=== PATIENT | female | born 2000 | race Caucasian/White ===

== ENCOUNTER 2022-03-19 14:00 | Outpatient (CLI) | payer MEDICAID, SELFPAY ==
--- NOTE | 2022-03-19 14:00 | CRLHL7_ITS ---
For Patients: As a result of the Century Cures Act, medical imaging exams and procedure reports are released immediately into your electronic medical record. You may view this report before your referring provider. If you have questions, please contact your health care provider. CLINICAL HISTORY: Chronic sinusitis. TECHNIQUE: CT of the paranasal sinuses without contrast. Multiplanar reformats are included. COMPARISON: None. FINDINGS: Frontal sinuses/frontal sinus drainage pathways and anterior ethmoid air cells: The frontal sinuses are well aerated. The anterior ethmoid air cells are well aerated. The frontoethmoidal recesses are not obstructed. Posterior sinus group (posterior ethmoid air cells and sphenoid sinuses)/sphenoethmoidal recesses: The posterior ethmoid air cells are well aerated. The sphenoid sinuses are well aerated. The sphenoid sinus ostia and sphenoid ethmoidal recesses are not obstructed. Maxillary sinuses and ostiomeatal complexes: Moderate to advanced polypoid mucosal thickening right maxillary sinus. The ostium is obstructed. There is an accessory ostium within the medial maxillary sinus wall which is patent. The left maxillary sinus is well aerated and the ostium is not obstructed. Turbinates: Within normal limits. Nasal septum: Within normal limits. Nasal cavity: Relatively midline. Skullbase, maxilla, TMJ: Keros type 2 on the left. Keros type 2 on the right. No lytic or blastic osseous lesions. No periapical tooth lucencies. Mastoid air cells are clear. Orbital contents: Within normal limits. Imaged intracranial contents: Within normal limits. Imaged soft tissues structures: Within normal limits. IMPRESSION: 1. Moderate to advanced polypoid right maxillary sinus mucosal thickening with obstruction of the ostium. There is an accessory ostium within the medial maxillary sinus wall which is patent. 2. Remaining paranasal sinuses are well aerated. Please note that all CT scans at this facility use dose modulation, iterative reconstruction, and/or weight-based dosing when appropriate to reduce radiation dose to as low as reasonably achievable. Dictated by oHlger Montalvo MD @ 03/19/2022 4:07:33 PM (Electronically Signed)
--- OUTSIDE RECORDS SUMMARY | 2022-03-19 14:30 | XMS_ITS | Encounter Summary ---
:2000 Author Organization [facility] Address [address] [place] [address] Care Team Providers Name Role Phone Christin Palacios PA-C Primary Care Provider Encounter Details Date Type Department Care Team Description 09/02/2021 Telemedicine [facility] Christin Palacios, Bilateral bunions (Primary Dx); Medicine [facility] Anxiety; [address] Kelin alas concentrating [address] [place] [address] [place] [address] [phone] Social History Tobacco Use Types Packs/Day Years Used Date Smoking Tobacco: Passive Smoke Exposure - Never Smoker Smokeless Tobacco: Never Comments: some THC use Alcohol Use Standard Drinks/Week Comments Not Currently 0 (1 standard drink = 0.6 oz pure alcoho l) socially Sex Assigned at Date Recorded Not on file documented as of this encounter Progress Notes Christin Palacios PA-C - 09/02/2021 10:40 AM CDT Subjective: Today's visit with Marychuy was conducted as a scheduled video visit. She is presenting for follow up foot pain. She has h/o bunion 2 weeks of home bound care. And then 4 weeks on a scooter - so seated work, then She is only an FTE of 0.3 - works 24 hours/every 2 weeks. She is worried about the financial stress of not working during that time. Currently she is picking up extra working and getting time and a half. She is concerned about transportation as well. She isn't sure if the bus would take her or if she can drive safely with her left foot during the post op recovery time. She would still need to take out her dog - her roommate and friends have left for summer. She is wanting to cancel her surgery for now. She feels there are Pros and Cons to the get her surgery done now, but currently the cons outweigh the surgery. She is worried about if she will damage the foot further if she doesn't get her surgery, but then again the financial stress if she does get the surgery. Thursday her foot hurt from during her 7-3 shifts, but currently her foot doesn't hurt. She is wondering about home treatment options. Reports she got ADHD testing done about a month ago, but hasn't had the full assessment - as she wasworried about the coverage. Reports she hasn't heard specific results. Anxiety has also increased as of lately - Stress and anxious going back and forth about the surgery. Worried school will also cause her anxiety to increase. She is on Leaxapro 30 mg and Buspar 10 mg BID. Objective: There were no vitals taken for this visit. Constitutional: She is oriented to person, place, and time and well-developed, well-nourished, and in no distress. Neurological: She is alert and oriented to person, place, and time. Skin: Skin is warm and dry. Psychiatric: Mood and affect normal Assessment/Plan: 1. Bilateral bunions 2. Anxiety (HRC) 3. Difficulty concentrating Bunion - Reviewed this is an elective surgery - ultimately this is your decision -Reviewed If she decided to postpone the surgery does not prevent her from getting the surgery in the future - Discussed it is possible pain will progress, but it may remain stable - Discussed it is not medically dangerous to postpone the surgery - In the meantime recommend good supportive shoes with wide toe box and Naproxen as needed Anxiety - Continue Lexapor 30 mg - Increase the Buspar to 10 mg twice daily - Follow up in 4 weeks ADHD concerns - Follow up with your therapist to get a copy of the resutls. Clinician located at home. Patient located at other [employer] apt Billing based on: Complexity Christin Palacios PA-C documented in this encounter Plan of Treatment Not on filedocumented as of this encounter Visit Diagnoses Diagnosis Bilateral bunions - Primary Bunion Anxiety (HRC) Anxiety state, unspecified Difficulty concentrating Other general symptoms documented in this encounter Care Teams Armored Truck Driver Relationship Specialty Start Date End Date Christin Palacios PA-C PCP - General Physician Sales Representative Supervisor 05/12/14 [address] [facility] [place] [address] documented as of this encounter
--- OUTSIDE RECORDS SUMMARY | 2022-03-19 14:30 | XMS_ITS | Encounter Summary ---
:2000 Author Organization [facility] Address [address] [place] [address] Care Team Providers Name Role Phone Christin Palacios PA-C Primary Care Provider Reason for Visit Reason Comments [facility] tooth #15 Encounter Details Date Type Department Care Team Description 04/25/2021 Office Visit [facility] Aneta Guevara ADT [facility] Dent[facility] [address] [facility] (tooth #15) [address] [place] [address] [place] [address] [phone] Social History Tobacco Use Types Packs/Day Years Used Date Smoking Tobacco: Passive Smoke Exposure - Never Smoker Smokeless Tobacco: Never Alcohol Use Standard Drinks/Week Comments Not Currently 0 (1 standard drink = 0.6 oz pure alcoho l) socially Sex Assigned at Date Recorded Not on file documented as of this encounter Progress Notes Aneta Guevara ADT - 04/25/2021 11:40 AM CST DENTAL VISIT NOTE Subjective Reason for Visit/Chief Complaint: Marychuy is a 20 y.o. female who presents for [facility] (tooth #15) Chief Complaint: Decay Objective/Assessment Chart Review: The following information was reviewed with the patient: Medical history, Dental history, Problem list, Periodontal charting and Radiographs. PROGNOSIS: #15 Favorable Plan Treatment Discussion: I discussed the Dental findings, Prognosis, Treatment options, Risks and complications associated with procedure and Billing/Treatment estimate with patient. All questions answered and the patient gave informed consent to proceed with dental treatment/services. Procedural Pause: Patient identity verified: Yes Treatment plan/site verified with the patient: Yes Instruments/equipment verified: Yes Medication/allergy contraindications: No Completed Procedures: NITROUS OXIDE/OXYGEN inhalation therapy was indicated to reduce anxiety. Informed the patient of the effects of nitrous oxide and oxygen and they gave permission to proceed with induction and treatment under nitrous oxide sedation. Patient was under nitrous oxide sedation for 25 total minutes. The maximum concentration of nitrous oxide administered was 50%. Post procedural oxygen was administered for 5 minutes. No adverse reactions observed. Patient was alert when discharged. Nitrous Oxide was administered by BRAULIO Jimenez ANESTHESIA: Topical with 20% benzocaine 1.0 carpules 4% septocaine with 1:100,000 epinephrine was administered with infiltration in #15 No adverse side effects observed. Anesthesia was administered by BRAULIO Jimenez AMALGAM BUDDHISM, #15: Prepared with complete caries removal Isolated area with high speed suction and a cheek guard Liner/Varnish/Base: N/A Bonding: N/A Preparation filled with amalgam Verified occlusion, contacts and margins POST-OP INSTRUCTIONS: Patient was advised of normal post-operative instructions and potential for post-operative sensitivity Care was assisted by Ingris Mccord Planned Visit: Recall BRAULIO Jimenez [id number] 04/25/2021, 12:18 PM Treatment Authorized by Dr. Lora Escobar [id number] --End of Progress Note-- 12:16 PM ECTOR RETURNED MATERIALS documented in this encounter Plan of Treatment Not on filedocumented as of this encounter Procedures Procedure Name Priority Date/Time Associated Diagnosis Comme nts ANALGESIA (NITROUS) Routine 04/25/2021 11:40 AM Dental caries extending INSPECTOR RETURNED MATERIALS into middle third of dentin 15 O AMALGAM-1 SURFACE Routine 04/25/2021 11:40 AM Dental rosa es extending INSPECTOR RETURNED MATERIALS into middle third of dentin documented in this encounter Visit Diagnoses Diagnosis Dental caries extending into middle thir d of dentin - Primary documented in this encounter Care Teams Casino Worker Relationship Specialty Start Date End Date Christin Palacios PA-C PCP - General Physician Brokerage Coordinator 05/12/[address] [place] [address] documented as of this encounter
--- OUTSIDE RECORDS SUMMARY | 2022-03-19 14:30 | XMS_ITS | Encounter Summary ---
:2000 Author Organization [facility] Address [address] [place] [address] Care Team Providers Name Role Phone Christin Palacios PA-C Primary Care Provider Reason for Visit Reason Comments CONSULT Bilat ft bunions & Tailors b unions Consult/Transfer Care (Routine) - New Request Specialty Diagnoses / Procedures Referred By Contact Refer red To Contact Diagnoses Bilateral bunions Christin Palacios PA-C [address] [address] Referral ID Status Reason Start Date Expiration Date Visits V isits Requested Authorized [id number] New Request 04/09/2021 07/09/2022 1 1 Encounter Details Date Type Department Care Team Description 05/06/2021 Office Visit Tammie Reyez s deformity of both great toes (Primary Dx); Podiatric Medicine & M, DPM Tailor's bunion of both feet Surgery [address] [place], [place] [address] [place], [place] [phone] (Wo rk) Social History Tobacco Use Types Packs/Day Years Used Date Smoking Tobacco: Passive Smoke Exposure - Never Smoker Smokeless Tobacco: Never Comments: some THC use Alcohol Use Standard Drinks/Week Comments Not Currently 0 (1 standard drink = 0.6 oz pure alcoho l) socially Sex Assigned at Date Recorded Not on file documented as of this encounter Patient Instructions Patient InstructionsSaTammie johnson DPM - 05/06/2021 10:45 AM ESCROW ASSISTANT Bilateral bunions and Tailor's bunions: Wide toe box shoes, spacer, pads Surgery: Lapidus bunionectomy (1st tmt joint fusion/midfoot fusion) with Tailors bunionectomy Daisy Martin is closer for you: [phone] - Dr.Troy Epps OW ASSISTANT documented in this encounter Progress Notes Tammie Walsh DPM - 05/06/2021 12:00 AM CST NAME: MYRANDA BRANDT CSN: [id number] CLINIC NOTE DATE OF SERVICE: 05/06/2021 : 2000 SUBJECTIVE: Patient is a 20-year-old female seen today at the request of Christin Palacios PA-C, for evaluation of bilateral bunions and tailor bunions. The patient reports pain with certain shoes if she has to stand for a long period of time. She also has some sharp, numbing, shooting pains as well alongthe great toe area, right slightly worse than left because she drives a lot and feels that contributes. She rates pain as a 6 to 7 on a 1 to 10 scale. She feels she has had bunions all her life. PAST MEDICAL HISTORY/CURRENT MEDICAL PROBLEMS: Depression, anxiety, allergic rhinitis, overweight, undiagnosed cardiac murmur. MEDICATIONS: Reviewed and updated in Epic. ALLERGIES: REVIEWED AND UPDATED IN EPIC. OBJECTIVE: GENERAL: The patient is an alert and oriented 20-year-old female who is in no acute distress. LOWER EXTREMITIES: Pedal pulses are palpable bilaterally. Distal light touch sensation is intact. Skin is intact without rashes or scaling. She has a bilateral hallux valgus deformity with bony prominence at the medial 1st MTP joint and abduction of both great toes. Also tailor bunion deformities withbony prominence at the lateral 5th MTP joint. There is normal range of motion of the 1st and 5th MTPjoints bilaterally. There is no obvious edema or erythema. IMAGING: Radiographs are obtained, 3 views of both feet reviewed and interpreted by myself, demonstrate bilateral hallux valgus deformities, increased 1st intermetatarsal and CARBALLO angle. There is metatarsus adductus bilaterally and mild tailor bunions bilaterally. ASSESSMENT: 1.Hallux abductovalgus. 2.Bilateral tailor bunion. PLAN: Reviewed clinical and radiographic findings with Myranda and treatment options. We discussed conservative management to consist of wide toe box shoes, spacers, padding, etc. Reviewed that bunions are typically hereditary and that she just inherited her foot structure and is prone to this. We discussed correction of the bunion requires surgical intervention. Since she has a juvenile bunion, I think she may do better with a 1st TMT joint fusion/Lapidus bunionectomy along with tailor bunionectomy.The procedure was reviewed as well as presumed postop recovery course. She is interested in having procedure done closer to where she is at. 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 Epps as a provider. All questions were answered today. TAMMIE WALSH DPM SMS/AQS /[id number] OW ASSISTANT documented in this encounter Plan of Treatment Scheduled Referrals Name Type Priority Associated Diagnoses Order S chedule Foot & Ankle/Podiatry Referral Routine Bilateral bunions O rdered: 04/09/2021 Consult-Adult/Peds documented as of this encounter Visit Diagnoses Diagnosis Valgus deformity of both great toes - Pr imary Navin's bunion of both feet documented in this encounter Care Teams Automotive Internet Sales Manager Relationship Specialty Start Date End Date Christin Palacios PA-C PCP - General Physician Medical Practice Administrator 05/12/[address] [place] [address] documented as of this encounter
--- OUTSIDE RECORDS SUMMARY | 2022-03-19 14:30 | XMS_ITS | Encounter Summary ---
:2000 [facility] Address [address] [place] [address] Care Team Providers Name Role Phone Christin Palacios PA-C Primary Care Provider Reason for Visit Procedure/Equipment (Routine) - Incomplete Specialty Diagnoses / Procedures Referred By Contact Refer red To Contact Diagnoses Tammie Khan DPM Procedures XR Foot Lt 3+ Views [address] [place], [place] [address] Referral ID Status Reason Start Date Expiration Date Visits V isits Requested Authorized [id number] Incomplete 05/03/2021 08/02/2022 1 1 Encounter Details Date Type Department Care Team Description 05/06/2021 Ancillary Procedure [facility] - M, DPM Radiology [address] [place], [place] [address] [place], [place] [phone] (Wo rk) Social History Tobacco Use Types Packs/Day Years Used Date Smoking Tobacco: Passive Smoke Exposure - Never Smoker Smokeless Tobacco: Never Comments: some THC use Alcohol Use Standard Drinks/Week Comments Not Currently 0 (1 standard drink = 0.6 oz pure alcoho l) socially Sex Assigned at Date Recorded Not on file documented as of this encounter Plan of Treatment Not on filedocumented as of this encounter Procedures Procedure Name Priority Date/Time Associated Diagnosis Comme nts XR FOOT LT 3+ VIEWS Routine 05/06/2021 10:52 AM Bunion R esults for this GLASS OR MIRROR INSPECTOR procedure are i n the results section. documented in this encounter Results XR Foot Lt 3+ Views (05/06/2021 10:52 AM GLASS OR MIRROR INSPECTOR) Anatomical Region Laterality Modality Lower Extremity, Foot Digital Radiograph y Specimen (Source) Anatomical Collection Method Collection Time Re ceived Time Location / / Volume Laterality 05/06/2021 10:41 AM GLASS OR MIRROR INSPECTOR Impressions 05/06/2021 11:23 AM GLASS OR MIRROR INSPECTOR COMPARISON: ??None. FINDINGS: ??Hallux valgus deformity. No acute bone or joint abnormalities. The remainder of the exam is unremarkable. ?? Procedure Note Allan Kothari MD - 05/06/2021For matting of this note might be different from the original. IMPRESSION COMPARISON: None. FINDINGS: Hallux valgus deformity. No ac alejandro bone or joint abnormalities. The remainder of the exam is unremarkable. Tammie Crowell DPM RAD GD documented in this encounter Visit Diagnoses Diagnosis Bunion documented in this encounter Care Teams Lead Painter Relationship Specialty Start Date End Date Christin Palacios PA-C PCP - General Physician Motor Driver 05/12/14 [address] [place] [address] [address] [address] documented as of this encounter
--- OUTSIDE RECORDS SUMMARY | 2022-03-19 14:30 | XMS_ITS | Encounter Summary ---
:2000 Author Organization [facility] Address [address] [place] [address] Care Team Providers Name Role Phone Christin Palacios PA-C Primary Care Provider Reason for Referral Procedure/Equipment (Routine) - Incomplete Specialty Diagnoses / Procedures Referred By Contact Refer red To Contact Diagnoses Acquired hallux valgus of right foot Timothy Epps DPM Procedures Case Request OR - Podiatry Surgery: FUSION MIDFOOT, cheilectomy, MCLR, TAILORS BUNIONECTOMY [address] [place] [address] Referral ID Status Reason Start Date Expiration Date Visits V isits Requested Authorized [id number] Incomplete 05/16/2021 08/15/2022 1 1 M APPROVER Reason for Visit Reason Comments CONSULT Encounter Details Date Type Department Care Team Description 05/16/2021 Office Visit Timothy Castellano, Acquired h allux valgus of right foot (Primary Dx); [facility] DPM Tailor's bunion of both feet; [address] [place] [address] [place], [place] [phone] [address] Social History Tobacco Use Types Packs/Day Years Used Date Smoking Tobacco: Passive Smoke Exposure - Never Smoker Smokeless Tobacco: Never Comments: some THC use Alcohol Use Standard Drinks/Week Comments Not Currently 0 (1 standard drink = 0.6 oz pure alcoho l) socially Sex Assigned at Date Recorded Not on file documented as of this encounter Patient Instructions Patient InstructionsZulay Yi LPN - 05/16/2021 11:00 AM CLAIM APPROVER Thank you for choosing [facility] for your health care visit today. Please read the contents below for important information regarding today's appointment. Medication Requests: Prescriptions are not filled on weekends or on weekdays after 3:00 PM. For all medication refills: Request a refill using [employer] or contact your pharmacy. MRI Scheduling: To schedule an MRI at [facility] please call [phone]. For Critical access hospital please call [phone]. For [facility] please call [phone]. [facility] Workers' Compensation [address] [place] [address] (Phone) What is Know Your Cost? Know Your Cost is a service for patients and patient/members to call and receive personalized cost information and estimates across our care group. The phone number is (COST) and is openThursday - Thursday from 8 a.m. to 5 p.m. Timothy Epps DPM Foot & Ankle Surgeon [facility] Thursday and Paperwork Requests/Questions Regarding Surgery Scheduling: All paperwork takes up to 10 business days to complete. Pattern Marker: Debora Frankel Navigator: Zak Bullard LPN Diagnosis: Diagnosis and Associated Orders ICD-10-CM 1. Acquired hallux valgus of right foot M20.11 2019 Novel Coronavirus (COVID-19) Case Request OR - Podiatry Surgery: FUSION MIDFOOT, cheilectomy, MCLR, TAILORS BUNIONECTOMY Case Request OR - Podiatry Surgery: FUSION MIDFOOT, cheilectomy, MCLR, TAILORS BUNIONECTOMY 2. Tailor's bunion of both feet M21.621 M21.622 3. Bunion M21.619 A bunion is commonly referred to as a ???bump?? on the joint at the base of the big toe--the metatarsophalangeal (MTP) joint--that forms when the bone or tissue at the big toe joint moves out of place. The toe is forced to bend toward the others, causing an often painful lump of bone on the foot. Because this joint carries a lot of the body's weight while walking, bunions can cause extreme pain if left untreated. The MTP joint itself may become stiff and sore, making even the wearing of shoes difficult or impossible. A bunion--from the Latin bunio, meaning enlargement--can also occur on the outside of the foot along the little toe, where it is called a bunionette or tailor's bunion. What can you do for relief? ?? Bunion pain can be managed successfully by switching to shoes that fit properly and do not compress the toes. Some shoes can be modified by using a stretcher to stretch out the areas that put pressure on your toes. Wear shoes with a wide and deep toe box. Avoid high-heeled shoes over two inches tall. ?? Protective bunion-shield pads can help cushion the painful area over the bunion. ?? To take pressure off your bunion, recommend wearing [id number] or custom-made shoe inserts (orthotics). ?? Applying ice several times a day for 20 minutes at a time can help reduce swelling. ?? Nonsteroidal anti-inflammatory medications such as ibuprofen and naproxen can help relieve pain and reduce swelling. Surgery Possible procedures: ?? Cheilectomy with ligament repair: The goal of surgery is removing bone spurs while preserving bigtoe joint motion. ?? Bunionectomy with Distal osteotomy, cheilectomy with ligament repair: removes the jina protrusion, reposition the big toe and removing bone spurs. Weight bearing in a surgical shoe. ?? 1st MPJ fusion- fusing the great toe joint, any remnant cartilage on the arthritic joint surface is removed and the underlying bone is prepared for fusion. ?? Midfoot fusion: fusing the 1st metatarsal to the medial cuneiform, any remnant cartilage on the arthritic joint surface is removed and the underlying bone is prepared for fusion. Surgery is outpatient and can be completed here at [facility]. Recovery is 10 week; non-weight bearing for initial 6 weeks with help from a knee scooter. You will then transition to weight bearing in a boot for an additional 4 weeks. Plan: -Proceed with surgery on the right foot Follow-Up: 1 week prior to surgery M APPROVER documented in this encounter Progress Notes Zak Burk LPN - 05/16/2021 11:00 AM CST Subjective: Marychuy Le is a 20 y.o. non-diabetic female who presents for initial evaluation Chief complaint: Foot pain Preferred name: Marychuy Accompanied by: unaccompanied. Which foot: bilateral How long have you had this problem: She has had Bunions for as long as she can remember. She states she has been having intermittent pain for the last 6 months Is the pain worsening, staying the same or improving: staying the same What does your pain feel like: sharp, throbbing, achy. Do you have radiating pain: yes, bilaterally has pain that travels to dorsal side of feet and feels numbness in big toes Treatment so far: ice, new shoes, stretching, heat and decreased activity Pain scale: 4 Does your pain limit your work or activities: yes, when working and kickboxing and playing volleyball.. Was there an injury: no Was there swelling or bruising: yes, no bruising but redness is present Is there weakness: no Have you ever had similar problems: no Have you ever had foot or ankle surgery: no Have you seen someone else for this problem: yes, Dr. 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 Personal medical history: denies diabetes or other medical conditions Family medical history: arthritis, Did you have X-rays taken today? no Marychuy is a 20 year old female here to discuss bilateral bunions and tailor's bunions. Right side isslightly worse than the left Primary point of pain is right great toe. Pain worsens with certain shoes, prolonged standing, driving. Treatment to date include icing, new shoes, reduced activity. Objective: General Assessment: Patient is alert and fully cooperative with history & exam. No sign of distress is noted during the visit. Vascular: Normal circulation is found on exam bilaterally with intact foot pulses, capillary refill less than three seconds and no pathologic edema. Hair growth is intact. Neurological: Sensation is intact to light touch and there is no evidence of spasticity. Dermatologic: Dermatologic exam is normal without evidence of pathologic findings. No open wounds, infection or tissue breakdown. No paronychia is noted. Musculoskeletal: Hallux abducto valgus is noted with bilateral foot exam. Lateral deviation of the first toe is appreciated. A bump is noted on the medial aspect of the first metatarsal head. Evidence of soft tissue irritation is noted over the dorsal medial aspect of the first metatarsal head. No significant evidence of degenerative arthritis is appreciated. No significant sesamoid pain is noted plantarly. I do not appreciate significant pain with joint motion. Tailor's bunion deformity is noted with bilateral foot exam. The fifth metatarsal head is prominent with overlying soft tissue irritation and is painful to palpation. There is not palpable deformity ofthe metatarsal head. There is no noted hypermobility within the 5th ray. There is not evidence of ass ociated neuritis. MEDICAL DECISION MAKING Diagnosis: ??? New development of Hallux valgus, Bialteral ??? New development of Tailor's bunion, Bilateral Data Review: ??? Review prior external medical records: Dr. Crowell OV on 05/06/21 ??? Review of prior test results: X-ray on 05/06/21 Plan and Associated High Level of Risk: ??? Decision regarding elective major surgery with/without identified patient or procedure risk factors: We discussed treatment alternatives regarding bunion pain and deformity. I explained that bunion surgery is mostly to reduce the size of the medial bump although an attempt is made to improve the firsttoe alignment. Bunion deformity is usually progressive and further drifting of the toe may occur even with surgery. I explained that surgery sometimes needs to be repeated especially if recurrent deformity or over-correction of toe position occurs. The potential for hallux varus was specifically addressed. This is not entirely avoidable and is likely to be a significant problem if this develops. Thiswould likely require repeat surgery and possibly fusion of the joint. Non-operative treatments were discussed including wide fitting shoes, splints, pads and orthotics. Wide fitting shoes are likely the most useful non-surgical treatment. I would not expect much improvement from NSAIDs, injection or bunion night splints. Potential complications from surgery were discussed. Specific bunion related concerns include over-correction, under-correction, recurrent deformity, non- union, neuritis, numbness, infection, avascularnecrosis, need for future joint fusion, future hardware removal, joint pain and continued bunion deformity. Treatment of Tailor's bunion deformity was discussed at length. Non-surgical treatments were described to primarily include wide fitting shoes, injection and protective padding over the irritated skin.We discussed surgical treatments to include bump removal or bump removal with metatarsal osteotomy to include internal fixation. Risks associated with surgery were described including loss of fixation or correction, need for repeat surgery, dislocation of the toe, neuritis, continued pain, infection or blood clot. The patient understands that surgery is elective and can be avoided if desired. Likely surgical procedures based on exam and xray findings include right midfoot fusion, cheilectomy, MCLR, tailors bunionectomy (midshaft osteotomy). Surgery order was placed today. She will schedule at her convenience and return for surgery planningprior to surgery. Given all of the above, there is high risk associated with the condition, patient, and treatment options being considered. Mason Carroll DPM Foot & Ankle Surgery, Chief Resident This document serves as a record of services personally performed by Timothy Epps DPM. It was created on his behalf by Zak Burk LPN. The creation of this record is based on the scribe's personal observations and the provider's statements to them. This document has been checked and approved by the attending provider. I managed this patient directly and performed the martin portions of the visit for day of service 05/16/2021. Please see resident documentation for full note. Timothy Epps DPM M APPROVER documented in this encounter Plan of Treatment Scheduled Orders Name Type Priority Associated Diagnoses Order S chedule 2019 Novel Coronavirus Microbiology Routine Acquired hallux Ex pected: (COVID-19) valgus of right foot 022, Expires: 2022 documented as of this encounter Visit Diagnoses Diagnosis Acquired hallux valgus of right foot - P rimary Hallux valgus (acquired) Tailor's bunion of both feet Bunion documented in this encounter Care Teams Capture Manager Relationship Specialty Start Date End Date Christin Palacios PA-C PCP - General Physician Retail Warehouse Associate 05/12/14 [address] [place] [address] [address] [address] documented as of this encounter
--- OUTSIDE RECORDS SUMMARY | 2022-03-19 14:30 | XMS_ITS | Encounter Summary ---
:2000 [facility] Address [address] [place] [address] Care Team Providers Name Role Phone Christin Palacios PA-C Primary Care Provider Reason for Visit Reason Comments Forms Encounter Details Date Type Department Care Team Description 10/17/2021 Telephone [facility] Christin Palacios PA-C Forms [address] [address] [address] [place] [address] [place] [address] [phone] Social History Tobacco Use Types Packs/Day Years Used Date Smoking Tobacco: Passive Smoke Exposure - Never Smoker Smokeless Tobacco: Never Comments: some THC use Alcohol Use Standard Drinks/Week Comments Not Currently 0 (1 standard drink = 0.6 oz pure alcoho l) socially Sex Assigned at Date Recorded Not on file documented as of this encounter Nursing Notes Christin Palacios PA-C - 10/18/2021 10:14 AM CDT I am not in clinic today. Will reach out to rooming staff through [employer] to see if they canprint form and have one of my partners sign Immunization verification form in my absence. Christin Palacios PA-C 10/18/2021, 10:18 AM Jerri Leigh RN - 10/17/2021 2:27 PM CDT Clinician Action: Form/Letter completion Clinician Next Step: Reply in MyChart Specific Request(s): 1. See message Roxanne Plata - 10/17/2021 1:49 PM CDT Pt states she forgot to send a 2nd sheet, forms are from [facility] for school, pt states she'll send this through my chart, pt states she need Christin to sign it sony please documented in this encounter Plan of Treatment Not on filedocumented as of this encounter Visit Diagnoses Not on filedocumented in this encounter Care Teams Supervisor Alum Plant Relationship Specialty Start Date End Date Christin Palacios PA-C PCP - General Physician Lanolin Plant Operator 05/12/14 [address] [place] [address] [address] [address] documented as of this encounter
--- OUTSIDE RECORDS SUMMARY | 2022-03-19 14:30 | XMS_ITS | Encounter Summary ---
:2000 Author Organization [facility] Address [address] [place] [address] Care Team Providers Name Role Phone Christin Palacios PA-C Primary Care Provider Encounter Details Date Type Department Care Team Description 08/22/2021 Notes/Orders [facility] Timothy Swenson i, DPM [address] [place] [address] [place], [place] [id number] [phone] Social History Tobacco Use Types Packs/Day Years [...] on filedocumented in this encounter Care Teams Hearing Stenographer Relationship Specialty Start Date End Date Christin Palacios PA-C PCP - General Physician Bricklayer Tender 05/12/[address] [place] [address] documented as of this encounter
--- OUTSIDE RECORDS SUMMARY | 2022-03-19 14:30 | XMS_ITS | Encounter Summary ---
:2000 Author Organization [facility] Address [address] [place] [address] Care Team Providers Name Role Phone Christin Palacios PA-C Primary Care Provider Encounter Details Date Type Department Care Team Description 07/29/2021 Telemedicine [facility] Christin Palacios, [facility] Medicine ANGEL concentrating (Primary [address]) [address] [place] [address] [place] [address] [phone] Social History Tobacco Use Types Packs/Day Years Used Date Smoking Tobacco: Passive Smoke Exposure - Never Smoker Smokeless Tobacco: Never Comments: some THC use Alcohol Use Standard Drinks/Week Comments Not Currently 0 (1 standard drink = 0.6 oz pure alcoho l) socially Sex Assigned at Date Recorded Not on file documented as of this encounter Progress Notes Christin Palacios PA-C - 07/29/2021 9:00 AM CDT Subjective: Today's visit with Marychuy was conducted as a scheduled video visit. Marychuy Le is a 20 y.o. female presenting for ADHD/focus concerns. Reports all her life she has been told by others she has ADHD, but has not done any medications or treatment. She does feel her focus on school is continuing to struggle would like to move forward with ADHD evaluation She is in [place] for school currently. Feels her mood is stable. Objective: There were no vitals taken for this visit. Constitutional: She is oriented to person, place, and time and well-developed, well-nourished, and in no distress. Neurological: She is alert and oriented to person, place, and time. Skin: Skin is warm and dry. Psychiatric: Mood and affect normal Assessment/Plan: 1. Difficulty concentrating - Reviewed ADHD testing process - She will look into local providers and update me for referral on location Clinician located at home. Patient located at other Dorm room Billing based on: Complexity Christin Palacios PA-C documented in this encounter Plan of Treatment Not on filedocumented as of this encounter Visit Diagnoses Diagnosis Difficulty concentrating - Primary Other general symptoms documented in this encounter Care Teams High Speed Printer Operator Relationship Specialty Start Date End Date Christin Palacios PA-C PCP - General Physician Final Rail Cutter 05/12/[address] [place] [address] documented as of this encounter
--- OUTSIDE RECORDS SUMMARY | 2022-03-19 14:30 | XMS_ITS | Encounter Summary ---
:2000 Author [facility] Address [address] [place] [address] Care Team Providers Name Role Phone Christin Palacios PA-C Primary Care Provider Encounter Details Date Type Department Care Team Description 02/06/2021 Notes/Orders [facility] Randall Mcdowell DDS Dentistry [address] [facility] [address] [place] [address] [place] [address] [phone] Social History Tobacco Use Types Packs/Day Years Used Date Smoking Tobacco: Passive Smoke Exposure - Never Smoker Smokeless Tobacco: Never Alcohol Use Standard Drinks/Week Comments Not Currently 0 (1 standard drink = 0.6 oz pure alcoho l) socially Sex Assigned at Date Recorded Not on file documented as of this encounter Progress Notes Randall Mcdowell DDS - 02/06/2021 2:02 PM CDT Letter from [facility] [place] stating that Marychuy was seen for a hygiene recall. Randall Mcdowell DDS documented in this encounter Plan of Treatment Not on filedocumented as of this encounter Visit Diagnoses Not on filedocumented in this encounter Care Teams Vehicle Return Associate Relationship Specialty Start Date End Date Christin Palacios PA-C PCP - General Physician Rice Field Worker 05/12/14 [address] [place] [address] documented as of this encounter
--- OUTSIDE RECORDS SUMMARY | 2022-03-19 14:30 | XMS_ITS | Encounter Summary ---
:2000 Author Organization [facility] Address [address] [place] [address] Care Team Providers Name Role Phone Christin Palacios PA-C Primary Care Provider Reason for Referral Procedure/Equipment (Routine) - Incomplete Specialty Diagnoses / Procedures Referred By Contact Refer red To Contact Diagnoses Tammie Khan DPM Procedures XR Foot Lt 3+ Views [address] [place], [place] [address] Referral ID Status Reason Start Date Expiration Date Visits V isits Requested Authorized [id number] Incomplete 05/03/2021 08/02/2022 1 1 TRICIAN HELPER Procedure/Equipment (Routine) - Incomplete Specialty Diagnoses / Procedures Referred By Contact Refer red To Contact Diagnoses Tammie Khan DPM Procedures XR Foot Rt 3+ Views [address] [place], [place] [address] Referral ID Status Reason Start Date Expiration Date Visits V isits Requested Authorized [id number] Incomplete 05/03/2021 08/02/2022 1 1 TRICIAN HELPER Encounter Details Date Type Department Care Team Description 05/03/2021 Notes/Orders Tammie Reyez (Primary Dx) Podiatric Medicine & M, DPM Surgery [address] [facility] [address] [place], [place] [address] [place], [place] [phone] (Wo rk) Social History Tobacco Use Types [...] Not on filedocumented as of this encounter Results XR Foot Lt 3+ Views (05/06/2021 10:52 AM ELECTRICIAN HELPER) Anatomical Region Laterality Modality Lower Extremity, Foot Digital Radiograph y Specimen (Source) Anatomical Collection Method Collection Time Re ceived Time Location / / Volume Laterality 05/06/2021 10:41 AM ELECTRICIAN HELPER Impressions 05/06/2021 11:23 AM ELECTRICIAN HELPER COMPARISON: ??None. FINDINGS: ??Hallux valgus deformity. No acute bone or joint abnormalities. The remainder of the exam is unremarkable. ?? Procedure Note Allan Kothari MD - 05/06/2021For matting of this note might be different from the original. IMPRESSION COMPARISON: None. FINDINGS: Hallux valgus deformity. No ac campo bone or joint abnormalities. The remainder of the exam is unremarkable. Tammie Crowell DPM RAD GD XR Foot Rt 3+ Views (05/06/2021 10:52 AM ELECTRICIAN HELPER) Anatomical Region Laterality Modality Lower Extremity, Foot Digital Radiograph y Specimen (Source) Anatomical Collection Method Collection Time Re ceived Time Location / / Volume Laterality 05/06/2021 10:40 AM ELECTRICIAN HELPER Impressions 05/06/2021 11:22 AM ELECTRICIAN HELPER COMPARISON: ??None. FINDINGS: ??Hallux valgus deformity. No acute bone or joint abnormalities. The remainder of the exam is unremarkable. ?? Procedure Note Allan Kothari MD - 05/06/2021For matting of this note might be different from the original. IMPRESSION COMPARISON: None. FINDINGS: Hallux valgus deformity. No ac campo bone or joint abnormalities. The remainder of the exam is unremarkable. Tammie Crowell DPM RAD GD documented in this encounter Visit Diagnoses Diagnosis Bunion - Primary Bunion Bunion documented in this encounter Care Teams Sock And Stocking Ironer Relationship Specialty Start Date End Date Christin Palacios PA-C PCP - General Physician Rpg Programmer 05/12/[address] [place] [address] documented as of this encounter
--- OUTSIDE RECORDS SUMMARY | 2022-03-19 14:30 | XMS_ITS | Encounter Summary ---
:2000 Author Organization [facility] Address [address] [place] [address] Care Team Providers Name Role Phone Christin Palacios PA-C Primary Care Provider Encounter Details Date Type Department Care Team Description 07/09/2021 Notes/Orders [facility] Timothy Swenson i, DPM [address] [place] [address] [place], [place] [id number] [phone] Social History Tobacco Use Types Packs/Day Years [...] on filedocumented in this encounter Care Teams Alumni Secretary Relationship Specialty Start Date End Date Christin Palacios PA-C PCP - General Physician Privacy Officer 05/12/[address] [place] [address] documented as of this encounter
--- OUTSIDE RECORDS SUMMARY | 2022-03-19 14:30 | XMS_ITS | Encounter Summary ---
:2000 Author Organization [facility] Address [address] [place] [address] Care Team Providers Name Role Phone Christin Palacios PA-C Primary Care Provider Encounter Details Date Type Department Care Team Description 04/22/2021 Notes/Orders TRIA Rose Marie Montemayor Podiatric Zach Hansen, JONI Medicine & Surgery [address] [facility] [address] [place] [address] [place], [place] [address] [phone] Social History Tobacco Use Types Packs/Day Years [...] on filedocumented in this encounter Care Teams Retail Shift Manager Relationship Specialty Start Date End Date Christin Palacios PA-C PCP - General Physician Visually Impaired Teacher 05/12/[address] [place] [address] documented as of this encounter
--- OUTSIDE RECORDS SUMMARY | 2022-03-19 14:30 | XMS_ITS | Encounter Summary ---
:2000 Author Organization [facility] Address [address] [place] [address] Care Team Providers Name Role Phone Gunner Carias PA-C Primary Care Provider Reason for Visit Reason Onset Date Comments Refill 03/18/2021 busPIRone (BUSPAR) 5 MG tablet Encounter Details Date Type Department Care Team Description 03/18/2021 Refill Gunner Soriano, Refill (bus PIRone Medicine/Pediatrics ANGEL (BUSPAR) 5 MG tablet) [address] [facility], [address] [facility] [address] [place] [address] [place], [place] [id number] (Wo rk) Social History Tobacco Use Types Packs/Day Years Used Date Smoking Tobacco: Passive Smoke Exposure - Never Smoker Smokeless Tobacco: Never Alcohol Use Standard Drinks/Week Comments Not Currently 0 (1 standard drink = 0.6 oz pure alcoho l) socially Sex Assigned at Date Recorded Not on file documented as of this encounter Nursing Notes La Nena Hamilton RN - 03/18/2021 3:07 PM CST Renewed medication per medication refill protocol. Requested Prescriptions Pending Prescriptions Disp Refills busPIRone (BUSPAR) 5 MG tablet 180 Tablet 3 Sig: Take 1 Tablet by mouth two times a day. ENTICE PAINTER BRUSH Interface, Out SiC Processing Prov Query - 03/18/2021 11:56 AM CST busPIRone (BUSPAR) 5 MG tablet Medication started: 01/19/2020 Last ordered by GUNNER CARIAS: 01/26/2021 (51 days ago) QTY: 60, Refills: 0, Sig: take 1 tablet bymouth two times a day. (unchanged) -> Refill x 12 months, qty: 180, refills: 3 (until due for an office visit) Last qualifying visit: 02/25/2021 (with GUNNER CARIAS) Next scheduled visit: None Powered by [employer], Reference: [id number], 03/18/2021 11:56:46 AM Geraldo CALLAHAN ([id number]) ENTICE PAINTER BRUSH documented in this encounter Plan of Treatment Not on filedocumented as of this encounter Visit Diagnoses Not on filedocumented in this encounter Care Teams Instrument Person Relationship Specialty Start Date End Date Gunner Carias PAUrbanoC PCP - General Physician [employer] Dispatcher 05/12/14 [address] [address], [place] [address] documented as of this encounter
--- OUTSIDE RECORDS SUMMARY | 2022-03-19 14:30 | XMS_ITS | Encounter Summary ---
:2000 Author Organization [facility] Address [address] [place] [address] Care Team Providers Name Role Phone Christin Palacios PA-C Primary Care Provider Reason for Visit Reason Comments APPOINTMENT REQUEST Encounter Details Date Type Department Care Team Description 05/17/2021 Telephone [facility] Timothy Epps , APPOINTMENT REQUEST CENTER [address] [place] [address] [place], [place] [phone] (Wo rk) Social History Tobacco Use Types Packs/Day Years Used Date Smoking Tobacco: Passive Smoke Exposure - Never Smoker Smokeless Tobacco: Never Comments: some THC use Alcohol Use Standard Drinks/Week Comments Not Currently 0 (1 standard drink = 0.6 oz pure alcoho l) socially Sex Assigned at Date Recorded Not on file documented as of this encounter Nursing Notes Debora Frankel - 05/20/2021 4:27 PM CST Spoke with pt via phone. Moving forward with 08/28/21 surgical date. Debora Frankel 4:31 PM 05/20/2021 MACHINE OPERATOR Debora Frankel - 05/20/2021 4:13 PM CST Left VM for pt regarding surgery scheduling. Debora Frankel 4:13 PM 05/20/2021 MACHINE OPERATOR Tammie Bloom - 05/17/2021 1:22 PM CST Pt is requesting a call back to schedule surgery for bunion of both feet. Please return pt call. MACHINE OPERATOR documented in this encounter Plan of Treatment Not on filedocumented as of this encounter Visit Diagnoses Not on filedocumented in this encounter Care Teams Clinical Statistics Manager Relationship Specialty Start Date End Date Christin Palacios PA-C PCP - General Physician Spice Blender 05/12/[address] [place] [address] documented as of this encounter
--- OUTSIDE RECORDS SUMMARY | 2022-03-19 14:30 | XMS_ITS | Encounter Summary ---
:2000 Author Organization [facility] Address [address] [place] [address] Care Team Providers Name Role Phone Christin Palacios PA-C Primary Care Provider Reason for Referral Consult/Transfer Care (Routine) - New Request Specialty Diagnoses / Procedures Referred By Contact Refer red To Contact Diagnoses Bilateral bunions Christin Palacios PA-C [address] [place] [address] Referral ID Status Reason Start Date Expiration Date Visits V isits Requested Authorized [id number] New Request 04/09/2021 07/09/2022 1 1 Scheduling Instructions Your provider has recommended an appoint ment with Dinesh Ceja Pod[facility]. You may call [phone] to sc hedule your appointment. We suggest you call your health insurance company about your coverage and benefits for this appointment. S SOLUTIONS ASSOCIATE Encounter Details Date Type Department Care Team Description 04/09/2021 Telemedicine Delvin Abbasi Medici ne Christin Palacios, Depression, unspecified depr ession type (HRC) (Primary Dx); [address] Delvin Munguia PA-C Bilateral bunions; [address] [id number] [address] Acute bilateral low back siria n without sciatica (HRC); [place] [address] [address] Anxiety [phone] [place] [id number] Social History Tobacco Use Types Packs/Day Years Used Date Smoking Tobacco: Passive Smoke Exposure - Never Smoker Smokeless Tobacco: Never Alcohol Use Standard Drinks/Week Comments Not Currently 0 (1 standard drink = 0.6 oz pure alcoho l) socially Sex Assigned at Date Recorded Not on file documented as of this encounter Progress Notes Christin Palacios PA-C - 04/09/2021 1:00 PM CST Subjective: Today's visit with Marychuy was conducted as a scheduled video visit. Marychuy Le is a 20 y.o. female presenting for follow up mood. She was last seen in early February. At last visit was struggling with Low motivation, Concentration difficulty. As a results we did continue her Lexapro, but added in Wellbutrin to help with energy, mood focus. Since previous visit didn't feel a lot of change with the addition of Wellbutrin. Nothing worse but nothing better. Feels mood and focus have continued to struggle She is trying to study for finals, but just has feeling like she needs to just lay in bed all day and not do things Worrying more about things -this was a problem prior to Wellbuitrin, but maybe a little worse. She felt the Buspar - helped just a little bit. She also has Bunions - has had bunions for a while - sharp pain - started 2-3 mo ago - getting progressively worse Has pain at least weekly. She has been wearing a wide runny shoe for support Low back pain - has increased as well with the foot pain. Trying to go to kick boxing but starting to hurt a lot more. I have reviewed the patient's medical history in detail and updated the computerized patient record. Past Medical History: Diagnosis Date ??? Depression (HRC) Objective: There were no vitals taken for this visit. Constitutional: She is oriented to person, place, and time and well-developed, well-nourished, and in no distress. Neurological: She is alert and oriented to person, place, and time. Skin: Skin is warm and dry. Psychiatric: Mood and affect normal Assessment/Plan: 1. Depression, unspecified depression type (HRC) 2. Bilateral bunions 3. Acute bilateral low back pain without sciatica (HRC) 4. Anxiety (HRC) Depression/Anxiety - Continue the Lexapro - Stop the Wellbutrin - Will add in the Abilify instead - Follow up in 4 weeks or sooner if needed Bunions - Referral to podiatry Clinician located at clinic. Patient located at other [facility] Billing based on: Complexity Christin Palacios PA-C S SOLUTIONS ASSOCIATE documented in this encounter Plan of Treatment Scheduled Referrals Name Type Priority Associated Diagnoses Order S chedule Foot & Ankle/Podiatry Referral Routine Bilateral bunions O rdered: 04/09/2021 Consult-Adult/Peds documented as of this encounter Visit Diagnoses Diagnosis Depression, unspecified depression type - Primary Bilateral bunions Bunion Acute bilateral low back pain without sc iatica Anxiety (HRC) Anxiety state, unspecified documented in this encounter Care Teams Aeronautical Engineering Professor Relationship Specialty Start Date End Date Christin Palacios PA-C PCP - General Physician Scaling Machine Operator 05/12/14 [address] [place] [address] [place] [address] documented as of this encounter
--- OUTSIDE RECORDS SUMMARY | 2022-03-19 14:30 | XMS_ITS | Encounter Summary ---
:2000 Author Organization [facility] Address [address] [place] [address] Care Team Providers Name Role Phone Christin Palacios PA-C Primary Care Provider Reason for Visit Reason Comments Dental Exam Dental Hygiene Encounter Details Date Type Department Care Team Description 04/25/2021 Office Visit [facility] Yanely Gudino, [place] [id number] Dental Exam; [facility] Yolanda K. Hygiene [address] [place] [address] Social History Tobacco Use Types Packs/Day Years Used Date Smoking Tobacco: Passive Smoke Exposure - Never Smoker Smokeless Tobacco: Never Alcohol Use Standard Drinks/Week Comments Not Currently 0 (1 standard drink = 0.6 oz pure alcoho l) socially Sex Assigned at Date Recorded Not on file documented as of this encounter Patient Instructions Patient InstructionsShalini Gudino, [facility] - 04/25/2021 10:50 AM CST Your next hygiene recall is due 10/22/2021 YOUR PERSONAL DENTAL RISK REPORT CARIES (TOOTH DECAY) PERIODONTAL (GUM) DISEASE ORAL CANCER low MOD high LOW mod high LOW elevated ^ ^ ^ Risk Level: MODERATE Risk Factors: Caries (tooth decay) in the last two years. How to Reduce Your Risk: Hygiene recall at 6 to 12 months. [place] with fluoride toothpaste twice daily or as recommended. Rinse with fluoride rinse once to twice daily at times other than when brushing. Application of a concentrated fluoride product to the teeth in the clinic to assist in remineralization. Use specific products to assist with proper oral hygiene such as an electric toothbrush with a timer. Instruction from dental professional on brushing, flossing, and use of oral hygiene products. Risk Level: LOW How to Maintain Your Low Risk: Return visit with the dental hygienist at 6 month intervals to assess periodontal condition and provide necessary treatment. Congratulations on your low risk for gum disease. Making healthy life style choices including brushing twice a day; daily flossing; and not using tobacco should help you maintain this low risk. Risk Level: LOW How to Maintain your Low Risk: Congratulations on your low risk for oral cancer. Making healthy life style choices such as not using tobacco and low to moderate alcohol use should help you maintain this low risk. Marychuy, we look forward to seeing you at your next visit! Thank you for choosing [facility]. ESTATE BROKER ASSOCIATE documented in this encounter Progress Notes Shalini Gudino RDH - 04/25/2021 10:50 AM CST HYGIENE PROPHY NOTE COLLABORATIVE AGREEMENT: The patient consents to have charting, radiographs and prophylaxis by the dental hygienist performed with the understanding that this care is not a substitute for an examination by a dentist. These activities were performed under a collaborating agreement with Lora Escobar DDS (License #: [id number]) PROCEDURAL PAUSE: Patient identity verified: Yes Treatment plan/site verified with the patient: Yes Instruments/equipment verified: Yes Any medication/allergy contraindications: No PRESENTATION: Oral Hygiene: Fair Plaque: Generalized, light supra-gingival and interproximal Calculus: Localized, light supra-gingival , sub-gingival and interproximal Stain: None Bleeding: Localized light Gingival tissue: Inflamed - loc marginal Mucogingival concerns: Absent ACTIVITIES: Hand scale, Essential selective polishing and Flossed all contacts PATIENT EDUCATION: Caries risk, Periodontal risk, Oral cancer risk, OHI, Demonstrated tooth brushing, Remineralization strategies and Fluoride rinse Remineralization Counseling: Readiness for change: Action Caries risk factors to be addressed: Recent or active caries, Oral hygiene and Diet Patient has been compliant with previous recommendations to address caries risk. Reviewed with patient: Remineralization, Diet and Oral hygiene Today's activities: Application of fluoride and Recommended xylitol products OTC fluoride prescribed/recommended. Health education: No handouts given to patient. Follow up plan: remin care NEXT PLANNED HYGIENE VISIT: Hygiene Prophy with exam Overdue recall. LDV: [facility] [place] - Fall 2020. Shalini Gudino RDH 04/25/2021, 11:18 AM --End of Note-- ESTATE BROKER ASSOCIATE Lora Escobar DDS - 04/25/2021 10:50 AM CST RECALL EXAM NOTE REASON FOR VISIT/CHIEF COMPLAINT: Marychuy is a 20 y.o. female who presents for No chief complaint on file. CHART REVIEW: Reviewed with patient: Medical history, Dental history, Problem list, Periodontal charting and Radiographs SOFT TISSUE, HEAD AND NECK EXAMINATION: Lips: Normal Tongue: Normal Palate: Normal Throat: Normal Floor of the mouth: Normal Mucosa: Normal Head and neck: Normal TMD EVALUATION: Palpation Pain: None Joint Sounds: None Pain with Range of Motion: None OCCLUSAL EXAMINATION: Unchanged COSMETIC CONCERNS: Patient's Perception: Acceptable Dentist's Perception: Acceptable TREATMENT REVIEW AND FOLLOW-UP: Discussed the Dental findings, Prognosis and Treatment options with the patient. All questions answered and informed consent was obtained. Recommended Recall Interval: Examination: 6 months : Recall prophy: 6 months Planned Recall Interval: Examination: 6 months : Recall prophy: 6 months Next Planned Visit: Active caries, op indicated. michele Escobar DDS 04/25/2021, 11:13 AM --End of Note-- ESTATE BROKER ASSOCIATE documented in this encounter Plan of Treatment Scheduled Orders Name Type Priority Associated Order Schedule Diagnoses PROPHYLAXIS-ADULT Dental Procedures Routine 1 Occ urrences RECALL starting 2021 PERIODIC ORAL Dental Procedures Routine 1 Occurre nces EVALUATION starting 2021 [id number] Dental Procedures Routine 1 Oc currences starting 2021 TOPICAL FLUORIDE Dental Procedures Routine 1 Occu rrences VARNISH starting 2021 documented as of this encounter Procedures Procedure Name Priority Date/Time Associated Diagnosis Comme nts TOPICAL FLUORIDE VARNISH Routine 04/25/2021 10:50 AM Localized gingivitis REAL ESTATE BROKER ASSOCIATE [id number] Routine 04/25/2021 10:50 AM Localized gingi vitis REAL ESTATE BROKER ASSOCIATE PERIODIC ORAL EVALUATION Routine 04/25/2021 10:50 AM Localized gingivitis REAL ESTATE BROKER ASSOCIATE PROPHYLAXIS-ADULT RECALL Routine 04/25/2021 10:50 AM Localized gingivitis REAL ESTATE BROKER ASSOCIATE documented in this encounter Visit Diagnoses Diagnosis Localized gingivitis - Primary Dental caries extending into middle thir d of dentin documented in this encounter Care Teams Milled Lumber Grader Relationship Specialty Start Date End Date Christin Palacios PA-C PCP - General Physician Skid Adzer 05/12/[address] [place] [address] documented as of this encounter
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
--- OUTSIDE RECORDS SUMMARY | 2022-03-19 14:30 | XMS_ITS | Encounter Summary ---
:2000 Author Organization [facility] Address [address] [place] [address] Care Team Providers Name Role Phone Christin Palacios PA-C Primary Care Provider Reason for Visit Reason Comments Surgery Questions Pt requesting to reschedule surgery of 08/28/2021. Encounter Details Date Type Department Care Team Description 07/15/2021 Telephone TRIA Timothy Gates, Surgery Qu estions ([facility] DPM requesting to [address] [place] [address] [place] 08/28/2021. ) [phone] Social History Tobacco Use Types Packs/Day Years Used Date Smoking Tobacco: Passive Smoke Exposure - Never Smoker Smokeless Tobacco: Never Comments: some THC use Alcohol Use Standard Drinks/Week Comments Not Currently 0 (1 standard drink = 0.6 oz pure alcoho l) socially Sex Assigned at Date Recorded Not on file documented as of this encounter Nursing Notes Carmen Dowling - 07/15/2021 3:16 PM CDT I spoke with patient and she has been rescheduled to 10/09. Tiffanie Lynn - 07/15/2021 12:24 PM CDT Has the patient recently had surgery or an injury? No How may we help you today? Pt requesting to reschedule surgery of 08/28/2021. Describe your symptoms/concerns: n/a When did the issue start: n/a Have you been seen for this recently?: n/a [Convention Services Manager/Appt Center: If yes, please include date and provider.] Is it okay to leave detailed message on your voicemail? yes [Convention Services Manager/Appt Center: If this call is after 3 p.m., communicate to patient: If we are not able to get back to you by the end of the day and your symptoms worsen please contact the Careline] documented in this encounter Plan of Treatment Not on filedocumented as of this encounter Visit Diagnoses Not on filedocumented in this encounter Care Teams Brim Ironer Hand Relationship Specialty Start Date End Date Christin Palacios PA-C PCP - General Physician Internal Communications Manager 05/12/14 [address] [place] [address] [address] [place] [address] documented as of this encounter
--- OUTSIDE RECORDS SUMMARY | 2022-03-19 14:30 | XMS_ITS | Encounter Summary ---
:2000 Author Organization [facility] Address [address] [place] [address] Care Team Providers Name Role Phone Christin Palaicos PA-C Primary Care Provider Reason for Visit Procedure/Equipment (Routine) - Incomplete Specialty Diagnoses / Procedures Referred By Contact Refer red To Contact Diagnoses Tammie Khan DPM Procedures XR Foot Rt 3+ Views [address] [place], [place] [address] Referral ID Status Reason Start Date Expiration Date Visits V isits Requested Authorized [id number] Incomplete 05/03/2021 08/02/2022 1 1 Encounter Details Date Type Department Care Team Description 05/06/2021 Ancillary Procedure [facility], DPM Radiology [address] [place], [place] [address] [place], [place] [phone] (Wo rk) Social History Tobacco Use Types [...] Date/Time Associated Diagnosis Comme nts XR FOOT RT 3+ VIEWS Routine 05/06/2021 10:52 AM Bunion R esults for this DAIRY TECHNICIAN procedure are i n the results section. documented in this encounter Results XR Foot Rt 3+ Views (05/06/2021 10:52 AM DAIRY TECHNICIAN) Anatomical Region Laterality Modality Lower Extremity, Foot Digital Radiograph y Specimen (Source) Anatomical Collection Method Collection Time Re ceived Time Location / / Volume Laterality 05/06/2021 10:40 AM DAIRY TECHNICIAN Impressions 05/06/2021 11:22 AM DAIRY TECHNICIAN COMPARISON: ??None. FINDINGS: ??Hallux valgus deformity. No [...] Bunion documented in this encounter Care Teams Ndt Inspector Relationship Specialty Start Date End Date Christin Palacios PA-C PCP - General Physician Harbor Boat Pilot 05/12/14 [address] [place] [address] documented as of this encounter
--- OUTSIDE RECORDS SUMMARY | 2022-03-19 14:30 | XMS_ITS | Encounter Summary ---
:2000 Author Organization [facility] Address [address] [place] [address] Care Team Providers Name Role Phone Christin Palacios PA-C Primary Care Provider Reason for Visit Reason Comments Back Pain Menstrual Problems Encounter Details Date Type Department Care Team Description 05/02/2021 Office Visit Woody Abbasi Medicmeche ne Christin Palacios, Low back strain, initial enc ounter (Primary Dx); [id number] Woody Munguia PA-C control counseling [phone] [place] [address] [facility] [address] [place] [address] Social History Tobacco Use Types Packs/Day Years Used Date Smoking Tobacco: Passive Smoke Exposure - Never Smoker Smokeless Tobacco: Never Comments: some THC use Alcohol Use Standard Drinks/Week Comments Not Currently 0 (1 standard drink = 0.6 oz pure alcoho l) socially Sex Assigned at Date Recorded Not on file documented as of this encounter Last Filed Vital Signs Vital Sign Reading Time Taken Comments Blood Pressure 116/72 05/02/2021 1:25 PM DIESEL TECHNOLOGY INSTRUCTOR Pulse 70 05/02/2021 1:25 PM DIESEL TECHNOLOGY INSTRUCTOR Temperature 36.9 ??C (98.4 ??F) 05/02/2021 1:25 PM DIESEL TECHNOLOGY INSTRUCTOR Respiratory Rate - - Oxygen Saturation - - Inhaled Oxygen Concentration - - Weight 119.3 kg (263 lb 1.6 oz) 05/02/2021 1:25 PM DIESEL TECHNOLOGY INSTRUCTOR Height - - Body Mass Index 39.42 11/22/2019 8:02 AM CDT documented in this encounter Patient Instructions Patient InstructionsChristin Palacios PA-C - 05/02/2021 1:20 PM CST Images from the original note were not included. Back Pain - Exam findings consistent with muscular strain in back - No spinal tenderness, no radiculopathy/nerve pain concerns - Reviewed muscular strains take time to heal - Moving forward you want to make sure you are working on back strengthening and core strengtheningexercises - they need to be balanced - ok to use Naproxen twice daily as needed - Stretching, heat, ice - The Robaxin can be used if muscles feel really tight or muscle spasms - If no improvement - we can refer to PT for further evaluation/treatment. Control Counseling - Reviewed treatment options - Will start Ortho Evra patch. - Follow up/update me if having issues /side effect/concerns. Patch for Control: Care Instructions Overview The patch is used to prevent . It looks like a bandage. It gives you a regular dose of the hormones estrogen and progestin. The patch comes in packs of three. You change the patch once a week for 3 weeks and then go without a patch for 1 week. During this week, you have your period. One pack provides control for 1 month. You may use the patch continuously, without stopping for a week each month. With this method, youwon't have your period. Follow-up care is a martin part of your treatment and safety. Be sure to make and go to all appointments, and call your doctor if you are having problems. It's also a good idea to know your test results and keep a list of the medicines you take. How can you care for yourself at home? How do you use the patch? ?? Talk to your doctor about the best day to start using the patch. Ask if you will need to use backup control, such as a condom, or avoid intercourse for a period of time. ?? Always follow the directions that came with the patch. In general: ? Use the patch 3 out of 4 weeks. Put on a new patch every week on the same day of the week. The 4thweek, don't wear a patch. You'll have your period. If you're using the patch continuously, put on a new patch every week, without skipping a week each month. Do this on the same day every week. ? Put the patch on your lower belly, buttocks, or upper body. Don't put it on your breasts. ? Don't put lotions, oils, powders, or makeup on the area where you're going to put the patch. They could keep the patch from sticking. ? Try not to place the patch under bra straps. What if you forget a patch or it falls off? Always read the label for specific instructions, or call your doctor. Here are some basic guidelines: ?? In the first week, if you forget a patch or are late, put on a patch right away and: ? Use backup control, such as a condom, or don't have intercourse for 7 days. ? If you had intercourse, you can use emergency contraception as a way to prevent . The most effective emergency contraception is the copper IUD (inserted by a doctor). You can also get emergency contraceptive pills without a prescription at most [facility]. ?? In the second and third weeks: ? If you are less than 48 hours late, put on a new patch right away. You don't need backup control or emergency contraception. ? If you are late by 48 hours or more, put on a new patch right away. Use backup control or don't have intercourse for 7 days. If you had intercourse, you can use emergency contraception. ?? If a patch doesn't stick well or falls off: ? For less than 48 hours, put it back on. If it doesn't stick well, use a new patch. ? For 48 hours or more, put on a new patch right away. Use backup control or don't have intercourse for 7 days. If you had intercourse, ask your doctor about using emergency contraception. What else do you need to know? ?? The patch can have side effects. ? You may have very light or skipped periods. ? You may have bleeding between periods (spotting). This usually decreases after 3 to 4 months. If you're using the patch continuously, you won't have periods. But you may still have breakthrough bleeding. Talk to your doctor if you have problems with breakthrough bleeding. Even if you have this bleeding, the patch should still work well. ? You may have mood changes, less interest in sex, or weight gain. ?? Avoid exposing the patch to heat. This includes direct sunlight and using tanning beds, heating pads, electric blankets, hot tubs, or saunas. Direct sunlight or high heat changes how the patch releases hormones. This makes the chance of getting more likely. ?? To help remember to put a new patch on: ? Gamaliel on a calendar the days you need to change the patch. ? Set up a reminder using your computer or other similar device. ?? Check with your doctor before you use any other medicines, including ptpt-axt-inygpry medicines, vitamins, herbal products, and supplements. control hormones may not work as well to prevent when combined with other medicines. ?? The patch doesn't protect against sexually transmitted infections (STIs), such as herpes or HIV/AIDS. If you're not sure whether your sex partner(s) might have an STI, use a condom to help protect against disease. When should you call for help? Call your doctor now or seek immediate medical care if: ? You have severe belly pain. ? You have signs of a blood clot, such as: ? Pain in your calf, back of the knee, thigh, or groin. ? Redness and swelling in your leg or groin. ? You have blurred vision or other problems seeing. ? You have a severe headache. ? You have severe trouble breathing. Watch closely for changes in your health, and be sure to contact your doctor if: ? You think you might be . ? You think you may be depressed. ? You think you may have been exposed to or have a sexually transmitted infection. Where can you learn more? 1. Go to https://www.[employer].com/healthlibrary. 2. Enter H394 in the search box. Current as of: May 31, 2020?Content Version: 12.9 ?? [employer]. Care instructions adapted under license by your healthcare professional. If you have questions abouta medical condition or this instruction, always ask your healthcare professional. [employer] disclaims any warranty or liability for your use of this information. EL TECHNOLOGY INSTRUCTOR documented in this encounter Progress Notes Christin Palacios PA-C - 05/02/2021 1:20 PM CST Chief Complaint Patient presents with ??? Back Pain ??? Menstrual Problems SUBJECTIVE: Marychuy Le is a 20 y.o. female presenting for several concerns. 1. control She is struggling with control compliance. She has been forgetting to take OCP - will miss fora week then restart, off and on - as a result cycles are off - 2 in the past month with increased cramps. She has been sexually active, but using condoms and Plan B. 2.Back Pain - Over the past few months has had mild back pain - This past weekend has sudden increase in back pain - She was bring up her dog and belonging up the elevator - she turned and got a shooting pain in her spine which cause her to scream and drop her belongings - She was seen at the next day in [place] -They treated her with Naproxen and Robaxin. Naproxen has been helping - pain is still there, but not as intense - She has only tried 2-3 tabs of Roabxin. - She is trying to get back into Kickboxing, but is waiting for her pain to get under control. She does have modified exercises - Back feels tight, tense. - Pain is primarily in low back, does have some neck and shoulder pain as well - No radiculopathy sympotms. No loss of bowel/bladder. OBJECTIVE: BP 116/72 (BP Location: Right Arm, BP Cuff Size: Large) Pulse 70 Temp 98.4 ??F (36.9 ??C) (Oral) Wt 263 lb 1.6 oz (119.3 kg) LMP 04/18/2021 (Approximate) BMI 39.42 kg/m?? Constitutional: She is oriented to person, place, and time and well-developed, well-nourished, and in no distress. Neurological: She is alert and oriented to person, place, and time. Skin: Skin is warm and dry. Psychiatric: Mood and affect normal Back: Nontender spinous process and SI joints. No lateral hip pain. She is TTP in low back - just distal of scapulas down to top of hips - more muscular distribution. She does care a fair bit of her weight in her hips/mid section which is likely contributing to the discomfort. ASSESSMENT: Back Pain - Exam findings consistent with muscular strain in back - No spinal tenderness, no radiculopathy/nerve pain concerns - Reviewed muscular strains take time to heal - Moving forward you want to make sure you are working on back strengthening and core strengtheningexercises - they need to be balanced - ok to use Naproxen twice daily as needed - Stretching, heat, ice - The Robaxin can be used if muscles feel really tight or muscle spasms - If no improvement - we can refer to PT for further evaluation/treatment. Control Counseling - Reviewed treatment options - Will start Ortho Evra patch. - Follow up/update me if having issues /side effect/concerns. EL TECHNOLOGY INSTRUCTOR documented in this encounter Plan of Treatment Not on filedocumented as of this encounter Visit Diagnoses Diagnosis Low back strain, initial encounter - Mariya fields control counseling General counseling for initiation of oth er contraceptive measures documented in this encounter Care Teams System Configuration Specialist Relationship Specialty Start Date End Date Christin Palacios PA-C PCP - General Physician Cellular Equipment Installer 05/12/[address] [place] [address] documented as of this encounter
--- OUTSIDE RECORDS SUMMARY | 2022-03-19 14:30 | XMS_ITS | Encounter Summary ---
:2000 [facility] Address [address] [place] [address] Care Team Providers Name Role Phone Christin Palacios PA-C Primary Care Provider Encounter Details Date Type Department Care Team Description 02/25/2021 Telemedicine Delvin Abbasi Medici ne Christin Palacios, Dysfunction of Eustachian tu be, unspecified laterality (Primary Dx); [id number] Delvin Munguia PA-C Depression, unspecified depression type ([facility]); [address] [address] [address] Low energy; [address] [address] [address] Lack of motivation [phone] [address] [id number] Social History Tobacco Use Types Packs/Day Years Used Date Smoking Tobacco: Passive Smoke Exposure - Never Smoker Smokeless Tobacco: Never Alcohol Use Standard Drinks/Week Comments Not Currently 0 (1 standard drink = 0.6 oz pure alcoho l) socially Sex Assigned at Date Recorded Not on file documented as of this encounter Progress Notes Christin Palacios PA-C - 02/25/2021 11:00 AM CST Subjective: Today's visit with Marychuy was conducted as a scheduled video visit. Marychuy Le is a 20 y.o. female presenting for sinus infection concerns. Reports she had a sinus infection in October, then in November and now currently. Reports she is frustrated as she keeps getting sick - not sure why she keeps getting sick. Most of her symtpoms revolve around her ear congestion, facial pain pressure, and sinus pressure. She has been Covid tested for each infection - they were all negaitve. She has been told in the past that she has very large tonsils -wondering if they are imparing anything and causing her sinus infections. She has mild congestion between illness - which she treats with Benadryl if needed. Darriane takes Dayquil/Nyquild and Sudafed as needed. Currently has no fever/chills. No cough wheezing or SOB. Primary symptoms is the ear fullness/fluid sensation and sinus symptoms. 2. Focus concerns. She has h/o anxiety and depression Lately has had increasing difficulty being able to be motivated and focused on classes. She has several extended family members with ADHD. She doesn't want an ADHD medication, but wondering if there are other options to help focus. I have reviewed the patient's medical history in detail and updated the computerized patient record. Past Medical History: Diagnosis Date ??? Depression ([facility]) Current Outpatient Medications Medication Sig Dispense Refill ??? ALBUterol sulfate HFA (VENTOLIN HFA) 108 (90 Base) MCG/ACT inhaler Inhale 2 Puffs every 4 hours as needed. Use 30 min prior to exercise. 18 g 1 ??? buPROPion (WELLBUTRIN XL) 150 MG 24 hour release tablet Take 1 Tablet by mouth daily. 30 Tablet 1 ??? busPIRone (BUSPAR) 5 MG tablet Take 1 Tablet by mouth two times a day. 60 Tablet 0 ??? escitalopram oxalate (LEXAPRO) 20 MG tablet Take 1.5 Tablets by mouth daily. 135 Tablet 2 ??? fluticasone propionate (FLONASE) 50 MCG/ACT nasal solution Place 2 Sprays into both nostrils daily. 1 Each 11 ??? levonorgestrel-ethinyl estrad (LESSINA-28) 0.1-20 MG-MCG tablet Take 1 Tablet by mouth daily. 90Tablet 1 ??? Spacer/Aero-Holding Chambers (AEROCHAMBER) Use with inhaler as directed 1 Each 1 No current facility-administered medications for this visit. Objective: There were no vitals taken for this visit. Constitutional: She is oriented to person, place, and time and well-developed, well-nourished, and in no distress. Neurological: She is alert and oriented to person, place, and time. Skin: Skin is warm and dry. Psychiatric: Mood and affect normal Resp: She is speaking in full sentences, not SOB or coughing during exam. Assessment/Plan: No diagnosis found. Eustachian Tube Dysfunction - Discussed symptoms sound most consistent with Eustachian Tube dysfunction - Continue OTC medications - Add in Nasal steroid spray - Follow up as needed Low motivation, Concentration difficulty - Discussed treatment options -Will continue Lexapro, but also add in Wellbutrin - Feels mood is doing ok, but motivation and focus are a struggle - For now will add in Wellbutrin to help with energy, mood focus - Follow up in 1 month - if doing well we could start tapering down her Lexapro. - Follow up sooner if needed Clinician located at home. Patient located at home Billing based on: Complexity Christin Palacios PA-C CTOR OF OCCUPATIONAL HEALTH documented in this encounter Plan of Treatment Not on filedocumented as of this encounter Visit Diagnoses Diagnosis Dysfunction of Eustachian tube, unspecif ied laterality - Primary Depression, unspecified depression type Low energy Lack of motivation documented in this encounter Care Teams Correspondence Renew Clerk Relationship Specialty Start Date End Date Christin Palacios PA-C PCP - General Physician Qi Specialist 05/12/[address] [place] [id number] documented as of this encounter
--- OUTSIDE RECORDS SUMMARY | 2022-03-19 14:30 | XMS_ITS | Encounter Summary ---
:2000 Author Organization [facility] Address [address] [place] [address] Care Team Providers Name Role Phone Christin Palacios PA-C Primary Care Provider Reason for Visit Auth/Cert Specialty Diagnoses / Procedures Referred By Contact Refer red To Contact Diagnoses Acquired hallux valgus of right foot Procedures FUSION MIDFOOT, cheilectomy, MCLR TAILORS BUNIONECTOMY Referral ID Status Reason Start Date Expiration Date Visits Requ ested Visits Authorized [id number] 1 1 Encounter Details Date Type Department Care Team Description 10/09/2021 Hospital Encounter [facility] Zaki Epps, [facility] [address] [place] [address] [place], [place] [phone] (Wo rk) Social History Tobacco Use Types [...] foot - P rimary Hallux valgus (acquired) documented in this encounter Admitting Diagnoses Diagnosis Acquired hallux valgus of right foot Hallux valgus (acquired) documented in this encounter Care Teams Armored Cable Machine Operator Relationship Specialty Start Date End Date Christin Palacios PA-C PCP - General Physician Pegger Dobby Looms 05/12/14 [address] [address] [place] [address] documented as of this encounter
--- OUTSIDE RECORDS SUMMARY | 2022-03-19 14:30 | XMS_ITS | Encounter Summary ---
:2000 Author Organization [facility] Address [address] [place] [address] Care Team Providers Name Role Phone Christin Palacios PA-C Primary Care Provider Reason for Visit Reason Comments QUESTIONS, GENERAL Encounter Details Date Type Department Care Team Description 09/03/2021 Telephone [facility]TH[facility]IC Timothy Swenson i, DPM QUESTIONS, GENERAL [facility]ENTER [address] [place] [address] [place] [address] [phone] Social History Tobacco Use Types Packs/Day Years Used Date Smoking Tobacco: Passive Smoke Exposure - Never Smoker Smokeless Tobacco: Never Comments: some THC use Alcohol Use Standard Drinks/Week Comments Not Currently 0 (1 standard drink = 0.6 oz pure alcoho l) socially Sex Assigned at Date Recorded Not on file documented as of this encounter Nursing Notes Clarita Monzon CMA - 09/03/2021 12:06 PM CDT Called and spoke with patient about her concerns Besides wearing wide toe box shoes and taking Aleve, she can try topical Voltaren gel to see if thatis helpful. There are not many other treatment options if the pain is that bad besides surgery. She wishes that she could of made surgery work but she has no help for recovery at home. She will call back if her situation changes, but surgery will likely be delayed for some time. Clarita Monzon CMA 09/03/2021, 12:17 PM Trinity Horvath I - 09/03/2021 10:55 AM CDT Surgery has been canceled, please address patient's other concerns. Thank you. Trinity Horvath I - 09/03/2021 9:52 AM CDT Patient called in about needing to cancel her surgery and all appt's related to surgery due to not being financially prepared and having no support for the recovery time. Patient would like to put it off for at least 2 years ones she is done with school. Patient is wondering if we can advice on home remedies in the meantime that can help her pain on Right foot bunion. Patient is taking Ibuprofen and Aleve, bought new shoes that seem a little wider on the foot, and she is getting a brace soon. Is there something else we can recommend? documented in this encounter Plan of Treatment Not on filedocumented as of this encounter Visit Diagnoses Not on filedocumented in this encounter Care Teams Glazing Department Supervisor Relationship Specialty Start Date End Date Christin Palacios PA-C PCP - General Physician Wafer Slicer 05/12/[address] [place] [address] documented as of this encounter
--- OUTSIDE RECORDS SUMMARY | 2022-03-19 14:31 | XMS_ITS | Encounter Summary ---
:2000 Author Organization [facility] Address [address] [place] [address] Care Team Providers Name Role Phone Christin Palacios PA-C Primary Care Provider Reason for Visit Reason Comments COVID Test Results Encounter Details Date Type Department Care Team Description 09/03/2019 Telephone [facility] Neymar Valencia CO VIKaila Test Results Practice [address] [facility] [address] [place], [place] [address] [place], [place] [phone] (Wo rk) Social History Tobacco Use Types Packs/Day Years Used Date Smoking Tobacco: Passive Smoke Exposure - Never Smoker Smokeless Tobacco: Never Alcohol Use Standard Drinks/Week Comments Yes 0 (1 standard drink = 0.6 oz pure alcoho l) socially Sex Assigned at Date Recorded Not on file documented as of this encounter Nursing Notes Sammi Monroe RN - 09/03/2019 10:21 AM CDT Patient was notified that COVID-19 testing was positive. Date of onset of symptoms 08/27/19 Other symptoms consist of Headache Progression of symptoms improved Patient was given and able to verbalize home isolation instructions for patients that have tested positive for COVID. Remain in home isolation for at least 10 days from the start of your symptoms AND you've not had a fever for 72 hours without fever reducing medicine AND your symptoms have improved, Per CDC guidelines you are able to discontinue Home Isolation on 09/06/19. , Until that date: do not leave your home, except to get medical care, stay connected with your doctor via video visits unless you have emergency warning signs or if you feel it's an emergency, avoid public areas and transportation. Separate yourself from others as much as possible by staying in a specific room away from people and pets in your home, use a separate bathroom if available, wear a cloth face covering if you need roma around others in your home. , People that you've been in close contact (including those in your home) should also isolate themselves and monitor for 14 days even if they don't have symptoms., Wash often with soap and water for at least 20 seconds, or use an alcohol-based hand propagator laborer containing at least 60% alcohol. Avoid touching your face., Use a tissue when you cough or sneeze. Throw used tissues in a lined trash can. Immediately wash your hands., You should not share dishes, drinking glasses, cups, eating utensils, towels, or bedding with other people in your home. After using these items,they should be washed thoroughly with soap and water. Clean all high touch surfaces in your home daily. , Avoid contact with pets or other animals while you are sick. When possible, have another memberof your household care for your animals while you are sick. , It's important for you to watch for any worsening symptoms, especially if you are at a higher risk for getting very sick from COVID-19. Higher risk groups include people older than age 60 and people who have serious chronic medical conditions like heart disease, diabetes or lung disease., Pay attention to the speed of worsening symptoms. If your symptoms are gradually worsening and you're concerned, try a video visit or call your clinic. Normally symptoms worsen a bit before getting better. , Seek care at an emergency room if these symptom suddenly or quickly worsen: Sudden worsening shortness of breath, sudden worsening wheezing, difficulty swallowing, slurred speech, facial numbness, new confusion or inability to arouse, persistent pain or pressure in the chest, leg swelling. and Patient [facility] The following advice may help if you have a fever, sore throat, cough, or sinus infection/pain. Please note that because COVID-19 is a viral infection, an antibiotic won???t soothe or treat the virus. Getting plenty of rest and drinking water to stay hydrated is martin to feeling better. and For fever/sore throat/sinus congestion or pain for all ages over four months old: Use acetaminophen. Follow age and weight-appropriate dosing recommendations and the package instructions. Avoid stomach upset by taking with food or milk. Sammi Monroe RN 09/03/2019, 10:21 AM Sammi Monroe RN - 09/03/2019 10:17 AM CDT Left message for Marychuy to call regarding test results at [phone]. Sammi Monroe RN 09/03/2019, 10:18 AM Savanna Jett RN - 09/03/2019 7:45 AM CDT Lab Results Component Value Date CORONAV DETECTED (A) 08/29/2019 Lab Status: @RULEERRCTG([id number])@ documented in this encounter Plan of Treatment Not on filedocumented as of this encounter Visit Diagnoses Not on filedocumented in this encounter Additional Health Concerns Infection Onset Date Last Indicated Resolved Time R/O COVID19 08/29/2019 08/29/2019 09/03/2019 5:39 AM CDT COVID19 08/29/2019 08/29/2019 09/19/2019 3:17 AM CDT documented as of this encounter Care Teams Track Equipment Operator Relationship Specialty Start Date End Date Christin Palacios PA-C PCP - General Physician Outside Repairer Special 05/12/[address] [place] [address] documented as of this encounter
--- OUTSIDE RECORDS SUMMARY | 2022-03-19 14:31 | XMS_ITS | Encounter Summary ---
:2000 Author Organization [facility] Address [address] [place] [address] Care Team Providers Name Role Phone Christin Palacios PA-C Primary Care Provider Reason for Visit Reason Comments ANXIETY DEPRESSION Video Visit Encounter Details Date Type Department Care Team Description 03/21/2020 Telemedicine [facility] Christin Palacios, Respiratory illness (Primary Dx); [address] Woody Munguia PA-C Depression, unspecified depression type; [phone] [place] [address] [address] [place] [id number] Social History Tobacco Use Types Packs/Day Years Used Date Smoking Tobacco: Passive Smoke Exposure - Never Smoker Smokeless Tobacco: Never Alcohol Use Standard Drinks/Week Comments Not Currently 0 (1 standard drink = 0.6 oz pure alcoho l) socially Sex Assigned at Date Recorded Not on file documented as of this encounter Progress Notes Christin Palacios PA-C - 03/21/2020 3:40 PM CST Chief Complaint Patient presents with ??? ANXIETY ??? DEPRESSION ??? Video Visit Subjective: Today's visit with Marychuy was conducted as a scheduled video visit. Marychuy Le is here for follow-up of depression, last visit 1 month ago. She is taking Lexapro and Buspar She is not being treated with psychotherapy. Since the last clinic visit, the patient states symptoms have Remained stable. Currently they include: the symptoms recorded on the PHQ-9 and HARISH-7. Feels right now her symptoms are somewhat skewed due to illness. She reports over the weekend she went home - saw a friend she hadn't seen in 4-5 years.They ended up seeing another friend who they hadn't seen in some time. - Her friend ended up eating the left over food of the other friend As a result Marychuy and a few of her friends now are all sick. She did order her Covid Saliva testingkit yesterday All weekend she was nauseated, didn't feel good, slept the whole weekend. Yesterday and Today were the firs times she has been able to get out of bed. She was up and active for 30 min, then was exhausted. Marychuy Had Covid in August, so not sure if this is also Covid She is worried about her financial stability, which is adding some stress. Admits she does smoke marijuana - not using daily, but on occasion and wants Objective: LMP (LMP Unknown) WDWN female in NAD Skin: no visible rashes or lesions Resp: Speaking in full sentences, not coughing or SOB Assessment/Plan: 1. Respiratory illness 2. Depression, unspecified depression type (HRC) 3. Anxiety (HRC) -As she is in [place], she is getting tested there - Continue home care Discussed will continue medications for mood at this time Follow up in 1 mo if needed, if mood doing well, ok to FU in 3 mo Clinician located at clinic. Patient located at home Billing based on: Complexity. Christin Palacios PA-C R VEHICLE OPERATOR ROAD SUPERVISOR documented in this encounter Plan of Treatment Not on filedocumented as of this encounter Visit Diagnoses Diagnosis Respiratory illness - Primary Depression, unspecified depression type Anxiety (HRC) Anxiety state, unspecified documented in this encounter Care Teams Jewel Hole Finish Opener Relationship Specialty Start Date End Date Christin Palacios PA-C PCP - General Physician Underwear Trimmer 05/12/[address] [place] [address] documented as of this encounter
--- OUTSIDE RECORDS SUMMARY | 2022-03-19 14:31 | XMS_ITS | Encounter Summary ---
:2000 [facility] Address [address] [place] [address] Care Team Providers Name Role Phone Christin Palacios PA-C Primary Care Provider Reason for Visit Reason Comments COVID Pre-screening Encounter Details Date Type Department Care Team Description 11/22/2019 Telephone [facility] Family Prac Ramon Rey, COVID Pre-screening [address] [facility] [address] [place] [phone] [address] [facility] [phone] [place] [address] (Wo rk) Social History Tobacco Use Types Packs/Day Years Used Date Smoking Tobacco: Passive Smoke Exposure - Never Smoker Smokeless Tobacco: Never Alcohol Use Standard Drinks/Week Comments Yes 0 (1 standard drink = 0.6 oz pure alcoho l) socially Sex Assigned at Date Recorded Not on file documented as of this encounter Nursing Notes Adeline Billingsley - 11/22/2019 7:16 AM CDT For your safety and ours, we???d like to screen for COVID-19 symptoms before scheduling your visit. Do you or a household member currently have: fever (>100), cough, sore throat, new loss of taste or smell, or shortness of breath? No In the last 14 days, have you had close contact with a person known to have COVID-19 or been instructed to self-isolate? No I will help schedule your visit now. [Airframe Technician: Complete Primary Care [facility] decision tree and continue scheduling.] Adeline Billingsley documented in this encounter Plan of Treatment Not on filedocumented as of this encounter Visit Diagnoses Not on filedocumented in this encounter Care Teams Health Worker Relationship Specialty Start Date End Date Christin Palacios PA-C PCP - General Physician Behavioral Health Technician 05/12/14 [address] [place] [address] [address] [place] [address] documented as of this encounter
--- OUTSIDE RECORDS SUMMARY | 2022-03-19 14:31 | XMS_ITS | Encounter Summary ---
:2000 [facility] Address [address] [place] [address] Care Team Providers Name Role Phone Gunner Carias PA-C Primary Care Provider Reason for Visit Reason Onset Date Comments No Show 02/20/2020 Encounter Details Date Type Department Care Team Description 02/20/2020 Telemedicine [facility] Gunner Paula, Anxiety (Primary Dx); [address] [place] Munguia PA-C Depression, unspecified depression type [address] [address] [place] [address] [facility] [address] [address] Social History Tobacco Use Types Packs/Day Years Used Date Smoking Tobacco: Passive Smoke Exposure - Never Smoker Smokeless Tobacco: Never Alcohol Use Standard Drinks/Week Comments Yes 0 (1 standard drink = 0.6 oz pure alcoho l) socially Sex Assigned at Date Recorded Not on file documented as of this encounter Progress Notes Gunner Carias PA-C - 02/20/2020 10:00 AM INSURANCE BILLING SPECIALIST Addended by: GUNNER CARIAS on: 02/20/2020 10:22 AM Modules accepted: Level of Service RANCE BILLING SPECIALIST Gunner Carias PA-C - 02/20/2020 10:00 AM CST Patient was called 3 times, - 9.25, 10.06 and 10.11 - and was unable to be reached to complete their Video/phone visit scheduled for 10 am. Gunner Carias PA-C 02/20/2020, 10:11 AM Pt called karissa at 10.15 am and was seen. Subjective: Today's visit with Marychuy was conducted as a scheduled video visit. She is presenting for follow up depression/anxiety, last visit 1 month ago At her previous visit we had her on Lexapro 30 mg, but also added in Buspar 5 mg twice a day for anxiety. She is not being treated with therapy at this time Since previous visit symptoms have improved. Reports she got her support animal - Hong Konger bull dog Feels this is helping with her mood - getting her out of her bed and outside She is walking him which is helping with exercise Also getting to the dog park - meeting new people which is helping her make friends and not be so isolated. She feels the Buspar is helping - no panic attacks since starting She is Getting good grades in school However she reports she often forgets her nighttime dose of Buspar as it is her only evening med. Objective: There were no vitals taken for this visit. Constitutional: She is oriented to person, place, and time and well-developed, well-nourished, and in no distress. Neurological: He is alert and oriented to person, place, and time. Skin: Skin is warm and dry. Psychiatric: Mood and affect normal Assessment/Plan: 1. Anxiety (HRC) 2. Depression, unspecified depression type (HRC) - Mood has improved - Continue Lexapro 30 mg - Switch Buspar to 10 mg in the AM (take 2 tabs) as this will help with complaince - Follow up in 1 mo or sooner if needed -Text reminder sent. Clinician located at clinic. Patient located at work Billing based on: Complexity Gunner Carias PA-C RANCE BILLING SPECIALIST documented in this encounter Plan of Treatment Not on filedocumented as of this encounter Visit Diagnoses Diagnosis Anxiety (HRC) - Primary Anxiety state, unspecified Depression, unspecified depression type documented in this encounter Care Teams Biological Aide Relationship Specialty Start Date End Date Gunner Carias PA-C PCP - General Physician Oral Hygienist 05/12/14 [address] [place] [address] [place] [address] documented as of this encounter
--- OUTSIDE RECORDS SUMMARY | 2022-03-19 14:31 | XMS_ITS | Encounter Summary ---
:2000 Author Organization [facility] Address [address] [place] [address] Care Team Providers Name Role Phone Gunner Palacios PA-C Primary Care Provider Reason for Visit Reason Onset Date Comments Refill 01/23/2021 busPIRone (BUSPAR) 5 MG tablet Encounter Details Date Type Department Care Team Description 01/23/2021 [facility]ill [facility] Gunner Palacios, Refill (busPIRone [address] [facility] [employer] [facility] [address] (BUSPAR) 5 MG tablet) [phone] [place] [id number] [address] [place] [id number] (Wo rk) Social History Tobacco Use Types Packs/Day Years Used Date Smoking Tobacco: Passive Smoke Exposure - Never Smoker Smokeless Tobacco: Never Alcohol Use Standard Drinks/Week Comments Not Currently 0 (1 standard drink = 0.6 oz pure alcoho l) socially Sex Assigned at Date Recorded Not on file documented as of this encounter Nursing Notes Jesse Fall RN - 01/26/2021 6:12 PM CDT Renewed medication per medication refill protocol. Requested Prescriptions Pending Prescriptions Disp Refills busPIRone (BUSPAR) 5 MG tablet 60 Tablet 0 Sig: Take 1 Tablet by mouth two times a day. Interface, Out Directly Prov Query - 01/23/2021 12:50 PM CDT busPIRone (BUSPAR) 5 MG tablet Medication started: 01/19/2020 Last ordered by GUNNER PALACIOS: 01/19/2020 (370 days ago) QTY: 60, Refills: 3, Sig: take 1 tablet by mouth two times a day. (unchanged) -> The most recent order on 01/18/2021. -> Refill x 3 months (until due for an office visit) Last qualifying visit: 03/21/2020 (with GUNNER PALACIOS) Next scheduled visit: None Powered by [employer], Reference: [id number], 01/23/2021 12:50:45 PM CDT, Pool: [place] WAHLILL ([id number]) documented in this encounter Plan of Treatment Not on filedocumented as of this encounter Visit Diagnoses Not on filedocumented in this encounter Care Teams Automatic Gluing Machine Operator Relationship Specialty Start Date End Date Gunner Palacios PAUrbanoC PCP - General Physician Analyst Business Analysis 05/12/14 [address] [place] [address], [place] [address] documented as of this encounter
--- OUTSIDE RECORDS SUMMARY | 2022-03-19 14:31 | XMS_ITS | Encounter Summary ---
:2000 [facility] Address [address] [place] [address] Care Team Providers Name Role Phone Gunner Carias PA-C Primary Care Provider Reason for Visit Reason Onset Date Comments Refill 12/14/2020 levonorgestrel-ethin yl estrad (LESSINA-28) 0.1-20 MG-MCG tablet Encounter Details Date Type Department Care Team Description 12/14/2020 Refill Gunner Soriano, Refill Medicine/Pediatrics ANGEL (levonorgestrel-ethinyl [address] [facility], [address] [place] (LESSINA-28) [address] 0.1-20 MG-MCG tablet) [place] [address] [place] [address]704 (Wo rk) Social History Tobacco Use Types Packs/Day Years Used Date Smoking Tobacco: Passive Smoke Exposure - Never Smoker Smokeless Tobacco: Never Alcohol Use Standard Drinks/Week Comments Not Currently 0 (1 standard drink = 0.6 oz pure alcoho l) socially Sex Assigned at Date Recorded Not on file documented as of this encounter Nursing Notes La Nena Hamilton, RN - 12/14/2020 10:50 AM CDT Renewed medication per medication refill protocol. Requested Prescriptions Pending Prescriptions Disp Refills levonorgestrel-ethinyl estrad (LESSINA-28) 0.1-20 MG-MCG tablet 90 Tablet 1 Sig: Take 1 Tablet by mouth daily. Kitty, Out NydiaCrashmob Prov Query - 12/14/2020 6:28 AM CDT levonorgestrel-ethinyl estrad (LESSINA-28) 0.1-20 MG-MCG tablet Medication started: 09/17/2016 Last ordered by GUNNER CARIAS: 01/19/2020 (330 days ago) QTY: 84, Refills: 3, Sig: take 1 tablet by mouth daily. (unchanged) -> Refill x 6 months, qty: 90, refills: 1 (until due for an office visit) Last qualifying visit: 03/21/2020 (with GUNNER CARIAS) Next scheduled visit: None Powered by [employer] by [employer], Reference: [id number], 12/14/2020 6:28:08 AM CDT, Pool:[place] VICTORIA ([id number]) documented in this encounter Plan of Treatment Not on filedocumented as of this encounter Visit Diagnoses Diagnosis OCP (oral contraceptive pills) initiatio n General counseling for prescription of o ral contraceptives documented in this encounter Care Teams Air Conditioning Mechanic Relationship Specialty Start Date End Date Gunner Carias PA-C PCP - General Physician Orthopaedic General 05/12/14 [address] [address] [address] [place] [address] documented as of this encounter
--- OUTSIDE RECORDS SUMMARY | 2022-03-19 14:31 | XMS_ITS | Encounter Summary ---
:2000 [facility] Address [address] [place] [address] Care Team Providers Name Role Phone Christin Palacios PA-C Primary Care Provider Reason for Visit Reason Comments Medication Request Encounter Details Date Type Department Care Team Description 11/24/2019 Telephone [facility] Family Prac leena Christin Palacios, Medication Request [address] [facility] [place] [phone] [address] [facility] [phone] [address] [id number] (Wo rk) Social History Tobacco Use Types Packs/Day Years Used Date Smoking Tobacco: Passive Smoke Exposure - Never Smoker Smokeless Tobacco: Never Alcohol Use Standard Drinks/Week Comments Yes 0 (1 standard drink = 0.6 oz pure alcoho l) socially Sex Assigned at Date Recorded Not on file documented as of this encounter Nursing Notes Paty Teague RN - 11/24/2019 2:15 PM CDT Patient is informed of the plan. She will call to [facility] to be seen today or tomorrow. Paty Teague RN 11/24/2019, 2:16 PM Ramon Rodríguez PA-C - 11/24/2019 1:49 PM CDT I'll send Tramadol for her to use as needed. Can break the tablets in half to get more use out of them. 10 tablets only. She can come in and get fitted for a knee immobilizer if she wishes. I can place the MRI order for her too or alternatively, she can call [facility] at [phone] or walk in to be seen today or tomorrow for worsening pain. How would she like to proceed? Ramon Rodríguez PA-C Paty Teague RN - 11/24/2019 9:19 AM CDT Patient was seen in clinic on 11/22/19 for right knee pain. States that the pain is severe. Has been using ice, heat, Ibuprofen 800 mg every 5 hours, Tylenol, and Aleve. States that nothing is helping the pain. Is not able to sleep because of the pain. Pain is constant but worse with walking and steps. Was referred to physical therapy but has not gotten a call to schedule. Is questioning if there is something that she can use for the pain. Please advise. Paty Teague RN 11/24/2019, 9:33 AM Flor Gould - 11/24/2019 9:14 AM CDT Miscellaneous Questions & FYI's [Business Insight And Analytics Manager: If this call is after 3 p.m., communicate to patient: If we are not able to get back to you by the end of the day and your symptoms worsen please contact the Careline at [phone] at .] Is this a question/concern or an FYI? Question/Concern Is this a symptom? Yes Symptoms Describe your symptoms (if pain, include location): Patient states that she has knee pain so bad that she can't sleep at night. She is waiting to be scheduled for PT and is requesting something for the pain. When did they start? 2-1/2 weeks ago but is getting progressively worse. What have you tried at home (please specify medication name, if any)? Ice, tylenol, heating pad, ibuprofen, aleve, and soaking it and nothing helps. Have you recently been seen for this? Yes: 11/22/2019 [Business Insight And Analytics Manager/Appt Center: Refer to Symptoms Indicating Need for Triage list to determine urgency level and next steps - if Urgent or Routine, schedule appointment within the appropriate timeframe.If patient wants to speak to an RN, please warm transfer/route to RN for further triage.] [Business Insight And Analytics Manager/Appt Center: Add/verify patient preferred pharmacy is highlighted in blue in the Pharmacy Selection under Meds & Orders] [Business Insight And Analytics Manager/Appt Center: If this call is after 3 p.m., communicate to patient: If we are not able to get back to you by the end of the day and your symptoms worsen, please contact the Careline [phone] OR at .] Is it okay to leave a detailed message on your voicemail? Yes I can transfer you to talk to a Triage Nurse or I am happy to get you scheduled with your primary adult caregiver or one of their partners for a Video/Phone Visit to take care of your concern. Which would you prefer? Triage Nurse Flor Gould Please warm transfer/route to Care Team Support RN / Primary RN / Triage Pool for further triage -OR- follow your regular process + documented in this encounter Plan of Treatment Not on filedocumented as of this encounter Visit Diagnoses Diagnosis Acute pain of right knee - Primary documented in this encounter Care Teams Warp Changer Relationship Specialty Start Date End Date Christin Palacios PA-C PCP - General Physician Mail Examiner 05/12/[address] [place] [address] documented as of this encounter
--- OUTSIDE RECORDS SUMMARY | 2022-03-19 14:31 | XMS_ITS | Encounter Summary ---
:2000 Author Organization [facility] Address [address] [place] [address] Care Team Providers Name Role Phone Christin Palacios PA-C Primary Care Provider Reason for Visit Procedure/Equipment (Routine) - Incomplete Specialty Diagnoses / Procedures Referred By Contact Refer red To Contact Diagnoses Acute pain of right knee Ramon Rodríguez PA-C Procedures XR Knee Rt AP/Lat/Sun [address] [place] [address] Referral ID Status Reason Start Date Expiration Date Visits V isits Requested Authorized [id number] Incomplete 11/22/2019 02/20/2021 1 1 Encounter Details Date Type Department Care Team Description 11/22/2019 Ancillary [facility] [place], Acute pain of right Procedure [facility] Radiology Ramon Bateman PA-C knee [address] [facility] [address] [place] [address] [place], [place] [phone] Social History Tobacco Use Types Packs/Day Years Used Date Smoking Tobacco: Passive Smoke Exposure - Never Smoker Smokeless Tobacco: Never Alcohol Use Standard Drinks/Week Comments Yes 0 (1 standard drink = 0.6 oz pure alcoho l) socially Sex Assigned at Date Recorded Not on file documented as of this encounter Progress Notes Ramon Rodríguez PA-C - 11/22/2019 8:30 AM CDT Please let patient know that her knee XR was normal, no fractures, no other abnormalities found. Ulices Rodríguez PA-C documented in this encounter Plan of Treatment Not on filedocumented as of this encounter Procedures Procedure Name Priority Date/Time Associated Diagnosis Comme nts XR KNEE RT Routine 11/22/2019 8:41 AM Acute pain of right Re sults for this AP/LAT/SUN CDT knee procedure are i n the results section. documented in this encounter Results XR Knee Rt AP/Lat/Sun (11/22/2019 8:41 AM CDT) Anatomical Region Laterality Modality Lower Extremity, Knee Computed Radiograp hy Specimen (Source) Anatomical Collection Method Collection Time Re ceived Time Location / / Volume Laterality 11/22/2019 8:41 AM CDT Narrative 11/22/2019 2:42 PM CDT EXAM: XR KNEE RT AP/LAT/SUN LOCATION: [facility] DATE/TIME: 11/22/2019 8:41 AM INDICATION: Right knee pain, multiple fa lls x2 wks COMPARISON: None. IMPRESSION: Normal joint spaces and alig nment. No fracture or joint effusion. Procedure Note Neva Goins MD - 11/22/2019 EXAM: XR KNEE RT AP/LAT/SUN LOCATION: [facility] DATE/TIME: 11/22/2019 8:41 AM INDICATION: Right knee pain, multiple fa lls x2 wks COMPARISON: None. IMPRESSION: Normal joint spaces and alig nment. No fracture or joint effusion. Ramon Rodríguez PA-C RAD GD documented in this encounter Visit Diagnoses Diagnosis Acute pain of right knee documented in this encounter Care Teams Motorcycle Technician Relationship Specialty Start Date End Date Christin Palacios PA-C PCP - General Physician Cable Braider 05/12/14 [address] [place] [address] documented as of this encounter
--- OUTSIDE RECORDS SUMMARY | 2022-03-19 14:31 | XMS_ITS | Encounter Summary ---
:2000 Author Organization [facility] Address [address] [place] [address] Care Team Providers Name Role Phone Christin Palacios PA-C Primary Care Provider Reason for Visit Reason Comments Medication Questions ALBUterol sulfate HFA (DM MARIO HFA) 108 (90 Base) MCG/ACT inhaler/spacer Encounter Details Date Type Department Care Team Description 08/30/2019 Telephone [facility] Med/Peds Brennan Cortes MD Medication Questions [address] ([place] [address] (VENTOLIN HFA) 108 (90 [place], [place] Base) MCG/ACT [address]09 inhaler/spacer) Social History Tobacco Use Types Packs/Day Years Used Date Smoking Tobacco: Passive Smoke Exposure - Never Smoker Smokeless Tobacco: Never Alcohol Use Standard Drinks/Week Comments Yes 0 (1 standard drink = 0.6 oz pure alcoho l) socially Sex Assigned at Date Recorded Not on file documented as of this encounter Nursing Notes Brennan Cortes MD - 08/30/2019 10:48 AM CDT Sent prescription for spacer Lou Angel - 08/30/2019 9:23 AM CDT Medications - Outside Pharmacy Questions What is the name of the medication? ALBUterol sulfate HFA (VENTOLIN HFA) 108 (90 Base) MCG/ACT inhaler What is your question or concern? Matt, calling with [facility], stating they received this medication. However patient thought there would also be a spacer with it as well. Matt is wondering if a spacer was supposed to be included. Is the patient there waiting? No oLu Angel Please route to: Care Team Pool documented in this encounter Plan of Treatment Not on filedocumented as of this encounter Visit Diagnoses Not on filedocumented in this encounter Additional Health Concerns Infection Onset Date Last Indicated Resolved Time R/O COVID19 08/29/2019 08/29/2019 09/03/2019 5:39 AM CDT documented as of this encounter Care Teams Simulation Specialist Relationship Specialty Start Date End Date Christin Palacios PA-C PCP - General Physician Senior Investment Analyst 05/12/14 [address] [place] [address] [address] [place] [address] documented as of this encounter
--- OUTSIDE RECORDS SUMMARY | 2022-03-19 14:31 | XMS_ITS | Encounter Summary ---
:2000 Author Organization [facility] Address [address] [place] [address] Care Team Providers Name Role Phone Christin Palacios PA-C Primary Care Provider Reason for Visit Reason Comments HEADACHE BODY ACHES Sore Throat Nausea COUGH x 3 days SOB (SHORTNESS OF BREATH) yesterday Encounter Details Date Type Department Care Team Description 08/29/[address] [facility] Cough (Primary Dx); [address] Myalgia; [place] [phone] Sore throat; [phone] Other headache syndrome; Shortness of br eath; Exercise-induce d coughing episode; Elevated BP wit hout diagnosis of hypertension Social History Tobacco Use Types Packs/Day Years Used Date Smoking Tobacco: Passive Smoke Exposure - Never Smoker Smokeless Tobacco: Never Alcohol Use Standard Drinks/Week Comments Yes 0 (1 standard drink = 0.6 oz pure alcoho l) socially Sex Assigned at Date Recorded Not on file documented as of this encounter Last Filed Vital Signs Vital Sign Reading Time Taken Comments Blood Pressure 136/91 08/29/2019 3:03 PM CDT Pulse 92 08/29/2019 3:03 PM CDT Temperature 37.1 ??C (98.8 ??F) 08/29/2019 3:03 PM CDT Respiratory Rate - - Oxygen Saturation 98% 08/29/2019 3:03 PM CDT Inhaled Oxygen Concentration - - Weight 117.9 kg (260 lb) 08/29/2019 3:03 PM CDT reporte d Height - - Body Mass Index - - documented in this encounter Patient Instructions Patient InstructionsBrennan Cortes MD - 08/29/2019 3:00 PM CDT Use your albuterol inhaler 2 puffs every 4 hours for the next 7 days. Use the inhaler with the spacer If you get fever or increasing shortness of breath or cough or things are just not getting better, come back for follow up. - Test results are typically delivered within 5-6 days. The fastest way to get your test results is through your online account. If you don???t already have an account, refer to quick link in your testing appointment confirmation email to sign up (you can also go to [email or web address]).You will need your ID number from your insurance card to get started. Stay home in isolation until you get your result back and then work with your work to get plan for return to work. Information on Novel Coronavirus (COVID-19) Your health is our top priority, and we appreciate the trust you place in us. [facility]ini and Trisha Ceja are working to protect our patients and community and to help prevent the spread of novel coronavirus (COVID-19). What is (COVID-19)? Coronaviruses are a large family of viruses. They are estimated to cause about a third of all cases of the common cold. COVlD-19 is a viral respiratory illness caused by a new coronavirus that previously had not been found in people. What are the symptoms? People with confirmed COVlD-19 have had mild to severe respiratory illness with symptoms of: fever, cough, shortness of breath. The incubation period, or the time between when people are infected and start showing symptoms, appears to be 2-14 days. Because COVlD-19 symptoms are similar to other illnesses like influenza, having these symptoms does not mean you have COVlD-19. What are the requirements for being tested for COVID-19? The requirements for coronavirus evaluation are respiratory illness with symptoms such as a fever with cough or shortness of breath, as well as travel from areas affected by coronavirus within 14 days of the start of symptoms. Or close contact with anyone who has a laboratory confirmed case of coronavirus within 14 days of the start of symptoms. How does COVID-19 spread? This virus is spread mostly person to person. Like the common cold, it is spread by droplets, which are often generated when a person coughs or sneezes. One can be exposed when in close contact (within6 feet) to someone who is sick. Examples of such close contact include kissing or hugging, sharing eating or drinking utensils, carpooling, close conversation, performing a physical examination (relevant to health care providers), and any other direct contact with respiratory secretions of a person with coronavirus. How can I avoid getting sick? To prevent the spread of COVlD-19, take the same precautions that are recommended for avoiding otherillnesses: ??? Wash your hands frequently with soap and warm water for at least 20 seconds before eating, afterusing the restroom or after blowing your nose. ??? Try to avoid touching your eyes,nose and mouth. ??? Cover coughs and sneezes. ??? Stay home when you're feeling sick. ??? Avoid close contact with those who are sick. ??? Regularly clean and disinfect commonly touched surfaces in your home and workplace. Where can I learn more about COVID-19? For the latest updates on COVID-19, go to: ??? Centers for Diseases Control and Prevention (CDC) ??? [place] [facility] of [facility] ??? [facility] We are working closely with these organizations and other health care providers around [place] and the country to help prevent the virus from spreading. documented in this encounter Progress Notes Brennan Cortes MD - 08/29/2019 3:00 PM CDT Chief complaint: Chief Complaint Patient presents with ??? HEADACHE ??? BODY ACHES ??? Sore Throat ??? Nausea ??? COUGH x 3 days ??? SOB (SHORTNESS OF BREATH) yesterday HPI: Marychuy Le is a 19 y.o. old female who presents to the clinic for cough X3 days and then shortness of breath yesterday and feeling faint; lightheaded. Also has myalgia and headache and taken tylenol but not helping. Having sore throat and nausea for the last 3 days. Guardian that she lives with also has symptoms of fever and chills and was tested for COVID19 today and result pending. This person has been sick for a couple of days before pt. Has her symptoms. 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 One co- worker was diagnosed with COVID19 in July and had been out of workand they have been wearing PPE. Ho underlying heart or lung disease. Has seasonal allergies. Reason for Visit: Requesting COVID testing In the last 14 days have you had close contact with a person known to have COVID-19 or been instructed to self-isolate? Yes-her guardian just started isolation today due to being tested and pending result. She shares the same bed with this guardian. Medical, surgical, social and family histories pertinent to today's visit were reviewed and updated in the patient's chart. I have reviewed the medications, allergies, and problem list pertinent to today's vist. Review of Systems: Complete Review of Systems is negative, unless noted in HPI Her depression is doing better since an increase in her lexapro . PHQ9 was administered today with atotal score of 11. See flowsheet for details. Physical Examination: BP (!) 136/91 (BP Location: Right Arm, BP Cuff Size: Regular) Pulse 92 Temp 98.8 ??F (37.1 ??C) (Oral) Wt 260 lb (117.9 kg) Comment: reported SpO2 98% General: alert, oriented to person, place, time and normal hydration Head: atraumatic Ears: pearly givens bilateral TMs and non-inflamed external ear canals Nose: no rhinorrhea/nasal discharge Mouth/Throat: no exudates, no dental tenderness and mild erythema Neck: no tenderness, supple, full AROM and tenderness to palpation in anterior cervical area with shotty LAD Chest/Pulmonary: chest clear with equal lung sounds bilaterally, no chest wall tenderness or deformities and no tachypnea Cardiovascular: S1, S2 normal and regular rate and rhythm Abdomen: soft, non-tender, no guarding, no rebound tenderness and no tenderness to percussion Skin: no rashes, no diaphoresis and skin color normal Assessment/Plan: Marychuy was seen today for headache, body aches, sore throat, nausea, cough and sob (shortness of breath). Diagnoses and all orders for this visit: Cough - 2019 Novel Coronavirus (COVID-19); Future - ALBUterol sulfate HFA (VENTOLIN HFA) 108 (90 Base) MCG/ACT inhaler; Inhale 2 Puffs every 4 hours as needed. Use 30 min prior to exercise. Use with spacer and use it 4-6 times per day for the next 7days - 2019 Novel Coronavirus (COVID-19) If her cough fails to improve or if worsening such as shortness of breath or increasing cough or fever, return for recheck and consider CXR. -informed patient that test results are typically delivered within 5-7 days. The fastest way to get your test results is through your online account. If you don???t already have an account, refer to quick link in your testing appointment confirmation email to sign up (you can also go to [email or web address]). You will need your ID number from your insurance card to get started. Letter provided for school as she was supposed to be taking a test now and letter for work to isolate until results come back then work with employee health for return to work plan. Myalgia - 2019 Novel Coronavirus (COVID-19); Future - 2019 Novel Coronavirus (COVID-19) Sore throat - 2019 Novel Coronavirus (COVID-19); Future - 2019 Novel Coronavirus (COVID-19) Other headache syndrome - 2019 Novel Coronavirus (COVID-19); Future - 2019 Novel Coronavirus (COVID-19) Shortness of breath - 2019 Novel Coronavirus (COVID-19); Future - 2019 Novel Coronavirus (COVID-19) As above. Exercise-induced coughing episode - ALBUterol sulfate HFA (VENTOLIN HFA) 108 (90 Base) MCG/ACT inhaler; Inhale 2 Puffs every 4 hours as needed. Use 30 min prior to exercise. Elevated BP without diagnosis of hypertension No previous elevated BP. Recheck in a month See AVS for patient instructions Total Time spent with patient was 30 minutes; more than 50% spent on education specifically COVID19 management. Brennan Cortes MD documented in this encounter Plan of Treatment Not on filedocumented as of this encounter Procedures Procedure Name Priority Date/Time Associated Comments Diagnosis 2019 NOVEL Routine 08/29/2019 3:34 PM Cough Results for this CORONAVIRUS CDT Myalgia procedure are in Sore throat the results Other headache section. syndrome Shortness of breath documented in this encounter Results (ABNORMAL) 2018 Novel Coronavirus (COVID-19) (08/29/2019 3:34 PM CDT) [facility] Method Time Signature SARS-CoV-2 DETECTED (A) NOT DETECTED 09/03/2019 [facility] 5:00 AM CDT [facility] Comment: ?? A Detected result is considered a positi ve test result for COVID-19. ??This indicates that RNA from SARS-CoV-2 (formerly 2019-nCoV) was detected, and t he patient is infected with the virus and presumed to be contagious. If requested by public health authority, specimen will be sent for additional testing. Please review the Fact Sheets and FDA authorized labeling available for health care provi ders and patients using the following websites: https://[email or web address].Tapad/home/Co vid-19/Patients/ [facility]/fact-sheet.html https://www.Tyfone.Tapad/home/Co vid-19/HCP/ NAAT/fact-sheet.html This test has been authorized by the FDA under an Emergency Use Authorization (EUA) for us e by authorized laboratories. Due to the current public health emergen cy, [facility] is receiving a high volume o f samples from a wide variety of swabs and media for CO VID-19 testing. In order to serve patients during this p ublic health crisis, samples from appropriate clinica l sources are being tested. Negative test results deri werner from specimens received in non-commercially m anufactured viral collection and transport media, or in media and sample collection kits not yet authorize d by FDA for COVID-19 testing should be cautiously ev aluated and the patient potentially subjected to extra p recautions such as additional clinical monitoring, inclu ding collection of an additional specimen. Methodology: ??Nucleic Acid Amplificatio n Test (NAAT) includes PCR or TMA ?? Additional information about COVID-19 ca n be found at the [facility] website: www.Fishidy.Tapad/Covid19. [place], [facility], [address] [place] [address], [phone], TIERRA BAIRD MD Specimen Anatomical Collection Method Collection Time Receive d Time (Source) Location / / Volume Laterality Swab (Source Non-blood 08/29/2019 3:34 PM 0 3:37 Required) Collection / CDT PM CDT Unknown Brennan Cortes MD LAB_1 Performing Organization Address City/State/ZIP Code Phon e Number [facility] [address] [place], [place] [address] documented in this encounter Visit Diagnoses Diagnosis Cough - Primary Myalgia Mylagia and myositis, unspecified Sore throat Acute pharyngitis Other headache syndrome Shortness of breath Exercise-induced coughing episode Elevated BP without diagnosis of hyperte nsion documented in this encounter Care Teams Shadowgraph Scale Operator Relationship Specialty Start Date End Date Christin Palacios PA-C PCP - General Physician Wire Frame Dipper 05/12/[id number] [place] [address] documented as of this encounter
--- OUTSIDE RECORDS SUMMARY | 2022-03-19 14:31 | XMS_ITS | Encounter Summary ---
:2000 Author Organization [facility] Address [address] [place] [address] Care Team Providers Name Role Phone Christin Palacios PA-C Primary Care Provider Reason for Visit Reason Onset Date Comments Refill 12/18/2020 Encounter Details Date Type Department Care Team Description 12/18/2020 Refill [facility] Christin Palacios PA-C [address]ill [id number] [address] [address] [place] [address] [phone] (Wo rk) Social History Tobacco Use Types [...] contraceptives documented in this encounter Care Teams Coater Operator Relationship Specialty Start Date End Date Christin Palacios PA-C PCP - General Physician Assignment Desk Editor 05/12/14 [address] [address] [place] [address] documented as of this encounter
--- OUTSIDE RECORDS SUMMARY | 2022-03-19 14:31 | XMS_ITS | Encounter Summary ---
:2000 Author Organization [facility] Address [address] [place] [address] Care Team Providers Name Role Phone Christin Palacios PA-C Primary Care Provider Reason for Visit Reason Comments ANXIETY LETTER NEEDED for service animal in dorm s Encounter Details Date Type Department Care Team Description 01/19/2020 Telemedicine [facility] Christin Palacios, Anxiety (P rimary Dx); Medicine ANGEL OCP (oral contraceptive pills) initiatio n; [address] [address] [place] se-induced coughing episode; [address]; [place] [address] [place] [address] Depression, unspecified depression type [phone] Social History Tobacco Use Types Packs/Day Years Used Date Smoking Tobacco: Passive Smoke Exposure - Never Smoker Smokeless Tobacco: Never Alcohol Use Standard Drinks/Week Comments Yes 0 (1 standard drink = 0.6 oz pure alcoho l) socially Sex Assigned at Date Recorded Not on file documented as of this encounter Progress Notes Christin Palacios PA-C - 01/19/2020 10:00 AM CDT Chief Complaint Patient presents with ??? ANXIETY ??? LETTER NEEDED for service animal in dorms Subjective: Today's visit with Marychuy was conducted as a scheduled video visit. Chelsea Perrin Amber Le is here for follow-up of anxiety, last visit for her mood ~ 6 mo ago She is taking Lexapro 30 mg She is not being treated with psychotherapy, but is looking into getting a therapist through school Since the last clinic visit, the patient states symptoms have Varied, Worsened. Currently they include: the symptoms recorded on the PHQ-9 and HARISH-7. Reports she is now back in [place] for college. She doesn't have a roommate, doesn't have a job. Only has one in person class, so feeling very isolated. Reports when she is feeling too alone alone- when she is by herself she gets stuck in her head/thoughts and then feels like she has worsening panic attacks She is wondering about a pet - Grew up with her sister's dog Ashie - When she lived in her apt she had a cat - Ctfarooq - Feels like when she has had an animal with her she did better Feels like when she has a panic attack, felt like her cat maeks everything better, tends to play with her. Feels like when she is stressed out at school - she can pet her and it takes away her anxiety She is wondering about a service animal - She is wondering about a dog so she can travel with it easier than a cat. She does feel like an animal will replace that lonliness She is wondering about medication for her acute anxiety/panci attacks - she has heard about Klonopin - She would also like new Rx for Albuterol and OCP sent to [place]. [id number] does not exist. Please contact your infrastructure administrator to configure this SmartLink. Past Medical History: Diagnosis Date ??? Depression ([facility]) Current Outpatient Medications Medication Sig Dispense Refill ??? ALBUterol sulfate HFA (VENTOLIN HFA) 108 (90 Base) MCG/ACT inhaler Inhale 2 Puffs every 4 hours as needed. Use 30 min prior to exercise. 18 g 1 ??? busPIRone (BUSPAR) 5 MG tablet Take 1 Tablet by mouth two times a day. 60 Tablet 3 ??? escitalopram oxalate (LEXAPRO) 20 MG tablet Take 1.5 Tablets by mouth daily. 90 Tablet 3 ??? levonorgestrel-ethinyl estrad (LESSINA-28) 0.1-20 MG-MCG tablet Take 1 Tablet by mouth daily. 84Tablet 3 ??? Spacer/Aero-Holding Chambers (AEROCHAMBER) Use with inhaler as directed 1 Each 1 No current facility-administered medications for this visit. Objective: LMP 01/05/2020 No WDWN female in NAD Skin:Warm, dry Neuro: Alert, orientated Resp: Speaking in full sentences, not coughing or SOB Psych: Normal mood and affect PHQ-9 1. Little interest or pleasure in doing things 1 2. Feeling down, depressed, or hopeless 1 3. Trouble falling or staying asleep, or sleeping too much 3 4. Feeling tired or having little energy 2 5. Poor appetite or overeating 2 6. Feeling bad about yourself -- or that you are a failure or have let yourself or your family down 1 7. Trouble concentrating on things, such as reading the newspaper or watching television 2 8. Moving or speaking so slowly that other people could have noticed? Or the opposite -- being so fidgety or restless that you have been moving around a lot more than usual 0 9. Thoughts that you would be better off or of hurting yourself in some way 0 10. If you have checked off any problems, how difficult have these problems made it for you to do your work, take care of things at home, or get along with other people? Somewhat difficult Total 12 HARISH-7 1. Feeling nervous, anxious or on edge 2 2. Not being able to stop or control worrying 1 3. Worrying too much about different things 3 4. Trouble relaxing 2 5. Being so restless that it is hard to sit still 3 6. Becoming easily annoyed or irritable 0 7. Feeling afraid as if something awful might happen 1 8. If you checked off any problems, how difficult have these made it for you to do your work, take care of things at home, or get along with other people? Somewhat difficult Total 12 Assessment/Plan: 1. Anxiety (HRC) 2. OCP (oral contraceptive pills) initiation 3. Exercise-induced coughing episode 4. Cough 5. Depression, unspecified depression type Anxiety/Depression - Discussed medication treatment options - Continue 30 mg Lexapro daily - Add in Buspar for overarching anxiety - Strongly encourage getting a therapist at school - In terms of service animal - I do agree that likely a pet would be medically beneficial to her mood and mental health, it is not medically necessary from a disability standpoint. - Marychuy's not disabled as a result of her mental health - I can write letter for medical benefit, but not necessity - Follow up in 1 mo, sooner if needed. Clinician located at clinic. Patient located at other dorms Billing based on: Complexity Christin Palacios PA-C documented in this encounter Plan of Treatment Not on filedocumented as of this encounter Visit Diagnoses Diagnosis Anxiety (HRC) - Primary Anxiety state, unspecified OCP (oral contraceptive pills) initiatio n General counseling for prescription of o ral contraceptives Exercise-induced coughing episode Cough Depression, unspecified depression type documented in this encounter Care Teams Roll Over Press Operator Relationship Specialty Start Date End Date Christin Palacios PA-C PCP - General Physician Varnish Dipper 05/12/[address] [place] [address] documented as of this encounter
--- OUTSIDE RECORDS SUMMARY | 2022-03-19 14:31 | XMS_ITS | Encounter Summary ---
:2000 Author Organization [facility] Address [address] [place] [address] Care Team Providers Name Role Phone Christin Palacios PA-C Primary Care Provider Reason for Visit Reason Comments Follow-up, NOS Encounter Details Date Type Department Care Team Description 11/24/2019 Telephone [facility] Family Prac leenaRamon Lowe, Follow-up, NOS [address] [place] [place] [phone] [address] [facility] [phone] [address] [place], [place] [phone] (Wo rk) Social History Tobacco Use Types Packs/Day Years Used Date Smoking Tobacco: Passive Smoke Exposure - Never Smoker Smokeless Tobacco: Never Alcohol Use Standard Drinks/Week Comments Yes 0 (1 standard drink = 0.6 oz pure alcoho l) socially Sex Assigned at Date Recorded Not on file documented as of this encounter Nursing Notes Ada Baca LPN - 11/24/2019 8:18 AM CDT Called patient to inform them of Ulices Rodríguez's ANGEL advice. Patient voiced verbal understanding. Patient had no other questions. Ramon Mai PA-C - 11/24/2019 8:04 AM CDT Ri Marychuy, They should be reaching out soon. You can begin straight leg raising exercises as the pain improves to strengthen quadriceps muscles and provide joint strengthening. Start with 10 reps, then work your way up to 25 lifts and hold each lift for 5 seconds. Additionally, you can try crutches (can pick these up here or at a medical supply store) if the painis severe. Really the only time we jump straight to an MRI is if there is knee locking (sign of a large tear that won't heal without surgery) or another sign that surgery is likely needed. If you want to filler picker crutches here, let us know and my nurse can coordinate. Ramon Rodríguez PA-C Lula Baird - 11/24/2019 7:27 AM CDT Miscellaneous Questions & FYI's [Conductor Orchestra: If this call is after 3 p.m., communicate to patient: If we are not able to get back to you by the end of the day and your symptoms worsen please contact the Careline at [phone] at .] Is this a question/concern or an FYI? Question/Concern Is this a symptom? No What is your question or concern? Patient states that she has not heard from PT and that her right is knee is not getting better. Not sure if provider wanted to see her again or just order a MRI? Have you recently been seen for this? Yes: 11-22-19 Is it okay to leave a detailed message on your voicemail? Yes Lula Baird If unable to handle, please route to None OR Care Team Pool [AUTOMATIC BEAM WARPER TENDER/RMA/LPNs: please call the patient to gather additional details, as needed.] documented in this encounter Plan of Treatment Not on filedocumented as of this encounter Visit Diagnoses Not on filedocumented in this encounter Care Teams News Editor Relationship Specialty Start Date End Date Christin Palacios PA-C PCP - General Physician Communications Scientist 05/12/[address] [place] [address] documented as of this encounter
--- OUTSIDE RECORDS SUMMARY | 2022-03-19 14:31 | XMS_ITS | Encounter Summary ---
:2000 Author Organization [facility] Address [address] [place] [address] Care Team Providers Name Role Phone Christin Palacios PA-C Primary Care Provider Reason for Referral Therapies (Routine) - Closed Specialty Diagnoses / Procedures Referred By Contact Refer red To Contact Diagnoses Acute pain of right knee Ramon Rodríguez [facility] [place] [address] [facility] [address] [place] [address] [address] [place] [address] Referral ID Status Reason Start Date Expiration Date Visits Requ ested Visits Authorized [id number] Closed 11/22/2019 01/21/2020 1 1 Scheduling Instructions This order is your clinician's recommend ation for a service and is not an insurance referral which authorizes payment. The r ecommended service and/or location may not be covered by your insurance plan. Please c all the number on your insurance card to find out your specific benefits and coverage for the recommended services and/or location. If you need help scheduling the recommen ded services, please ask your clinician's staff to assist you. Procedure/Equipment (Routine) - Incomplete Specialty Diagnoses / Procedures Referred By Contact Refer red To Contact Diagnoses Acute pain of right knee Ramon Rodríguez PA-C Procedures XR Knee Rt AP/Lat/Sun [address] [place] [address] Referral ID Status Reason Start Date Expiration Date Visits V isits Requested Authorized [id number] Incomplete 11/22/2019 02/20/2021 1 1 Reason for Visit Reason Comments KNEE PAIN right. with swelling Encounter Details Date Type Department Care Team Description 11/22/2019 Office Visit [facility] Ramon Parish of right Practice ANGEL [place] knee (Primary Dx) [address] [facility] [address] [place] [address] [place], [place] [phone] Social History Tobacco Use Types Packs/Day Years Used Date Smoking Tobacco: Passive Smoke Exposure - Never Smoker Smokeless Tobacco: Never Alcohol Use Standard Drinks/Week Comments Yes 0 (1 standard drink = 0.6 oz pure alcoho l) socially Sex Assigned at Date Recorded Not on file documented as of this encounter Last Filed Vital Signs Vital Sign Reading Time Taken Comments Blood Pressure 132/85 11/22/2019 8:02 AM CDT Pulse 74 11/22/2019 8:02 AM CDT Temperature - - Respiratory Rate - - Oxygen Saturation - - Inhaled Oxygen Concentration - - Weight 134.3 kg (296 lb) 11/22/2019 8:02 AM CDT Height 174 cm (5' 8.5) 11/22/2019 8:02 AM CDT Body Mass Index 44.35 11/22/2019 8:02 AM CDT documented in this encounter Patient Instructions Patient InstructionsRamon Rodríguez PA-C - 11/22/2019 8:00 AM CDT knee pain -may represent simple soft tissue injury of surrounding knee space or something more specific like meniscal injury or something more functional like patellofemoral pain based on XRs. -no fractures on XR. -Will start PT with Deondre Soriano at [facility]. They will call to schedule. Let's try at least 2 weeks of PT, ice, rest, and elevation with ibuprofen/tylenol alternating every 3-4 hours (600mg for ibuprofen, 650mg for tylenol) for pain. -Next step if pain worsening is to try MRI before the clinic closes. May alternatively establish elsewhere for MRI. documented in this encounter Progress Notes Ramon Rodríguez PA-C - 11/22/2019 8:00 AM CDT Chief complaint: Chief Complaint Patient presents with ??? KNEE PAIN right. with swelling Marychuy Le is a 19 y.o. old female here for evaluation of R knee pain/swelling. Patient crystal is clumsy and falls a lot from tripping over her own feet. She has fallen on it like twice over the past 2 weeks. Hurts with bending and going up stairs. Walking on flat ground hurts as well but not as bad as stairs and bending. Pain scaled at 4-5/10 at rest, 8/10 when really bed. Associated symptoms include: some bruising, some swelling before. Pertinent Negatives: fevers. At home treatments include: ice, ibuprofen and the patient does not feel they are helping. Patient has not had similar symptoms in the past for L knee. Injury: falling Progression: stable?? Unsure since she fell on it again today. ROM: intact Circulation: intact Sensation: intact Pertinent PMH/PSFH: undiagnosed murmurs, overweight, depression/anxiety, allergic rhinitis. Of note,patient had a COVID infection detected on 08/29/2019. Past Medical History: Diagnosis Date ??? Depression No past surgical history on file. ALBUterol sulfate HFA (VENTOLIN HFA) 108 (90 Base) MCG/ACT inhaler, Inhale 2 Puffs every 4 hours as needed. Use 30 min prior to exercise., Disp: 18 g, Rfl: 1 escitalopram oxalate (LEXAPRO) 20 MG tablet, Take 1.5 Tablets by mouth daily., Disp: 90 Tablet, Rfl:3 LESSINA-28 0.1-20 MG-MCG tablet, TAKE 1 TABLET BY MOUTH EVERY DAY, Disp: 84 Tablet, Rfl: 3 Spacer/Aero-Holding Chambers (AEROCHAMBER), Use with inhaler as directed, Disp: 1 Each, Rfl: 1 No current facility-administered medications on file as of 11/22/2019. ROS: Gen: Otherwise good health. Card: No chest pains, palpitations, dizzy spells Resp: No wheezing or cough. MUSK: No other joint/muscle concerns. NEUR: No numbness, tremors, weakness. SKIN: No skin breaks. EXAM Filed Vitals: 11/22/19 0802 BP: 132/85 Pulse: 74 Weight: 296 lb (134.3 kg) Height: 5' 8.5 (1.74 m) GEN: alert, appears in good health and in no obvious distress CARD: Extremities well perfused; no edema.. MUSK: Pain with McMurrays, anterior knee pain, diffuse global pain around knee joint with palpation.Thessaly testing is positive for pain. MCL/LCL/ACL/PCL are intact. Negative Piyush. No obvious swelling. Difficult exam due to habitus. NEUR: Sensations grossly intact. SKIN: Skin is healthy. No lesions.. R knee XR: possible patella misalignment but difficult to read, otherwise normal XR. A/P Marychuy was seen today for knee pain. Diagnoses and all orders for this visit: Acute pain of right knee - XR Knee Rt AP/Lat/Sun; Future - Physical Therapy 1. R knee pain -may represent simple soft tissue injury of surrounding knee space or something more specific like meniscal injury or something more functional like patellofemoral pain based on XRs. -no fractures on XR. -Will start PT with Deondre Soriano at [facility]. They will call to schedule. Let's try at least 2 weeks of PT, ice, rest, and elevation with ibuprofen/tylenol alternating every 3-4 hours (600mg for ibuprofen, 650mg for tylenol) for pain. -Next step if pain worsening is to try MRI before the clinic closes. May alternatively establish elsewhere for MRI. documented in this encounter Plan of Treatment Scheduled Referrals Name Type Priority Associated Diagnoses [facility] Referral Routine Acute pain of right knee Ordered: 11/22/2019 documented as of this encounter Results XR Knee Rt AP/Lat/Sun (11/22/2019 8:41 AM CDT) Anatomical Region Laterality Modality Lower Extremity, Knee Computed Radiograp hy Specimen (Source) Anatomical Collection Method Collection Time Re ceived Time Location / / Volume Laterality 11/22/2019 8:41 AM CDT Narrative 11/22/2019 2:42 PM CDT EXAM: XR KNEE RT AP/LAT/SUN LOCATION: [facility] DATE/TIME: 11/22/2019 8:41 AM INDICATION: Right knee pain, multiple fa lls x2 wks COMPARISON: None. IMPRESSION: Normal joint spaces and alig nment. No fracture or joint effusion. Procedure Note Neva Goins MD - 11/22/2019 EXAM: XR KNEE RT AP/LAT/SUN LOCATION: [facility] DATE/TIME: 11/22/2019 8:41 AM INDICATION: Right knee pain, multiple fa lls x2 wks COMPARISON: None. IMPRESSION: Normal joint spaces and alig nment. No fracture or joint effusion. Ramon Rodríguez PA-C RAD GD documented in this encounter Visit Diagnoses Diagnosis Acute pain of right knee - Primary Acute pain of right knee documented in this encounter Care Teams Children'S Ministry Director Relationship Specialty Start Date End Date Christin Palacios PA-C PCP - General Physician Distance Education Coordinator 05/12/[address] [place] [address] documented as of this encounter
--- OUTSIDE RECORDS SUMMARY | 2022-03-19 14:31 | XMS_ITS | Encounter Summary ---
:2000 Author Organization [facility] Address [address] [place] [address] Care Team Providers Name Role Phone Christin Palacios PA-C Primary Care Provider Reason for Visit Reason Comments RESULTS, X-RAY Encounter Details Date Type Department Care Team Description 11/22/2019 Telephone [facility] Family Prac Ramon Rey, RESULTS, X-RAY [address] [facility] [place] [phone] [address] [facility] [phone] [address] [place], [place] [phone] (Wo rk) Social History Tobacco Use Types Packs/Day Years Used Date Smoking Tobacco: Passive Smoke Exposure - Never Smoker Smokeless Tobacco: Never Alcohol Use Standard Drinks/Week Comments Yes 0 (1 standard drink = 0.6 oz pure alcoho l) socially Sex Assigned at Date Recorded Not on file documented as of this encounter Nursing Notes Lula Bone LPN - 11/22/2019 4:06 PM CDT Pt was notified of normal xray results. Lula Bone LPN 11/22/2019, 4:07 PM Lula Bone LPN - 11/22/2019 4:05 PM CDT ----- Message from Ramon Rodríguez PA-C sent at 11/22/2019 3:46 PM CDT ----- Please let patient know that her knee XR was normal, no fractures, no other abnormalities found. Ulices Rodríguez PA-C documented in this encounter Plan of Treatment Not on filedocumented as of this encounter Visit Diagnoses Not on filedocumented in this encounter Care Teams Test Bore Helper Relationship Specialty Start Date End Date Christin Palacios PA-C PCP - General Physician Fried Cake Maker 05/12/[address] [place] [address] documented as of this encounter
--- OUTSIDE RECORDS SUMMARY | 2022-03-19 14:31 | XMS_ITS | Encounter Summary ---
:2000 Author Organization [facility] Address [address] [place] [address] Care Team Providers Name Role Phone Christin Palacios PA-C Primary Care Provider Encounter Details Date Type Department Care Team Description 10/03/2019 Notes/Orders [facility] General Lora Escobar, Dentistry DDS [address] [facility] [address] [place] [address] [place], [place] [phone] (Wo rk) Social History Tobacco Use Types Packs/Day Years Used Date Smoking Tobacco: Passive Smoke Exposure - Never Smoker Smokeless Tobacco: Never Alcohol Use Standard Drinks/Week Comments Yes 0 (1 standard drink = 0.6 oz pure alcoho l) socially Sex Assigned at Date Recorded Not on file documented as of this encounter Progress Notes Lora Escobar DDS - 10/03/2019 2:31 PM CDT #1,16,17,32 extracted at [facility]. Lora Escobar DDS 10/03/2019, 2:31 PM documented in this encounter Plan of Treatment Not on filedocumented as of this encounter Visit Diagnoses Not on filedocumented in this encounter Care Teams Portuguese Tutor Relationship Specialty Start Date End Date Christin Palacios PA-C PCP - General Physician Marketing Producer 05/12/14 [address] [place] [address] documented as of this encounter
--- OUTSIDE RECORDS SUMMARY | 2022-03-19 14:31 | XMS_ITS | Encounter Summary ---
:2000 Author [facility] Address [address] [place] [address] Care Team Providers Name Role Phone Gunner Carias PA-C Primary Care Provider Reason for Visit Reason Onset Date Comments Refill 09/13/2020 escitalopram oxalate (LEXAPRO) 20 MG tablet Encounter Details Date Type Department Care Team Description 09/13/2020 Refill [facility] Medic ne Gunner Carias, Refill (escitalopram [id number] [facility] [address] oxalate (LEXAPRO) 20 MG #[id number] tablet) [place], [place] [address] [address] [place], [place] [address] (Wo rk) Social History Tobacco Use Types Packs/Day Years Used Date Smoking Tobacco: Passive Smoke Exposure - Never Smoker Smokeless Tobacco: Never Alcohol Use Standard Drinks/Week Comments Not Currently 0 (1 standard drink = 0.6 oz pure alcoho l) socially Sex Assigned at Date Recorded Not on file documented as of this encounter Nursing Notes Coco Hamilton RN - 09/13/2020 4:49 PM CDT Renewed medication per medication refill protocol. Requested Prescriptions Pending Prescriptions Disp Refills ??? escitalopram oxalate (LEXAPRO) 20 MG tablet 135 Tablet 2 Sig: Take 1.5 Tablets by mouth daily. Interface, Out Needle Prov Query - 09/13/2020 3:46 PM CDT escitalopram oxalate (LEXAPRO) 20 MG tablet Medication started: 05/13/2018 Last ordered by GUNNER CARIAS: 07/13/2019 (428 days ago) QTY: 90, Refills: 3, Sig: take 1.5 tablets by mouth daily. (unchanged) -> Refill x 9 months, qty: 135, refills: 2 (until due for an office visit) Last qualifying visit: 03/21/2020 (with GUNNER CARIAS) Next scheduled visit: None Age: 20 Powered by [employer] by [employer], Reference: [id number], 09/13/2020 3:46:39 PM CDT, Pool:PN REFILL WIZARD ADMIN ([id number]) documented in this encounter Plan of Treatment Not on filedocumented as of this encounter Visit Diagnoses Not on filedocumented in this encounter Care Teams Button Sewer Hand Relationship Specialty Start Date End Date Gunner Carias PA-C PCP - General Physician Welding Machine Operator Electro Gas 05/12/14 [address] [address] [place] [address] documented as of this encounter
--- OUTSIDE RECORDS SUMMARY | 2022-03-19 14:32 | XMS_ITS | Encounter Summary ---
:2000 [facility] Address [address] [place] [address] Care Team Providers Name Role Phone Christin Palacios PA-C Primary Care Provider Encounter Details Date Type Department Care Team Description 11/24/2018 Lab Visit [facility] Nonintractable headache, [address] [place] [id number] pattern, unspecified [phone] headache type Social History Tobacco Use Types Packs/Day Years Used Date Smoking Tobacco: Passive Smoke Exposure - Never Smoker Smokeless Tobacco: Never Alcohol Use Standard Drinks/Week Comments No 0 (1 standard drink = 0.6 oz pure alcoho l) Sex Assigned at Date Recorded Not on file documented as of this encounter Progress Notes Christin Palacios PA-C - 11/24/2018 2:20 PM CDT Please let Marychuy know Strep and Lagrange both negative. Her white count is up a little bit and with her persistent symptoms going on now for over a month - do want to treat with Abx x 1 week. Please confirm pharmacy. Christin Palacios PA-C 11/24/2018, 3:13 PM documented in this encounter Plan of Treatment Not on filedocumented as of this encounter Procedures Procedure Name Priority Date/Time Associated Diagnosis Comme nts CBC AND DIFFERENTIAL Routine 11/24/2018 2:22 Nonintractable Re sults for this PANEL PM CDT headache, unspecified proced ure are in chronicity pattern, the resu lts unspecified headache section . type COMPLETE BLOOD Routine 11/24/2018 2:22 Nonintractable Results for this COUNT-W/DIFF PM CDT headache, unspecified proced ure are in chronicity pattern, the resu lts unspecified headache section . type MONO TEST Routine 11/24/2018 2:22 Nonintractable Results fo r this PM CDT headache, unspecified proced ure are in chronicity pattern, the resu lts unspecified headache section . type documented in this encounter Results (ABNORMAL) Complete Blood Count-W/Diff (11/24/2018 2:22 PM CDT) [facility] Method Time Signature WBC 14.1 (H) 3.5 - 11/24/2018 [facility] 10.5 2:23 PM CDT [facility] x10(9)/L LAB RBC 4.01 3.90 - 11/24/2018 [facility] 5.03 2:23 PM CDT [facility] x10(12)/L LAB Hemoglobin 12.4 12.0 - 11/24/2018 [facility] 15.5 g/dL 2:23 PM CDT [facility] HCT 36.3 34.9 - 11/24/2018 [facility] 44.5 % 2:23 PM CDT [facility] MCV 90.5 80.0 - 11/24/2018 [facility] 100.0 fL 2:23 PM CDT [facility] MCH 30.9 27.6 - 11/24/2018 [facility] 33.3 pg 2:23 PM CDT [facility] MCHC 34.2 31.5 - 11/24/2018 [facility] 35.2 g/dL 2:23 PM CDT [facility] RDW 12.0 11.9 - 11/24/2018 [facility] 15.5 % 2:23 PM CDT [facility] Platelets 289 150 - 450 11/24/2018 [facility] x10(9)/L 2:23 PM CDT [facility] Neutrophil 10.6 (H) 1.7 - 7.0 11/24/2018 [facility] Absolute 10(9)/L 2:23 PM CDT [facility] Lymphocyte 2.2 1.0 - 4.8 11/24/2018 [facility] Absolute 10(9)/L 2:23 PM CDT [facility] Monocytes 0.9 0.2 - 0.9 11/24/2018 [facility] Absolute 10(9)/L 2:23 PM CDT [facility] Eosinophil 0.4 0.0 - 0.5 11/24/2018 [facility] Absolute 10(9)/L 2:23 PM CDT [facility] Basophil 0.0 0.0 - 0.3 11/24/2018 [facility] Absolute 10(9)/L 2:23 PM CDT [facility] Immature Gran 0.0 0.0 - 0.5 11/24/2018 [facility] % % 2:23 PM CDT [facility] Specimen Anatomical Collection Method / Collection Time Recei werner Time (Source) Location / Volume Laterality Blood Venipuncture / 11/24/2018 2:22 11/24/2018 2:22 Unknown PM CDT PM CDT Christin Palacios PA-C LAB_1 Performing Organization Address City/[facility]/ZIP Code Phon e Number [facility] [address] [place] [address] [phone] CLINIC LAB Lagrange Test (11/24/2018 2:22 PM CDT) [facility] Method Time Signature Mononucleosis Negative Negative 11/24/2018 [facility] Screen 2:27 PM CDT [facility] Specimen Anatomical Collection Method / Collection Time Recei werner Time (Source) Location / Volume Laterality Blood Venipuncture / 11/24/2018 2:22 11/24/2018 2:22 Unknown PM CDT PM CDT Christin Palacios PA-C LAB_1 Performing Organization Address City/[facility]/ZIP [facility] Ph[place] Number [facility] [address] [place] [address] [phone] CLINIC LAB documented in this encounter Visit Diagnoses Diagnosis Nonintractable headache, unspecified chr onicity pattern, unspecified headache type documented in this encounter Care Teams Accounting Software Specialist Relationship Specialty Start Date End Date Christin Palacios PA-C PCP - General Physician Assurance Services Manager Health Care 05/12/[id number] [place] [id number] documented as of this encounter
--- OUTSIDE RECORDS SUMMARY | 2022-03-19 14:32 | XMS_ITS | Encounter Summary ---
:2000 Author Organization [facility] Address [address] [place] [address] Care Team Providers Name Role Phone Christin Palacios PA-C Primary Care Provider Reason for Visit Reason Comments INFECTION, SINUS started 5 days ago, sore thr oat, ear pain, headache, runny nose, drainage down back of the th roat, nasal congestion, delsym and ibuprofen BODY ACHES started 3 days ago, stable, FATIGUE started on thursday, Encounter Details Date Type Department Care Team Description 06/30/2018 Office Visit [facility] ation Right otitis media, [address] unspecified otitis media [place], [place] type (Primar y Dx) [id number] Social History Tobacco Use Types Packs/Day Years Used Date Smoking Tobacco: Passive Smoke Exposure - Never Smoker Smokeless Tobacco: Never Comments: parents Alcohol Use Standard Drinks/Week Comments No 0 (1 standard drink = 0.6 oz pure alcoho l) Sex Assigned at Date Recorded Not on file documented as of this encounter Last Filed Vital Signs Vital Sign Reading Time Taken Comments Blood Pressure - - Pulse - - Temperature 37.3 ??C (99.2 ??F) 06/30/2018 11:44 AM CDT Respiratory Rate - - Oxygen Saturation - - Inhaled Oxygen Concentration - - Weight 104.3 kg (230 lb) 06/30/2018 11:44 AM CDT Height 174 cm (5' 8.5) 06/30/2018 11:44 AM CDT Body Mass Index 34.46 06/30/2018 11:44 AM CDT Body Mass Index Percentile 97.66 % 06/30/2018 11:44 AM C DT Growth Chart: [facility] (Girls, 2-20 Years) documented in this encounter Patient Instructions Patient InstructionsVaishali Fairbanks PA-C - 06/30/2018 11:50 AM CDT Thank you for allowing me to participate in your health care today. Please follow the recommendations discussed at today's visit as well as those included on this After Visit Summary (AVS). Ear infection (Otitis Media) You have been diagnosed with otitis media which is an infection of the middle ear (the space behind the eardrum). It is most often caused by a virus or bacteria that travel from the nose or throat along the tube (Eustachian tube) that connects the middle ear to the throat. The ear is painful because trapped, infected fluid puts pressure on the eardrum, causing it to bulge. Ear infections are not contagious. The provider may prescribe an antibiotic to kill the bacteria causing the infections. Complete the entire course of treatment even though you or your child will feel better in a few days after taking the medication. (Note: If the infection is caused by a virus, antibiotics may not help.) ?? Acetaminophen (Tylenol??) or ibuprofen (Motrin?? or Advil??) can be used to help with the earacheor fever for a few days until the antibiotic takes effect. These medicines usually control the pain within 1-2 hours. Read and follow all instructions from the concrete tile machine operator before using. ?? Sometimes a cold or warm washcloth pad over the ear helps it feel better. Remove the cold or warmpad in 20 minutes to prevent frostbites or a burn. Your child should be seen by her provider in 2-3 weeks. It is important to make sure the infection is gone and your child needs no more treatment. If you are an adult it is not necessary to follow up unless directed to do so by your provider or your symptoms are not resolving in a few days. Call or seek medical attention IMMEDIATELY if you or your child develops a stiff neck or you or yourchild has new symptoms or seems to feel worse. Call your clinic or the nurse line if: ?? the fever or pain is not gone after having taken the antibiotic for 48 hours ?? there are any other concerns or questions. INFLUENZA IN CHILDREN WHAT IT IS AND WHAT YOU CAN DO ABOUT IT What is the Flu? Flu is short for influenza, a virus that causes infections in the respiratory tract including the nose, ears, throat, sinuses, bronchial tubes and lung tissue. The illness that people call stomach flu (gastroenteritis) is almost never caused by influenza. In [place], the virus tends to appear any time from late March until June, although there was a recent outbreak that started in late February. Winter epidemics occur an average of two out of every three years. What are the symptoms? In children, influenza symptoms can range from a mild cold with no fever, to a miserable disease with high fever and cough, during which older children will frequently say that they feel like they havebeen run over by a truck. Often, the flu has an abrupt onset (frequently patients can state the exact hour they got ill) with fever from 99 to 106 degrees F, flushed face, chills, headache, muscle aches, fatigue, runny nose, sneezing, sore throat, a tight feeling in the chest, and a dry cough. The fever, when present, most often lasts from two to five days. It is not unusual to have a secondary feverafter a couple days of recovery. The cough frequently lasts a week or longer. The sore throat is often associated with redness without any pus seen. Eye symptoms are common including excess tears, light sensitivity, burning, and redness to the white part of the eyes. Most children recover from the initial symptoms within a week, but may feel exhausted or not themselves for as long as three to four weeks. How does the Influenza spread? The influenza virus is generally passed from person to person by sneezing or coughing. The virus canalso live for a short time on objects, making it possible for a child to catch the flu by playing with a toy that had previously been used by another child who had the flu. The virus spreads easily andquickly, especially among school children, those in daycare, and their families, as well as in people who live in crowded conditions. After exposure, there are no symptoms for two to four days, and once symptoms appear, a child may spread the virus to other people for three to four days. Treatment The best treatment for the flu is rest, drinking plenty of fluids, and taking a non-aspirin pain reliever /fever b2b sales consultant such as acetaminophen or ibuprofen to relieve the aches and lower the fever. Because influenza is a viral infection, antibiotics do not help treat the flu itself. However, if a child develops an associated bacterial infection, such as an ear infection, their physician may add an antibiotic. In certain cases and certain ???epidemic?? years, an anti viral medication may be prescribed to decrease the severity of the symptoms and decrease the ???shedding?? of the virus, thus making the person less contagious. It is only effective in those with certain strains of influenza and must be givenwithin the first 48 hours of the illness to have a chance of being effective. An OTC homeopathic preparation (Oscillococcinum ?Oscillo?? from [employer] ?? www.Meal Sharing) is available in many stores and in placebo controlled clinical studies, shows some effect on influenzasymptoms (http://www.PalindromX.DepotPoint/about/clinical-studies/). Homeopathic medicines are therapeutically active micro-doses of mineral, botanical and biological substances that are safe, natural, and have no side effects. Indicated for children > 2 yrs old, it comes in a sweet melt-a-way pellet form and pellets that are swallowed for adults. Like the anti-viral agents, it should be given in the first 48 hours to be effective. Complications of the Flu People with certain chronic diseases are at high risk for complications of influenza; so relatively few children are in those categories. However, it is not uncommon, for children with influenza to develop a secondary bacterial infection such as an ear infection. Rarely, a child may develop a bacterial pneumonia while ill with the flu. Difficulty breathing, grunting while breathing, and /or the development of localized chest pain are possible symptoms of pneumonia, so medical consultation is encouraged. Occasionally, children can develop a painful inflammation of the muscles of their calves within a few days after influenza and be unable to walk. This is frightening to parents, but generally resolves without any problems. Mahendra syndrome is a serious brain swelling disorder that has been linked to theuse of aspirin in children with influenza and chicken pox. Symptoms include recurrent vomiting and disorientation. Any product with aspirin or salicylates should be avoided during any illness that resembles influenza Prevention The influenza vaccine is recommended for all children over the age of 6 months. It is especially important to vaccinate people in groups that are at high risk for complications of influenza, or who maybe at high risk of transmitting the infection, includin. Adults and children with chronic disorders of the heart or lungs requiring regular medical follow-ups, chronic medication, or hospitalization in the preceding year (e.g., asthma). 2. Anyone over 65 years of age, detention residents or residents of chronic care facilities. 3. Adults/children with certain chronic diseases: diabetes, renal failure, anemia, or immunosuppression 4. Children and teenagers receiving long-term aspirin therapy. 5. Health care personnel, firemen, policemen, and other public safety personnel. 6. Close contacts of people at high risk for serious disease, such as family members. Any parent who would like their child to have a flu shot can request it at their clinic. The flu shot is not recommended for children under the age of six months. If a child is less than nine years of age and has never had an influenza vaccine in the past, it is recommended that they receive two doses, one month apart. The nasal spray form of the vaccine is indicated for those ages 2-49 years old. Influenza vaccines are very safe and produce relatively few reactions. Soreness and redness at the siteof the injection is the most common reaction and generally lasts less than two days. Occasionally, children less than three years of age may get a low grade fever, but high fevers from the flu shot in older children is not common. What if my child has the Flu? Following the above recommendations should be the first line of attack. If you have concerns that your child is not handling the infection well or may need assistance, call your clinic or [facility] ?? ([phone]). Remember that not everything that can make you miserable during the influenza season is influenza. Some influenza-like symptoms may be caused by other types of infection and require other treatment. HJS 05/14/10 documented in this encounter Progress Notes Vaishali Fairbanks PA-C - 06/30/2018 11:50 AM CDT Shanelle Le is a 17 y.o. old female who is presenting with colored nasal discharge for 5 days. HPI The pain is described as steady. Symptoms are increased by nothing particular. Patient has taken OTCcold medication. This has not helped. Factors that have made symptoms worse include nothing significant. PMH Sinus surgery? No History of recurrent sinus infection? No History of nasal polyps yes/no? No History of severe nasal septum deviation? No History of allergies? No ROS Other symptoms cough, sore throat and bilateral ear pain for 5 days. She has body aches and suspectsthat she had fever. Medications: Current Outpatient Medications Medication Sig Dispense Refill ??? ALBUterol sulfate HFA (VENTOLIN HFA) 108 (90 Base) MCG/ACT inhaler Inhale 2 Puffs every 4 hours as needed. Use 30 min prior to exercise. 18 g 0 ??? amoxicillin-clavulanate (AUGMENTIN) 875-125 mg per tablet Take 1 Tablet by mouth two times a dayfor 10 days. 20 Tablet 0 ??? escitalopram oxalate (LEXAPRO) 10 MG tablet Take 1 Tablet by mouth daily. 30 Tablet 1 ??? FALMINA 0.1-20 MG-MCG tablet TAKE ONE TABLET BY MOUTH ONCE DAILY 84 Tablet 1 No current facility-administered medications for this visit. Allergies: Patient has no known allergies. Objective Vitals: Temp 99.2 ??F (37.3 ??C) (Oral) Ht 5' 8.5 (1.74 m) Wt 230 lb (104.3 kg) BMI 34.46 kg/m?? Appearance: well developed, well nourished and in no acute distress Ears: R TM - erythematous, L TM - WNL: pearly, givens with good light reflex Nose and sinuses: purulent rhinorrhea and mucosal erythema Throat: tonsillar hypertrophy, 3+ Respiratory: normal and clear to auscultation without any rales or rhonchi bilaterally Assessment ICD-10-CM 1. Right otitis media, unspecified otitis media type H66.91 amoxicillin- clavulanate (AUGMENTIN) 875-125 mg per tablet Plan We discussed symptoms and suspect that underlying symptoms are viral in nature, possibly related to influenza with the body aches and subjective fever that she reports. With ear findings, will cover with Augmentin. Symptomatic measures. F/u with PCP with changing/worsening symptoms. See patient education and prescribed medications documented in this encounter Plan of Treatment Not on filedocumented as of this encounter Visit Diagnoses Diagnosis Right otitis media, unspecified otitis m edia type - Primary documented in this encounter Care Teams File System Installer Relationship Specialty Start Date End Date Christin Palacios PA-C PCP - General Physician Air Saw Operator 05/12/14 [address] [place] [address] [place] [place] [id number] documented as of this encounter
--- OUTSIDE RECORDS SUMMARY | 2022-03-19 14:32 | XMS_ITS | Encounter Summary ---
:2000 [facility] Address [address] [place] [address] Care Team Providers Name Role Phone Christin Palacios PA-C Primary Care Provider Reason for Referral Dental (Routine) - Closed Specialty Diagnoses / Procedures Referred By Contact Refer red To Contact Diagnoses Inadequate length of dental arch Randall Mcdowell DDS [facility] [address] [facility] [place] [id number] [address] [place] [address] Phone: [phone] Referral ID Status Reason Start Date Expiration Date Visits Requ ested Visits Authorized [id number] Closed 11/18/2018 05/17/2019 1 1 Scheduling Instructions If scheduling assistance is needed, dilma suggs inquire with the dental office staff upon exiting your appointment or contact the ordering clinic for recommended locations. This recommended service/s may not be co jaguar by your insurance coverage. To find out your specific benefit coverage, please c all the number on your insurance card. Encounter Details Date Type Department Care Team Description 11/18/2018 Notes/Orders [facility] General Randall Mcdowell DDS Dentistry [address] [facility] [address] [facility] [place] [address] [place] [address] [phone] Social History Tobacco Use Types Packs/Day Years Used Date Smoking Tobacco: Passive Smoke Exposure - Never Smoker Smokeless Tobacco: Never Alcohol Use Standard Drinks/Week Comments No 0 (1 standard drink = 0.6 oz pure alcoho l) Sex Assigned at Date Recorded Not on file documented as of this encounter Progress Notes Randall Mcdowell DDS - 11/18/2018 4:55 PM CDT Entered referral to OS for evaluation and extraction of third molars. Pt called requesting referral. Randall Mcdowell DDS documented in this encounter Plan of Treatment Scheduled Referrals Name Type Priority Associated Diagnoses Order S chedule Oral Surgery Consult Referral Routine Inadequate length of Ordered: 11/18/2018 dental arch documented as of this encounter Visit Diagnoses Diagnosis Inadequate length of dental arch - Prima ry documented in this encounter Care Teams Clinical Manager Home Care Relationship Specialty Start Date End Date Christin Palacios PA-C PCP - General Physician Commutator Inspector 05/12/[id number] [place] [id number] documented as of this encounter
--- OUTSIDE RECORDS SUMMARY | 2022-03-19 14:32 | XMS_ITS | Encounter Summary ---
:2000 Author Organization [facility] Address [address] [place] [address] Care Team Providers Name Role Phone Gunner Carias PA-C Primary Care Provider Reason for Visit Reason Comments Refill escitalopram oxalate (LEXAPR O) 20 MG tablet [Pharmacy Med Name: ESCITALOPRAM OXALATE 20MG TABS] Encounter Details Date Type Department Care Team Description 09/23/2018 Refill [facility] Gunner Carias, Refill (escitalopram [address] [facility] [place] oxalate (LEXAPRO) 20 MG [place] [id number] [address] [address] tablet [Pharmacy Med [phone] 230 Name: [place] [address] OXALATE 20MG TABS]) [phone] (Wo rk) Social History Tobacco Use Types Packs/Day Years Used Date Smoking Tobacco: Passive Smoke Exposure - Never Smoker Smokeless Tobacco: Never Comments: parents Alcohol Use Standard Drinks/Week Comments No 0 (1 standard drink = 0.6 oz pure alcoho l) Sex Assigned at Date Recorded Not on file documented as of this encounter Nursing Notes Martinez Martinez - 09/29/2018 1:44 PM CDT Medication Refill - Overdue Visit Called patient, was: Unable to reach patient 2nd call attempted. Clinician will need to review refill request. Martinez Martinez Please route to: (HP) Care Team Pool/ (PN) Clinician Christine Abreu - 09/27/2018 12:20 PM CDT Medication Refill - Overdue Visit Called patient, was: Unable to reach patient 1st call attempted. Left message to call back. Christine Abreu Lula Moran RN - 09/24/2018 4:44 PM CDT Further Assistance Needed on Refill from Offc Spec Patient is overdue for Office visit. Left message to call back in regards to provider's response I can increase, but then absolutely want to see her in the next few weeks to talk with her and discuss how she is doing. Gunner Carias PA-C ??07/23/2018, 10:37 AM Please call patient to schedule a Office Visit and document using .JANI. After attempting to schedule patient: Please route to: Clinician/Care Team Mariano Requested Prescriptions Pending Prescriptions Disp Refills ??? escitalopram oxalate (LEXAPRO) 20 MG tablet [Pharmacy Med Name: ESCITALOPRAM OXALATE 20MG TABS] 30 Tablet 0 Sig: TAKE ONE TABLET BY MOUTH ONCE DAILY Lula Moran RN 09/24/2018, 4:45 PM Interface, Out Surescripts Prov Query - 09/23/2018 4:34 PM CDT escitalopram oxalate (LEXAPRO) 20 MG tablet [Pharmacy Med Name: ESCITALOPRAM OXALATE 20MG TABS] Antidepressants and Antianxiety -> The medication is active at more than one strength (20 mg on 07/23/2018, 10 mg on 05/13/2018). -> The requested sig has changed from the last order. -> Refill x 12 months, qty: 90, refills: 3 (until due for an office visit) [facility] Next scheduled visit: None Last ordered by GUNNER CARIAS: 07/23/2018 (62 days ago) QTY: 30, Refills: 1, Sig: take 1 tablet bymouth daily. follow up in 1 month please (changed) Age: 18 Powered by [employer], Reference: [id number], 09/23/2018 4:34:07 PM CDT, Pool: TORREY REFILL RN ([id number]) documented in this encounter Plan of Treatment Not on filedocumented as of this encounter Visit Diagnoses Not on filedocumented in this encounter Care Teams President And Cmo Relationship Specialty Start Date End Date Gunner Carias PAUrbanoC PCP - General Physician Manager Care 05/12/[address] [id number] documented as of this encounter
--- OUTSIDE RECORDS SUMMARY | 2022-03-19 14:32 | XMS_ITS | Encounter Summary ---
:2000 Author Organization [facility] Address [address] [place] [address] Care Team Providers Name Role Phone Christin Palacios PA-C Primary Care Provider Reason for Visit Reason Comments LAB RESULTS Encounter Details Date Type Department Care Team Description 11/24/2018 Telephone [facility] Christin Palacios PA-C LAB RESULTS [address] [address] [address] [place] [address] [place] [address] [phone] (Wo rk) Social History Tobacco Use Types Packs/Day Years Used Date Smoking Tobacco: Passive Smoke Exposure - Never Smoker Smokeless Tobacco: Never Alcohol Use Standard Drinks/Week Comments No 0 (1 standard drink = 0.6 oz pure alcoho l) Sex Assigned at Date Recorded Not on file documented as of this encounter Nursing Notes Arjun Mercado CMA - 11/24/2018 4:04 PM CDT Patient informed of provider's plan and understands. Arjun Mercado CMA 11/24/2018 4:05 PM Christin Palacios PA-C - 11/24/2018 3:32 PM CDT Yes ok to continue Rx. Christin Palacios PA-C 11/24/2018, 3:32 PM Arjun Mercado CMA - 11/24/2018 3:22 PM CDT Patient informed of results and agrees with plan. Pharmacy updated. Patient would like to know if she should still take the medication given in office visit today? Provider please send Rx and advise. Ok to leave message when returning call to patient. Arjun Mercado CMA 11/24/2018 3:25 PM Arjun Mercado CMA - 11/24/2018 3:22 PM CDT ----- Message from Christin Palacios PA-C sent at 11/24/2018 3:13 PM CDT ----- Please let Marychuy know Strep and [place] both negative. Her white count is up [...] on filedocumented in this encounter Care Teams Box Chipper Relationship Specialty Start Date End Date Christin Palacios PA-C PCP - General Physician Insurance Agency Owner 05/12/[address] [place] [address] documented as of this encounter
--- OUTSIDE RECORDS SUMMARY | 2022-03-19 14:32 | XMS_ITS | Encounter Summary ---
:2000 Author Organization [facility] Address [address] [place] [address] Care Team Providers Name Role Phone Christin Palacios PA-C Primary Care Provider Encounter Details Date Type Department Care Team Description 05/31/2018 Notes/Orders [facility] Angel Cheek, [address] [place] [address] [address] [phone] [place], [place] [address] (Wo rk) Social History Tobacco Use Types Packs/Day Years Used Date Smoking Tobacco: Passive Smoke Exposure - Never Smoker Smokeless Tobacco: Never Comments: parents Alcohol Use Standard Drinks/Week Comments No 0 (1 standard drink = 0.6 oz pure alcoho l) Sex Assigned at Date Recorded Not on file documented as of this encounter Progress Notes Angel Cheek DDS - 05/31/2018 7:54 AM CST A letter dated 05/24/2018, was received from Dr. Dawson Quezada, [facility], indicating that RCT has been completed on tooth #30. Angel Cheek DDS 05/31/2018, 7:55 AM END CAREGIVER documented in this encounter Plan of Treatment Not on filedocumented as of this encounter Procedures Procedure Name Priority Date/Time Associated Diagnosis Comme nts 30 EXISTING ROOT CANAL Routine 05/31/2018 7:56 AM WEEKEND CAREGIVER TREATMENT documented in this encounter Visit Diagnoses Not on filedocumented in this encounter Care Teams Melting Supervisor Relationship Specialty Start Date End Date Christin Palacios PA-C PCP - General Physician Tobacco Packing Machine Operator 05/12/[address] [place] [address] documented as of this encounter
--- OUTSIDE RECORDS SUMMARY | 2022-03-19 14:32 | XMS_ITS | Encounter Summary ---
:2000 Author Organization [facility] Address [address] [place] [address] Care Team Providers Name Role Phone Christin Palacios PA-C Primary Care Provider Reason for Visit Reason Comments Dental Exam Dental Hygiene Encounter Details Date Type Department Care Team Description 08/18/2018 Office Visit [facility] General Yary Bateman Den tal Exam; Dental Dentistry [facility] Hygiene [address] [place] [address]. [address] [place] [address] Social History Tobacco Use Types Packs/Day Years Used Date Smoking Tobacco: Passive Smoke Exposure - Never Smoker Smokeless Tobacco: Never Comments: parents Alcohol Use Standard Drinks/Week Comments No 0 (1 standard drink = 0.6 oz pure alcoho l) Sex Assigned at Date Recorded Not on file documented as of this encounter Last Filed Vital Signs Vital Sign Reading Time Taken Comments Blood Pressure 129/69 08/18/2018 9:22 AM CDT Pulse - - Temperature - - Respiratory Rate - - Oxygen Saturation - - Inhaled Oxygen Concentration - - Weight - - Height - - Body Mass Index - - documented in this encounter Patient Instructions Patient InstructionsYary Bateman, [facility] - 08/18/2018 9:10 AM CDT Your next hygiene recall is due: 02/14/2019 YOUR PERSONAL DENTAL RISK REPORT Caries (Tooth Decay) Risk Periodontal (Gum) Disease Risk Oral Cancer Risk low mod high low mod high low elevated ^ ^ ^ Your Risk Level: MODERATE Your Risk Factors: Caries (tooth decay) in the last two years. How to Reduce Your Risk: Hygiene recall at 6 to 12 months. Application of a concentrated fluoride product to the teeth in the clinic to assist in remineralization. Instruction from dental professional on brushing, flossing, and use of oral hygiene products. Your Risk Level: MODERATE Your Risk Factors: Have had a diagnosis of gum disease either with or without past treatment. Missing scheduled dental appointments. Visible plaque. How to Reduce Your Risk: Return visit with the dental hygienist at 6 month intervals to assess periodontal condition and provide necessary treatment. Oral hygiene instruction by the dentist, dental hygienist, or dental assistant professor of economics. Your Risk Level: LOW You currently have no risk factors for oral cancer. How to Maintain your Low Risk: Congratulations on your low risk for oral cancer. Making healthy life style choices such as not using tobacco and low to moderate alcohol use should help you maintain this low risk. Marychuy, we look forward to seeing you at your next visit! Thank you for choosing [facility] documented in this encounter Progress Notes Randall Mcdowell DDS - 08/18/2018 9:10 AM CDT NEW PATIENT EXAM NOTE Marychuy is a 18 y.o. female who presents for Dental Exam and Dental Hygiene CHART REVIEW: The following items were reviewed and is correct to date: medical history, dental history, problem list, periodontal charting, radiographs and social history SOFT TISSUE, HEAD AND NECK EXAM: Lips: Normal Tongue: Normal Palate: Normal Throat: Normal Floor of the mouth: Normal Mucosa: Normal Head and neck: Normal TMD EVALUATION: Palpation Pain: None Joint Sounds: None Pain with Range of Motion: None OCCLUSAL EXAMINATION: Angle relationship: Right molar: Class I Right cuspid: Class I Left molar: N/A Left cuspid:Class I Maxillary midline: WNL Mandibular midline: WNL Overbite: 3 mm Overjet: 2 mm Crossbite: None Space loss: None Crowding: Not evident Occlusion: All teeth Attrition: Normal Erosion: Absent Overall occlusal relationship: Stable COSMETIC CONCERNS: Patient's Perception: Acceptable Dentist's Perception: Acceptable. TREATMENT REVIEW AND FOLLOW-UP: Discussed the dental findings, prognosis and treatment options with the patient. All questions were answered and informed consent was obtained. Recommended Recall Interval: Examination in 6 months : Recall prophy in 6 months Planned Recall Interval: Examination in 6 months : Recall prophy in 6 months Next Planned Visit: recall Completed dental procedures in this visit There are no completed dental procedures in this visit. Randall Mcdowell DDS 08/18/2018, 9:48 AM --End of Note-- Yary Bateman [facility] - 08/18/2018 9:10 AM CDT HYGIENE PROPHY NOTE PRESENTATION: Oral Hygiene: Poor Plaque: Generalized, heavy supra-gingival and interproximal Calculus: Localized, moderate supra-gingival , sub-gingival, interproximal and mandibular anterior Stain: None Bleeding: Generalized moderate Gingival tissue: Inflamed Mucogingival concerns: Absent ACTIVITIES: Hand scale, Ultrasonic scale, Essential selective polishing and Flossed all contacts PATIENT EDUCATION: Etiology of periodontal disease and OHI Heavy plaque especially anterior. Tissues inflamed. Explained need for improved OH to prevent further tissue inflammation. NEXT PLANNED HYGIENE VISIT: Hygiene Prophy with exam Completed dental procedures in this visit ??? PROPHYLAXIS-ADULT RECALL ??? COMPREHENSIVE ORAL EVALUATION ??? [id number] ??? TOPICAL FLUORIDE VARNISH Yary Bateman 08/18/2018, 11:47 AM --End of Note-- documented in this encounter Plan of Treatment Not on filedocumented as of this encounter Procedures Procedure Name Priority Date/Time Associated Diagnosis Comme nts 30 EXISTING ROOT CANAL Routine 08/18/2018 9:30 AM TREATMENT CDT TOPICAL FLUORIDE VARNISH Routine 08/18/2018 9:10 AM Generalize d marginal CDT gingivitis [id number] Routine 08/18/2018 9:10 AM Generalized mehul inal CDT gingivitis PROPHYLAXIS-ADULT RECALL Routine 08/18/2018 9:10 AM Generalize d marginal CDT gingivitis COMPREHENSIVE ORAL Routine 08/18/2018 9:10 AM Generalized mehul inal EVALUATION CDT gingivitis documented in this encounter Visit Diagnoses Diagnosis Generalized marginal gingivitis - Primar y Caries of dentin Dental caries extending into dentine Visit for periodic health examination Unspecified general medical examination Localized gingivitis documented in this encounter Additional Health Concerns Infection Onset Date Last Indicated Resolved Time R/O COVID19 08/29/2019 08/29/2019 09/03/2019 5:39 AM CDT COVID19 08/29/2019 08/29/2019 09/19/2019 3:17 AM CDT documented as of this encounter Care Teams Improvement Director Relationship Specialty Start Date End Date Christin Palacios PA-C PCP - General Physician Pharmacy Technologist 05/12/14 [address] [address] [facility] [place] [address] documented as of this encounter
--- OUTSIDE RECORDS SUMMARY | 2022-03-19 14:32 | XMS_ITS | Encounter Summary ---
:2000 Author Organization [facility] Address [address] [place] [address] Care Team Providers Name Role Phone Gunner Carias PA-C Primary Care Provider Reason for Visit Reason Comments Refill lexapro Encounter Details Date Type Department Care Team Description 07/23/2018 Refill [facility] Gunner Carias PA-C Refill (lexapro) [address] [address] [place] [id number] [address] [place] [address] (Wo rk) Social History Tobacco Use Types Packs/Day Years Used Date Smoking Tobacco: Passive Smoke Exposure - Never Smoker Smokeless Tobacco: Never Comments: parents Alcohol Use Standard Drinks/Week Comments No 0 (1 standard drink = 0.6 oz pure alcoho l) Sex Assigned at Date Recorded Not on file documented as of this encounter Nursing Notes Lula Moran RN - 07/23/2018 4:15 PM CDT Further Assistance Needed on Refill from Clinician RN reviewed. Age does not meet standing order criteria. Review pended order for accuracy and sign if appropriate Requested Prescriptions Pending Prescriptions Disp Refills ??? escitalopram oxalate (LEXAPRO) 10 MG tablet [Pharmacy Med Name: ESCITALOPRAM OXALATE 10MG TABS] 90 Tablet 3 Sig: TAKE ONE TABLET BY MOUTH ONCE DAILY Lula Moran RN 07/23/2018, 4:16 PM Interface, Out Shop 9 Seven Query - 07/23/2018 2:13 PM CDT escitalopram oxalate (LEXAPRO) 10 MG tablet [Pharmacy Med Name: ESCITALOPRAM OXALATE 10MG TABS] Antidepressants and Antianxiety -> This is a re-requested duplicate that should be manually reviewed. -> A duplicate request was processed on 07/23/2018. -> The requested strength (10 mg oral tablet) was last ordered on 05/13/2018. The patient is taking 20 mg oral tablet as of 07/23/2018. -> If patient is < 18, route to provider. -> Age is abnormal (17 is less than 18.0) -> Refill x 12 months, qty: 90, refills: 3 (until due for an office visit) Last qualifying [facility]: [facility] Next scheduled visit: None Last ordered by GUNNER CARIAS A: 05/13/2018 (71 days ago) QTY: 30, Refills: 1, Sig: take 1 tablet bymouth daily. (changed but equivalent) Age: 17 Powered by [employer], Reference: [id number], 07/23/2018 2:13:26 PM CDT, Pool: [facility] REFILL RN ([id number]) documented in this encounter Plan of Treatment Not on filedocumented as of this encounter Visit Diagnoses Not on filedocumented in this encounter Care Teams Real Estate Leasing Agent Relationship Specialty Start Date End Date Gunner Carias PA-C PCP - General Physician Diesel Fleet Mechanic 05/12/[address] [place] [address] documented as of this encounter
--- OUTSIDE RECORDS SUMMARY | 2022-03-19 14:32 | XMS_ITS | Encounter Summary ---
:2000 Author Organization [facility] Address [address] [place] [address] Care Team Providers Name Role Phone Christin Palacios PA-C Primary Care Provider Reason for Visit Reason Comments Restorative Services Filling lower right Encounter Details Date Type Department Care Team Description 08/04/2018 Office Visit [facility] Aneta Guevara ADT Restorative Services Dentistry [address] (Filling lower [address] right) [place] [address] [place], [place] [address] [phone] Social History Tobacco Use Types Packs/Day Years Used Date Smoking Tobacco: Passive Smoke Exposure - Never Smoker Smokeless Tobacco: Never Comments: parents Alcohol Use Standard Drinks/Week Comments No 0 (1 standard drink = 0.6 oz pure alcoho l) Sex Assigned at Date Recorded Not on file documented as of this encounter Progress Notes Aneta Guevara ADT - 08/04/2018 9:00 AM CDT DENTAL VISIT NOTE Marychuy is a 17 y.o. female who presents for Restorative Services (Filling lower right) CHART REVIEW: Reviewed health history, dental history, problem list, periodontal charting and radiographs with the patient. TREATMENT DISCUSSION: Discussed the dental findings, prognosis and treatment options with the patient. PROGNOSIS: #30: Questionable CONSENT: All questions were answered and the patient gave informed consent to proceed with dental treatment/services. PROCEDURES PERFORMED AT THIS VISIT: No anesthetic was given; patient requested no anesthetic. AMALGAM MORAVIAN: Prepared #30 with incomplete removal of existing restorations. Permanent mormon after endo treatment. Isolated area with high speed suction, cotton rolls and a cheek guard Applied no liner/varnish/base. Bonding: N/A. Preparation was filled with amalgam. Verified occlusion, contacts, margins and aesthetics. Post-Op Instructions: Patient was advised of normal post-operative instructions, potential for post-operative sensitivity, potential need for additional treatment because of proximity to the pulp and the need to exercise care because of the risk of fracture. Care was assisted by MARK Mcguire NEXT PLANNED VISIT: Comprehensive exam Completed dental procedures in this visit ??? 30 DO AMALGAM-2 SURFACE BRAULIO Jimenez 08/04/2018, 9:47 AM Treatment Authorized by Dr. Lora Escobar [id number] --End of Note-- documented in this encounter Plan of Treatment Not on filedocumented as of this encounter Procedures Procedure Name Priority Date/Time Associated Diagnosis Comme nts 30 DO AMALGAM-2 Routine 08/04/2018 9:00 AM CDT Dental restorat ion SURFACE cannot continue to be serviceable documented in this encounter Visit Diagnoses Diagnosis Dental mormon cannot continue to be serviceable - Primary documented in this encounter Care Teams Extract Operator Relationship Specialty Start Date End Date Christin Palacios PA-C PCP - General Physician Call Worker Person 05/12/[address] [place] [address] documented as of this encounter
--- OUTSIDE RECORDS SUMMARY | 2022-03-19 14:32 | XMS_ITS | Encounter Summary ---
:2000 Author Organization [facility] Address [address] [place] [address] Care Team Providers Name Role Phone Christin Palacios PA-C Primary Care Provider Reason for Visit Reason Comments HEADACHE Nausea LIGHTHEADEDNESS BODY ACHES Sore Throat Encounter Details Date Type Department Care Team Description 08/29/2019 Telephone [facility] Christin Palacios, HEADACHE ; Nausea; Practice [facility] LIGHTHEADEDNESS; BODY [address] [address] [address] ACHES; Sore Throat [place] [phone] [facility] [address] [place] [id number] Social History Tobacco Use Types Packs/Day Years Used Date Smoking Tobacco: Passive Smoke Exposure - Never Smoker Smokeless Tobacco: Never Alcohol Use Standard Drinks/Week Comments Yes 0 (1 standard drink = 0.6 oz pure alcoho l) socially Sex Assigned at Date Recorded Not on file documented as of this encounter Nursing Notes Drea Atkins RN - 08/29/2019 8:15 AM CDT Verified patient identity: Yes Situation/Background (brief explanation of current symptoms/situation): Patient questioning COVID-19 testing. States she has had a headache for past 3 days. Has body aches. Has sore throat that started last night. She does not feel like it is strep throat. Shortness of breath - started last night and states was hard to catch breath. Feels may be related to anxiety/panic attack. States lasted from time she left [employer] until she went to sleep. Reports she had trouble falling asleep due to body aches. Shortness of breath lessened once went to bed. Today as some shortness of breath with activity but not as bad as last evening. [place] faint last evening. Did not faint and this became better once went to sleep. Is ok now. Unsure on fever states had T =98 on 08/27/19; has not checked since. States she feels slightly feverish today. Reports guardian that she lives with has some COVID type symptoms. She feels may have loss of taste; states I don't really know. No cough. Do you have any of these symptoms (fever greater than 100, cough, shortness of breath, sore throat, new loss of smell, or new loss of taste)? Yes Has patient been screened? No Do you have any of these symptoms: Shortness of breath or difficulty breathing, Sore Throat and New loss of smell, or New loss of taste Do you have any of these risk factors? Risk Factors: Chronic Lung Disease/Asthma Do you fall into any of these groups? : All other patients eligible for testing Do you have a sore throat? Yes Are you concerned about strep throat? No Other Covid Symptoms: New loss of smell, or New loss of taste Disposition: Patient given option of drive up testing. Patient declines drive up testing and requests appointment here in respiratory clinic. Reviewed with patient pertinent medical history(as it related to the call): Yes - reports she has asthma Patient transferred to receptionist clerk to schedule an appointment today in our respiratory clinic. Drea Atkins RN 08/29/2019, 8:36 AM Jody Aguilar - 08/29/2019 8:04 AM CDT Initial Screening: Patient information Best number to contact patient: [phone] Reason for Visit: Requesting COVID testing In the last 14 days have you had close contact with a person known to have COVID-19 or been instructed to self-isolate? Not that the patient is aware of Are symptoms urgent/emergent? No Do you have any of these symptoms (fever greater than 100, cough, shortness of breath or difficulty breathing, sore throat, new loss of smell, or new loss of taste)?Yes Shortness of breath, lightheadedness, headache, body aches, nausea, taste has changed, sore throat Do you have any of these risk factors? Risk Factors: None Do you fall into any of these groups? : All other patients eligible for testing Do you have shortness of breath or difficulty breathing? Yes - Warm transfer to Nurse Triage Jody Aguilar 08/29/2019, 8:09 AM documented in this encounter Plan of Treatment Not on filedocumented as of this encounter Visit Diagnoses Not on filedocumented in this encounter Care Teams Welfare Analyst Relationship Specialty Start Date End Date Christin Palacios PA-C PCP - General Physician Rn Nursery 05/12/14 [address] [address] [facility] [place] [id number] documented as of this encounter
--- OUTSIDE RECORDS SUMMARY | 2022-03-19 14:32 | XMS_ITS | Encounter Summary ---
:2000 Author Organization [facility] Address [address] [place] [address] Care Team Providers Name Role Phone Christin Palacios PA-C Primary Care Provider Reason for Visit Reason Comments RESULTS, TEST Encounter Details Date Type Department Care Team Description 08/02/2018 Telephone [facility] Christin Palacios PA-C RESULTS, TEST [address] [address] [place] [phone] [address] [place] [address] (Wo rk) Social History Tobacco Use Types Packs/Day Years Used Date Smoking Tobacco: Passive Smoke Exposure - Never Smoker Smokeless Tobacco: Never Comments: parents Alcohol Use Standard Drinks/Week Comments No 0 (1 standard drink = 0.6 oz pure alcoho l) Sex Assigned at Date Recorded Not on file documented as of this encounter Nursing Notes Arjun Mercado CMA - 08/02/2018 10:19 AM CDT Patient called and informed of results as well and to call back with questions or if getting worse or new symptoms. Patient informed referral sent to [facility] for PT and they will call her to schedule or she can call as well. . Arjun Mercado CMA 08/02/2018 10:20 AM Arjun Mercado CMA - 08/02/2018 9:53 AM CDT Carleen informed of results and has no other questions at this time. Arjun Mercado CMA 08/02/2018 9:56 AM Adeline Billingsley - 08/02/2018 8:26 AM CDT Test Results Patient is calling in regards to: a radiology - lumbar spine x-rays Result comment or letter available? No What is your question or concern? SharCarleen calling for results (MINDY on file) Date test was done: 07/29/18 [Family Lawyer: If completed externally, where?] Name of ordering clinician: Christin Palacios PA-C Is it okay to leave detailed message on your voicemail? Yes Is there anything else I can help you with today? Adeline Billingsley Please route to: Care Team Pool documented in this encounter Plan of Treatment Not on filedocumented as of this encounter Visit Diagnoses Not on filedocumented in this encounter Care Teams Front Worker Relationship Specialty Start Date End Date Christin Palacios PA-C PCP - General Physician Police Communications Dispatcher 05/12/[address] [place] [address] documented as of this encounter
--- OUTSIDE RECORDS SUMMARY | 2022-03-19 14:32 | XMS_ITS | Encounter Summary ---
:2000 Author Organization [facility] Address [address] [place] [address] Care Team Providers Name Role Phone Gunner Carias PA-C Primary Care Provider Reason for Visit Reason Comments Refill escitalopram oxalate (LEXAPR O) 10 MG tablet [Pharmacy Med Name: ESCITALOPRAM OXALATE 10MG TABS] Encounter Details Date Type Department Care Team Description 07/23/2018 Refill [facility] Family Prac Gunner Lucia, Refill (escitalopram [facility] [facility] ANGEL oxalate (LEXAPRO) 10 MG [place] [phone] [place] tablet [Pharmacy Med [phone] Name: [place] [address] OXALATE 10MG TABS]) [phone] (Wo rk) Social History Tobacco Use Types Packs/Day Years Used Date Smoking Tobacco: Passive Smoke Exposure - Never Smoker Smokeless Tobacco: Never Comments: parents Alcohol Use Standard Drinks/Week Comments No 0 (1 standard drink = 0.6 oz pure alcoho l) Sex Assigned at Date Recorded Not on file documented as of this encounter Nursing Notes Interface, Out Surescripts Prov Query - 07/23/2018 1:39 PM CDT escitalopram oxalate (LEXAPRO) 10 MG tablet [Pharmacy Med Name: ESCITALOPRAM OXALATE 10MG TABS] Antidepressants and Antianxiety -> A duplicate request was processed on 07/20/2018. -> The requested strength (10 mg oral tablet) was last ordered on 05/13/2018. The patient is taking 20 mg oral tablet as of 07/23/2018. -> If patient is < 18, route to provider. -> Age is abnormal (17 is less than 18.0) -> Refill x 12 months, qty: 90, refills: 3 (until due for an office visit) Last qualifying visit: 05/13/2018 (in [facility]) Next scheduled visit: None Last ordered by GUNNER CARIAS: 05/13/2018 (71 days ago) QTY: 30, Refills: 1, Sig: take 1 tablet bymouth daily. (changed but equivalent) Age: 17 Powered by V2contact, Reference: [id number], 07/23/2018 1:39:08 PM CDT, Pool: TORREY REFILL RN ([id number]) documented in this encounter Plan of Treatment Not on filedocumented as of this encounter Visit Diagnoses Not on filedocumented in this encounter Care Teams Facilities Flight Check Pilot Relationship Specialty Start Date End Date Gunner Carias PA-C PCP - General Physician Software Systems Architect 05/12/14 [address] [place], [place] [address] documented as of this encounter
--- OUTSIDE RECORDS SUMMARY | 2022-03-19 14:32 | XMS_ITS | Encounter Summary ---
:2000 Author Organization [facility] Address [address] [place] [address] Care Team Providers Name Role Phone Gunner Carias PA-C Primary Care Provider Reason for Visit Reason Comments Refill escitalopram oxalate (LEXAPR O) 10 MG tablet [Pharmacy Med Name: ESCITALOPRAM OXALATE 10MG TABS] Encounter Details Date Type Department Care Team Description 07/20/2018 Refill [facility] Family Prac Gunner Lucia, Refill (escitalopram [address] [facility] ANGEL oxalate (LEXAPRO) 10 MG [place] [phone] [place] tablet [Pharmacy Med [phone] Name: [place] [address] OXALATE 10MG TABS]) [phone] (Wo rk) Social History Tobacco Use Types Packs/Day Years Used Date Smoking Tobacco: Passive Smoke Exposure - Never Smoker Smokeless Tobacco: Never Comments: parents Alcohol Use Standard Drinks/Week Comments No 0 (1 standard drink = 0.6 oz pure alcoho l) Sex Assigned at Date Recorded Not on file documented as of this encounter Nursing Notes Cammy Rojo RN - 07/29/2018 8:05 AM CDT Left message to call back in regards to provider's response I can increase, but then absolutely want to see her in the next few weeks to talk with her and discuss how she is doing. Gunner Carias PA-C 07/23/2018, 10:37 AM Letter has been sent as unable to reach patient or guardian with numerous attempts. Cammy Rojo RN 07/29/2018, 8:06 AM Cammy Rojo RN - 07/28/2018 1:42 PM CDT Left message to call back. Cammy Rojo RN 07/28/2018, 1:42 PM Paty Teague RN - 07/27/2018 8:30 AM CDT Left message to call back. Paty Teague RN 07/27/2018, 8:30 AM Paty Teague RN - 07/26/2018 8:11 AM CDT Left message to call back. Paty Teague RN 07/26/2018, 8:11 AM AT Paty Teague RN - 07/23/2018 10:45 AM CDT Left message to call back. Paty Teague RN 07/23/2018, 10:45 AM Gunner Carias PA-C - 07/23/2018 10:37 AM CDT I can increase, but then absolutely want to see her in the next few weeks to talk with her and discuss how she is doing. Gunner Carias PA-C 07/23/2018, 10:37 AM Bonnie Ware RN - 07/23/2018 9:36 AM CDT Call to patient's guardian Carleen to further discuss. Carleen states medication has been effective and patient has questioned an increase in dose if possible. She is advised this would need to be addressed by PCP and would send a note for review. Gunner, please review and advise. Bonnie Ware RN 07/23/2018 9:40 AM Gunner Carias PA-C - 07/22/2018 1:00 PM CDT Can we get an update on how she is doing? This was a new start for her in April. I haven't seen her for follow up since then. Want to make sure it is effective before we just keep filling without follow up. Gunner Carias PA-C 07/22/2018, 1:00 PM Gunner Huizar RN - 07/22/2018 9:08 AM CDT Further Assistance Needed on Refill from Clinician RN reviewed. Age does not meet standing order criteria. Review pended order for accuracy and sign if appropriate Requested Prescriptions Pending Prescriptions Disp Refills ??? escitalopram oxalate (LEXAPRO) 10 MG tablet [Pharmacy Med Name: ESCITALOPRAM OXALATE 10MG TABS] 90 Tablet 3 Sig: TAKE ONE TABLET BY MOUTH ONCE DAILY Gunner Huizar RN 07/22/2018, 9:08 AM Interface, Out Surescripts Prov Query - 07/20/2018 2:13 PM CDT escitalopram oxalate (LEXAPRO) 10 MG tablet [Pharmacy Med Name: ESCITALOPRAM OXALATE 10MG TABS] Antidepressants and Antianxiety -> If patient is < 18, route to provider. -> Age is abnormal (17 is less than 18.0) -> Refill x 12 months, qty: 90, refills: 3 (until due for an office visit) Last qualifying visit: 05/13/2018 (in [facility]) Next scheduled visit: None Last ordered by GUNNER CARIAS: 05/13/2018 (68 days ago) QTY: 30, Refills: 1, Sig: take 1 tablet bymouth daily. (changed but equivalent) Age: 17 Powered by Dryad, Reference: [id number], 07/20/2018 2:13:32 PM CDT, Pool: PA REFILL RN ([id number]) documented in this encounter Plan of Treatment Not on filedocumented as of this encounter Visit Diagnoses Not on filedocumented in this encounter Care Teams Electron Beam Machine Welder Setter Relationship Specialty Start Date End Date Gunner Carias PA-C PCP - General Physician Area Mechanic 05/12/[address] [place] [address] documented as of this encounter
--- OUTSIDE RECORDS SUMMARY | 2022-03-19 14:32 | XMS_ITS | Encounter Summary ---
:2000 Author Organization [facility] Address [address] [place] [address] Care Team Providers Name Role Phone Christin Palacios PA-C Primary Care Provider Reason for Visit Reason Comments TOOTHACHE Encounter Details Date Type Department Care Team Description 05/21/2018 Telephone [facility] Darron Dougherty LDA TOOTHACHE Dentistry [address] [address] [place], [place] [address] Social History Tobacco Use Types Packs/Day Years Used Date Smoking Tobacco: Passive Smoke Exposure - Never Smoker Smokeless Tobacco: Never Comments: parents Alcohol Use Standard Drinks/Week Comments No 0 (1 standard drink = 0.6 oz pure alcoho l) Sex Assigned at Date Recorded Not on file documented as of this encounter Nursing Notes Meryl Dougherty LDA - 05/21/2018 10:54 AM CST EMERGENCY/PROBLEM FOCUS PRIOR VISIT QUESTIONNAIRE 1. Have you ever been seen in our office before? [] No [x] Yes Last Seen: [] Less than 5 years [x] 5 years or more Comments: 2. What is causing your problem? [] Accident [] Lost Congregational [] Broken Tooth [] Chipped Tooth [x] Toothache Location: [] Upper Left [] Lower Left [] Upper Front [] Lower Front [] Upper Right [x] Lower Right Comments: 3. What kind of discomfort are you in? [] No Discomfort [] Awake Last Night [] Radiating Pain [x] Throbbing Pain Comments: 4. When does the discomfort occur? [x] Cold Sensitive [] Constantly [] Pressure Sensitive [] Hot Sensitive [] Occasionally [] Other (fill in comments) Comments: 5. How long has the degree of discomfort lasted? [x] Longer Duration [] Other (enter duration in comments) Comments: today Are you experiencing any other signs or symptoms? [] Bleeding/Oozing [] Fever [] Other (list other signs/symptoms in comments) Comments: Are you taking medications for this problem? [x] No [] Yes (list meds in comments) Comments: 6. Have you been advised to take antibiotics prior to dental treatment? [x] No [] Yes Comments: STRIAL ORGANIZATIONAL PSYCHOLOGIST documented in this encounter Plan of Treatment Not on filedocumented as of this encounter Visit Diagnoses Not on filedocumented in this encounter Care Teams Safety Engineer Pressure Vessels Relationship Specialty Start Date End Date Christin Palacios PA-C PCP - General Physician Marine Cargo Inspector 05/12/14 [address] [place] [address] [place] [address] [place] [address] documented as of this encounter
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
--- OUTSIDE RECORDS SUMMARY | 2022-03-19 14:32 | XMS_ITS | Encounter Summary ---
:2000 Author Organization [facility] Address [address] [place] [address] Care Team Providers Name Role Phone Gunner Carias PA-C Primary Care Provider Reason for Visit Reason Comments Refill FALMINA 0.1-20 MG-MCG tablet [Pharmacy Med Name: FALMINA 0.1-20MG-MCG TABS] Encounter Details Date Type Department Care Team Description 09/08/2018 Refill [facility] Family Prac leena Gunner Carias, Refill (FALMINA 0.1-20 [address] [facility] ANGEL MG-MCG tablet [[place] [address] [place] [address] Med Name: FALMINA [phone] 230 0.1-20MG-MCG TABS]) [place] [address] (Wo rk) Social History Tobacco Use Types Packs/Day Years Used Date Smoking Tobacco: Passive Smoke Exposure - Never Smoker Smokeless Tobacco: Never Comments: parents Alcohol Use Standard Drinks/Week Comments No 0 (1 standard drink = 0.6 oz pure alcoho l) Sex Assigned at Date Recorded Not on file documented as of this encounter Nursing Notes Ami Dawkins RN - 09/09/2018 10:36 AM CDT per standing order Ami Dawkins RN Interface, Out Fotech Query - 09/08/2018 4:18 PM CDT FALMINA 0.1-20 MG-MCG tablet [Pharmacy Med Name: FALMINA 0.1-20MG-MCG TABS] Contraceptives - Estrogen/Progesterone Combinations -> Refill x 12 months (until due for an office visit, DBP check and SBP check) -> Calculate quantity and refills manually. They could not be estimated due to missing or unreadable information. Last qualifying visit: 07/29/2018 (in [facility]) Next scheduled visit: None Last ordered by GUNNER CARIAS: 11/06/2017 (306 days ago) QTY: 84, Refills: 1, Sig: take one tabletby mouth once daily (unchanged) SBP: 104 mm Hg on 07/29/2018 DBP: 62 mm Hg on 07/29/2018 Powered by Brideside, Reference: [id number], 09/08/2018 4:18:37 PM CDT, Pool: TORREY WAHLILL ERIKA ([id number]) documented in this encounter Plan of Treatment Not on filedocumented as of this encounter Visit Diagnoses Diagnosis OCP (oral contraceptive pills) initiatio n General counseling for prescription of o ral contraceptives documented in this encounter Care Teams Etcher Machine Relationship Specialty Start Date End Date Gunner Carias, PAUrbanoC PCP - General Physician Work Adjustment Instructor 05/12/14 [address] [place] [address] documented as of this encounter
--- OUTSIDE RECORDS SUMMARY | 2022-03-19 14:32 | XMS_ITS | Encounter Summary ---
:2000 Author Organization [facility] Address [address] [place] [address] Care Team Providers Name Role Phone Gunner Carias PA-C Primary Care Provider Reason for Visit Reason Comments Refill ESCITALOPRAM OXALATE (LEXAPR O) 20MG TABLET Encounter Details Date Type Department Care Team Description 11/01/2018 Refill [facility] Family Prac leena Gunner Carias, Refill (ESCITALOPRAM [address] [facility] ANGEL OXALATE (LEXAPRO) 20MG [place] [phone] [place] TABLET) [phone] [address] [place] [id number] (Wo rk) Social History Tobacco Use Types Packs/Day Years Used Date Smoking Tobacco: Passive Smoke Exposure - Never Smoker Smokeless Tobacco: Never Comments: parents Alcohol Use Standard Drinks/Week Comments No 0 (1 standard drink = 0.6 oz pure alcoho l) Sex Assigned at Date Recorded Not on file documented as of this encounter Nursing Notes Martinez Martinez - 11/04/2018 9:31 AM CDT Medication Refill - Overdue Visit Called patient, was: Successful in reaching patient Patient is due for: Office Visit [Senior Internal Auditor: We recently received a refill request for one of your medications. In order to ensure your medication is safe and effective, your clinician needs to see you at least yearly for an office visit. May I help you schedule that office visit?] Patient scheduled appointment on: 11/10/18 Do you have enough medication to last until your appointment? Unknown [Senior Internal Auditor: I will request a one-time limited quantity to last until then.] Is the selected pharmacy Mail Order? No Martinez Martinez Please route to: Pool specified in documentation below Bonnie Ware RN - 11/03/2018 1:05 PM CDT Outgoing call to patient to schedule visit. Left message to call back. Will route to Mayra for follow up. Bonnie Ware RN 11/03/2018 1:12 PM\ Gunner Carias PA-C - 11/03/2018 12:34 PM CDT Can we get her an apt scheduled please? STV is fine. Gunner Carias PA-C 11/03/2018, 12:36 PM Lula [place] RN - 11/03/2018 9:47 AM CDT Further Assistance Needed on Refill from Clinician RN reviewed. Patient overdue for Qualifying visit. Left message to call back??in regards to provider's response??I can increase, but then absolutely want to see her in the next few weeks to talk with her and discuss how she is doing. Gunner Carias PA-C ??07/23/2018, 10:37 AM Has office visit scheduled;11/10/18 Review pended order for accuracy and sign if appropriate Requested Prescriptions Pending Prescriptions Disp Refills ??? escitalopram oxalate (LEXAPRO) 20 MG tablet [Pharmacy Med Name: ESCITALOPRAM OXALATE 20MG TABS] 30 Tablet 0 Sig: TAKE ONE TABLET BY MOUTH ONCE DAILY Lula [place] RN 11/03/2018, 9:48 AM Interface, Out Think Realtime Query - 11/01/2018 6:46 PM CDT escitalopram oxalate (LEXAPRO) 20 MG tablet [Pharmacy Med Name: ESCITALOPRAM OXALATE 20MG TABS] Miscellaneous - 12 Month Visit -> Refill x 9 months, qty: 90, refills: 2 (until due for an office visit) [facility]: [facility] Next scheduled visit: None Last ordered by GUNNER CARIAS: 09/29/2018 (33 days ago) QTY: 30, Refills: 0, Sig: take one tablet by mouth once daily (unchanged) Powered by Next Gen Illumination, Reference: [id number], 11/01/2018 6:46:47 PM CDT, Pool: TORREY REFILL RN ([id number]) documented in this encounter Plan of Treatment Not on filedocumented as of this encounter Visit Diagnoses Not on filedocumented in this encounter Care Teams Cook Cashier Food Prep Relationship Specialty Start Date End Date Gunner Carias PA-C PCP - General Physician Artists' Model 05/12/14 [address] [place], [place] [address] documented as of this encounter
--- OUTSIDE RECORDS SUMMARY | 2022-03-19 14:32 | XMS_ITS | Encounter Summary ---
:2000 Author [facility] Address [address] [place] [address] Care Team Providers Name Role Phone Christin Palacios PA-C Primary Care Provider Encounter Details Date Type Department Care Team Description 06/25/2018 Notes/Orders [facility] Randall Mcdowell DDS Dentistry [address] [facility] [facility] [place] [address] [place], [place] [address] [phone] Social History Tobacco Use Types Packs/Day Years Used Date Smoking Tobacco: Passive Smoke Exposure - Never Smoker Smokeless Tobacco: Never Comments: parents Alcohol Use Standard Drinks/Week Comments No 0 (1 standard drink = 0.6 oz pure alcoho l) Sex Assigned at Date Recorded Not on file documented as of this encounter Progress Notes Randall Mcdowell DDS - 06/25/2018 11:06 AM CST Added amalgam option #30 to tx plan. Randall Mcdowell DDS BAND OPERATOR documented in this encounter Plan of Treatment Not on filedocumented as of this encounter Visit Diagnoses Not on filedocumented in this encounter Care Teams Tool Room Attendant Relationship Specialty Start Date End Date Christin Palacios PA-C PCP - General Physician Clinical Application Specialist 05/12/14 [address] [place] [address] documented as of this encounter
--- OUTSIDE RECORDS SUMMARY | 2022-03-19 14:32 | XMS_ITS | Encounter Summary ---
:2000 Author Organization [facility] Address [address] [place] [address] Care Team Providers Name Role Phone Gunner Carias PA-C Primary Care Provider Reason for Visit Reason Comments Refill escitalopram oxalate (LEXAPR O) 20 MG tablet [Pharmacy Med Name: ESCITALOPRAM OXALATE 20MG TABS] Encounter Details Date Type Department Care Team Description 11/06/2018 Refill [facility] Gunner Lucia, Refill (escitalopram [address] [facility] ANGEL oxalate (LEXAPRO) 20 MG [place] [id number] [place] tablet [Pharmacy Med [phone] 230 Name: [place] [address] OXALATE 20MG TABS]) [phone] (Wo rk) Social History Tobacco Use Types Packs/Day Years Used Date Smoking Tobacco: Passive Smoke Exposure - Never Smoker Smokeless Tobacco: Never Comments: parents Alcohol Use Standard Drinks/Week Comments No 0 (1 standard drink = 0.6 oz pure alcoho l) Sex Assigned at Date Recorded Not on file documented as of this encounter Nursing Notes Interface, Out Surescripts Prov Query - 11/06/2018 6:08 PM CDT escitalopram oxalate (LEXAPRO) 20 MG tablet [Pharmacy Med Name: ESCITALOPRAM OXALATE 20MG TABS] Miscellaneous - 12 Month Visit -> A duplicate request was processed on 11/01/2018. -> Refill x 9 months, qty: 90, refills: 2 (until due for an office visit) Last qualifying visit: 07/29/2018 (in [facility]) Next scheduled visit: 11/10/2018 (in [facility]) Last ordered by GUNNER CARIAS: 09/29/2018 (38 days ago) QTY: 30, Refills: 0, Sig: take one tablet by mouth once daily (unchanged) Powered by [employer], Reference: [id number], 11/06/2018 6:08:17 PM CDT, Pool: SC REFILL RN ([id number]) documented in this encounter Plan of Treatment Not on filedocumented as of this encounter Visit Diagnoses Not on filedocumented in this encounter Care Teams Repeat Chief Relationship Specialty Start Date End Date Gunner Carias PAUrbanoC PCP - General Physician Locksmith Apprentice 05/12/14 [id number] [place], [place] [address] documented as of this encounter
--- OUTSIDE RECORDS SUMMARY | 2022-03-19 14:32 | XMS_ITS | Encounter Summary ---
:2000 Author Organization [facility] Address [address] [place] [address] Care Team Providers Name Role Phone Christin Palacios PA-C Primary Care Provider Reason for Visit Reason Comments COVID Screening Encounter Details Date Type Department Care Team Description 08/19/2019 Telephone [facility] Family Prac leena Christin Palacios PA-C COVID Screening [address] [address] [place] [phone] [address] [place] [address] (Wo rk) Social History Tobacco Use Types Packs/Day Years Used Date Smoking Tobacco: Passive Smoke Exposure - Never Smoker Smokeless Tobacco: Never Alcohol Use Standard Drinks/Week Comments No 0 (1 standard drink = 0.6 oz pure alcoho l) Sex Assigned at Date Recorded Not on file documented as of this encounter Nursing Notes Lula Baird - 08/19/2019 1:10 PM CDT Initial Screening: Patient information Best number to contact patient: [phone] In the last 14 days have you had close contact with a person known to have COVID-19 or been instructed to self-isolate? No Does patient have respiratory symptoms (e.g., fever greater than 100, cough, shortness of breath or difficulty breathing, sore throat, new loss of smell, or new loss of taste)? No - follow normal workflow documented in this encounter Plan of Treatment Not on filedocumented as of this encounter Visit Diagnoses Not on filedocumented in this encounter Care Teams Hr Systems Analyst Relationship Specialty Start Date End Date Christin Palacios PA-C PCP - General Physician Custodial Operations Manager 05/12/[address] [place] [id number] documented as of this encounter
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
--- OUTSIDE RECORDS SUMMARY | 2022-03-19 14:32 | XMS_ITS | Encounter Summary ---
:2000 Author Organization [facility] Address [address] [place] [address] Care Team Providers Name Role Phone Christin Palacios PA-C Primary Care Provider Reason for Visit Reason Comments Follow Up Medication Sore Throat x 3 days, stuffy nose HEADACHE,MIGRAINE x 2 weeks, has been donating Plasma for about 1 month EYE IRRITATION Left, x 2 weeks Encounter Details Date Type Department Care Team Description 11/10/2018 Office Visit [facility] Christin Palacios, Depressi on, unspecified depression type (Primary Dx); Practice [facility] Anxiety; [address] [address] [place] caicedo allergic rhinitis, unspecified trigger; [address] Allergic conjunctivitis of left eye; [place] [address] Tension-type headache, not intractable, unspecified chronicity pattern; [id number] VD (venereal disease) screen ing Social History Tobacco Use Types Packs/Day Years Used Date Smoking Tobacco: Passive Smoke Exposure - Never Smoker Smokeless Tobacco: Never Alcohol Use Standard Drinks/Week Comments No 0 (1 standard drink = 0.6 oz pure alcoho l) Sex Assigned at Date Recorded Not on file documented as of this encounter Last Filed Vital Signs Vital Sign Reading Time Taken Comments Blood Pressure 129/78 11/10/2018 10:03 AM CDT Pulse 82 11/10/2018 10:03 AM CDT Temperature 36.8 ??C (98.2 ??F) 11/10/2018 10:03 AM CDT Respiratory Rate - - Oxygen Saturation - - Inhaled Oxygen Concentration - - Weight 114.8 kg (253 lb) 11/10/2018 10:03 AM CDT Height - - Body Mass Index - - documented in this encounter Patient Instructions Patient InstructionsHoChristin rosales PA-C - 11/10/2018 10:00 AM CDT Follow up Mood - Stable on Lexapro - continue 20 mg daily - Call/update me as needed while you are at school - email or telephone visit was fine Allergies - Start Sudafed for 1 week - Start Antihistamine daily - Follow up with me if symptoms still struggling Headaches - Likely due to allergies/stress - Make sure getting in fluids - Ice pack and ibuprofen documented in this encounter Progress Notes Christin Palacios PA-C - 11/10/2018 10:00 AM CDT Marychuy Le is a 18 y.o. old female 2000 Chief Complaint Patient presents with ??? Follow Up Medication ??? Sore Throat x 3 days, stuffy nose ??? HEADACHE,MIGRAINE x 2 weeks, has been donating Plasma for about 1 month ??? EYE IRRITATION Left, x 2 weeks HPI: 1) LEXAPRO 20mg - HO depression and anxiety. Started Lexapro 10mg 05/13/18 and increased to 20mg 07/23/18. Had disconintued for about 5 days due to running out, but she did taper back up to full 20 mg dose. Since then, she ran our again. Yesterday was the last day, feeling the effects, withdrwals like LH, nausea, dizzy, especially at [employer] working. She doesn't think she is and has been taking OCP regularly. She is heading to [place] for school, leaving end of November. 2) Sore throat and congestion for 3 days - HO allergic rhinitis, albuterol taken PRN for exercise induced asthma. Sore throat and congestion gets worse. Had taken sinus and congestion medicine once butran out. She tried Sudafed for one day, which helped. No allergy medicine taken for these symptoms, but in the past she has. Positive for PND, hurts to swallow, ears plugged. Denies fever, vomiting, constipation, diarrhea, or vision changes. 3) Headache/Migraine for 2-3 weeks - IBU helps sometimes, having to go into a dark room with no sound. This happens every day, but on and off for about 2-3 hours at a time. No N/V. No history of this. She does not wake up with the headache. Pain is 7-8/10 ache, pounding,feeling like brain will shoot out. Points to the occipital and frontal region, and explains it wrapping around. She does feel stressed out with college and some shoulder soreness. In addition, she has recently started to workout that has caused some shoulder pain. 4) Left eye irritation for 2 weeks - This comes and goes. Guardian says its through the day, just the left. It hurts, not able to put on makeup but denies discharge or crusts. She has not tried eye drops, saline or antihistamine. Throughout the day appears to get more intense. Warm rag makes the pain better with occasional swelling on upper lid on eye lashes. This has not happened before. 5) Chlamydia/GC health maintenance - Agrees to take urine test today. Outpatient Medications as of 11/10/2018: ALBUterol sulfate HFA (VENTOLIN HFA) 108 (90 Base) MCG/ACT inhaler Inhale 2 Puffs every 4 hours as needed. Use 30 min prior to exercise. Disp: 18 g Rfl: 0 escitalopram oxalate (LEXAPRO) 20 MG tablet TAKE ONE TABLET BY MOUTH ONCE DAILY Disp: 30 Tablet Rfl:0 FALMINA 0.1-20 MG-MCG tablet TAKE ONE TABLET BY MOUTH ONCE DAILY Disp: 84 Tablet Rfl: 3 No current facility-administered medications on file as of 11/10/2018. No Known Allergies PMH,PSH,SOCHX, FMH: reviewed and updated today. PHYSICAL EXAM: Filed Vitals: 11/10/18 1003 BP: 129/78 Pulse: 82 Temp: 98.2 ??F (36.8 ??C) TempSrc: Oral Weight: 253 lb (114.8 kg) Physical Exam Constitutional: She is well-developed, well-nourished, and in no distress. No distress. HENT: Right Ear: No drainage. Tympanic membrane is retracted. Tympanic membrane is not erythematous and not bulging. No middle ear effusion. Left Ear: Tympanic membrane and ear canal normal. No drainage. Tympanic membrane is not erythematous, not retracted and not bulging. No middle ear effusion. Nose: No mucosal edema or rhinorrhea. Right sinus exhibits no maxillary sinus tenderness and no frontal sinus tenderness. Left sinus exhibits no maxillary sinus tenderness and no frontal sinus tenderness. Mouth/Throat: Mucous membranes are normal. No posterior oropharyngeal edema or posterior oropharyngeal erythema. Tonsils 3+ and scant amount of PND. Eyes: Conjunctivae are normal. Right eye exhibits no discharge. Left eye exhibits no discharge. Neck: No thyromegaly present. Cardiovascular: Normal rate and regular rhythm. Pulmonary/Chest: Effort normal and breath sounds normal. Skin: Skin is warm and dry. Psychiatric: Mood, memory, affect and judgment normal. Assessment: ICD-10-CM 1. Depression, unspecified depression type F32.9 2. Anxiety F41.9 3. Seasonal allergic rhinitis, unspecified trigger J30.2 4. Allergic conjunctivitis of left eye H10.12 5. Tension-type headache, not intractable, unspecified chronicity pattern G44.209 6. VD (venereal disease) screening Z11.3 Chlamydia & GC, Urine (14 Years and Older) PLAN: 1) Anxiety/Depression - Restart Lexapro 20 mg QD with refills while at school. Encouraged to call [facility] with any questions or concerns. 2) URI & eye irritation - Suspected to be allergy induced based on history and exam. Agrees to use normal saline eye drops OTC with continued warm compress for comfort. Sudafed and zyrtec for URI symptoms. If symptoms worsen or persist or fever presents, call for reevaluation. 4) Headache - Tension headache suspected that has increased due to allergies. Since singe episode that appears to have presented with stress of starting school, okay to take IBU/tylenol for relief. Relaxation and stretching techniques shared. Patient agrees and has no further questions at this time. 3) Health maintenance of GC and chlamydia collected and will call with results. Call with urine results, GC, chlamydia. Follow up on an as needed basis. See AvS for additional details Christin Palacios PA-C 11/10/2018, 11:21 AM Christin Palacios PA-C - 11/10/2018 10:00 AM CDT Urine screen negative. No concerns. Christin Palacios PA-C 11/14/2018, 9:12 AM documented in this encounter Plan of Treatment Not on filedocumented as of this encounter Procedures Procedure Name Priority Date/Time Associated Diagnosis Comme nts CHLAMYDIA & GC, Routine 11/10/2018 11:10 AM VD (venereal Resul ts for this URINE (14 YEARS AND CDT disease) screening pr ocedure are in OLDER) the results section. documented in this encounter Results Chlamydia & GC, Urine (14 Years and Older) (11/10/2018 11:10 AM CDT) [facility] Method Time Signature Chlamydia Not Not 11/11/2018 [facility] Trachomatis Detected Detected 12:35 PM [facility] STD CDT N. gonorrhoeae Not Not 11/11/2018 [facility] STD Detected Detected 12:35 PM [facility] CDT Specimen Anatomical Collection Method Collection Time Receive d Time (Source) Location / / Volume Laterality Urine Non-blood 11/10/2018 11:10 11/10/2018 Collection / AM CDT 11:44 AM CDT Unknown Narrative [facility] - 11/11/2018 12:35 PM CDT Test performed by Molecular Detection Urine Volume submitted was greater than 30 ml. Excess collection volume may decrease test sensitivity. Christin Palacios PA-C LAB_1 Performing Organization Address City/State/ZIP Code Phon e Number [facility] [address] [address] documented in this encounter Visit Diagnoses Diagnosis Depression, unspecified depression type - Primary Anxiety (HRC) Anxiety state, unspecified Seasonal allergic rhinitis, unspecified trigger Allergic conjunctivitis of left eye Other chronic allergic conjunctivitis Tension-type headache, not intractable, unspecified chronicity pattern VD (venereal disease) screening Screening examination for venereal disea se documented in this encounter Care Teams Automotive Technician Instructor Relationship Specialty Start Date End Date Christin Palacios PA-C PCP - General Physician Trust Administrative Assistant 05/12/14 [id number] [address] [place] [address] [place] [address] documented as of this encounter
--- OUTSIDE RECORDS SUMMARY | 2022-03-19 14:32 | XMS_ITS | Encounter Summary ---
:2000 Author Organization [facility] Address [address] [place] [address] Care Team Providers Name Role Phone Christin Palacios PA-C Primary Care Provider Reason for Referral Dental (Routine) - Closed Specialty Diagnoses / Procedures Referred By Contact Refer red To Contact Diagnoses Inadequate length of dental arch Lora Escobar DDS [facility] [address] [facility] [place] [address] [facility] [address] [place] [address] Phone: [phone] Referral ID Status Reason Start Date Expiration Date Visits Requ ested Visits Authorized [id number] Closed 07/18/2019 01/14/2020 1 1 Scheduling Instructions If scheduling assistance is needed, dilma suggs inquire with the dental office staff upon exiting your appointment or contact the ordering clinic for recommended locations. This recommended service/s may not be co jaguar by your insurance coverage. To find out your specific benefit coverage, please c all the number on your insurance card. Reason for Visit Reason Comments DENTAL PAIN Encounter Details Date Type Department Care Team Description 07/18/2019 Telephone [facility] Darron Dougherty LDA DENTAL PAIN Dentistry [address] [place] [address] [place] [address] Social History Tobacco Use Types Packs/Day Years Used Date Smoking Tobacco: Passive Smoke Exposure - Never Smoker Smokeless Tobacco: Never Alcohol Use Standard Drinks/Week Comments No 0 (1 standard drink = 0.6 oz pure alcoho l) Sex Assigned at Date Recorded Not on file documented as of this encounter Nursing Notes Lora Escobar DDS - 07/18/2019 10:07 AM CDT Entered new OS referral for extraction 3rds during COVID-19 pandemic. A referral was previously entered November 2018 but she did not follow up with treatment at that time. Lora Escobar DDS 07/18/2019, 10:08 AM Meryl Dougherty LDA - 07/18/2019 9:38 AM CDT EMERGENCY/PROBLEM FOCUS PRIOR VISIT QUESTIONNAIRE 1. Have you ever been seen in our office before? [] No [x] Yes Last Seen: [] Less than 5 years [] 5 years or more Comments: 2. What is causing your problem? [] Accident [] Lost Pentecostalism [] Broken Tooth [] Chipped Tooth [x] Toothache Location: [] Upper Left [x] Lower Left [] Upper Front [] Lower Front [] Upper Right [] Lower Right Comments: 3rd molars hurting. LL worst one. 3. What kind of discomfort are you in? [] No Discomfort [x] Awake Last Night [] Radiating Pain [x] Throbbing Pain Comments: 4. When does the discomfort occur? [] Cold Sensitive [x] Constantly [x] Pressure Sensitive [] Hot Sensitive [] Occasionally [] Other (fill in comments) Comments: 5. How long has the degree of discomfort lasted? [] Longer Duration [] Other (enter duration in comments) Comments: Are you experiencing any other signs or symptoms? [] Bleeding/Oozing [] Fever [] Other (list other signs/symptoms in comments) Comments: Are you taking medications for this problem? [] No [x] Yes (list meds in comments) Comments: IBU/Tylenol 6. Have you been advised to take antibiotics prior to dental treatment? [x] No [] Yes Comments: documented in this encounter Plan of Treatment Scheduled Referrals Name Type Priority Associated Diagnoses Order S chedule Oral Surgery Consult Referral Routine Inadequate length of Ordered: 07/18/2019 dental arch documented as of this encounter Visit Diagnoses Diagnosis Inadequate length of dental arch - Prima ry documented in this encounter Care Teams Senior Compensation Analyst Relationship Specialty Start Date End Date Christin Palacios PA-C PCP - General Physician Knockout Machine Operator 05/12/14 [id number] [address] [place] [facility] [place] [address] documented as of this encounter
--- OUTSIDE RECORDS SUMMARY | 2022-03-19 14:32 | XMS_ITS | Encounter Summary ---
:2000 Author Organization [facility] Address [address] [place] [address] Care Team Providers Name Role Phone Christin Palacios PA-C Primary Care Provider Encounter Details Date Type Department Care Team Description 09/09/2018 Therapy External to Social History Tobacco Use Types Packs/Day Years [...] on filedocumented in this encounter Care Teams Carbide Powder Processor Relationship Specialty Start Date End Date Christin Palacios PA-C PCP - General Physician Wire Spinner 05/12/[address] [place] [address] documented as of this encounter
--- OUTSIDE RECORDS SUMMARY | 2022-03-19 14:32 | XMS_ITS | Encounter Summary ---
:2000 Author [facility] Address [address] [place] [address] Care Team Providers Name Role Phone Christin Palacios PA-C Primary Care Provider Reason for Visit Reason Comments Follow Up Medication DEPRESSION ANXIETY Encounter Details Date Type Department Care Team Description 07/13/[address] [facility] Christin Palacios, Anxiety (Primary Dx); Practice [facility] Exercise-induced coughing episode; [address] [address] [address] Depression, unspecified depr ession type [place] [phone] [facility] [address] [place] [id number] Social History Tobacco Use Types Packs/Day Years Used Date Smoking Tobacco: Passive Smoke Exposure - Never Smoker Smokeless Tobacco: Never Alcohol Use Standard Drinks/Week Comments No 0 (1 standard drink = 0.6 oz pure alcoho l) Sex Assigned at Date Recorded Not on file documented as of this encounter Progress Notes Christin Palacios PA-C - 07/13/2019 11:00 AM CDT Subjective Marychuy Le was called for a scheduled telephone visit regarding:depression, last visit was November She is taking Lexapro 20 mg She is not being treated with psychotherapy. Since the last clinic visit, the patient states symptoms have Varied. Currently they include: the symptoms recorded on the PHQ-9 and HARISH-7. Feels medication is going ok Has more anxiety than depression Reports she had a huge panic attack at work 3-4 weeks ago - was shaking, crying, couldn't breathe. 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 She has been procrastinating on her hoemwork, till last minutes PHQ-9 1. Little interest or pleasure in doing things 1 2. Feeling down, depressed, or hopeless 1 3. Trouble falling or staying asleep, or sleeping too much 2 4. Feeling tired or having little energy 2 5. Poor appetite or overeating 2 6. Feeling bad about yourself -- or that you are a failure or have let yourself or your family down 0 7. Trouble concentrating on things, such as reading the newspaper or watching television 1 8. Moving or speaking so slowly that [...] along with other people? Somewhat difficult Total 9 HARISH-7 1. Feeling nervous, anxious or on edge 2 2. Not being able to stop or control worrying 2 3. Worrying too much about different things 2 4. Trouble relaxing 1 5. Being so restless that it is hard to sit still 0 6. Becoming easily annoyed or irritable 1 7. Feeling afraid as if something awful might happen 0 8. If you checked off any problems, how difficult have these made it for you to do your work, take care of things at home, or get along with other people? Somewhat difficult Total 8 Assessment & Plan Anxiety/Depression Increase Lexapro to 30 mg Follow up in 4-6 weeks or sooner if needed. This phone visit is a scheduled telephone visit. Time spent on the phone with the patient: 8 minutes. Christin Palacios PA-C documented in this encounter Plan of Treatment Not on filedocumented as of this encounter Visit Diagnoses Diagnosis Anxiety (HRC) - Primary Anxiety state, unspecified Exercise-induced coughing episode Depression, unspecified depression type documented in this encounter Care Teams Binder Lockstitch Relationship Specialty Start Date End Date Christin Palacios PA-C PCP - General Physician Commercial Relationship Manager 05/12/[id number] [place] [address] documented as of this encounter
--- OUTSIDE RECORDS SUMMARY | 2022-03-19 14:32 | XMS_ITS | Encounter Summary ---
:2000 Author Organization [facility] Address [address] [place] [address] Care Team Providers Name Role Phone Christin Palacios PA-C Primary Care Provider Reason for Visit Reason Comments HEADACHE,MIGRAINE after work, always need to g ot into a dark room, noise and light make symptoms worse Sore Throat swollen glands, hard to swal low, ongoing, getting worse, allergy meds not helping Encounter Details Date Type Department Care Team Description 11/24/2018 Office Visit [facility] Christin Palacios, Nonintra ctable headache, Practice [place] unspecified chronicity [address] [address] [place], unspecified [address] headache type ([place] [address] Dx) [phone] Social History Tobacco Use Types Packs/Day Years Used Date Smoking Tobacco: Passive Smoke Exposure - Never Smoker Smokeless Tobacco: Never Alcohol Use Standard Drinks/Week Comments No 0 (1 standard drink = 0.6 oz pure alcoho l) Sex Assigned at Date Recorded Not on file documented as of this encounter Last Filed Vital Signs Vital Sign Reading Time Taken Comments Blood Pressure 114/73 11/24/2018 1:29 PM CDT Pulse 88 11/24/2018 1:29 PM CDT Temperature 37 ??C (98.6 ??F) 11/24/2018 1:29 PM CDT Respiratory Rate - - Oxygen Saturation - - Inhaled Oxygen Concentration - - Weight 115.2 kg (254 lb) 11/24/2018 1:29 PM CDT Height - - Body Mass Index - - documented in this encounter Patient Instructions Patient InstructionsChristin Palacios PA-C - 11/24/2018 1:20 PM CDT Images from the original note were not included. Sore throat, Enlarged Tonsils, Headache - Labs today - CBC, Yellow Medicine, Strep - Medrol Dose pack today - Warm Salt warter gargles - Depending on labs will determine if we need Abx. Tonsillitis in Children: Care Instructions Your Care Instructions Tonsillitis is an infection of the tonsils that is caused by bacteria or a virus. The tonsils are inthe back of the throat and are part of the immune system. Tonsillitis typically lasts from a few days up to a couple of weeks. Tonsillitis caused by a virus usually goes away on its own. Tonsillitis caused by the bacteria that causes strep throat is treated with antibiotics. You and your child's doctor may consider surgery to remove the tonsils if your child has complications from tonsillitis or repeat infections. This surgery is called tonsillectomy. Follow-up care is a martin part of your child's treatment and safety. Be sure to make and go to all appointments, and call your doctor if your child is having problems. It's also a good idea to know your child's test results and keep a list of the medicines your child takes. How can you care for your child at home? ?? If the doctor prescribed antibiotics for your child, give them as directed. Do not stop using them just because your child feels better. Your child needs to take the full course of antibiotics. ?? Give your child acetaminophen (Tylenol) or ibuprofen (Advil, Motrin) for pain. Be safe with medicines. Read and follow all instructions on the label. Do not give aspirin to anyone younger than 20. It has been linked to Jean Carlos syndrome, a serious illness. ?? Do not give your child two or more pain medicines at the same time unless the doctor told you to.Many pain medicines have acetaminophen, which is Tylenol. Too much acetaminophen (Tylenol) can be harmful. ?? If your child is age 8 or older, have him or her gargle with warm salt water. This helps reduce swelling and relieve discomfort. Have your child gargle once an hour with 1 teaspoon of salt mixed in 8 fluid ounces of warm water. ?? Have your child drink plenty of fluids. Fluids may help soothe an irritated throat. Your child can drink warm or cool liquids (whichever feels better). These include tea, soup, and juice. When should you call for help? Call your doctor now or seek immediate medical care if: ? Your child has new or worse symptoms of infection, such as: ? Increased pain, swelling, warmth, or redness. ? Red streaks leading from the area. ? Pus draining from the area. ? A fever. ? Your child has new pain, or pain that gets worse. ? Your child has new or worse trouble swallowing. ? Your child seems to be getting sicker. ?? Watch closely for changes in your child's health, and be sure to contact your doctor if: ? Your child does not get better as expected. Where can you learn more? 1. Go to https://[employer]/Everlanerary or [employer]/Cumulocitylibrary. 2. Enter E491 in the search box. Current as of: February 07, 2018 Content Version: 12.0 ?? [id number] [employer]. Care instructions adapted under license by your healthcare professional. If you have questions about a medical condition or this instruction, always ask your healthcare professional. [employer] disclaims any warranty or liability for your use of this information. documented in this encounter Progress Notes Christin Palacios PA-C - 11/24/2018 1:20 PM CDT Chief Complaint Patient presents with ??? HEADACHE,MIGRAINE after work, always need to got into a dark room, noise and light make symptoms worse ??? Sore Throat swollen glands, hard to swallow, ongoing, getting worse, allergy meds not helping SUBJECTIVE: Marychuy Le is a 18 y.o. old female presenting for follow up URI and Salmon symptoms. She was seen a month ago - thought to be more allergy related and recommended conservative treatment. See previous OV on 11/10 for details. Since then symptoms have worsened. Reports she feels like she is waking up a Salmon. Feels like it starts as band across forehead. She does eat breakfast prior to work - doesn't seem to help. She treats by staying in her room where it's dark Also c/o Light and sounds sensitivity. She does have some nausea. She has no confusion, vision change, weaknenss Symptoms ongoing for a solid month, progressively worse. She has been on OCP for quite some time - Salmon started a bout a month ago - had been on OCP for monthsprior without side effect She isn't sure if its medicine related Treats by just resting in dark room and when she wakes up it is usually better. She reports if she gets it to go away she is good, but will come back later in the day Today when people were slamming carts together at work triggered head - the loud sounds. Were reallybothersome She is on 20 mg Lexapro since about July, Salmon started in October The only new thing would be plasma donation for the past month. I have reviewed the patient's medical history in detail and updated the computerized patient record. Past Medical History: Diagnosis Date ??? Depression Current Outpatient Medications Medication Sig Dispense Refill ??? ALBUterol sulfate HFA (VENTOLIN HFA) 108 (90 Base) MCG/ACT inhaler Inhale 2 Puffs every 4 hours as needed. Use 30 min prior to exercise. 18 g 0 ??? doxycycline monohydrate (MONODOX) 100 MG capsule Take 1 Capsule by mouth two times a day for 7 days. 14 Capsule 0 ??? escitalopram oxalate (LEXAPRO) 20 MG tablet Take 1 Tablet by mouth daily. 90 Tablet 3 ??? FALMINA 0.1-20 MG-MCG tablet TAKE ONE TABLET BY MOUTH ONCE DAILY 84 Tablet 3 ??? loratadine (CLARITIN) 10 MG tablet Take 1 Tablet by mouth daily for 30 days. 30 Tablet 3 ??? methylPREDNISolone (MEDROL 21 TABLET DOSEPACK) 4 MG tablet Follow package directions 21 Tablet 0 ??? pseudoephedrine (SUDAFED) 30 MG tablet Take 1 Tablet by mouth every 6 hours as needed for Congestion. 100 Tablet 1 No current facility-administered medications for this visit. O Blood pressure 114/73, pulse 88, temperature 98.6 ??F (37 ??C), temperature source Oral, weight 254 lb (115.2 kg), last menstrual period 11/17/2018. General Appearance : WNWD female in No Acute Distress. Skin: cyanosis absent, rash absent. Lymph Nodes: mild reactive cervical LN HEENT: Head: atraumatic, normocephalic; Eyes: Conjunctival erythema: absent Ears: TM pearly givens bilaterally. Landmarks well visualized. Nose: unremarkable; Throat: moderate erythema and tonsils 3+ with exudates Neck: supple without thyromegaly Heart: Regular rate and rhythm. No murmur or gallops noted. Lungs: CTA bilaterally. No wheezes, rales, or rhonchi. A Sore throat, Enlarged Tonsils, Headache - Labs today - CBC, Yellow Medicine, Strep - Medrol Dose pack today - Warm Salt warter gargles - Depending on labs will determine if we need Abx. documented in this encounter Plan of Treatment Not on filedocumented as of this encounter Procedures Procedure Name Priority Date/Time Associated Diagnosis Comme nts STREP GROUP A, Waiting 11/24/2018 1:57 PM Nonintractable Resul ts for this MOLECULAR CDT headache, unspecified proced ure are in DETECTION chronicity pattern, the resu lts unspecified headache section . type documented in this encounter Results Yellow Medicine Test (11/24/2018 2:22 PM CDT) [facility] gist Method Time Signature Mononucleosis Negative Negative 11/24/2018 [facility] Screen 2:27 PM CDT [facility] Specimen Anatomical Collection Method / Collection Time Recei werner Time (Source) Location / Volume Laterality Blood Venipuncture / 11/24/2018 2:22 11/24/2018 2:22 Unknown PM CDT PM CDT Christin Palacios PA-C LAB_1 Performing Organization Address City/State/ZIP Code Phon e Number [facility] [address] [place], [place] [phone] CLINIC LAB Strep Group A by PCR (11/24/2018 1:57 PM CDT) [facility] Method Time Signature Group A Not Not 11/24/2018 [facility] Strep Detected Detected 2:44 PM CDT [facility] Specimen Anatomical Collection Method Collection Time Receive d Time (Source) Location / / Volume Laterality Swab (Source THROAT SWAB / Non-blood 11/24/2018 1:57 PM 11/25/19 19 2:12 Required) Unknown Collection / CDT PM CDT Unknown Christin Palacios PA-C LAB_1 Performing Organization Address City/State/ZIP Code Phon e Number [facility] [address] [facility] [place] [place] [phone] CLINIC LAB documented in this encounter Visit Diagnoses Diagnosis Nonintractable headache, unspecified chr onicity pattern, unspecified headache type - Primary documented in this encounter Care Teams Research Physiologist Relationship Specialty Start Date End Date Christin Palacios PA-C PCP - General Physician Marketing Automation Specialist 05/12/[id number] [place] [id number] documented as of this encounter
--- OUTSIDE RECORDS SUMMARY | 2022-03-19 14:32 | XMS_ITS | Encounter Summary ---
:2000 Author Organization [facility] Address [address] [place] [address] Care Team Providers Name Role Phone Christin Palacios PA-C Primary Care Provider Reason for Referral Consult/Transfer Care (Routine) - Closed Specialty Diagnoses / Procedures Referred By Contact Refer red To Contact Diagnoses Depression, unspecified depression type Anxiety (HRC) Christin Palacios, [place] [address] [address] [address] Referral ID Status Reason Start Date Expiration Date Visits Requ ested Visits Authorized [id number] Closed 05/13/2018 08/12/2019 1 1 Scheduling Instructions Your provider has recommended an appoint ment with [facility]. You may call [phone] to sc hedule your appointment. If you prefer, a radiator cleaner will contact you within the wa xt 3 business days to assist you in setting up this appointment. We suggest you call your health insurance company about your coverage and benefits for this appointme nt. DREN'S AIDE Reason for Visit Reason Comments DEPRESSION ANXIETY Encounter Details Date Type Department Care Team Description 05/13/[address] [facility] Christin Palacois Depressi on, unspecified depression type (Primary Dx); Practice [place] Anxiety [address] [address] [address] [address] [address] [address] [phone] Social History Tobacco Use Types Packs/Day Years Used Date Smoking Tobacco: Passive Smoke Exposure - Never Smoker Smokeless Tobacco: Never Comments: parents Alcohol Use Standard Drinks/Week Comments No 0 (1 standard drink = 0.6 oz pure alcoho l) Sex Assigned at Date Recorded Not on file documented as of this encounter Last Filed Vital Signs Vital Sign Reading Time Taken Comments Blood Pressure 123/70 05/13/2018 8:51 AM CHILDREN'S AIDE Pulse 71 05/13/2018 8:51 AM CHILDREN'S AIDE Temperature 36.7 ??C (98.1 ??F) 05/13/2018 8:51 AM CHILDREN'S AIDE Respiratory Rate - - Oxygen Saturation - - Inhaled Oxygen Concentration - - Weight 102.1 kg (225 lb) 05/13/2018 8:51 AM CHILDREN'S AIDE Height 176.5 cm (5' 9.5) 05/13/2018 8:51 AM CHILDREN'S AIDE Body Mass Index 32.75 05/13/2018 8:51 AM CHILDREN'S AIDE Body Mass Index Percentile 96.97 % 05/13/2018 8:51 AM CS T Growth Chart: [facility] (Girls, 2-20 Years) documented in this encounter Patient Instructions Patient InstructionsChristin Palacios PA-C - 05/13/2018 8:40 AM CST Images from the original note were not included. A Depression, Anxiety - Discussed treatment options with Leticia - Will start Lexapro 10 mg daily - Referral for therapy - Follow up in 4 weeks with me or sooner if any new/worsening mood symptoms - Call at any time with concerns Routine Health - Flu shot today Anxiety Disorder: Care Instructions Your Care Instructions Anxiety is a normal reaction to stress. Difficult situations can cause you to have symptoms such as sweaty palms and a nervous feeling. In an anxiety disorder, the symptoms are far more severe. Constant worry, muscle tension, trouble sleeping, nausea and diarrhea, and other symptoms can make normal daily activities difficult or impossible. These symptoms may occur for no reason, and they can affect your work, school, or social life. Medicines, counseling, and self-care can all help. Follow-up care is a martin part of your treatment and safety. Be sure to make and go to all appointments, and call your doctor if you are having problems. It's also a good idea to know your test results and keep a list of the medicines you take. How can you care for yourself at home? ?? Take medicines exactly as directed. Call your doctor if you think you are having a problem with your medicine. ?? Go to your counseling sessions and follow-up appointments. ?? Recognize and accept your anxiety. Then, when you are in a situation that makes you anxious, say to yourself, This is not an emergency. I feel uncomfortable, but I am not in danger. I can keep going even if I feel anxious. ?? Be kind to your body: ? Relieve tension with exercise or a massage. ? Get enough rest. ? Avoid alcohol, caffeine, nicotine, and illegal drugs. They can increase your anxiety level and cause sleep problems. ? Learn and do relaxation techniques. See below for more about these techniques. ?? Engage your mind. Get out and do something you enjoy. Go to a funny movie, or take a walk or hike. Plan your day. Having too much or too little to do can make you anxious. ?? Keep a record of your symptoms. Discuss your fears with a good friend or family member, or join asupport group for people with similar problems. Talking to others sometimes relieves stress. ?? Get involved in social groups, or volunteer to help others. Being alone sometimes makes things seem worse than they are. ?? Get at least 30 minutes of exercise on most days of the week to relieve stress. Walking is a goodchoice. You also may want to do other activities, such as running, swimming, cycling, or playing tennis or team sports. Relaxation techniques Do relaxation exercises 10 to 20 minutes a day. You can play soothing, relaxing music while you do them, if you wish. ?? Tell others in your house that you are going to do your relaxation exercises. Ask them not to disturb you. ?? Find a comfortable place, away from all distractions and noise. ?? Lie down on your back, or sit with your back straight. ?? Focus on your breathing. Make it slow and steady. ?? Breathe in through your nose. Breathe out through either your nose or mouth. ?? Breathe deeply, filling up the area between your navel and your rib cage. Breathe so that your belly goes up and down. ?? Do not hold your breath. ?? Breathe like this for 5 to 10 minutes. Notice the feeling of calmness throughout your whole body. As you continue to breathe slowly and deeply, relax by doing the following for another 5 to 10 minutes: ?? Tighten and relax each muscle group in your body. You can begin at your toes and work your way upto your head. ?? Imagine your muscle groups relaxing and becoming heavy. ?? Empty your mind of all thoughts. ?? Let yourself relax more and more deeply. ?? Become aware of the state of calmness that surrounds you. ?? When your relaxation time is over, you can bring yourself back to alertness by moving your fingers and toes and then your hands and feet and then stretching and moving your entire body. Sometimes people fall asleep during relaxation, but they usually wake up shortly afterward. ?? Always give yourself time to return to full alertness before you drive a car or do anything that might cause an accident if you are not fully alert. Never play a relaxation tape while you drive a car. When should you call for help? Call 911 anytime you think you may need emergency care. For example, call if: ? You feel you cannot stop from hurting yourself or someone else. ??Keep the numbers for these national suicide hotlines: 6-714-459-TALK ( ) and 0-999-WWVWZAI ( ). If you or someone you know talks about suicide or feeling hopeless, get help right away. ??Watch closely for changes in your health, and be sure to contact your doctor if: ? You have anxiety or fear that affects your life. ? You have symptoms of anxiety that are new or different from those you had before. Where can you learn more? 1. Go to Science/VantageILM or Petizens.com/Where's [employer]. 2. Enter P754 in the search box. Current as of: December 29, 2017 Content Version: 11.9 ?? 6020-5289 [employer]. Teens Recovering From Depression: Care Instructions Your Care Instructions Taking good care of yourself is important as you recover from depression. In time, your symptoms will fade as your treatment takes hold. Do not give up. Instead, focus your energy on getting better. Your mood will improve. It just takes some time. Focus on things that can help you feel better, suchas being with friends and family, eating well, and getting enough rest. But take things slowly. Do not do too much too soon. You will begin to feel better gradually. Follow-up care is a martin part of your treatment and safety. Be sure to make and go to all appointments, and call your doctor if you are having problems. It's also a good idea to know your test results and keep a list of the medicines you take. How can you care for yourself at home? Be realistic ?? If you have a large task to do, break it up into smaller steps you can handle, and just do what you can. ?? Think about putting off important decisions until your depression has lifted. If you have plans that will have a major impact on your life, such as dropping out of school or choosing a college, try to wait a bit. Talk it over with friends and family who can help you look at the overall picture. ?? Reach out to people for help. Do not isolate yourself. Let your family and friends help you. Findpeople you can trust and confide in, and talk to them. ?? Be patient, and be kind to yourself. Remember that depression is not your fault and is not something you can overcome with willpower alone. Treatment is necessary for depression, just like for any other illness. Feeling better takes time, and your mood will improve little by little. Stay active ?? Stay busy and get outside. Join a school club or take part in school activities. Become a volunteer. ?? Get plenty of exercise every day. Go for a walk or jog, ride your bike, or play sports with friends. Talk with your doctor about an exercise program. Exercise can help with mild depression. ?? Go to a movie or concert. Take part in a latter day activity or other social gathering. Go to a sports event. ?? Ask a friend to do things with you. You could play a computer game, go shopping, or listen to music, for example. Follow your treatment plan ?? If your doctor prescribed medicine, take it exactly as prescribed. Call your doctor if you think you are having a problem with your medicine. ? You may start to feel better within 1 to 3 weeks of taking antidepressant medicine. But it can take as many as 6 to 8 weeks to see more improvement. ? If you do not notice any improvement in 3 weeks, talk to your doctor. ? Antidepressants can make you feel tired, dizzy, or nervous. Some people have dry mouth, constipation, headaches, or diarrhea. Many of these side effects are mild and will go away on their own after you have been taking the medicine for a few weeks. Some may last longer. Talk to your doctor if side effects are bothering you too much. You might be able to try a different medicine. ?? Do not take medicines that have not been prescribed for you. They may interfere with medicines you may be taking for depression, or they may make your depression worse. ?? If you have a counselor, go to all your appointments. ?? Keep the numbers for these national suicide hotlines: 1-839-501-TALK ( ) and 3-034-VERAIBP ( ). If you or someone you know talks about suicide or feeling hopeless, get helpright away. Take care of yourself ?? Eat a balanced diet with plenty of fresh fruits and vegetables, whole grains, and lean protein. If you have lost your appetite, eat small snacks rather than large meals. ?? Do not drink alcohol or use illegal drugs. ?? Get enough sleep. If you have problems sleeping: ? Go to bed at the same time every night, and get up at the same time every morning. ? Keep your bedroom dark and quiet. ? Do not exercise after 5:00 p.m. ? Avoid drinks with caffeine after 5:00 p.m. ?? Avoid sleeping pills unless they are prescribed by the doctor treating your depression. Sleeping pills may make you groggy during the day, and they may interact with other medicine you are taking. ?? If you have any other illnesses, such as diabetes, make sure to continue with your treatment. Tell your doctor about all of the medicines you take, including those with or without a prescription. When should you call for help? Call 911 anytime you think you may need emergency care. For example, call if: ? You are thinking about suicide or are threatening suicide. ? You feel you cannot stop from hurting yourself or someone else. ? You hear or see things that aren't real. ? You think or speak in a bizarre way that is not like your usual behavior. ??Call your doctor now or seek immediate medical care if: ? You are drinking a lot of alcohol or using illegal drugs. ? You are talking or writing about . ??Watch closely for changes in your health, and be sure to contact your doctor if: ? You find it hard or it's getting harder to deal with school, a job, family, or friends. ? You think your treatment is not helping or you are not getting better. ? Your symptoms get worse or you get new symptoms. ? You have any problems with your antidepressant medicines, such as side effects, or you are thinking about stopping your medicine. ? You are having manic behavior, such as having very high energy, needing less sleep than normal, or showing risky behavior such as spending money you don't have or abusing others verbally or physically. Where can you learn more? 1. Go to Science/VantageILM or [employer].com/Float: [place]. 2. Enter L325 in the search box. Current as of: December 29, 2017 Content Version: 11.9 ?? 9686-8970 [employer]. DREN'S AIDE documented in this encounter Progress Notes Arjun Mercado CMA - 05/13/2018 8:40 AM CHILDREN'S AIDE Addended by: ARJUN MERCADO on: 05/13/2018 09:28 AM Modules accepted: Orders DREN'S AIDE Christin Palacios PA-C - 05/13/2018 8:40 AM CST S Marychuy Le presents with depressed mood and anxious mood. She had moved to [place] last year to be with grandma, this didn't end up working out and she moved back to [place] in December to stay in this area for her senior. She is living with family friend Carleen - who does have guardianship. She comes in today to discuss mood concerns. Concerned about anxiety -Feels like she worries about a bunch of things at one time, then will get an anxiety attack because hse is worrying about everything and her head will start to spin Started while she was in [place] and Grandma told her it was just in her head Worries about things she can't control. Also questioning if she has some depression concerns - feels like she isn't enjoying things like sheshould. Sometimes she feels like she should just sit down and cry, but doesn't have a reason for it. She feels like this started over the past 1-2 years when her mom started to strugglle with her mental health, but worsened while in [place]. Feels has improved a little since moving back. Past history of depression: Past treatment for depression including: psychotherapy/counseling Family history of depression: Mom struggled with mental health issues - Mom Adeline is now living in [facility]. No past medical history on file. Current Outpatient Medications Medication Sig Dispense Refill ??? ALBUterol sulfate HFA (VENTOLIN HFA) 108 (90 Base) MCG/ACT inhaler Inhale 2 Puffs every 4 hours as needed. Use 30 min prior to exercise. 18 g 0 ??? FALMINA 0.1-20 MG-MCG tablet TAKE ONE TABLET BY MOUTH ONCE DAILY 84 Tablet 1 No current facility-administered medications for this visit. O BP 123/70 Pulse 71 Temp 98.1 ??F (36.7 ??C) (Oral) Ht 5' 9.5 (1.765 m) Wt 225 lb (102.1 kg) LMP 04/29/2018 BMI 32.75 kg/m?? Affect: anxious Overweight female, friendly in NAD Skin:Warm, dry Neuro: Alert, orientated HARISH-7 1. Feeling nervous, anxious or on edge 2 2. Not being able to stop or control worrying 2 3. Worrying too much about different things 3 4. Trouble relaxing 2 5. Being so restless that it is hard to sit still 2 6. Becoming easily annoyed or irritable 2 7. Feeling afraid as if something awful might happen 2 8. If you checked off any problems, how difficult have these made it for you to do your work, take care of things at home, or get along with other people? Very difficult Total 15 PHQ-9 1. Little interest or pleasure in doing things Not at all 2. Feeling down, depressed, or hopeless More than half the days 3. Trouble falling or staying asleep, or sleeping too much More than half the days 4. Feeling tired or having little energy Several days 5. Poor appetite or overeating Nearly every day 6. Feeling bad about yourself -- or that you are a failure or have let yourself or your family down More than half the days 7. Trouble concentrating on things, such as reading the newspaper or watching television Several days 8. Moving or speaking so slowly that other people could have noticed? Or the opposite -- being so fidgety or restless that you have been moving around a lot more than usual Not at all 9. Thoughts that you would be better off or of hurting yourself in some way Not at all Total 11 A Depression, Anxiety - Discussed treatment options with Leticia - Will start Lexapro 10 mg daily - Referral for therapy - Follow up in 4 weeks with me or sooner if any new/worsening mood symptoms - Call at any time with concerns Routine Health - Flu shot today DREN'S AIDE documented in this encounter Plan of Treatment Scheduled Referrals Name Type Priority Associated Diagnoses Order S [facility] Behavioral Health Referral Routine Depression, unspecified Ordered: 05/13/2018 depression type Anxiety documented as of this encounter Visit Diagnoses Diagnosis Depression, unspecified depression type - Primary Anxiety (HRC) Anxiety state, unspecified documented in this encounter Care Teams Pharmacy Technology Instructor Relationship Specialty Start Date End Date Christin Palacios PA-C PCP - General Physician Fur Puller 05/12/[id number] [place] [id number] documented as of this encounter
--- OUTSIDE RECORDS SUMMARY | 2022-03-19 14:32 | XMS_ITS | Encounter Summary ---
:2000 Author Organization [facility] Address [address] [place] [address] Care Team Providers Name Role Phone Christin Palacios PA-C Primary Care Provider Reason for Visit Reason Comments LAB RESULTS Encounter Details Date Type Department Care Team Description 11/15/[address] [facility] Family Prac leenaChristin Maher PA-C LAB RESULTS [address] [address] [address] [place] [address] [place] [address] [phone] (Wo rk) Social History Tobacco Use Types Packs/Day Years Used Date Smoking Tobacco: Passive Smoke Exposure - Never Smoker Smokeless Tobacco: Never Alcohol Use Standard Drinks/Week Comments No 0 (1 standard drink = 0.6 oz pure alcoho l) Sex Assigned at Date Recorded Not on file documented as of this encounter Nursing Notes Arjun Mercado CMA - 11/15/2018 9:00 AM CDT Patient informed of results and has no other questions at this time. Arjun Mercado CMA 11/15/2018 9:04 AM Arjun Mercado CMA - 11/15/2018 8:18 AM CDT ----- Message from Christin Palacios PA-C sent at 11/14/2018 9:12 AM CDT ----- Urine screen negative. No concerns. Christin Palacios PA-C 11/14/2018, 9:12 AM documented in this encounter Plan of Treatment Not on filedocumented as of this encounter Visit Diagnoses Not on filedocumented in this encounter Care Teams Environmental Remediation Consultant Relationship Specialty Start Date End Date Christin Palacios PA-C PCP - General Physician Territory Development Manager 05/12/[address] [place] [id number] documented as of this encounter
--- OUTSIDE RECORDS SUMMARY | 2022-03-19 14:32 | XMS_ITS | Encounter Summary ---
:2000 Author Organization [facility] Address [address] [place] [address] Care Team Providers Name Role Phone Christin Palacios PA-C Primary Care Provider Encounter Details Date Type Department Care Team Description 08/09/2018 Therapy External to Social History Tobacco Use [...] on filedocumented in this encounter Care Teams Bridge Tender Relationship Specialty Start Date End Date Chrsitin Palacios PA-C PCP - General Physician Play Back Operator 05/12/[address] [place] [address] documented as of this encounter
--- OUTSIDE RECORDS SUMMARY | 2022-03-19 14:32 | XMS_ITS | Encounter Summary ---
:2000 Author Organization [facility] Address [address] [place] [address] Care Team Providers Name Role Phone Gunner Carias PA-C Primary Care Provider Reason for Visit Reason Comments Refill LESSINA-28 0.1-20 MG-MCG tab let [Pharmacy Med Name: LESSINA TABLETS 28] Encounter Details Date Type Department Care Team Description 08/16/2019 Refill [facility] Family Prac leenaGunner Maher, Refill (LESSINA-28 [address] [facility] [place] 0.1-20 MG-MCG tablet [address] [id number] [address] [Pharmacy Med Name: [phone] LESSINA TABLETS 28]) [address] [id number] (Wo rk) Social History Tobacco Use Types Packs/Day Years Used Date Smoking Tobacco: Passive Smoke Exposure - Never Smoker Smokeless Tobacco: Never Alcohol Use Standard Drinks/Week Comments No 0 (1 standard drink = 0.6 oz pure alcoho l) Sex Assigned at Date Recorded Not on file documented as of this encounter Nursing Notes Gunner Huizar RN - 2019 8:10 AM CDT per standing order Gunner Huizar RN 2019, 8:10 AM Interface, Out Surescripts Prov Query - 08/16/2019 3:12 AM CDT LESSINA-28 0.1-20 MG-MCG tablet [Pharmacy Med Name: LESSINA TABLETS 28] Miscellaneous - 12 Month Visit -> Refill x 12 months, qty: 90, refills: 3 (until due for an office visit) Last qualifying visit: 07/13/2019 (in [place] [facility]) Next scheduled visit: None Last ordered by GUNNER CARIAS: 09/09/2018 (341 days ago) QTY: 84, Refills: 3, Sig: take one tabletby mouth once daily (changed but equivalent) Powered by [employer], Reference: [id number], 08/16/2019 3:12:34 AM CDT, Pool: TORREY REFILL RN ([id number]) documented in this encounter Plan of Treatment Not on filedocumented as of this encounter Visit Diagnoses Diagnosis OCP (oral contraceptive pills) initiatio n General counseling for prescription of o ral contraceptives documented in this encounter Care Teams Railroad Worker Relationship Specialty Start Date End Date Gunner Carias PA-C PCP - General Physician Insurance Policy Issue Clerk 05/12/[address] [place] [id number] documented as of this encounter
--- OUTSIDE RECORDS SUMMARY | 2022-03-19 14:32 | XMS_ITS | Encounter Summary ---
:2000 [facility] Address [address] [place] [address] Care Team Providers Name Role Phone Christin Palacios PA-C Primary Care Provider Reason for Visit Reason Comments Depression Registry Call 1 left message Encounter Details Date Type Department Care Team Description 07/04/2019 Telephone [facility] Family Christin Palacios Depressi on Registry Practice PA-Galdino Call 1 (left message ) [address] [facility] [address] [place] [address] [facility] [address] [address] Social History Tobacco Use Types Packs/Day Years Used Date Smoking Tobacco: Passive Smoke Exposure - Never Smoker Smokeless Tobacco: Never Alcohol Use Standard Drinks/Week Comments No 0 (1 standard drink = 0.6 oz pure alcoho l) Sex Assigned at Date Recorded Not on file documented as of this encounter Nursing Notes Misty Mcfarland LPN - 07/12/2019 10:21 AM CDT Depressive episodes-stuff going on--2-3 weeks ago This patient was identified from the Disease Registry as being out of goal or almost out of goal forone or more of their Optimal Care Measures. I reached the patient by phone. The patient is due for the following care items: Depression Patient is due for PHQ-9. Was question # 9 answered Several Days, More Than Half the Days, or Nearly Every Day? No Current Outpatient Medications Medication Sig Dispense Refill ??? ALBUterol sulfate HFA (VENTOLIN HFA) 108 (90 Base) MCG/ACT inhaler Inhale 2 Puffs every 4 hours as needed. Use 30 min prior to exercise. 18 g 0 ??? escitalopram oxalate (LEXAPRO) 20 MG tablet Take 1 Tablet by mouth daily. 90 Tablet 3 ??? FALMINA 0.1-20 MG-MCG tablet TAKE ONE TABLET BY MOUTH ONCE DAILY 84 Tablet 3 ??? methylPREDNISolone (MEDROL 21 TABLET DOSEPACK) 4 MG tablet Follow package directions 21 Tablet 0 ??? pseudoephedrine (SUDAFED) 30 MG tablet Take 1 Tablet by mouth every 6 hours as needed for Congestion. 100 Tablet 1 No current facility-administered medications for this visit. Is this patient on a depression medication? Yes Ask patient, Can you tell me how you are taking your medication? Is this consistent with the medication list? Yes Are you having any side effects or concerns? No Recommendations based on PHQ-9 score: 10-19 Office visit or Scheduled Telephone Visit with PCP within 1 month is recommended. Plan The following visits were recommended: ?? See Previous Documentation Outcome of call: Forms completed. Patient agrees with plan, Transferred to scheduling to set up appointment. Misty Mcfarland LPN 07/12/2019, 10:23 AM Shawna Garcia LPN - 07/04/2019 4:06 PM CDT This patient was identified from the Disease Registry as being out of goal or almost out of goal forone or more of their Optimal Care Measures. I was unable to reach the patient by phone. Left message for patient/parent to call back. The patient is due for the following care items: Depression Patient is due for PHQ-9. Score was not completed today. Plan The following visits are recommended: ?? None If patient returns the call, review the care items due and follow-up recommendations. Document using.ximena Garcia LPN 07/04/2019, 4:06 PM documented in this encounter Plan of Treatment Not on filedocumented as of this encounter Visit Diagnoses Not on filedocumented in this encounter Care Teams Boatswain Mate Relationship Specialty Start Date End Date Christin Palacios PA-C PCP - General Physician Facilities Operator 05/12/[address] [place] [address] documented as of this encounter
--- OUTSIDE RECORDS SUMMARY | 2022-03-19 14:32 | XMS_ITS | Encounter Summary ---
:2000 Author Organization [facility] Address [address] [place] [address] Care Team Providers Name Role Phone Christin Palacios PA-C Primary Care Provider Reason for Visit Reason Comments Medication Request Encounter Details Date Type Department Care Team Description 08/04/2018 Telephone [facility] Family Prac Flor Morel Medication Request [address] [place] [address] Social History Tobacco Use Types Packs/Day Years Used Date Smoking Tobacco: Passive Smoke Exposure - Never Smoker Smokeless Tobacco: Never Comments: parents Alcohol Use Standard Drinks/Week Comments No 0 (1 standard drink = 0.6 oz pure alcoho l) Sex Assigned at Date Recorded Not on file documented as of this encounter Nursing Notes Shawna Garcia LPN - 08/04/2018 1:28 PM CDT Patient has been informed. Patient will return call Thursday to see how it work. Shawna Garcia LPN 08/04/2018, 1:41 PM Christin Palacios PA-C - 08/04/2018 10:59 AM CDT Yes - can increase to 300 mg at bedtime - try 3 tabs at bedtime for the rest of the week/weekend andupdate me Thursday if that is helping. Christin Palacios PA-C 08/04/2018, 10:59 AM Paty Christensen RN - 08/04/2018 10:55 AM CDT Patient was seen in clinic on 07/29/18 and was prescribed gabapentin 100 mg at bedtime. States that this is not helping. Is still having pain that is worse with bending, sitting, and laying down. Has been using heat and taking Ibuprofen 800 mg once during the day. States that she is scheduled to see physical therapy on 08/12/18. Is informed that can use the 800 mg of Ibuprofen 3 times daily (per AVS on 07/22/18) and is advised totake with food. Patient is questioning if she could try increasing the dose of the gabapentin or other recommendations. Please advise. Paty Teague RN 08/04/2018, 10:57 AM Flor Fisher - 08/04/2018 9:53 AM CDT Medications - Med Change / Question Is this a medication change or a general question? Med Change Do you know what medication you would like to change to (If yes, what is the medication name)? Yes: Gabapentin 100mg capsule. Why do you need to change medications? Patient states that she is taking it at night as directed, but is still waking up with pain. Patientis requesting a different medication. Name and Dose of current medication: Gabapentin 100mg capsule. How often do you take it? 1 capsule at night. Flor Gould 08/04/2018, 9:55 AM Who prescribed it? Christin Palacios PA-C Is it okay to leave a detailed message on your voicemail? Yes If a prescription is needed, would you like it filled at a [facility] pharmacy? No: [facility] pharmacy in [place], [place]. [Hot Man/Appt Center: Please add the selected pharmacy to Meds & Orders] Flor Gould Please route to: ERIKA Quintana documented in this encounter Plan of Treatment Not on filedocumented as of this encounter Visit Diagnoses Not on filedocumented in this encounter Care Teams Automotive Service Assistant Relationship Specialty Start Date End Date Christin Palacios PA-C PCP - General Physician Sales And In Home Delivery Specialist 05/12/[address] [place] [address] documented as of this encounter
--- OUTSIDE RECORDS SUMMARY | 2022-03-19 14:32 | XMS_ITS | Encounter Summary ---
:2000 Author Organization [facility] Address [address] [place] [address] Care Team Providers Name Role Phone Christin Palacios PA-C Primary Care Provider Reason for Referral Dental (Routine) - Closed Specialty Diagnoses / Procedures Referred By Contact Refer red To Contact Diagnoses Symptomatic irreversible pulpitis Acute apical periodontitis Dental caries extending into inner third of dentin Angel Cheek DDS [facility] [address] [place] [address] [address] [place] [place] [address] Phone: [phone] Referral ID Status Reason Start Date Expiration Date Visits Requ ested Visits Authorized [id number] Closed 05/21/2018 11/17/2018 1 1 Scheduling Instructions If scheduling assistance is needed, dilma suggs inquire with the dental office staff upon exiting your appointment or contact the ordering clinic for recommended locations. This recommended service/s may not be co jaguar by your insurance coverage. To find out your specific benefit coverage, please c all the number on your insurance card. DING PERFORMANCE SPECIALIST Reason for Visit Reason Comments Problem Focused Exam tooth ache #30 Encounter Details Date Type Department Care Team Description 05/21/2018 Office Visit [facility] Angel Cheek Focused Exam Dentistry MADINA Bullard (tooth ache #30) [address] [facility] [address] [place] [address] [place], [place] [phone] Social History Tobacco Use Types Packs/Day Years Used Date Smoking Tobacco: Passive Smoke Exposure - Never Smoker Smokeless Tobacco: Never Comments: parents Alcohol Use Standard Drinks/Week Comments No 0 (1 standard drink = 0.6 oz pure alcoho l) Sex Assigned at Date Recorded Not on file documented as of this encounter Progress Notes Angel Cheek, MADINA - 05/21/2018 3:10 PM CST DENTAL VISIT NOTE Marychuy (17 y.o.) was seen today for Problem Focused Exam (tooth ache #30) S: Marychuy is here with her guardian, Carleen Painting. Marychuy has been seen elsewhere, including [facility]. She brings images and a recommendation for RCT #30. She says she has had sporadic pain involving #30 with some sleep interruption from time to time. She denies swelling. O: #30 has a caries related lesion on the distal that encroaches upon the pulp space. #31 has moved mesially into the area affected by caries. The lamina dura on the D root is indistinct. The tooth is sensitive to percussion (++). The tooth is sensitive to a blast of air (++). Cold testing with endoice was not carried out to avoid unnecessary discomfort. A: #30 is restorable with RCT and scientologist or SSC or crown. The restorative prognosis is somewhatguarded due to the mesial movement of #31. The pulpitis is irreversible. P: Exam and findings were reviewed with Marychuy and Carleen Painting. Marychuy desires to retain #30. Palliative care will be provided today and she will be referred to [facility] endodontics for RCT. CHART REVIEW Reviewed health history, dental history, problem list and radiographs with the patient and her guardian. TREATMENT DISCUSSION Discussed the dental findings, prognosis and treatment options with the patient and her guardian. -CONSENT: All questions were answered and the patient and Marychuy assents to treatment and Carleen Painting provides permission for , dental treatment/services. PROCEDURES PERFORMED AT THIS VISIT -ANESTHESIA: Topical with 20% benzocaine. 1.0 carpules 2% lidocaine with 1:100,000 epinephrine was administered with DARWIN in mandibular right quad Additional anesthesia: 1.5 carpules 4% septocaine with 1:100,000 epinephrine was administered with DARWIN, infiltration and intrapulpal in #30, mandibular right quad. No adverse side effects were observed. Anesthesia was delivered by Angel Cheek DDS. -ENDODONTIC TREATMENT: Pulpal debridement was performed on #30. Tooth was isolated with a rubber dam. Caries affected dentin was removed. An access opening was made and the chamber debrided. Four canals were opened and broached and loosely instrumented with copious irrigation Irrigation with sodium hypochlorite 2.5-5.25% Dry cotton pellets, x2 were placed. A temporary scientologist was placed using Fuji II LC Patient was advised of normal post-operative instructions and the need to contact the clinic if painor swelling develop and the importance of scheduling the endodontic treatment with [facility]. . Total radiographs required for treatment at this visit was 1. Care was assisted by MARK Amado NEXT PLANNED VISIT: Referred to [facility] end[facility]ics. Completed dental procedures in this visit ??? LIMITED ORAL EVALUATION ??? FILM-PERIAPICAL FIRST ??? 30 GROSS PULPAL DEBRIDEMENT Angel Cheek DDS 05/21/2018, 5:37 PM --End of Note-- DING PERFORMANCE SPECIALIST documented in this encounter Plan of Treatment Scheduled Referrals Name Type Priority Associated Diagnoses Order S [facility] Consult Referral Routine Symptomatic irreversi ble Ordered: 05/21/2018 pulpitis Acute apical per iodontitis Dental caries extending into inner third of dentin documented as of this encounter Procedures Procedure Name Priority Date/Time Associated Diagnosis Comme nts 30 GROSS PULPAL Routine 05/21/2018 3:10 PM Acute apical DEBRIDEMENT BUILDING PERFORMANCE SPECIALIST periodontitis Dental caries extending into inner third of dentin Symptomatic irreversible pulpitis FILM-PERIAPICAL FIRST Routine 05/21/2018 3:10 PM Acute apical BUILDING PERFORMANCE SPECIALIST periodontitis Dental caries extending into inner third of dentin Symptomatic irreversible pulpitis documented in this encounter Visit Diagnoses Diagnosis Symptomatic irreversible pulpitis - Prim sayra Acute apical periodontitis Acute apical periodontitis of pulpal joanne gin Dental caries extending into inner third of dentin Caries of dentin Dental caries extending into dentine documented in this encounter Care Teams Machine Setter Supervisor Relationship Specialty Start Date End Date Christin Palacios PA-C PCP - General Physician Crop Puller 05/12/14 [address] [id number] documented as of this encounter
--- OUTSIDE RECORDS SUMMARY | 2022-03-19 14:33 | XMS_ITS | Encounter Summary ---
:2000 Author Organization [facility] Address [address] [place] [address] Care Team Providers Name Role Phone Christin Palacios PA-C Primary Care Provider Reason for Visit Reason Comments Dental Conversion [facility] to [place] convers ion Encounter Details Date Type Department Care Team Description 09/25/2016 Dental Conversion [facility] Doron Cheek, [facility] DDS [address] [facility] [address] [place] [address] [facility] [address] [place], [place] [id number] Social History Tobacco Use Types Packs/Day Years Used Date Smoking Tobacco: Passive Smoke Exposure - Never Smoker Smokeless Tobacco: Never Comments: parents Alcohol Use Standard Drinks/Week Comments No 0 (1 standard drink = 0.6 oz pure alcoho l) Sex Assigned at Date Recorded Not on file documented as of this encounter Discharge Summaries Interface, In Edr Dental Conversion - 12/27/2016 12:00 AM CDT 12/27/2016: EDR Pt Notes: CONFIRM MANUALLY 11/07/2013 pt failed hyg appt Interface, In Edr Dental Conversion - 10/16/2011 12:00 AM CDT EDR dismissed Clerical Popup Note, entered 10/16/2011: We have received returned mail for this member. Please get new address/phone number if patient contacts the clinic. documented in this encounter Miscellaneous Notes Miscellaneous - Interface, In Edr Dental Conversion - 10/16/2011 12:00 AM CDT 10/16/2011: Mail Returned: Statement returned with no forwarding address. documented in this encounter Plan of Treatment Not on filedocumented as of this encounter Visit Diagnoses Not on filedocumented in this encounter Care Teams Vegetable Harvest Machine Operator Relationship Specialty Start Date End Date Christin Palacios PA-C PCP - General Physician Pattern Designer 05/12/[address] [place] [address] documented as of this encounter
--- OUTSIDE RECORDS SUMMARY | 2022-03-19 14:33 | XMS_ITS | Encounter Summary ---
:2000 Author Organization [facility] Address [address] [place] [address] Care Team Providers Name Role Phone Christin Palacios PA-C Primary Care Provider Encounter Details Date Type Department Care Team Description 11/27/2016 Correspondence [facility] Pr[facility] leena Christin Palacios, SPORTS PE FORMS [address] [facility] [address] [phone] [id number] [phone] [address] [phone] (Wo rk) Social History Tobacco Use Types [...] documented as of this encounter Care Teams Hook Up Driver Relationship Specialty Start Date End Date Christin Palacios PA-C PCP - General Physician Career Specialist 05/12/14 [address] [address] documented as of this encounter
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
--- OUTSIDE RECORDS SUMMARY | 2022-03-19 14:33 | XMS_ITS | Encounter Summary ---
:2000 Author Organization [facility] Address [address] [place] [address] Care Team Providers Name Role Phone Christin Palacios PA-C Primary Care Provider Reason for Visit Reason Comments HEADACHE Since Thursday - Delsym, Adi afed, Zyrtec, Tylenol RUNNY NOSE STUFFED UP, STUFFINESS, NOSE Sore Throat EYE PAIN Left eye SINUS PAIN/PRESSURE Sports Physical Encounter Details Date Type Department Care Team Description 09/16/2017 Office Visit [facility] Sports physical (Primary Dx) ; [address] Acute suppurative otitis med ia of left ear without spontaneous rupture of tympanic membrane, recurrence not specified; [place], [place] Acute non-re current maxillary sinusitis; [id number] Exercise-induced coughing ep isode [phone] Social History Tobacco Use Types Packs/Day Years Used Date Smoking Tobacco: Passive Smoke Exposure - Never Smoker Smokeless Tobacco: Never Comments: parents Alcohol Use Standard Drinks/Week Comments No 0 (1 standard drink = 0.6 oz pure alcoho l) Sex Assigned at Date Recorded Not on file documented as of this encounter Last Filed Vital Signs Vital Sign Reading Time Taken Comments Blood Pressure 116/68 09/16/2017 3:47 PM CDT Pulse 63 09/16/2017 3:47 PM CDT Temperature 36.7 ??C (98.1 ??F) 09/16/2017 3:47 PM CDT Respiratory Rate - - Oxygen Saturation - - Inhaled Oxygen Concentration - - Weight 96.2 kg (212 lb) 09/16/2017 3:47 PM CDT Height 174 cm (5' 8.5) 09/16/2017 3:47 PM Arm Span - 6 8 in. CDT Body Mass Index 31.77 09/16/2017 3:47 PM CDT Body Mass Index Percentile 96.74 % 09/16/2017 3:47 PM CDT Growth Chart: [facility] (Girls, 2-20 Years) documented in this encounter Patient Instructions Patient InstructionsTammie Anna APRN, ASSISTANT CLINICAL DIRECTOR - 09/16/2017 3:58 PM CDT OK for sports. Immunizations up-to-date. Start amoxicillin twice daily for 10 days for sinuses and L ear. Start albuterol inhaler 30 min prior to exercise. Follow up with PCP no improvement or worsening. Twelve to Eighteen Years: A Teen???s Health Guide Immunizations given This information is written for teen-aged patients. We hope you will read it and discuss any concerns you have with your parents and your health care provider. As you get older we like to see you in the clinic alone occasionally, so that you will get used to dealing with your own health care needs. Social Adolescence is a time of change and growth. Friends from school and work are important and influential. You are becoming more independent from your parents and more in charge of your own life. This does not mean that family is no longer important -- just that you are beginning to have a life of your own separate from your family. Some conflict can result from this independence. Arguments between parents and teens are common, and often involve parental rules. It will take time and patience both on your part and the part of your parents to work out these differences. Many teens are involved in activities at school and through the community or their baptist. These activities can be very time consuming, and you need to be careful not to overschedule your time. Many teens come to the clinic complaining of being ??? tired all the time.?? It is very easy to see why they are tired when we look at their heavy schedules. Be sure to save some time for yourself -- time to rest, relax and just day dream. School is still the center of your life. Your biggest job is to learn and prepare for the future. Ifyou are discouraged with school or thinking of dropping out, get some help -- talk to your school counselor, to a teacher, to your parents or to your health care provider. Don???t make a mistake that could affect the rest of your life. Nutrition It is common for teenagers to worry about their weight, especially if they are heavier than their friends. Always look at your weight in relation to your height. If you are taller than your friends, you will (and should) weigh more than them. If your weight is too high but you are still growing taller, it is best to keep your weight the same until you get taller rather than try to lose weight. If youtry too hard to lose weight, you may not get enough calories to continue your height growth. Snacking is important for growing teenagers. Try to choose healthy snacks and nutritious meals during these important growing years. Include low-fat dairy products, such as skim milk or low-fat yogurt every day. And always eat breakfast, even if it???s something weird like cold pizza or a peanut butter sandwich. Skipping breakfast doesn???t help you lose weight--it usually makes you eat more later when you feel very hungry. And skipping breakfast often causes stomachaches or headaches later in the day. Read labels on foods. You will learn some important information about nutrition and will be able to pick foods that are lower in fat and salt, and higher in fiber. Health Teenagers are usually pretty healthy. Many of the problems that we see you for in the clinic are really not abnormal. Acne, for example, is a temporary skin condition that is caused by the hormone changes during the teen years. Almost all teenagers have acne at some time, and they all hate it. If yourskin breaks out a lot, feel free to come to the clinic for advice. Teenagers may create their own health problems with risky behavior. Smoking is a habit that many people take up in their teen years. Smokers cough a lot, get bronchitis easily, smell bad and are at greater risk of developing cancer. We strongly urge you not to smoke, and if you already do smoke try very hard to quit before it becomes a difficult habit to break. The use of alcohol and other illegal drugs is equally risky. Sometimes the use of drugs starts because of depression. If you feel down aboutyourself and think that drugs can help, try talking to your health care provider. We will try to give you the facts without being judgmental. Safety Illness is usually not a big problem for teenagers, but injury is. In fact, accidents cause more teen deaths than anything. Car accidents are the biggest cause of and injury at any age. If you drive, be very careful, and always watch out for other drivers who may not be as careful as you. Never drink alcohol and drive, and never get in a car with someone who has been drinking. And, of course, wear your seat belt. If you can???t swim there is still time to learn. [facility] and community education programs offer swimming lessons for adults and teens. Be careful on boats - wear a life jacket even if you are a strong swimmer. Never dive into water if you are not sure of the depth because of the risk of severe neck injury and paralysis. Growth and Sexuality Growth is a funny thing. It occurs at different times in different people, and can be hard to predict. Rgkpqc-iyoy-poth can vary in size from a 4 foot 7 inch boy (who hasn???t started a growth spurt yet) to a 5 foot 7 inch girl (who is completely done growing). By age 18 the same boy may be 6 foot 4 inches and tower over the girl who towered over him at age 12. If your body is changing (breast growth, pubic hair, etc.), you are going through puberty and probably are starting your growth spurt. If your body looks like that of an adult, you have probably just about finished growing in height. If you have any doubts about whether your growth is normal, talk to your doctor about it. Questions may come up over the next few years about sexual issues. control, fear of ,concerns about possible homosexuality, venereal disease, AIDS - all these are issues that may face teens. You should feel free to discuss any of these concerns with your parents or your health care provider. Friends may provide you with information that is incorrect and an informed adult can be helpful. Remember that we will not discuss your personal life with anyone else without your permission. We respect your right to privacy, and we want to make this exciting time of your life safer and healthier. ?? 2004-9 [facility] documented in this encounter Progress Notes Tammie Anna APRN, CNP - 09/16/2017 3:56 PM CDT [id number] SPORTS QUALIFYING PHYSICAL HISTORY FORM [facility] [employer] Student name: Marychuy Le Birthdate: 2000 Date of exam: 09/16/2017 History GENERAL QUESTIONS No *1. Has a doctor ever denied or restricted your participation in sports for any reason or told you to give up sports? No 2. Do you have an ongoing medical condition (like diabetes, asthma, anemia, infections)? Yes 3. Are you currently taking any prescription or nonprescription (stwq-rgr-cvppsne) medicines or pills? List: control No 4. Do you have allergies to medicines, pollens, foods, or stinging insects? No 5. Have you ever spent the night in a hospital? No 6. Have you ever had surgery? HEART HEALTH QUESTIONS ABOUT YOU No *7. Have you ever passed out or nearly passed out DURING exercise? No *8. Have you ever passed out or nearly passed out AFTER exercise? No *9. Have you ever had discomfort, pain, tightness, or pressure in your chest during exercise? No *10. Does your heart race or skip beats (irregular beats) during exercise? 11. Has a doctor ever told you that you have: No High blood pressure? No A heart murmur? No High cholesterol? No A heart infection? No Rheumatic fever? No Kawasaki's disease? No 12. Has a doctor ever ordered a test for your heart? (for example, ECG/EKG, echocardiogram, stress test) No *13. Do you get lightheaded or feel more short of breath than expected during exercise? No *14. Have you ever had an unexplained seizure? Yes 15. Do you get more tired or short of breath more quickly than your friends during exercise? HEART HEALTH QUESTIONS ABOUT YOUR FAMILY Yes *16. Has any family member or relative of heart problems or had an unexpected or unexplained sudden before age 50 (including unexplained drowning, unexplained car accident, or sudden syndrome? Grandfather had AR No *17. Does anyone in your family have hypertrophic cardiomyopathy, Marfan syndrome, arrhythmogenicright ventricular cardiomyopathy, long QT syndrome, short QT syndrome, Brugada syndrome, or catecholaminergic polymorphic ventricular tachycardia? No *18 Does anyone in your family have a heart problem, pacemaker, or implanted defibrillator? No *19. Has anyone in your family had unexplained fainting, unexplained seizures, or near drowning? BONE AND JOINT QUESTIONS No 20. Have you ever had an injury, like a sprain, muscle or ligament tear or tendonitis that causedyou to miss a practice or game? No 21. Have you had any broken or fractured bones or dislocated joints? No 22. Have you ever had an injury that required x-rays,MRI, CT scan, injections, therapy, a brace, a cast, or crutches? No 23. Have you ever had a stress fracture? No 24. Have you ever been told that you have or have you had an x-ray for neck instability or atlantoaxial instability? (Down syndrome or dwarfism) No 25. Do you regularly use a brace, orthotics or other assistive device? No 26. Do you have a bone, muscle, or joint injury that bothers you? No 27. Do any of your joints become painful, swollen, feel warm, or look red? No 28. Do you have any history of juvenile arthritis or connective tissue disease? MEDICAL QUESTIONS No 29. Has a doctor ever told you that you have asthma or allergies? Yes 30. Do you cough, wheeze, experience chest tightness, or have difficulty breathing during or after exercise? Yes 31. Is there anyone in your family who has asthma? Brother No 32. Have you ever used an inhaler or taken asthma medicine? No 33. Do you develop a rash or hives when you exercise? No 34. Were you born without or are you missing a kidney, an eye, a testicle (males), or any other organ? No 35. Do you have groin pain or a painful bulge or hernia in the groin area? No *36. Have you had infectious mononucleosis (mono) within the last month? No 37. Do you have any rashes, pressure sores, or other skin problems? No 38. Have you had a herpes or MRSA skin infection? No *39. Have you ever had a head injury or concussion? No *40. Have you ever had a hit or blow to the head that caused confusion, prolonged headache, or memory problems? No 41. Do you have a history of seizure disorder? No 42. Do you have headaches with exercise? No *43. Have you ever had numbness, tingling, or weakness in your arms or legs after being hit or falling? No 44. Have you ever been unable to move your arms or legs after being hit or falling? No 45. Have you ever become ill while exercising in the heat? No 46. Do you get frequent muscle cramps when exercising? No 47. Do you or someone in your family have sickle cell trait or disease? No 48. Have you had any problems with your eyes or vision? No 49. Have you had any eye injuries? Yes 50. Do you wear glasses or contact lenses? No 51. Do you wear protective eyewear, such as goggles or a face shield? Yes 52. Do you worry about your weight? Yes 53. Are you trying to or has anyone recommended that you gain or lose weight? No 54. Are you on a special diet or do you avoid certain types of foods? No 55. Have you ever had an eating disorder? No 56. Do you have any concerns that you would like to discuss with a doctor? FEMALES ONLY Yes 57. Have you ever had a menstrual period? NA 58. How old where you when you had your first menstrual period? NA 59. How many menstrual periods have you had in the last year? Notes: Complaint of sinus pressure/pain, colored nasal discharge, bilateral ear pain, and headache x1 week, worsening. Has tried several OTC cold/decongestant medications without relief. Hx of sinus infections. I do not know of any existing physical or additional health reason that would preclude participationin sports. I certify that the answers to the above questions are true and accurate and I approve participation in athletic activities. Parent or Legal Guardian Signature Student-Athlete Signature Date Revised 08/04/14 page 3 of 4 [id number] SPORTS QUALIFYING PHYSICAL EXAMINATION FORM [employer] Student Name: Marychuy Le Date: 2000 Age: 17 Gender: F Follow-Up Questions About More Sensitive Issues: 1. Do you feel stressed out or under a lot of pressure? Yes 2. Do you ever feel so sad or hopeless that you stop doing some of your usual activities for more than a few days? No 3. Do you feel safe? Yes 4. Have you ever tried cigarette, cigar, or pipe smoking, even 1 of 2 puffs? No Do you currently smoke? No 5. During the past 30 days, did you use chewing tobacco, snuff, or dip? No 6. During the past 30 days, have you had any alcohols, even just one? No 7. Have you ever taken steroid pills or shots without a doctor's prescription? No 8. Have you ever taken any medications or supplements to help you gain or lose weight or improve your performance? No 9. Question Risk Behaviors like guns, seatbelts, unprotected sex, domestic violence, drugs, and others. Notes About Follow-Up Questions: NA MEDICAL EXAM BP 116/68 Pulse 63 Temp 98.1 ??F (36.7 ??C) (Oral) Ht 5' 8.5 (1.74 m) Comment: Arm Span - 68 in. Wt 212 lb (96.2 kg) BMI 31.77 kg/m2 BMI (optional): body mass index is 31.77 kg/(m^2). Arm span: 68 Arm span/height ratio greater than 1.05 is considered out of the normal range. Visual Acuity Screening Right eye Left eye Both eyes Without correction: With correction: 20/25 20/16 20/16 Comments: Wears glasses Normal vision is 20/40 or better in each eye. Normal hearing is 40 dB or less at each frequency in each ear. Vision - Corrected: Yes Contacts: No Exam Normal Abnormal Notes Initials Please respond to all questions: Yes = Normal No = Abnormal N/A = Not Applicable If No, please indicate further findings Appearance: Yes No Marfan stigmata (kyphoscoliosis, high-arched palate, pectus excavatum, arachnodactyly, arm span>height, hyperlaxity, myopia, MVP, aortic insufficiency) Yes HEENT: No, bilateral serous otitis, L TM bulging and erythematoussinus tenderness, left nares- mucosal erythema and swelling, 3+ tonsillar hypertrophy Eyes: Yes Fundoscopic: NA Pupils: Equal Hearing: Yes Cardiovascular: Yes No Murmurs: (standing, supine, +/- Valsalva) Yes PMI location: Yes Pulses (simultaneous femoral & radial): Yes Lungs: Yes Abdomen: Yes Augusto Staging (optional): NA Skin: (No HSV, MRSA, Tinea corporis): Yes Musculoskeletal Neck: Yes Back: Yes Shoulder/Arm: Yes Elbow/Forearm: Yes Wrist/Hand/Fingers: Yes Hip/Thigh: Yes Knee: Yes Leg/Ankle: Yes Foot/Toes: Yes Functional (Single Leg Hop or Squat, Box Drop): Yes Assessment: Sports physical Acute L otitis media Acute sinusitis Cough with exercise Plan: Start amoxicillin BID for 10 days for otitis/sinusitis. Symptomatic measures discussed. Start albuterol inhaler and use 30 min prior to exercise. Cleared for sports without restriction. Immunizations are up-to-date. Health maintenance briefly discussed, including lifestyle, health, and safety counseling. Tammie Anna APRN, FREDA 09/16/2017, 4:36 PM documented in this encounter Plan of Treatment Not on filedocumented as of this encounter Visit Diagnoses Diagnosis Sports physical - Primary Other general medical examination for ad ministrative purposes Acute suppurative otitis media of left e ar without spontaneous rupture of tympanic membrane, recurrence not specified Acute non-recurrent maxillary sinusitis Exercise-induced coughing episode documented in this encounter Care Teams Brush Washer Relationship Specialty Start Date End Date Christin Palacios PA-C PCP - General Physician Bulldozer Engineer 05/12/[id number] [place] [id number] documented as of this encounter
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
--- OUTSIDE RECORDS SUMMARY | 2022-03-19 14:33 | XMS_ITS | Encounter Summary ---
:2000 Author Organization [facility] Address [address] [place] [address] Care Team Providers Name Role Phone Christin Palacios PA-C Primary Care Provider Reason for Visit Reason Comments LAB RESULTS Encounter Details Date Type Department Care Team Description 12/17/2016 Telephone [facility] Family Prac leena Christin Palacios PA-C LAB RESULTS [address] [address] [address] [address] [place] [address] [phone] (Wo rk) Social History Tobacco Use Types Packs/Day Years Used Date Smoking Tobacco: Passive Smoke Exposure - Never Smoker Smokeless Tobacco: Never Comments: parents Alcohol Use Standard Drinks/Week Comments No 0 (1 standard drink = 0.6 oz pure alcoho l) Sex Assigned at Date Recorded Not on file documented as of this encounter Nursing Notes Apolonia Hernandez LPN - 12/17/2016 2:19 PM CDT Informed patient of negative/within normal limits lab results from 11-27-16, patient agreed. Letter was mailed to patient re: results on 11-28-16, patient states did not get the letter, is not sure if mother got the letter and didn't give to patient, home address verified and is correct. Apolonia Hernandez LPN 12/17/2016 2:25 PM Robert Arias - 12/17/2016 12:19 PM CDT Test Results Patient is calling in regards to: a laboratory - LAB test Result comment or letter available? No What is your question or concern? Patient is requesting to discuss lab results. Date test was done: 11/27/16 [Pot[place] Flaker: If completed externally, where?] Name of ordering clinician: N/A Is it okay to leave detailed message on your voicemail? Yes If a prescription is needed, would you like it filled at our clinic pharmacy? N/A [[place] Flaker: Please add the selected pharmacy to Meds & Orders] Is there anything else I can help you with today? Robert Arias Please route to: Care Team Pool documented in this encounter Plan of Treatment Not on filedocumented as of this encounter Visit Diagnoses Not on filedocumented in this encounter Care Teams Diesel Retrofit Installer Relationship Specialty Start Date End Date Christin Palacios PA-C PCP - General Physician Class 1 Owner Operator 05/12/14 [address] [address] [facility] [place] [address] documented as of this encounter
--- OUTSIDE RECORDS SUMMARY | 2022-03-19 14:33 | XMS_ITS | Encounter Summary ---
:2000 Author Organization [facility] Address [address] [place] [address] Care Team Providers Name Role Phone Christin Palacios PA-C Primary Care Provider Encounter Details Date Type Department Care Team Description 09/16/2017 Correspondence [facility] Shoshana, SPORTS [facility] Practice Tammie Bateman APRN, CLEARANCE FORM [address] [facility]. [facility] [place] [phone] Social History Tobacco Use Types Packs/Day Years [...] documented as of this encounter Care Teams Off Premise Service Representative Relationship Specialty Start Date End Date Christin Palacios PA-C PCP - General Physician Copper Etcher 05/12/[address] [place] [address] documented as of this encounter
--- OUTSIDE RECORDS SUMMARY | 2022-03-19 14:33 | XMS_ITS | Encounter Summary ---
:2000 Author Organization [facility] Address [address] [place] [address] Care Team Providers Name Role Phone Christin Palacios PA-C Primary Care Provider Reason for Visit Reason Comments WART on right foot Encounter Details Date Type Department Care Team Description 03/11/[address] [facility] Christin Palacios, Viral wa rts, Practice PA-C unspecified type [address] [address] [address] (Pr imary Dx) [address] [place] [address] [place] [address] [phone] Social History Tobacco Use Types Packs/Day Years Used Date Smoking Tobacco: Passive Smoke Exposure - Never Smoker Smokeless Tobacco: Never Comments: parents Alcohol Use Standard Drinks/Week Comments No 0 (1 standard drink = 0.6 oz pure alcoho l) Sex Assigned at Date Recorded Not on file documented as of this encounter Last Filed Vital Signs Vital Sign Reading Time Taken Comments Blood Pressure 136/66 03/11/2016 4:38 PM METAL CONTROL COORDINATOR Pulse 73 03/11/2016 4:38 PM METAL CONTROL COORDINATOR Temperature - - Respiratory Rate - - Oxygen Saturation - - Inhaled Oxygen Concentration - - Weight 107 kg (236 lb) 03/11/2016 4:38 PM METAL CONTROL COORDINATOR Height 174.6 cm (5' 8.75) 03/11/2016 4:38 PM METAL CONTROL COORDINATOR Body Mass Index 35.11 03/11/2016 4:38 PM METAL CONTROL COORDINATOR Body Mass Index Percentile 98.59 % 03/11/2016 4:38 PM CS T Growth Chart: [facility] (Girls, 2-20 Years) documented in this encounter Progress Notes Christin Palacios PA-C - 03/11/2016 8:07 PM CST SUBJECTIVE Patient presents today for Plantar wart removal. Previous treatments include: liquid nitrogen. The cause of warts and risks and benefits of Liquid Nitrogen therapy including scarring, pigment changes, and wart recurrence were discussed with the patient. OBJECTIVE Exam reveals a quantity of 10 warts ranging from 1 to 6 mm located on the plantar of the right foot. Treatment was accomplished using Liquid Nitrogen. ASSESSMENT. PLAN Patient was instructed in the changes that would take place after treatment with Liquid Nitrogen and to call for any questions. Future Care: return visit in 3 weeks for retreatment Christin Palacios PA-C L CONTROL COORDINATOR documented in this encounter Plan of Treatment Not on filedocumented as of this encounter Visit Diagnoses Diagnosis Viral warts, unspecified type - Primary documented in this encounter Care Teams Child Care Attendant Relationship Specialty Start Date End Date Christin Palacios PA-C PCP - General Physician Active Directory Systems Administrator 05/12/[address] [place] [address] documented as of this encounter
--- OUTSIDE RECORDS SUMMARY | 2022-03-19 14:33 | XMS_ITS | Encounter Summary ---
:[address] [facility] Address [address] [place] [address] Care Team Providers Name Role Phone Gunner Carias PA-C Primary Care Provider Reason for Visit Reason Comments Refill FALMINA 0.1-20 MG-MCG tablet [Pharmacy Med Name: FALMINA 0.1-20MG-MCG TABS] Encounter Details Date Type Department Care Team Description 11/05/2017 Refill [facility] Family Prac leena Gunner Carias, Refill (FALMINA 0.1-20 [address] [facility] ANGEL MG-MCG tablet [[place] [address] [address] Med Name: FALMINA [phone] 0.1-20MG-MCG TABS]) [place] 354014 (Wo rk) Social History Tobacco Use Types Packs/Day Years Used Date Smoking Tobacco: Passive Smoke Exposure - Never Smoker Smokeless Tobacco: Never Comments: parents Alcohol Use Standard Drinks/Week Comments No 0 (1 standard drink = 0.6 oz pure alcoho l) Sex Assigned at Date Recorded Not on file documented as of this encounter Nursing Notes Denise Leo RN - 11/06/2017 11:45 AM CDT Per standing order Denise Leo RN 11/06/2017, 11:45 AM Interface, Out [employer] Query - 11/05/2017 3:07 PM CDT FALMINA 0.1-20 MG-MCG tablet [Pharmacy Med Name: FALMINA 0.1-20MG-MCG TABS] Contraceptives - Estrogen/Progesterone Combinations -> Refill x 6 months (until due for an office visit, DBP check and SBP check) -> Calculate quantity and refills manually. They could not be estimated due to missing or unreadable information. Last qualifying visit: 03/26/2017 (in [facility]) Next scheduled visit: None Last ordered by GUNNER CARIAS: 11/27/2016 (343 days ago) QTY: 84, Refills: 3, Sig: take 1 tab by mouth daily. (changed but equivalent) SBP: 122 mm Hg on 03/26/2017 DBP: 67 mm Hg on 03/26/2017 Powered by [employer] Reference: [id number], 11/05/2017 3:07:04 PM CDT, Pool: TORREY VICTORIA RN ([id number]) documented in this encounter Plan of Treatment Not on filedocumented as of this encounter Visit Diagnoses Diagnosis OCP (oral contraceptive pills) initiatio n General counseling for prescription of o ral contraceptives documented in this encounter Care Teams Tool And Fixture Repairer Relationship Specialty Start Date End Date Gunner Carias PA-C PCP - General Physician Scientific Publications Editor 05/12/14 [address] [place], [place] [address] documented as of this encounter
--- OUTSIDE RECORDS SUMMARY | 2022-03-19 14:33 | XMS_ITS | Encounter Summary ---
:[address] [facility] Address [address] [place] [address] Care Team Providers Name Role Phone Christin Palacios PA-C Primary Care Provider Encounter Details Date Type Department Care Team Description 11/27/2016 Lab Visit [facility] Lab Encounter for routine child health examination without abnormal findings; [address] [facility] OCP (oral contraceptive pill s) [place] [address] Social History Tobacco Use Types Packs/Day Years Used Date Smoking Tobacco: Passive Smoke Exposure - Never Smoker Smokeless Tobacco: Never Comments: parents Alcohol Use Standard Drinks/Week Comments No 0 (1 standard drink = 0.6 oz pure alcoho l) Sex Assigned at Date Recorded Not on file documented as of this encounter Progress Notes Christin Palacios PA-C - 11/28/2016 12:06 PM CDT Labs normal - no concerning findings. Christin Palacios PA-C 11/28/2016, 12:06 PM documented in this encounter Plan of Treatment Not on filedocumented as of this encounter Procedures Procedure Name Priority Date/Time Associated Diagnosis Comme nts CHLAMYDIA & GC, Routine 11/27/2016 12:06 OCP (oral Results for this URINE (14 YEARS PM CDT contraceptive pills) proc edure are in AND OLDER) initiation the results section. COMPLETE BLOOD Routine 11/27/2016 12:06 Encounter for routine Results for this COUNT-NO DIFF PM CDT child health procedure are in examination without the resu lts abnormal findings section. UA MICRO IF Routine 11/27/2016 12:06 Encounter for routine Re sults for this PM CDT child health procedure are i n examination without the resu lts abnormal findings section. UA MICRO Routine 11/27/2016 12:06 Results for this PM CDT procedure are i n the results section. documented in this encounter Results UA MICRO (11/27/2016 12:06 PM CDT) [facility] gist Method Time Signature RBC'S 0 0 - 3 [facility] WBC'S 0-2 0 - 5 [facility] Epith, Few /hpf [facility] Squamous [facility] Bact Occ [facility] Casts 0 /lpf [facility] Other Mod Amorph [facility]os [facility] Specimen Anatomical Collection Method Collection Time Receive d Time (Source) Location / / Volume Laterality 11/27/2016 12:06 11/27/2016 PM CDT 12:16 PM CDT Narrative [facility] - 11/27/2016 1:53 PM C DT Performed at [facility], [address] [place] [id number] Christin Palacios PA-C LAB_1 Performing Organization Address City/State/ZIP Code Phon e Number [facility] [phone] Chlamydia & GC, Urine (11/27/2016 12:06 PM CDT) [facility] Method Time Signature C.trachomatis, Negative NEG [facility] Urine [facility] Comment: Test Performed by Nitrate Operator Mediated Amplification Results obtained from this source are no t FDA approved. N. Gonorrhea, Urine Negative NEG [facility] Comment: Test Performed by Nitrate Operator Mediated Amplification Results obtained from this source are no t FDA approved. Specimen Anatomical Collection Method Collection Time Receive d Time (Source) Location / / Volume Laterality 11/27/2016 12:06 11/27/2016 PM CDT 12:16 PM CDT Narrative [facility] - 11/28/2016 11:50 AM CDT Performed at [facility] [place] [facility], [address] [place] [phone] Christin Palacios PA-C LAB_1 Performing Organization Address City/State/ZIP Code Phon e Number [facility] [phone] UA Micro If (11/27/2016 12:06 PM CDT) Patholo gist Method Time Signature Urine Color Yellow [facility] Urine Clarity Sl Cloudy [facility] Sp Gr 1.020 1.005 - [facility] Leuk Negative NEG [facility] Nitr Negative NEG [facility] pH 8.0 4.5 - 8.0 [facility] Prot Negative NEG mg/dl [facility] Gluc Negative NEG [facility] Ket Negative NEG [facility] Urob 0.2 0.2 - 1.0 [facility] EU/dl [facility] Bili Negative NEG [facility] Blood Neg/Tr NEGTR [facility] Specimen Anatomical Collection Method Collection Time Receive d Time (Source) Location / / Volume Laterality 11/27/2016 12:06 11/27/2016 PM CDT 12:16 PM CDT Narrative [facility] - 11/27/2016 1:52 PM C DT Performed at [facility], [address] [place] [address] Christin Palacios PA-C LAB_1 Performing Organization Address City/State/ZIP Code Phon e Number [facility] [phone] Complete Blood Count-No Diff (11/27/2016 12:06 PM CDT) athologist Signature WBC 7.1 4.0 - 11.0 [facility] k/ul RBC 4.41 4.1 - 5.1 [facility] M/ul Hemoglobin 13.8 12.0 - 16.0 [facility] g/dl HCT 38.7 36.0 - 46.0 [facility] % MCV 87.8 78 - 98 fl [facility] MCH 31.4 25 - 35 pg [facility] MCHC 35.8 32 - 36 [facility] g/dl RDW 12.8 11.5 - 14.5 [facility] % Platelets 334 150 - 450 [facility] k/ul Specimen Anatomical Collection Method Collection Time Receive d Time (Source) Location / / Volume Laterality 11/27/2016 12:06 11/27/2016 PM CDT 12:16 PM CDT Narrative [facility] - 11/27/2016 12:36 PM CDT Performed at [facility], [address] [place] [address] Christin Palacios PA-C LAB_1 Performing Organization Address City/State/ZIP Code Phon e Number [facility] [phone] documented in this encounter Visit Diagnoses Diagnosis Encounter for routine child health exami nation without abnormal findings Routine infant or child health check OCP (oral contraceptive pills) initiatio n General counseling for prescription of o ral contraceptives documented in this encounter Care Teams Bilingual Social Worker Relationship Specialty Start Date End Date Christin Palacios PA-C PCP - General Physician Media Center Director School 05/12/14 [address] [address] [place] [address] documented as of this encounter
--- OUTSIDE RECORDS SUMMARY | 2022-03-19 14:33 | XMS_ITS | Encounter Summary ---
:2000 [facility] Address [address] [place] [address] Care Team Providers Name Role Phone Christin Palacios PA-C Primary Care Provider Reason for Visit Reason Comments LAB RESULTS Encounter Details Date Type Department Care Team Description 09/19/2016 Telephone [facility] Family Prac leena Christin Palacios PA-C LAB RESULTS [address] [address] [place] [address] [place] [address] [phone] (Wo rk) Social History Tobacco Use Types Packs/Day Years Used Date Smoking Tobacco: Passive Smoke Exposure - Never Smoker Smokeless Tobacco: Never Comments: parents Alcohol Use Standard Drinks/Week Comments No 0 (1 standard drink = 0.6 oz pure alcoho l) Sex Assigned at Date Recorded Not on file documented as of this encounter Nursing Notes Reta Bailey CMA - 09/22/2016 1:07 PM CDT Pt informed of result. Reta Jarquin CMA 09/22/2016, 1:08 PM AT Jody Jacobsen - 09/22/2016 11:58 AM CDT Patient returning call. Requesting to be called back at [phone]. Ok to leave a detailed messagewith test results. Jody Jacobsen 09/22/2016, 11:59 AM Devi Heart CMA - 09/19/2016 2:19 PM CDT ----- Message from Christin Palacios PA-C sent at 09/19/2016 2:18 PM CDT ----- Urine Screen negative - no concerning findings. Christin Palacios PA-C 09/19/2016, 2:18 PM documented in this encounter Plan of Treatment Not on filedocumented as of this encounter Visit Diagnoses Not on filedocumented in this encounter Care Teams Bottle Blowing Machine Tender Relationship Specialty Start Date End Date Christin Palacios PA-C PCP - General Physician Conservation Science Teacher 05/12/[address] [place] [address] documented as of this encounter
--- OUTSIDE RECORDS SUMMARY | 2022-03-19 14:33 | XMS_ITS | Encounter Summary ---
:2000 Author Organization [facility] Address [address] [place] [address] Care Team Providers Name Role Phone Christin Palacios PA-C Primary Care Provider Encounter Details Date Type Department Care Team Description 03/06/2016 Office Visit [facility] ation [address] . [place], [place] [phone] Social History Tobacco Use Types Packs/Day Years [...] on filedocumented in this encounter Care Teams Cat Wagon Operator Relationship Specialty Start Date End Date Crhistin Palacios PA-C PCP - General Physician Social Sciences Department Chair 05/12/[address] [place] [address] documented as of this encounter
--- OUTSIDE RECORDS SUMMARY | 2022-03-19 14:33 | XMS_ITS | Encounter Summary ---
:2000 Author Organization [facility] Address [address] [place] [address] Care Team Providers Name Role Phone Christin Palacios PA-C Primary Care Provider Reason for Visit Reason Comments , POSSIBLE stomach pain last 3 days, na usea, COUGH Ear Pain Encounter Details Date Type Department Care Team Description 04/19/2017 Office Visit [facility] ation examination or [address] test, [place], [place] unconfirmed (Primary Dx) [phone] Social History Tobacco Use Types Packs/Day Years Used Date Smoking Tobacco: Passive Smoke Exposure - Never Smoker Smokeless Tobacco: Never Comments: parents Alcohol Use Standard Drinks/Week Comments No 0 (1 standard drink = 0.6 oz pure alcoho l) Sex Assigned at Date Recorded Not on file documented as of this encounter Last Filed Vital Signs Vital Sign Reading Time Taken Comments Blood Pressure 111/79 04/19/2017 12:26 PM ANCHORMAN Pulse 92 04/19/2017 12:26 PM ANCHORMAN Temperature - - Respiratory Rate - - Oxygen Saturation - - Inhaled Oxygen Concentration - - Weight - - Height - - Body Mass Index - - documented in this encounter Progress Notes Margaret Aguirre, CHAMBER WORKER, SUPERVISOR BILLPOSTING - 04/19/2017 12:42 PM CST Subjective: Marychuy Le is a 16 y.o. old female here with family friend, who presents with the request for a test. Chld states that she had intercourse 2 weeks ago. Has been compliant with control. States that she has had a slight stomach ache over the last two weeks. No vomiting. HPI Patient???s LMP was 04/01/2017. Patient has had unprotected sex. PMH Method of control OCP Previous NO Diabetes No ROS Breast tenderness No Nausea Yes Abdominal Pain none Pelvic pain NO Menstrual problems none Medications: Current Outpatient Prescriptions Medication Sig Dispense Refill ??? ibuprofen (MOTRIN) 600 MG tablet Take 1 Tab by mouth three times a day as needed for Pain. 30 Tab 1 ??? Levonorgestrel-Ethinyl Estrad (AVIANE;ALESSE;LESSINA) 0.1-20 MG-MCG tablet Take 1 Tab by mouth daily. 84 Tab 3 No current facility-administered medications for this visit. Allergies: Review of patient's allergies indicates no known allergies. Objective Vitals: BP 111/79 Pulse 92 LMP 04/01/2017 (Approximate) General Appearance: well developed, well nourished and in no acute distress Abdomen: Inspection rounded Auscultation normal bowel sounds Tenderness none Masses none Organomegaly none Test Results: Urine : Negative Assessment Mild Nausea Plan Patient and family friend are advised to follow up with PCP if nausea does not resolve. Advised if she misses her next mensus to repeat a test. Pt advised to always use condoms for protectionof STI. Pt advised if she wishes to be. assessed for STI to follow up with PCP. Pt and family memberverbalized understanding. See patient education and prescribed medications ORMAN documented in this encounter Plan of Treatment Not on filedocumented as of this encounter Procedures Procedure Name Priority Date/Time Associated Diagnosis Comme nts TEST Routine 04/19/2017 12:20 PM Result s for this (URINE) ANCHORMAN examination or test, procedu re are in the results unconfirmed section. documented in this encounter Results TEST (URINE) (04/19/2017 12:20 PM ANCHORMAN) P athologist Signature HCG, Urine Negative EXTERNAL RESULTS Specimen (Source) Anatomical Collection Method Collection Time Re ceived Time Location / / Volume Laterality Urine specimen 04/19/2017 12:20 (specimen) PM ANCHORMAN Margaret A Aguirre CHAMBER WORKER, SUPERVISOR BILLPOSTING LAB_1 Performing Organization Address City/State/ZIP Code Phon e Number EXTERNAL RESULTS documented in this encounter Visit Diagnoses Diagnosis examination or test, unconfirmed - Primary documented in this encounter Care Teams Emergency Room Clinician Relationship Specialty Start Date End Date Christin Palacios PA-C PCP - General Physician Rn Oncology Research 05/12/[address] [place] [address] documented as of this encounter
--- OUTSIDE RECORDS SUMMARY | 2022-03-19 14:33 | XMS_ITS | Encounter Summary ---
:[address] [facility] Address [address] [place] [address] Care Team Providers Name Role Phone Christin Palacios PA-C Primary Care Provider Reason for Visit Reason Comments Sports Physical WELL CHILD EXAM CONTROL, PRESCRIPTION RENEWAL Encounter Details Date Type Department Care Team Description 11/27/2016 Office Visit [facility] Christin Palacios Encounte r for routine child health examination without abnormal findings (Primary Dx); Practice [facility] OCP (oral contraceptive pills) initiatio n [address] [address] [place] [address] [address] [place] [address] [phone] Social History Tobacco Use Types Packs/Day Years Used Date Smoking Tobacco: Passive Smoke Exposure - Never Smoker Smokeless Tobacco: Never Comments: parents Alcohol Use Standard Drinks/Week Comments No 0 (1 standard drink = 0.6 oz pure alcoho l) Sex Assigned at Date Recorded Not on file documented as of this encounter Last Filed Vital Signs Vital Sign Reading Time Taken Comments Blood Pressure 111/69 11/27/2016 11:27 AM CDT Pulse 72 11/27/2016 11:27 AM CDT Temperature 36.8 ??C (98.2 ??F) 11/27/2016 11:27 AM CDT Respiratory Rate - - Oxygen Saturation - - Inhaled Oxygen Concentration - - Weight 93.9 kg (207 lb) 11/27/2016 11:27 AM CDT Height 175.3 cm (5' 9) 11/27/2016 11:27 AM CDT Body Mass Index 30.57 11/27/2016 11:27 AM CDT Body Mass Index Percentile 96.37 % 11/27/2016 11:27 AM C DT Growth Chart: [facility] (Girls, 2-20 Years) documented in this encounter Patient Instructions Patient InstructionsChristin Palacios PA-C - 11/27/2016 11:47 AM CDT Well Care - Tips for Teens: Care Instructions Your Care Instructions Being a teen can be exciting and tough. You are finding your place in the world. And you may have a lot on your mind these days too--school, friends, sports, parents, and maybe even how you look. Some teens begin to feel the effects of stress, such as headaches, neck or back pain, or an upset stomach.To feel your best, it is important to start good health habits now. Follow-up care is a martin part of your treatment and safety. Be sure to make and go to all appointments, and call your doctor if you are having problems. It's also a good idea to know your test results and keep a list of the medicines you take. How can you care for yourself at home? Staying healthy can help you cope with stress or depression. Here are some tips to keep you healthy. ?? Get at least 30 minutes of exercise on most days of the week. Walking is a good choice. You also may want to do other activities, such as running, swimming, cycling, or playing tennis or team sports. ?? Try cutting back on time spent on TV or video games each day. ?? Munch at least 5 helpings of fruits and veggies. A helping is a piece of fruit or ?? cup of vegetables. ?? Cut back to 1 can or small cup of soda or juice drink a day. Try water and milk instead. ?? Cheese, yogurt, milk--have at least 3 cups a day to get the calcium you need. ?? The decision to have sex is a serious one that only you can make. Not having sex is the best way to prevent HIV, STIs (sexually transmitted infections), and . ?? If you do choose to have sex, condoms and control can increase your chances of protection against STIs and . ?? Talk to an adult you feel comfortable with. Confide in this person and ask for his or her advice.This can be a parent, a teacher, a head strength and conditioning coach, or someone else you trust. Healthy ways to deal with stress ?? Get 9 to 10 hours of sleep every night. ?? Eat healthy meals. ?? Go for a long walk. ?? Dance. Shoot hoops. Go for a bike ride. Get some exercise. ?? Talk with someone you trust. ?? Laugh, cry, sing, or write in a journal. When should you call for help? Call 911 anytime you think you may need emergency care. For example, call if: ?? You feel life is meaningless or think about killing yourself. Talk to a counselor or doctor if any of the following problems lasts for 2 or more weeks. ?? You feel sad a lot or cry all the time. ?? You have trouble sleeping or sleep too much. ?? You find it hard to concentrate, make decisions, or remember things. ?? You change how you normally eat. ?? You feel guilty for no reason. Where can you learn more? 1. Go to [employer] or [employer]/Yerdle. 2. Enter S924 in the search box. Current as of: November 13, 2015 Content Version: 11.3 ?? [phone] [employer]. It has been a pleasure taking care of your child today. A dentist appointment each year is important for your child's health. Your child's insurance may payfor this. If you don't know where to take your child to see the dentist, check your child's insurance card or call [phone] for help. documented in this encounter Progress Notes Christin Palacios PA-C - 11/27/2016 11:47 AM CDT Subjective Marychuy Le is a 16 y.o. female who presents accompanied by her caregiver for routine children's service worker. Parental/Patient Concerns absent SCHOOL Name: [employer] Grade: 11th Grade Success: Going well Plans: thinking of college in [place] - so she can live with sister Juan Toney - 15 hours/week Sports/Recreational Activities Sports: Volley ball in school, dance/soccer outside of school Exercise: exercises vigorously several times a week. 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 Daily Activities Nutrition: well balanced and varied diet, adequate milk intake Sleep: adequate sleep Dental Care: last dental visit within 6 months brushes daily Developmental Assessment Family/Relationships/Community Current Living Situation: lives with mom Family: no problems identified Peer: sociable Abuse: absent Mental Health Issues: None Active Support/Resources: None Environmental Risks Tuberculosis Screening: Not indicated Sports Screening Patient notes history of: nothing significant After exercise, patient denies: any concerns Highest weight in past year: 245 Lowest weight in past year Current weight Patient's preferred ideal weight: Working on weight MENSTRUAL HISTORY menses monthly Review of Systems Detailed review of systems including constitutional, skin, eyes, ENT, resp, CVS, GI & , revealed no abnormality except as detailed above. Required Testing Hemoglobin Prior Hgb: No results found for: HGB Hemoglobin test required?: Yes (no testing since age 12) Kidney/Bladder Screening: Prior Urine: Leuk (no units) Date Value 12/12/2004 Trace Urinalysis required?: Yes (no urinalysis since age 12) Chlamydia Screening Required: Yes (Patient is 16 or older. Order regardless of sexual activity history.) Objective (Parent Present: yes) BP 111/69 Pulse 72 Temp 98.2 ??F (36.8 ??C) (Oral) Ht 5' 9 (1.753 m) Wt 207 lb (93.9 kg) LMP 11/13/2016 BMI 30.57 kg/m2 Estimated body mass index is 30.57 kg/(m^2) as calculated from the following: Height as of this encounter: 5' 9 (1.753 m). Weight as of this encounter: 207 lb (93.9 kg). Hearing Screening 125Hz 250Hz 500Hz 1000Hz 2000Hz 3000Hz 4000Hz 6000Hz 8000Hz Right ear: 20 20 20 20 20 Left ear: 20 20 20 20 20 Visual Acuity Screening Right eye Left eye Both eyes Without correction: With correction: 20/25 20/26 20/16 Normal Abnormal GENERAL X HEENT Head X Eyes/Nose X Ears X Mouth/Pharynx X NECK X LYMPHATICS X LUNGS X CV X ABDOMEN X X MS X NEURO X SKIN X Vision Objective exam completed. No problems found. and Subjective assessment. No problems found Visual Acuity Screening performed and documented in nurse's note. Hearing Objective exam completed. No problems found. and Subjective assessment. No problems found Audiogram passed. Pelvic Examination not indicated. Augusto Staging BREASTS 5: adult breast; recession of areola to the mound of a more rounded breast PUBIC HAIR 5: adult-type hair with spread to medial surface of thighs, inverse triangle AAP MS Exam (Sports) Neck: Full range of movement Shoulder: Full range of movement Elbow: Full range of movement Hands: Full range of movement Back: Full range of movement Quad/Ham: Full range of movement Ankle: Full range of movement Feet: Full range of movement Heel/Toe: normal Duck Walk: normal Assessment Healthy adolescent. Plan Per orders and patient instructions. Counseling Immunizations: Discussed risks, benefits and side effects of immunizations given today. Social: making responsible choices Nutrition: age specific nutritional needs and Counseling about nutrition provided to patient and/or parent Health: adequate exercise and Counseling about physical activity provided to patient and/or parent Dental: emphasized need for annual visits Safety: seat belts Sexuality: the following issues were discussed: safe sex Transition Readiness (Pediatric to Adult Medicine): Discussed Pediatric Transitions to Adult Care: Age & Transition Topics to Review Follow-up Next preventive health care visit due at next even-numbered age birthday Christin Palacios PA-C documented in this encounter Plan of Treatment Not on filedocumented as of this encounter Results Chlamydia & GC, Urine (11/27/2016 12:06 PM CDT) [facility] gist Method Time Signature C.trachomatis, Negative NEG [facility] Comment: Test Performed by Roll Cutter Mediated Amplification Results obtained from this source are no t FDA approved. N. Gonorrhea, Urine Negative NEG [facility] Comment: Test Performed by Roll Cutter Mediated Amplification Results obtained from this source are no t FDA approved. Specimen Anatomical Collection Method Collection Time Receive d Time (Source) Location / / Volume Laterality 11/27/2016 12:06 11/27/2016 PM CDT 12:16 PM CDT Narrative [facility] - 11/28/2016 11:50 AM CDT Performed at [facility], [address] [place] [address] ??[id number] Christin Palacios PA-C LAB_1 Performing Organization Address City/[facility]/ZIP Code Phon e Number [facility] [phone] UA Micro If (11/27/2016 12:06 PM CDT) [facility] gist Method Time Signature Urine Color Yellow [...] 11/27/2016 1:52 PM C DT Performed at [facility], [address] [place] [id number] Christin Palacios PA-C LAB_1 Performing Organization Address City/[facility]/ZIP Code Phon e Number [facility] [phone] Complete Blood Count-No Diff (11/27/2016 12:06 PM [...] - 11/27/2016 12:36 PM CDT Performed at [facility], [address] [place] [address] [place] [address] Christin Palacios PA-C LAB_1 Performing Organization Address City/State/ZIP Code Phon e Number [facility] [phone] documented in this encounter Visit Diagnoses Diagnosis Encounter for routine child health exami nation without abnormal findings - Primary Routine infant or child health check OCP (oral contraceptive pills) initiatio n General counseling for prescription of o ral contraceptives Encounter for routine child health exami nation without abnormal findings Routine or child health check OCP (oral contraceptive pills) initiatio n General counseling for prescription of o ral contraceptives documented in this encounter Care Teams Chimney Supervisor Brick Relationship Specialty Start Date End Date Christin Palacios PA-C PCP - General Physician Cradle Placer 05[birth year]/[address] [place] [address] documented as of this encounter
--- OUTSIDE RECORDS SUMMARY | 2022-03-19 14:33 | XMS_ITS | Encounter Summary ---
:2000 Author [facility] Address [address] [place] [address] Care Team Providers Name Role Phone Christin Palacios PA-C Primary Care Provider Reason for Visit Reason Comments CONTROL COUNSELING Encounter Details Date Type Department Care Team Description 09/17/[address] [facility] Christin Palacios, OCP (ora l contraceptive pills) initiation (Primary Dx); Practice [facility] Screening for venereal disease [address] [address] [place] [address] [address] [place] [address] [place] [address] [phone] Social History Tobacco Use Types Packs/Day Years Used Date Smoking Tobacco: Passive Smoke Exposure - Never Smoker Smokeless Tobacco: Never Comments: parents Alcohol Use Standard Drinks/Week Comments No 0 (1 standard drink = 0.6 oz pure alcoho l) Sex Assigned at Date Recorded Not on file documented as of this encounter Last Filed Vital Signs Vital Sign Reading Time Taken Comments Blood Pressure 123/63 09/17/2016 3:38 PM CDT Pulse 67 09/17/2016 3:38 PM CDT Temperature 36.6 ??C (97.8 ??F) 09/17/2016 3:38 PM CDT Respiratory Rate - - Oxygen Saturation - - Inhaled Oxygen Concentration - - Weight 96.6 kg (213 lb) 09/17/2016 3:38 PM CDT Height 174 cm (5' 8.5) 09/17/2016 3:38 PM CDT Body Mass Index 31.92 09/17/2016 3:38 PM CDT Body Mass Index Percentile 97.32 % 09/17/2016 3:38 PM CD T Growth Chart: [facility] (Girls, 2-20 Years) documented in this encounter Patient Instructions Patient InstructionsChristin Palacios PA-C - 09/17/2016 3:40 PM CDT Images from the original note were not included. Combination Control Pills for Teens: Care Instructions Your Care Instructions Combination control pills are used to prevent . They give you a regular dose of the hormones estrogen and progestin. You take a hormone pill every day to prevent . control pills come in packs. The most common type has 3 weeks of hormone pills. Some packs have sugar pills (they do not contain any hormones) for the fourth week. During that fourth no-hormone week, you have your period. After the fourth week (28 days), you start a new pack. Some control pills are packaged in different ways. For example, some have hormone pills for the fourth week instead of sugar pills. Taking hormones for the entire month causes you to not have periods or to have fewer periods. Others are packaged so that you have a period every 3 months. Your doctor will tell you what type of pills you have. Follow-up care is a martin part of your treatment and safety. Be sure to make and go to all appointments, and call your doctor if you are having problems. It's also a good idea to know your test results and keep a list of the medicines you take. How can you care for yourself at home? How do you take the pill? ?? Follow your doctor's instructions about when to start taking your pills. Use backup control, such as a condom, or don't have intercourse for 7 days after you start your pills. ?? Take your pills every day, at about the same time of day. To help yourself do this, try to take them when you do something else every day, such as brushing your teeth. ?? Use latex condoms every time you have sex. Use them from the beginning to the end of sexual contact. Use a female condom if your partner doesn't have or won't use a condom. What if you forget to take a pill? Always read the label for specific instructions, or call your doctor. Here are some basic guidelines: ?? If you miss 1 hormone pill, take it as soon as you remember. Ask your doctor if you may need to use a backup control method, such as a condom, or not have intercourse. It's best to always use a condom when you have sex. ?? If you miss 2 or more hormone pills, take one as soon as you remember you forgot them. Then read the pill label or call your doctor about instructions on how to take your missed pills. Use a backup method of control or don't have intercourse for 7 days. is more likely if you miss more than 1 pill. ?? If you had intercourse, you can use emergency contraception, such as the morning-after pill (PlanB). You can use emergency contraception for up to 5 days after having had intercourse, but it works best if you take it right away. What else do you need to know? ?? The pill has side effects. ?? You may have very light or skipped periods. ?? You may have bleeding between periods (spotting). This usually decreases after 3 to 4 months. ?? You may have mood changes, less interest in sex, or weight gain. ?? The pill may reduce acne, heavy bleeding and cramping, and symptoms of premenstrual syndrome. ?? Check with your doctor before you use any other medicines, including isyl-uzh-ogjxbbd medicines. Make sure your doctor knows all of the medicines, vitamins, herbal products, and supplements you take. control hormones may not work as well to prevent when combined with other medicines. ?? The pill doesn't protect against sexually transmitted infections (STIs), such as herpes or HIV/AIDS. Use latex condoms every time you have sex. Use them from the beginning to the end of sexual contact. ?? You should never feel pressured to have sex. It's okay to say no anytime you want to stop. ?? It's important to feel safe with your sex partner and with the activities you are doing together.If you don't feel safe, talk with an adult you trust. When should you call for help? Call your doctor now or seek immediate medical care if: ?? You have severe belly pain. ?? You have signs of a blood clot, such as: ?? Pain in your calf, back of the knee, thigh, or groin. ?? Redness and swelling in your leg or groin. ?? You have blurred vision or other problems seeing. ?? You have a severe headache. ?? You have severe trouble breathing. Watch closely for changes in your health, and be sure to contact your doctor if: ?? You think you might be . ?? You think you may be depressed. ?? You think you may have been exposed to or have a sexually transmitted infection. Where can you learn more? 1. Go to [employer]/News360 or [employer]. 2. Enter P365 in the search box. Current as of: September 17, 2015 Content Version: 11.2 ?? [id number] [employer]. documented in this encounter Progress Notes Christin Palacios PA-C - 09/19/2016 2:18 PM CDT Urine Screen negative - no concerning findings. Christin Palacios PA-C 09/19/2016, 2:18 PM Will Sal - 09/17/2016 4:39 PM CDT Addended by: WILL SAL on: 09/17/2016 04:39 PM Modules accepted: Orders Christin Palacios PA-C - 09/17/2016 3:40 PM CDT Chief Complaint Patient presents with ??? CONTROL COUNSELING SUBJECTIVE: Marychuy Le is a 16 y.o. old female presenting for control counseling - She has done some research - thinking she wants OCP. - She does not want anything vaginal (IUD or NuvaRing) - She also does not anything with needles (Nexplanon or Depo) - She is active in sports - so considering visibility of patch is an issue. She has not STD concerns at this time No h/o migraines, bleeding d/o or blood clots. No past medical history on file. Current Outpatient Prescriptions Medication Sig Dispense Refill ??? ibuprofen (MOTRIN) 600 MG tablet Take 1 Tab by mouth three times a day as needed for Pain. 30 Tab 1 ??? Levonorgestrel-Ethinyl Estrad (AVIANE;ALESSE;LESSINA) 0.1-20 MG-MCG tablet Take 1 Tab by mouth daily. 84 Tab 3 No current facility-administered medications for this visit. No Known Allergies OBJECTIVE: BP 123/63 Pulse 67 Temp 97.8 ??F (36.6 ??C) (Oral) Ht 5' 8.5 (1.74 m) Wt 213 lb (96.6 kg) LMP 09/03/2016 (Within Weeks) BMI 31.92 kg/m2 WDWN female in NAD Skin:Warm, dry Neuro: Alert, orientated Lab: Pending ASSESSMENT: Control counseling - Discussed different types of OCP, Ortho Evra, Nexplanon, IUD, NuvaRing, Depo - risk, benefits andhow to use - Pt elected to start OCP at this time - GC/Chlamydia today - Reviewed importance of condoms and STD prevention documented in this encounter Plan of Treatment Not on filedocumented as of this encounter Procedures Procedure Name Priority Date/Time Associated Diagnosis Comme nts CHLAMYDIA & GC, Routine 09/17/2016 4:05 PM Screening for Resul ts for this URINE (14 YEARS AND CDT venereal disease proc edure are in OLDER) the results section. documented in this encounter Results Chlamydia & GC, Urine (09/17/2016 4:05 PM CDT) [facility] Method Time Signature C.trachomatis, Negative NEG [facility] Comment: Urine Volume submitted was greater than 30 ml. Excess collection volume may decrease test sensitivity. Test Performed by Sales Associate Fishing Mediated Amplification Results obtained from this source are no t FDA approved. N. Gonorrhea, Urine Negative NEG [facility] Comment: Urine Volume submitted was greater than 30 ml. Excess collection volume may decrease test sensitivity. Test Performed by Sales Associate Fishing Mediated Amplification Results obtained from this source are no t FDA approved. Specimen Anatomical Collection Method Collection Time Receive d Time (Source) Location / / Volume Laterality 09/17/2016 4:05 PM 7 5:17 CDT PM CDT Narrative [facility] - 09/19/2016 2:18 PM C DT Performed at [facility], [address] ??[id number] Christin Palacios PA-C LAB_1 Performing Organization Address City/State/ZIP Code Phon e Number [facility] [phone] documented in this encounter Visit Diagnoses Diagnosis OCP (oral contraceptive pills) initiatio n - Primary General counseling for prescription of o ral contraceptives Screening for venereal disease Screening examination for venereal disea se documented in this encounter Care Teams Crinkling Machine Operator Relationship Specialty Start Date End Date Christin Palacios PA-C PCP - General Physician Railroad Surveyor 05/12/[address] [place] [id number] documented as of this encounter
--- OUTSIDE RECORDS SUMMARY | 2022-03-19 14:34 | XMS_ITS | Encounter Summary ---
:2000 Author Organization [facility] Address [address] [place] [address] Care Team Providers Name Role Phone Yari Mehta APRN, CNP Primary Care Provider [phone] Reason for Visit Reason Onset Date Comments Lab Orders Needed 08/04/2011 Encounter Details Date Type Department Care Team Description 08/04/2011 Telephone [facility] Family Yari Mehta APRN, La b Orders Needed Practice [facility] [address] [place] [address] [place] [address] [phone] (Wo rk) Social History Tobacco Use Types Packs/Day Years Used Date Smoking Tobacco: Passive Smoke Exposure - Never Smoker Comments: parents Alcohol Use Standard Drinks/Week Comments Not Asked 0 (1 standard drink = 0.6 oz pure alcoho l) Sex Assigned at Date Recorded Not on file documented as of this encounter Nursing Notes Lauren Umanzor LPN - 08/04/2011 3:47 PM CDT Patient's mother was informed of providers plan and agrees with the plan. Transferred patient's mother to scheduling to make an appointment. Lauren Umanzor LPN 08/04/2011, 3:46 PM Yari Mehta APRN, CNP - 08/04/2011 3:41 PM CDT Order signed. Please remind she must be fasting for this appointment. SHERWIN Devine 08/04/2011, 3:41 PM Lauren Umanzor LPN - 08/04/2011 3:34 PM CDT Had not been tested at . PENDED- sign and fill if agreed. Lauren Umanzor LPN 08/04/2011, 3:33 PM Charlette Meredith - 08/04/2011 1:59 PM CDT Referral/Order Request Questions: What referral/order is being requested?: diabetes Why is the referral/order needed?: Patient's mother states she would like herself and patient to be tested for diabetes and would like labs ordered. There is also a note in mother's chart, MR [id number] Is it okay to leave detailed message on your voicemail?: yes If after 3pm, can this wait until tomorrow?: Pt told, A referral does not guarantee insurance coverage. Please call the member services number on the back of your insurance ID card to understand what coverage you will have for the services you are requesting. documented in this encounter Plan of Treatment Not on filedocumented as of this encounter Results GLUCOSE - FASTING > 8 HRS FASTING (V77.1) (08/08/2011 8:45 AM CDT) athologist Signature Glucose 92 70 - 100 [facility] mg/dl Hours Fasting 12 hours [facility] Specimen Anatomical Collection Method Collection Time Receive d Time (Source) Location / / Volume Laterality 08/08/2011 8:45 AM 2 8:49 CDT AM CDT Yari Mehta APRN, CNP LAB_1 Performing Organization Address City/State/ZIP Code Phon e Number [facility] [phone] [facility] [address] [address] documented in this encounter Visit Diagnoses Diagnosis Screening for diabetes mellitus (DM) - P rimary Screening for diabetes mellitus documented in this encounter Care Teams Design Leader Relationship Specialty Start Date End Date Yari Mehta APRN, CATHETERIZATION LABORATORY TECHNICIAN PCP - General Family Practice 08/04/11 09/12/13 [address] [place] [address] documented as of this encounter
--- OUTSIDE RECORDS SUMMARY | 2022-03-19 14:34 | XMS_ITS | Encounter Summary ---
:2000 Author Organization [facility] Address [address] [place] [address] Care Team Providers Name Role Phone Ingris Bowen MD Primary Care Provider Reason for Referral Consult/Transfer Care (Routine) - Closed Specialty Diagnoses / Procedures Referred By Contact Refer red To Contact Ingris Bowen MD [address] [facility] [place] [address] Referral ID Status Reason Start Date Expiration Date Visits Requ ested Visits Authorized [id number] Closed 09/19/2013 10/20/2013 1 1 Scheduling Instructions Your provider has recommended an appoint ment with [facility]. You may call [phone] to sc hedule your appointment. If you prefer, a ticket scheduler will contact you within the ne xt 3 days to assist you in setting up this appointment. Consult/Transfer Care (Routine) - Closed Specialty Diagnoses / Procedures Referred By Contact Viola osborne To Contact Ingris Bowen MD [address] [facility] [place] [address] Referral ID Status Reason Start Date Expiration Date Visits Requ ested Visits Authorized [id number] Closed 09/13/2013 12/13/2014 1 1 Scheduling Instructions Your provider has recommended an appoint ment with a [facility] nurse. A ticket scheduler will contact you within the next 3 busin days to assist you in setting up this appointment. Reason for Visit Reason Comments Sore Throat x one week Ear Pain HEADACHE Encounter Details Date Type Department Care Team Description 09/13/2013 Office Visit [facility] Ingris Bowen MD Allergic rhinitis (Primary Dx); [address] Sore throat; [address] [place] [address] Need for HPV vaccination; [place] [phone] (Wo rk) Otitis externa of right ear [address] [phone] Social History Tobacco Use Types Packs/Day Years Used Date Smoking Tobacco: Passive Smoke Exposure - Never Smoker Smokeless Tobacco: Never Comments: parents Alcohol Use Standard Drinks/Week Comments No 0 (1 standard drink = 0.6 oz pure alcoho l) Sex Assigned at Date Recorded Not on file documented as of this encounter Last Filed Vital Signs Vital Sign Reading Time Taken Comments Blood Pressure 120/67 09/13/2013 1:33 PM CDT Pulse 107 09/13/2013 1:33 PM CDT Temperature 36.9 ??C (98.4 ??F) 09/13/2013 1:33 PM CDT Respiratory Rate - - Oxygen Saturation - - Inhaled Oxygen Concentration - - Weight 104.8 kg (231 lb) 09/13/2013 1:33 PM CDT Height 169.5 cm (5' 6.75) 09/13/2013 1:33 PM CDT Body Mass Index 36.45 09/13/2013 1:33 PM CDT Body Mass Index Percentile 99.32 % 09/13/2013 1:33 PM CD T Growth Chart: [facility] (Girls, 2-20 Years) documented in this encounter Progress Notes Ingris Bowen MD - 09/13/2013 1:52 PM CDT SUBJECTIVE: Mom brings the patient in for concerns of R ear pain, sore throat for the past few days. She also has clear rhinorrhea frequently, sneezing. Some itchy, watery eyes without pain. Post-nasal drip worse when lying down, causing slight cough. Symptoms are worse since the weather got warmer. ROS: No fevers Normal appetite. No n/v/d. No wheezing or trouble breathing. SocHx; No sick contacts PMH: No hx of asthma OBJECTIVE: BP 120/67 Pulse 107 Temp(Src) 98.4 ??F (36.9 ??C) (Oral) Ht 5' 6.75 (1.695 m) Wt 231 lb (104.781 kg) BMI 36.47 kg/m2 General: Awake, alert and in no acute distress. . Mouth: Mucous membranes are moist. Oral mucosa is pink and without lesion. Clear post-nasal drip with cobblestoning of posterior pharynx is noted. Neck: Neck is supple with full range of motion passively. Lymph: No cervical or post-auricular lymphadenopathy. Eyes: Mild conjunctival injection bilaterally without exudate or periorbital swelling. Mild allergicshiners bilaterally. PERRLA, EOMI. Nose: Mild, clear nasal discharge with pale, boggy nasal turbinates bilaterally. No sinus tenderness. Ears: No discharge or bleeding from the canals. R canal is erythematous, shiny, tender. Both TMs arevisualized, without erythema or dullness. Lungs: Clear to auscultation bilaterally, without wheezes, rhonchi or rales. No increased work of breathing. CV: Regular rate and rhythm with no murmurs, rubs or gallops. Skin: Warm with brisk capillary refill. GRP A RAPID SCREEN (no units) Date Value 09/13/2013 Negative ASSESSMENT/PLAN: Marychuy was seen today for sore throat, ear pain and headache. Diagnoses and associated orders for this visit: Allergic rhinitis Sore throat - STREP GRP A, RAPID SCREEN Need for HPV vaccination - HPV4 (GARDASIL) (V04.89) Otitis externa of right ear Other Orders - ADOLESCENT MENTAL HEALTH SCREENING - STREP GRP A, THROAT CULTURE ONLY - STREP GRP A,THROAT CULTURE PRELIM - ofloxacin (AKA FLOXIN) 0.3 % ear drop solution; Place 5 Drops into both ears daily for 7 days. - loratadine (AKA CLARITIN) 10 MG tablet; Take 1 Tab by mouth daily. - NURSE APPOINTMENT ADULT/PEDS Use medication daily for at least two consecutive weeks before judging effect of allergy medication.If drowsiness occurs, give medication in the evenings. Call or follow up for any questions about care plan or medications, worsening symptoms or lack of improvement. Informed caregiver about 24-hour HP nurse line. Parent voiced understanding and agreement with plan. RtC for WCC. Ingris Bowen M.D. documented in this encounter Plan of Treatment Scheduled Referrals Name Type Priority Associated Diagnoses Order S chedule NURSE APPOINTMENT Referral Routine Ordered: 0 09/13/2013 ADULT/PEDS PRIMARY CARE FOLLOW-UP Referral Routine Order ed: 09/19/2013 documented as of this encounter Procedures Procedure Name Priority Date/Time Associated Diagnosis Comme nts STREP GRP A,THROAT Routine 09/13/2013 1:36 PM Res ults for this CULTURE PRELIM CDT procedure are in the results section. STREP GRP A, RAPID Waiting 09/13/2013 1:36 PM Sore throat Res ults for this SCREEN CDT procedure are i n the results section. STREP GRP A, THROAT Routine 09/13/2013 1:36 PM Re sults for this CULTURE ONLY CDT procedure are i n the results section. documented in this encounter Results STREP GRP A,THROAT CULTURE PRELIM (09/13/2013 1:36 PM CDT) [facility] Method Time Signature Grp A, 24 Hr No Growth [facility] Specimen Anatomical Collection Method Collection Time Receive d Time (Source) Location / / Volume Laterality 09/13/2013 1:36 PM 4 1:39 CDT PM CDT Narrative [facility] - 09/15/2013 6:48 AM C DT Performed at [facility], [address] [place] [address] [place] [address] Ingris Bowen MD LAB_1 Performing Organization Address City/State/ZIP Code Phon e Number [facility] [phone] STREP GRP A, THROAT CULTURE ONLY (09/13/2013 1:36 PM CDT) [facility] Method Time Signature Grp A Culture Negative NEG [facility] Specimen Anatomical Collection Method Collection Time Receive d Time (Source) Location / / Volume Laterality 09/13/2013 1:36 PM 4 1:39 CDT PM CDT Narrative [facility] - 09/15/2013 6:48 AM C DT Performed at [facility], [address] [place] [address] [place] [address] Ingris Bowen MD LAB_1 Performing Organization Address City/[facility]/ZIP Code Phon e Number [facility] [phone] STREP GRP A, RAPID SCREEN (09/13/2013 1:36 PM CDT) [facility] gist Method Time Signature Grp A Rapid Negative NEG [facility] Specimen Anatomical Collection Method Collection Time Receive d Time (Source) Location / / Volume Laterality 09/13/2013 1:36 PM 4 1:39 CDT PM CDT Narrative [facility] - 09/13/2013 1:48 PM C DT Performed at [facility], [address] [place] [address] [place] [address] Ingris Bowen MD LAB_1 Performing Organization Address [facility] Code Phon e Number [facility] [phone] documented in this encounter Visit Diagnoses Diagnosis Allergic rhinitis - Primary Allergic rhinitis, cause unspecified Sore throat Acute pharyngitis Need for HPV vaccination Need for prophylactic vaccination and in oculation against other viral diseases Otitis externa of right ear Infective otitis externa, unspecified documented in this encounter Care Teams Casting And Locker Room Servicer Relationship Specialty Start Date End Date Ingris Bowen MD PCP - General Pediatric Medicine 09/13/13 05/11/14 [address] [facility] [place] [address] documented as of this encounter
--- OUTSIDE RECORDS SUMMARY | 2022-03-19 14:34 | XMS_ITS | Encounter Summary ---
:2000 Author Organization [facility] Address [address] [place] [address] Care Team Providers Name Role Phone Christin Palacios PA-C Primary Care Provider Reason for Visit Reason Comments KNEE PAIN Left, fell on knees Encounter Details Date Type Department Care Team Description 08/15/2014 Office Visit [facility] Family Christin Palacios, Left kne e pain Practice ANGEL (Primary Dx) [address] [facility] [address] [address] [place] [address] [place] [address] [phone] Social History Tobacco Use Types Packs/Day Years Used Date Smoking Tobacco: Passive Smoke Exposure - Never Smoker Smokeless Tobacco: Never Comments: parents Alcohol Use Standard Drinks/Week Comments No 0 (1 standard drink = 0.6 oz pure alcoho l) Sex Assigned at Date Recorded Not on file documented as of this encounter Last Filed Vital Signs Vital Sign Reading Time Taken Comments Blood Pressure 121/74 08/15/2014 3:20 PM CDT Pulse 78 08/15/2014 3:20 PM CDT Temperature 37 ??C (98.6 ??F) 08/15/2014 2:49 PM CDT Respiratory Rate - - Oxygen Saturation - - Inhaled Oxygen Concentration - - Weight 108.9 kg (240 lb) 08/15/2014 2:49 PM CDT Height 172.7 cm (5' 8) 08/15/2014 2:49 PM CDT Body Mass Index 36.49 08/15/2014 2:49 PM CDT Body Mass Index Percentile 99.16 % 08/15/2014 2:49 PM CD T Growth Chart: [facility] (Girls, 2-20 Years) documented in this encounter Patient Instructions Patient InstructionsChristin Palacios PA-C - 08/15/2014 3:27 PM CDT Images from the original note were not included. Knee pain - Ice 20 min 2-3 times daily -Ibuprofen - Follow up if not improving Knee Pain: After Your Child's Visit Your Care Instructions Overuse is often the cause of knee pain. Other causes are climbing stairs, kneeling, playing sports,or other activities that use the knee. Rest, along with home treatment, often relieves pain and allows the knee to heal. If your child has a serious knee injury, he or she may need tests and treatment. Follow-up care is a martin part of your child's treatment and safety. Be sure to make and go to all appointments, and call your doctor if your child is having problems. It's also a good idea to know your child's test results and keep a list of the medicines your child takes. How can you care for your child at home? ?? Be safe with medicines. Give pain medicines exactly as directed. ?? If the doctor gave your child a prescription medicine for pain, give it as prescribed. ?? If your child is not taking a prescription pain medicine, ask your doctor if your child can take an fmdr-qgc-gayrxco medicine. ?? Do not give your child two or more pain medicines at the same time unless the doctor told you to.Many pain medicines contain acetaminophen, which is Tylenol. Too much acetaminophen (Tylenol) can beharmful. ?? Be sure your child rests and protects the knee. Have your child take a break from any activity that may cause pain. ?? Put ice or a cold pack on your child's knee for 10 to 20 minutes at a time. Put a thin cloth between the ice and your child's skin. ?? Prop up your child's sore knee on a pillow when icing it or anytime your child sits or lies down for the next 3 days. Try to keep your child's knee above the level of his or her heart. This will help reduce swelling. ?? If your doctor recommends an elastic bandage, sleeve, or other type of support for your child's knee, make sure your child wears it as directed. ?? If your child's knee is not swollen, you can put moist heat or a warm cloth on the knee. ?? After several days of rest, your child can begin gentle exercise of the knee. ?? Help your child reach and stay at a healthy weight. Extra weight can strain the joints, especially the knees and hips, and make the pain worse. Losing even a few pounds may help. When should you call for help? Call your doctor now or seek immediate medical care if: ?? Your child has increasing or severe pain. ?? Your child's leg or foot is cool or pale or changes color. ?? Your child cannot stand or put weight on the knee. ?? Your child's knee looks twisted or bent out of shape. ?? Your child cannot move the knee. ?? Your child has signs of infection, such as: ?? Increased pain, swelling, warmth, or redness on or behind the knee. ?? Red streaks leading from the sore area. ?? Pus draining from a place on the knee. ?? A fever. Watch closely for changes in your child's health, and be sure to contact your doctor if: ?? Your child's knee feels numb or tingly. ?? Your child has any new symptoms, such as swelling. ?? Your child has bruises from a knee injury that last longer than 2 weeks. ?? Your child does not get better as expected. Where can you learn more? Go to [employer] and enter S735 in the search box. Current as of: September 21, 2013 Content Version: 10.3 ?? [id number] [employer] documented in this encounter Progress Notes Christin Palacios PA-C - 08/15/2014 2:44 PM CDT Chief Complaint Patient presents with ??? KNEE PAIN Left, fell on knees Subjective: Marychuy Le is a 13 yr old female complaining of left knee pain x 3 days. Thursday - 3 days ago - was doing edo (some sort of dance team like activity) - was suppose to go down on one knee but went down hard on 2 knees. [place]ed on Carpet on old building. She was ableto continue the routine Knee pain now noticing around medial aspect of patella Worse with knee flexion Pt has tried nothing - this has not helped. Pt denies any redness swelling or bruising to the knee Symptoms are aggravated by Flexion Symptoms are relieved by resting. This was a direct fall, no twisting motion. Past Medical, Social, and Surgical History reviewed pertinent to complaint today. No previous knee symptoms Objective: Blood pressure 129/72, pulse 78, temperature 98.6 ??F (37 ??C), temperature source Oral, height 5' 8 (1.727 m), weight 240 lb (108.863 kg), last menstrual period 08/08/2014. General: WDWN female in NAD, cooperative, friendly Skin: Warm, dry - no obvious redness, bruising or swelling Knee: FROM, mild TTP superior/medial to patella Calf: Soft Ankle: Benign Assessment: Knee pain - Ice 20 min 2-3 times daily -Ibuprofen - Follow up if not improving documented in this encounter Plan of Treatment Not on filedocumented as of this encounter Visit Diagnoses Diagnosis Left knee pain - Primary Pain in joint, lower leg documented in this encounter Care Teams Director Of Capital Giving Relationship Specialty Start Date End Date Christin Palacios PA-C PCP - General Physician Arboreal Scientist 05/12/14 [address] [address] [place] [address] [place] [address] documented as of this encounter
--- OUTSIDE RECORDS SUMMARY | 2022-03-19 14:34 | XMS_ITS | Encounter Summary ---
:2000 [address] [facility] Address [address] [place] [address] Care Team Providers Name Role Phone Christin Palacios PA-C Primary Care Provider Reason for Visit Reason Comments PAIN, FOOT RIGHT, SINCE THURSDAY Encounter Details Date Type Department Care Team Description 09/28/[address] [facility] Christin Palacios, Pain of foot, unspecified laterality (Primary Dx); Practice [facility] Plantar wart [address] [facility]. [address] [address] [place] [address] [place] [address] [phone] Social History Tobacco Use Types Packs/Day Years Used Date Smoking Tobacco: Passive Smoke Exposure - Never Smoker Smokeless Tobacco: Never Comments: parents Alcohol Use Standard Drinks/Week Comments No 0 (1 standard drink = 0.6 oz pure alcoho l) Sex Assigned at Date Recorded Not on file documented as of this encounter Last Filed Vital Signs Vital Sign Reading Time Taken Comments Blood Pressure 121/67 09/28/2015 2:43 PM CDT Pulse 80 09/28/2015 2:43 PM CDT Temperature 37 ??C (98.6 ??F) 09/28/2015 2:43 PM CDT Respiratory Rate - - Oxygen Saturation - - Inhaled Oxygen Concentration - - Weight 111.1 kg (245 lb) 09/28/2015 2:43 PM CDT Height 174.7 cm (5' 8.78) 09/28/2015 2:43 PM CDT Body Mass Index 36.41 09/28/2015 2:43 PM CDT Body Mass Index Percentile 98.93 % 09/28/2015 2:43 PM CD T Growth Chart: [facility] (Girls, 2-20 Years) documented in this encounter Patient Instructions Patient InstructionsChristin Palacios PA-C - 09/28/2015 2:57 PM CDT Images from the original note were not included. Assessment: Foot Pain - Rest, Tylenol, ice to area - Should improve with time Plantar Wart - Pt declined treatment - Ok to monitor Plantar Warts in Teens: Care Instructions Your Care Instructions A plantar wart is a harmless skin growth. Plantar warts occur on the bottom of your feet and may be painful when you walk. A virus makes the top layer of skin grow quickly, causing a wart. Warts usually go away on their own in months or years. Warts are spread easily. You can infect yourself again by touching the wart and then touching another part of your body. You also can infect others by sharing towels, razors, or other personal items. Most plantar warts do not need treatment. But if warts cause you pain or spread, your doctor may recommend that you use an ijce-iqx-qggtdbm treatment. These include salicylic acid or duct tape. Your doctor may prescribe a stronger medicine to put on warts or may inject them with medicine. Your doctor also can remove warts through surgery or by freezing them. Follow-up care is a martin part of your treatment and safety. Be sure to make and go to all appointments, and call your doctor if you are having problems. It's also a good idea to know your test results and keep a list of the medicines you take. How can you care for yourself at home? ?? Use salicylic acid or duct tape as your doctor directs. You put the medicine or the tape on a wart for a while and then file down the skin on the wart. You use the salicylic acid treatment for 2 to 3 months or the tape for 1 to 2 months. ?? If your doctor prescribes medicine to put on warts, use it exactly as prescribed. Call your doctor if you think you are having a problem with your medicine. ?? Wear comfortable shoes and socks. Avoid high heels or shoes that put a lot of pressure on your foot. ?? Pad the wart with doughnut-shaped felt or a moleskin patch. You can buy these at a [employer]. Putthe pad around the plantar wart so that it relieves pressure on the wart. You also can place pads orcushions in your shoes to make walking more comfortable. ?? Take an xpst-lje-lreilsv medicine, such as acetaminophen (Tylenol), ibuprofen (Advil, Motrin), ornaproxen (Aleve) if you have pain. Read and follow all instructions on the label. ?? No one younger than 20 should take aspirin. It has been linked to Jean Carlos syndrome, a serious illness. ?? Do not take two or more pain medicines at the same time unless the doctor told you to. Many pain medicines have acetaminophen, which is Tylenol. Too much acetaminophen (Tylenol) can be harmful. When should you call for help? Call your doctor now or seek immediate medical care if: ?? You have signs of infection, such as: ?? Increased pain, swelling, warmth, or redness. ?? Red streaks leading from a wart. ?? Pus draining from a wart. ?? A fever. Watch closely for changes in your health, and be sure to contact your doctor if: ?? You cannot walk without pain. ?? You have a new growth and you are not sure that it is a wart. ?? You still have warts after 2 to 3 months of zwwu-dhj-ucybiss treatment. ?? Your warts are growing or spreading quickly even with treatment. Where can you learn more? Go to [email or web address] and enter A428 in the search box. Current as of: June 09, 2014 Content Version: 108 ?? [id number] [employer]. documented in this encounter Progress Notes Christin Palacios PA-C - 09/28/2015 2:45 PM CDT Chief Complaint Patient presents with ??? PAIN, FOOT RIGHT, SINCE THURSDAY Subjective: Marychuy Le is a 15 y.o. old female complaining of right foot pain x 4 days. She was walking a lot - walked to the library, then the police dept, then the escape room Yesterday walked from [employer] to [facility]. She also was running - soccer started Thursday Pain is in the mid foot - top of the foot. - Pain feels tight - hurts when she bends/flexes the toes. She notices occasionally in the morning Pt has tried no treatment. Pt denies any ankle/leg pain No bruising. She felt like it might have been swollen Symptoms are aggravated by bending toes, walking Symptoms are relieved by resting. She is also worried about a bubble on the bottom of her foot Past Medical, Social, and Surgical History reviewed pertinent to complaint today. No past medical history on file. Current Outpatient Prescriptions Medication Sig Dispense Refill ??? ibuprofen (AKA MOTRIN) 600 MG tablet Take 1 Tab by mouth three times a day as needed for Pain. 30 Tab 1 No current facility-administered medications for this visit. No Known Allergies Objective: Blood pressure 121/67, pulse 80, temperature 98.6 ??F (37 ??C), temperature source Oral, height 5' 8.78 (1.747 m), weight 245 lb (111.131 kg), last menstrual period 09/16/2015. General: WDWN female in NAD, cooperative, friendly Skin:Warm, dry Small 3-4 mm planter wart on the bottom of foot - offered treatment - pt deferred Calf: Soft, NT Ankle: FROM, Foot: No swelling, no heel or plantar surface pain. Pain on top of foot - along highest arch line - likely pain from wearing tight shoes and new increase in walking Assessment: Foot Pain - Rest, Tylenol, ice to area - Should improve with time Plantar Wart - Pt declined treatment - Ok to monitor documented in this encounter Plan of Treatment Not on filedocumented as of this encounter Visit Diagnoses Diagnosis Pain of foot, unspecified laterality - P rimary Plantar wart documented in this encounter Care Teams Hospice Admitting Clerk Relationship Specialty Start Date End Date Christin Palacios PA-C PCP - General Physician [facility]ist 05/12/14 [address] [address] [place] [address] documented as of this encounter
--- OUTSIDE RECORDS SUMMARY | 2022-03-19 14:34 | XMS_ITS | Encounter Summary ---
:2000 [facility] Organization [facility] Address [address] [place] [address] Care Team Providers Name Role Phone Yari Mehta APRN, CNP Primary Care Provider [phone] Reason for Visit Reason Comments WART on both hands Immunizations Needed Encounter Details Date Type Department Care Team Description 09/11/[address] [facility] Yari Mehta, Other sp ecified viral warts (Primary Dx); Practice [facility] Vaccin for DTP; [address] Vacc for viral hepatitis [address] [place] [phone] Social History Tobacco Use Types Packs/Day Years Used Date Smoking Tobacco: Passive Smoke Exposure - Never Smoker Comments: parents Alcohol Use Standard Drinks/Week Comments Not Asked 0 (1 standard drink = 0.6 oz pure alcoho l) Sex Assigned at Date Recorded Not on file documented as of this encounter Last Filed Vital Signs Vital Sign Reading Time Taken Comments Blood Pressure 130/76 09/11/2011 8:44 AM CDT Pulse - - Temperature - - Respiratory Rate - - Oxygen Saturation - - Inhaled Oxygen Concentration - - Weight 64.2 kg (141 lb 8 oz) 09/11/2011 8:44 AM CDT Height - - Body Mass Index - - documented in this encounter Patient Instructions Patient InstructionsYari Mehta APRN, CNP - 09/11/2011 9:20 AM CDT WARTS What Causes Warts? Warts are caused by a slow growing papillomavirus and can occur on almost any part of the body. It may take months to years for your body???s defense, the immune system, to recognize and attack this virus. So, almost any treatment will eventually work, and many treatments are aimed at stimulating yourimmune system to ???kick in?? earlier. As you may be finding out, the wart virus can be very resistant to treatment. This is because it hides deep within the thick layers of your skin. There are no treatments available yet that will actually kill the wart virus. The best we can do is to shed the skincells where the wart virus lives, layer by layer. This usually takes several treatments. The bigger and thicker your wart, the more treatments you will need. The most difficult warts to treat are plantar warts (the anatomical name for the sole of your feet- the plantar surface). Plantar warts tend to grow down into the thick skin of your foot, whereas most other warts tend to grow up out of the skin.Other warts that are difficult to treat are the ones around the nails of your fingers and toes. Painless Home Treatment Options for Warts: If the warts are not painful, DO NOTHING AT ALL, as eventually your immune system will ???kick in?? and eliminate the virus. During this observation time, you may see new warts pop up. TAPE METHOD: using duct tape or water-proof adhesive tape, you tape over each wart and leave the tape on for 2-4 days at a time. After removal of the tape, wash the skin well, let it dry, and then remove the skin by filing it off with a pumice stone, emery board, or clean razor/scalpel blade before putting new tape on. This is a painless method which may take months for success (you no longer see brown dots, the clogged capillaries of the wart tissue or easy bleeding when you remove the skin). SALICYLIC ACID (17%) TREATMENTS: these are over the counter medications that come in gel, solution, or patches (Compound W??, Wart Off??, etc.) These are applied to the wart each night after soaking the wart in warm water for a few minutes. After application, you cover the treated wart with a Band-Aidor adhesive tape. Twice a week you should remove the skin by filing it off with a pumice stone,emery board, or clean razor/scalpel blade before retreating. The keys to success are: 1. Remove the skin created so that you can get down to the more active layers 2. Be persistent and don???t give up too early as it takes several weeks to months for this to be successful!!! COMBINATION: using a salicylic acid in a plaster form (Mediplast by Bernice??) and waterproof adhesivetape. This felt-like plaster is impregnated with 40% salicylic acid. You cut out a piece of plaster the size of the wart, stick it on, and cover the entire piece and wart with waterproof adhesive tape.Be sure to buy waterproof tape only and wrap the tape around the entire body part, if possible, so that the end of the tape sticks to tape not just skin. This improves the chances that it will stay on for the 2-4 days with the exposure to sweat, bathing and moisture. Twice a week you should strip off the adhesive tape and plaster, then remove the , white, macerated skin by filing it off with a pumice stone, emery board, or clean razor/scalpel blade before repeating the steps above. In Office Treatment Options for Warts: LIQUID NITROGEN: a liquid spray that is -270 degrees F that induces frostbite to the wart tissue. This usually is painful (depending on the site and the pain tolerance of the patient) for several minutes, and then ???aches?? for several hours. The site may blister within 1-3 days (not usually seen with plantar warts because of the thick skin on the sole of the foot). Minimal scarring can occur. Do not use any other home treatment for 2 weeks or return to clinic for further treatments if directed!! documented in this encounter Progress Notes Yari Mehta APRN, CNP - 09/11/2011 9:20 AM CDT SUBJECTIVE Patient presents today for Common/flat/other wart removal. Previous treatments include: liquid nitrogen. The cause of warts and risks and benefits of Liquid Nitrogen therapy including scarring, pigment changes, and wart recurrence were discussed with the patient. OBJECTIVE Exam reveals a quantity of 5 warts ranging from 2 to 4 mm located on the hand. Treatment was accomplished using Liquid Nitrogen. ASSESSMENT.Wart PLAN Patient was instructed in the changes that would take place after treatment with Liquid Nitrogen and to call for any questions. Future Care: home treatment with wart compound as directed Yari Mehta, MEAT DRESSER-F documented in this encounter Plan of Treatment Not on filedocumented as of this encounter Visit Diagnoses Diagnosis Other specified viral warts - Primary Need for prophylactic vaccination with c ombined rucbjhvhmk-cdfcmml-qiuqzgjxd (DTP) vaccine Need for prophylactic vaccination and in oculation against viral hepatitis documented in this encounter Care Teams Certified Phlebotomy Technician Relationship Specialty Start Date End Date Yari Mehta APRN, FREDA PCP - General Family Practice 08/04/11 09/12/13 [address] [place] [address] documented as of this encounter
--- OUTSIDE RECORDS SUMMARY | 2022-03-19 14:34 | XMS_ITS | Encounter Summary ---
:2000 Author [facility] Address [address] [place] [address] Care Team Providers Name Role Phone Christin Palacois PA-C Primary Care Provider Encounter Details Date Type Department Care Team Description 11/29/2014 Correspondence [facility] Shoshana, SP[facility] Practice Tammie Bateman APRN, PHYSICAL EXAM [address] [facility]. SOFTWARE PERFORMANCE ENGINE[place] [phone] Social History Tobacco Use Types Packs/Day Years [...] documented as of this encounter Care Teams Entry Level Sales Associate Relationship Specialty Start Date End Date Christin Palacios PA-C PCP - General Physician Community Service Organization Director 05/12/[address] [place] [id number] documented as of this encounter
--- OUTSIDE RECORDS SUMMARY | 2022-03-19 14:34 | XMS_ITS | Encounter Summary ---
:2000 Author Organization [facility] Address [address] [place] [address] Care Team Providers Name Role Phone Christin Palacios PA-C Primary Care Provider Reason for Referral Procedure/Equipment (Routine) - Incomplete Specialty Diagnoses / Procedures Referred By Contact Refer red To Contact Procedures Christin Palacios PA-C XR KNEE AP/LAT/SUNRISE LEFT [address] (ROUTINE) [place] [address] Referral ID Status Reason Start Date Expiration Date Visits V isits Requested Authorized [id number] Incomplete 08/22/2014 1 1 Reason for Visit Reason Comments KNEE PAIN left knee Encounter Details Date Type Department Care Team Description 08/22/2014 Office Visit [facility] Family Christin Palacios, Left kne e pain Practice [facility] (Primary Dx) [address] [address] [address] [place] [address] [place] [address] [phone] Social History Tobacco Use Types Packs/Day Years Used Date Smoking Tobacco: Passive Smoke Exposure - Never Smoker Smokeless Tobacco: Never Comments: parents Alcohol Use Standard Drinks/Week Comments No 0 (1 standard drink = 0.6 oz pure alcoho l) Sex Assigned at Date Recorded Not on file documented as of this encounter Last Filed Vital Signs Vital Sign Reading Time Taken Comments Blood Pressure 118/67 08/22/2014 4:07 PM CDT Pulse 74 08/22/2014 4:07 PM CDT Temperature 36.9 ??C (98.4 ??F) 08/22/2014 3:23 PM CDT Respiratory Rate - - Oxygen Saturation - - Inhaled Oxygen Concentration - - Weight 111.6 kg (246 lb) 08/22/2014 3:23 PM CDT Height - - Body Mass Index - - documented in this encounter Patient Instructions Patient InstructionsChristin Palacios PA-C - 08/22/2014 4:02 PM CDT Images from the original note were not included. Knee Pain - Knee XR reviewed - no obvious misalignment or fracture - Continue with ice/ibuprofen and bracing as it helps - If not improving this week - call clinic can refer to PT for additional treatment Patellofemoral Pain Syndrome (Runner's Knee): Exercises Your Care Instructions Here are some examples of typical rehabilitation exercises for your condition. Start each exercise slowly. Ease off the exercise if you start to have pain. Your doctor or physical therapist will tell you when you can start these exercises and which ones will work best for you. How to do the exercises Calf wall stretch 1. Stand facing a wall with your hands on the wall at about eye level. Put your affected leg about astep behind your other leg. 2. Keeping your back leg straight and your back heel on the floor, bend your front knee and gently bring your hip and chest toward the wall until you feel a stretch in the calf of your back leg. 3. Hold the stretch for at least 15 to 30 seconds. 4. Repeat 2 to 4 times. 5. Repeat steps 1 through 4, but this time keep your back knee bent. Quadriceps stretch 1. If you are not steady on your feet, hold on to a chair, counter, or wall. 2. Bend your affected leg, and reach behind you to grab the front of your foot or ankle with the hand on the same side. For example, if you are stretching your right leg, use your right hand. 3. Keeping your knees next to each other, pull your foot toward your buttock until you feel a gentlestretch across the front of your hip and down the front of your thigh. Your knee should be pointed directly to the ground, and not out to the side. 4. Hold the stretch for at least 15 to 30 seconds. 5. Repeat 2 to 4 times. Hamstring wall stretch 1. Lie on your back in a doorway, with your good leg through the open door. 2. Slide your affected leg up the wall to straighten your knee. You should feel a gentle stretch down the back of your leg. ?? Do not arch your back. ?? Do not bend either knee. ?? Keep one heel touching the floor and the other heel touching the wall. Do not point your toes. 3. Hold the stretch for at least 1 minute. Then over time, try to lengthen the time you hold the stretch to as long as 6 minutes. 4. Repeat 2 to 4 times. If you do not have a place to do this exercise in a doorway, there is another way to do it: 1. Lie on your back, and bend your affected leg. 2. Loop a towel under the ball and toes of that foot, and hold the ends of the towel in your hands. 3. Straighten your knee, and slowly pull back on the towel. You should feel a gentle stretch down the back of your leg. 4. Hold the stretch for at least 15 to 30 seconds. Or even better, hold the stretch for 1 minute if you can. 5. Repeat 2 to 4 times. Quad sets 1. Sit with your affected leg straight and supported on the floor or a firm bed. Place a small, rolled-up towel under your affected knee. Your other leg should be bent, with that foot flat on the floor. 2. Tighten the thigh muscles of your affected leg by pressing the back of your knee down into the towel. 3. Hold for about 6 seconds, then rest for up to 10 seconds. 4. Repeat 8 to 12 times. Straight-leg raises to the front 1. Lie on your back with your good knee bent so that your foot rests flat on the floor. Your affected leg should be straight. Make sure that your low back has a normal curve. You should be able to slipyour hand in between the floor and the small of your back, with your palm touching the floor and your back touching the back of your hand. 2. Tighten the thigh muscles in your affected leg by pressing the back of your knee flat down to thefloor. Hold your knee straight. 3. Keeping the thigh muscles tight and your leg straight, lift your affected leg up so that your heel is about 12 inches off the floor. 4. Hold for about 6 seconds, then lower your leg slowly. Rest for up to 10 seconds between repetitions. 5. Repeat 8 to 12 times. Straight-leg raises to the back 1. Lie on your stomach, and lift your leg straight up behind you (toward the ceiling). 2. Lift your toes about 6 inches off the floor, hold for about 6 seconds, then lower slowly. 3. Do 8 to 12 repetitions. Wall slide with ball squeeze 1. Stand with your back against a wall and with your feet about shoulder-width apart. Your feet should be about 12 inches away from the wall. 2. Put a ball about the size of a soccer ball between your knees. Then slowly slide down the wall until your knees are bent about 20 to 30 degrees. 3. Tighten your thigh muscles by squeezing the ball between your knees. Hold that position for about10 seconds, then stop squeezing. Rest for up to 10 seconds between repetitions. 4. Repeat 8 to 12 times. Follow-up care is a martin part of your treatment and safety. Be sure to make and go to all appointments, and call your doctor if you are having problems. It's also a good idea to know your test results and keep a list of the medicines you take. Where can you learn more? Go to [employer] and enter A404 in the search box. Current as of: September 21, 2013 Content Version: 10.3 ?? 9223-7871 [employer]. documented in this encounter Progress Notes Christin Palacios PA-C - 08/22/2014 3:28 PM CDT Chief Complaint Patient presents with ??? KNEE PAIN left knee Subjective: Marychuy Le is a 14 yr old female presenting for follow up left knee pain She was seen last week 08/15/14 - of left knee pain x 3 days, after a direct fall/drop onto hard floor. Since previous visit 1 week ago pt reports symptoms have not changed maybe slightly worse Also complains of pain Pt has tried ice, ibuprofen, bracing Pt denies any ankle or hip pain No bruising, swelling No locking or catching. No giving away. Symptoms are aggravated by fast movement - swinging movement - causes a sharp pain Symptoms are relieved by ice, brace Past Medical, Social, and Surgical History reviewed pertinent to complaint today. No past medical history on file. Current Outpatient Prescriptions Medication Sig ??? IBUPROFEN OR Take 300 mg by mouth daily as needed. No Known Allergies Objective: Blood pressure 134/71, pulse 72, temperature 98.4 ??F (36.9 ??C), temperature source Oral, weight 246 lb (111.585 kg), last menstrual period 08/08/2014. General: WDWN female in NAD, cooperative, friendly Skin: Warm, dry Hip: NT Knee: FROM, no swelling. No joint instability XR: Negative Assessment: Knee Pain - Knee XR reviewed - no obvious misalignment or fracture - Continue with ice/ibuprofen and bracing as it helps - If not improving this week - call clinic can refer to PT for additional treatment documented in this encounter Plan of Treatment Not on filedocumented as of this encounter Results XR KNEE AP/LAT/SUNRISE LEFT (ROUTINE) (08/22/2014 3:47 PM CDT) Anatomical Region Laterality Modality Lower Extremity, Knee Computed Radiograp hy Specimen (Source) Anatomical Collection Method Collection Time Re ceived Time Location / / Volume Laterality 08/22/2014 3:47 PM CDT Narrative 08/23/2014 9:13 AM CDT XR KNEE AP//LAT/SUN LT 08/22/2014 3:47 PM INDICATION: Knee pain. COMPARISON: None. FINDINGS: There is no radiographic evide nce for an acute or healing fracture. Alignment appears normal. No o ther significant abnormality. If symptoms persist, followup films in 10-1 4 days would be recommended. Procedure Note Merlene Brown MD - 08/23/2014Format ting of this note might be different from the original. XR KNEE AP//LAT/SUN LT 08/22/2014 3:47 PM INDICATION: Knee pain. COMPARISON: None. FINDINGS: There is no radiographic evide nce for an acute or healing fracture. Alignment appears normal. No o ther significant abnormality. If symptoms persist, followup films in 10-1 4 days would be recommended. Christin Palaicos PA-C RAD GD documented in this encounter Visit Diagnoses Diagnosis Left knee pain - Primary Pain in joint, lower leg documented in this encounter Care Teams Surface Boss Relationship Specialty Start Date End Date Christin Palacios PA-C PCP - General Physician Sign Maintenance 05/12/14 [address] [place] [address] [place] [id number] documented as of this encounter
--- OUTSIDE RECORDS SUMMARY | 2022-03-19 14:34 | XMS_ITS | Encounter Summary ---
:2000 Author Organization [facility] Address [address] [place] [address] Care Team Providers Name Role Phone Christin Palacios PA-C Primary Care Provider Encounter Details Date Type Department Care Team Description 12/16/[address] [facility] Family Geovani Loving [facility] Practice DAVINA Miranda, PHYSICAL EXAM [address] [facility]. FREDA CLEARBrennon [facility] [place] [address] Social History Tobacco Use Types Packs/Day Years Used Date Smoking Tobacco: Passive Smoke Exposure - Never Smoker Smokeless Tobacco: Never Comments: parents Alcohol Use Standard Drinks/Week Comments No 0 (1 standard drink = 0.6 oz pure alcoho l) Sex Assigned at Date Recorded Not on file documented as of this encounter Progress Notes Geovani Nava APRN, CNP - 12/16/2012 12:00 AM CDT documented in this encounter Plan of Treatment Not on filedocumented as of this encounter Visit Diagnoses Not on filedocumented in this encounter Additional Health Concerns Infection Onset Date Last Indicated Resolved Time R/O COVID19 08/29/2019 08/29/2019 09/03/2019 5:39 AM CDT COVID19 08/29/2019 08/29/2019 09/19/2019 3:17 AM CDT documented as of this encounter Care Teams Cellular Equipment Installer Relationship Specialty Start Date End Date Christin Palacios PA-C PCP - General Physician Social Science Teacher 05/12/14 [address] [address] [facility] [place] [id number] documented as of this encounter
--- OUTSIDE RECORDS SUMMARY | 2022-03-19 14:34 | XMS_ITS | Encounter Summary ---
:2000 Author Organization [facility] Address [address] [place] [address] Care Team Providers Name Role Phone Nuria Greene PA-C Primary Care Provider [phone] Reason for Visit Reason Comments ITCHING, SCALP Health Maintanence Declined not today Encounter Details Date Type Department Care Team Description 01/16/[address] [facility] Altagracia Quiroga, Prurit ic dermatitis Practice FREDA GHOSH (Primary Dx) [address] [place] [address] Social History Tobacco Use Types Packs/Day [...] Pressure - - Pulse - - Temperature 36.6 ??C (97.9 ??F) 01/16/2011 4:19 PM CDT Respiratory Rate - - Oxygen Saturation - - Inhaled Oxygen Concentration - - Weight 63.5 kg (140 lb) 01/16/2011 4:19 PM CDT Height - - Body Mass Index - - documented in this encounter Progress Notes Altagracia Quiroga, DAVINA, FREDA - 01/16/2011 5:16 PM CDT SUBJECTIVE Marychuy Le is a 10 yr female here with mother and sibling (older sister), who presents with a complaint of itchy scalp. Symptoms started number 1 weeks ago. She did start using a new shampoo 1 week ago, Pert, and has had an itchier scalp since then. She reports she does not shower daily, she showers maybe every other to every 3rd day. She does wash her hair that often as well. No bumps on scalp, just itchy skin. HPI Marychuy Le has treated symptoms with nothing. It has/has not has not helped. Travel No Been in wooded areas No Eaten anything unusual No Taken any new OTC medications No Taken any new prescription medication No Similar symptoms in the past No Any new products used at home or work Yes, Pert shampoo New pets None ROS Associated symptoms include none. Medications: No current outpatient prescriptions on file. Allergies: Review of patient's allergies indicates no known allergies. Tobacco: History Smoking status ??? Passive Smoker Smokeless tobacco ??? Not on file Comment: parents OBJECTIVE General Appearance: General appearance well developed, well nourished, in no acute distress, appearsstated age, is appropriately dressed, speaks appropriately and alert Vitals: Temp(Src) 97.9 ??F (36.6 ??C) (Oral) Wt 140 lb (63.504 kg) Skin: The area(s) of skin affected are scalp. Hair is oily at the scalp. All other areas are clear. The effected area(s) is/are cool to the touch. There are no palpable lesions noted on the scalp, there is very minimal scaling dandruff noted in few areas - but again very minimal. There is no redness noted on the scalp. No other lesions visible. No drainage noted. ASSESSMENT Marychuy was seen today for itching, scalp and health maintanence declined. Diagnoses and associated orders for this visit: Pruritic dermatitis PLAN Discussed proper hygiene today and showering daily to every other day. Discussed using a moisturizing shampoo and conditioner OTC and discontinuing Pert which maybe contribuing to some of her symptoms.She can also use a mineral oil to her scalp at bedtime and wash this off in the mornings to help moisturize the scalp. Avoid hot showers. Patient allowed to ask questions/concerns. Discussed risks/benefits. Patient agreed to plan. If symptoms not improving or worsening should return to clinic for further evaluation. Mother was accompanied in room today but was falling asleep in the chair. Mother did drive her to appointment today and older sister has her ice cream truck driver's permit will be driving them home today if needed. See patient education and prescribed medications documented in this encounter Plan of Treatment Not on filedocumented as of this encounter Visit Diagnoses Diagnosis Pruritic dermatitis - Primary Unspecified pruritic disorder documented in this encounter Care Teams Heavy Equipment Operator Apprentice Relationship Specialty Start Date End Date Nuria Greene PA-C PCP - General 08/16/08 08/03/11 [address] [place] [address] documented as of this encounter
--- OUTSIDE RECORDS SUMMARY | 2022-03-19 14:34 | XMS_ITS | Encounter Summary ---
:[address] [facility] Address [address] [place] [address] Care Team Providers Name Role Phone Christin Palacios PA-C Primary Care Provider Reason for Visit Reason Comments RESULTS, X-RAY Encounter Details Date Type Department Care Team Description 11/09/2014 Telephone [facility] Family Prac Erich Whitley, COPIER AND PRINTER FIELD TECHNICIAN, INTAKE NURSE RESULTS, X-RAY [address] [address] [place] [address] [phone] [place], [place] [address] (Wo rk) Social History Tobacco Use Types Packs/Day Years Used Date Smoking Tobacco: Passive Smoke Exposure - Never Smoker Smokeless Tobacco: Never Comments: parents Alcohol Use Standard Drinks/Week Comments No 0 (1 standard drink = 0.6 oz pure alcoho l) Sex Assigned at Date Recorded Not on file documented as of this encounter Nursing Notes Kaylee Bullock LPN - 11/09/2014 8:13 AM CDT Patient's mother informed. Kaylee Bullock LPN 11/09/2014, 8:14 AM Kaylee Bullock LPN - 11/09/2014 8:12 AM CDT ----- Message from Erich Kraft APRN, INTAKE NURSE sent at 11/08/2014 11:46 AM CDT ----- Please inform patient radiology read the xray as negative. Continue ice and ibuprofen as discussed at appt. documented in this encounter Plan of Treatment Not on filedocumented as of this encounter Visit Diagnoses Not on filedocumented in this encounter Care Teams Heat Treat Operator Relationship Specialty Start Date End Date Christin Palacios PA-C PCP - General Physician Ballet Professor 05/12/14 [address] [place] [address] [place] [address] documented as of this encounter
--- OUTSIDE RECORDS SUMMARY | 2022-03-19 14:34 | XMS_ITS | Encounter Summary ---
:2000 Author Organization [facility] Address [address] [place] [address] Care Team Providers Name Role Phone Christin Palacios PA-C Primary Care Provider Reason for Visit Procedure/Equipment (Routine) - Incomplete Specialty Diagnoses / Procedures Referred By Contact Refer red To Contact Diagnoses Injury of left thumb, initial encounter Erich Kraft APRN, CNP Procedures XR FINGER THUMB LEFT [address] [place] [address] Referral ID Status Reason Start Date Expiration Date Visits V isits Requested Authorized [id number] Incomplete 11/08/2014 1 1 Encounter Details Date Type Department Care Team Description 11/08/2014 Imaging [facility] [place] of left thumb, Clinics Radiology initial encounter [address] [place] [address] Social History Tobacco Use Types Packs/Day Years Used Date Smoking Tobacco: Passive Smoke Exposure - Never Smoker Smokeless Tobacco: Never Comments: parents Alcohol Use Standard Drinks/Week Comments No 0 (1 standard drink = 0.6 oz pure alcoho l) Sex Assigned at Date Recorded Not on file documented as of this encounter Progress Notes Erich Kraft APRN, CNP - 11/08/2014 11:46 AM CDT Quick Note: Please inform patient radiology read the xray as negative. Continue ice and ibuprofen as discussed at appt. documented in this encounter Plan of Treatment Not on filedocumented as of this encounter Procedures Procedure Name Priority Date/Time Associated Diagnosis Comme nts XR FINGER LT THUMB Routine 11/08/2014 9:39 AM Injury of left R esults for this 2+ VIEWS CDT thumb, initial procedure are in encounter the results section. documented in this encounter Results XR FINGER THUMB LEFT (11/08/2014 9:39 AM CDT) Anatomical Region Laterality Modality Upper Extremity, Hand Computed Radiograp hy Specimen (Source) Anatomical Collection Method Collection Time Re ceived Time Location / / Volume Laterality 11/08/2014 9:39 AM CDT Narrative 11/08/2014 11:37 AM CDT XR FINGER THUMB LT 11/08/2014 9:39 AM INDICATION: Thumb pain. COMPARISON: None. FINDINGS: Negative thumb. No fracture or dislocation. Procedure Note Merlene Brown MD - 11/08/2014Format ting of this note might be different from the original. XR FINGER THUMB LT 11/08/2014 9:39 AM INDICATION: Thumb pain. COMPARISON: None. FINDINGS: Negative thumb. No fracture or dislocation. Erich Kraft GRADES 1 6 TUTOR, MANAGER WEB RAD GD documented in this encounter Visit Diagnoses Diagnosis Injury of left thumb, initial encounter documented in this encounter Care Teams Property Disposal Manager Relationship Specialty Start Date End Date Christin Palacios PA-C PCP - General Physician Hand Drawer In 05/12/[address] [place] [id number] documented as of this encounter
--- OUTSIDE RECORDS SUMMARY | 2022-03-19 14:34 | XMS_ITS | Encounter Summary ---
:2000 Author Organization [facility] Address [address] [place] [address] Care Team Providers Name Role Phone Yari Mehta APRN, CNP Primary Care Provider [phone] Reason for Visit Reason Comments RASH both legs Encounter Details Date Type Department Care Team Description 11/11/2011 Office Visit [facility] Family Yari Mehta, Rash and nonspecific Practice [facility]EDA [facility]OSH skin eruption [address] (Primary Dx) [place], [place] [id number] [phone] Social History Tobacco Use Types Packs/Day Years [...] - Pulse - - Temperature 36.6 ??C (97.8 ??F) 11/11/2011 9:05 AM CDT Respiratory Rate - - Oxygen Saturation - - Inhaled Oxygen Concentration - - Weight 66.8 kg (147 lb 4 oz) 11/11/2011 9:05 AM CDT Height - - Body Mass Index - - documented in this encounter Patient Instructions Patient InstructionsYari Mehta APRN, CNP - 11/11/2011 9:03 AM CDT Rash (Exanthem) You or your child have been diagnosed with a rash. This means that there has been some change in theskin. This can be redness, dryness, itchiness, blistering, cracks or pimple like lesions. Rashes canbe caused by outside factors such as irritation, friction, sunlight, dry cold weather, humid conditio ns, stress, parasites, insects, or contact with certain substances or internal factors such as viruses, bacteria, fungus or medicines or vaccines, or other internal diseases. The vast majority or rashes are self limited and mild and go away with simple treatments in days to weeks. Many times the exactcause of a rash may not be known. Many over the counter medications, creams of lotions are all you will need to treat a rash. On some occasions your provider may prescribe something stronger to help with symptoms. Use all medications as directed. Do not stop using medications until you are instructed to do so. To keep yourself comfortable you may: ?? Leave the rash exposed to the air as much as possible ?? Bathe or shower for 15-20 minutes and use warm water, not hot ?? Use a mild soap such as Cetaphil, Basis, Dove, Nuetragena ?? Use soap on face, underarms, hands and feet, and genital areas only ?? Take a cool bath with baking soda or oatmeal or use a commercial product such as Aveeno. ?? Apply calamine lotion or 1% hydrocortisone cream to reduce itch ?? Cover itchy areas to prevent scratching ?? Trim nails and wear gloves or mittens at night ?? Apply cool wet compresses as needed to control itch ?? Take an over the counter antihistamine such as diphenhydramine (Benadryl), chlorpheniramine maleate (Chlor-Trimeton), cetirizine (Zyrtec), clemastine (Tavist), loratadine (Claritin) to control itch.Be aware these may make you drowsy ?? Apply lotions that contain aloe vera to irritated area ?? You or your child may use acetaminophen (Tylenol) or Ibuprofen (Advil, Motrin) ?? Wear cool cotton clothing. Avoid wearing itchy or irritating fabrics such as wool ?? Wear loose fitting clothing to reduce friction ?? Reduce stress ?? Avoid anything that irritates the skin whenever possible If your skin is responding to treatment and the condition is resolving in a few days to one week, you do not have to follow up with your provider. If you have been referred to another provider and you do not hear from them in 24-48 hours please call the phone number listed below. Call or seek medical attention IMMEDIATELY if: ?? You or your child develop watery eyes or inflammation and swelling of the eye lids or skin aroundthe eyes ?? You or your child develop a fever of >100.4F (38C) for more than 24 hours ?? You feel or become lightheaded ?? Your or your child have difficulty breathing ?? You or your child feel your throat is swelling ?? You have had severe skin reactions before ?? You or your child develop swelling in the face, arms, legs, feet, or hands ?? You or your child develop vomiting ?? You or your child develop tremors or loss of muscle coordination ?? You or your child develop a stiff neck Call the clinic or nurse line if: ?? After one week of home treatment the rash is not improving or has changed ?? The affected areas develop pus filled blisters or drains pus ?? The surrounding skin becomes red, warm, painful, swollen, or develops red streaks starting from the affected area. ?? The skin has become painful ?? You or your child are unable to sleep or are extremely irritable due to itchiness documented in this encounter Progress Notes Yari Mehta APRN, CNP - 11/11/2011 9:12 AM CDT SUBJECTIVE Marychuy Le is a 11 yr female here with mother, who presents with a complaint of Rash. Symptoms started number 2 days ago. Patient was outside at the park 2 days ago and noticed the rash following this. Rash is not itching and is not painful. Has used lotion and aloe vera to the rash. Feels that the rash is going away. ROS Associated symptoms include none. Medications: No current outpatient prescriptions on file. Allergies: Review of patient's allergies indicates no known allergies. Tobacco: History Smoking status ??? Passive Smoker Smokeless tobacco ??? Not on file Comment: parents OBJECTIVE General Appearance: General appearance well developed, well nourished and in no acute distress Vitals: Temp(Src) 97.8 ??F (36.6 ??C) (Oral) Wt 147 lb 4 oz (66.792 kg) Skin: The area(s) of skin affected are bilateral lower extremities from below knee to feet. Scattered macular rash, no surrounding erythema, no drainge. ASSESSMENT 1. Rash and nonspecific skin eruption PLAN No treatment needed, likely will resolve over the next few days. See patient education. If symptoms persist, return to clinic documented in this encounter Plan of Treatment Not on filedocumented as of this encounter Visit Diagnoses Diagnosis Rash and nonspecific skin eruption - Mariya donnie Rash and other nonspecific skin eruption documented in this encounter Care Teams Clothing Busheler Relationship Specialty Start Date End Date Yari Mehta APRN, MACARONI MAKER PCP - General Family Practice 08/04/11 09/12/13 [address] [place] [address] documented as of this encounter
--- OUTSIDE RECORDS SUMMARY | 2022-03-19 14:34 | XMS_ITS | Encounter Summary ---
:2000 Author Organization [facility] Address [address] [place] [address] Care Team Providers Name Role Phone Christin Palacios PA-C Primary Care Provider Reason for Visit Procedure/Equipment (Routine) - Incomplete Specialty Diagnoses / Procedures Referred By Contact Refer red To Contact Procedures Christin Palacios PA-C XR KNEE AP/LAT/SUNRISE LEFT [id number] [place] [address] (ROUTINE) [place] [address] Referral ID Status Reason Start Date Expiration Date Visits V isits Requested Authorized [id number] Incomplete 08/22/2014 1 1 Encounter Details Date Type Department Care Team Description 08/22/[address] [facility] Radiology [address] [place] [address] Social History Tobacco Use Types Packs/Day Years [...] Date/Time Associated Diagnosis Comme nts XR KNEE LT Routine 08/22/2014 3:47 PM Results f or this AP/LAT/SUN CDT procedure are i n the results section. documented in this encounter Results XR KNEE AP/LAT/SUNRISE LEFT [...] 10-1 4 days would be recommended. Christin Palacios PA-C RAD GD documented in this encounter Visit Diagnoses Not on filedocumented in this encounter Care Teams Bottle Packer Relationship Specialty Start Date End Date Christin Palacios PA-C PCP - General Physician Top Lift Cutter 05/12/14 [address] [place] [address] documented as of this encounter
--- OUTSIDE RECORDS SUMMARY | 2022-03-19 14:34 | XMS_ITS | Encounter Summary ---
:2000 Author Organization [facility] Address [address] [place] [address] Care Team Providers Name Role Phone Christin Palacios PA-C Primary Care Provider Reason for Referral Procedure/Equipment (Routine) - Incomplete Specialty Diagnoses / Procedures Referred By Contact Refer red To Contact Diagnoses Injury of left thumb, initial encounter Erich Kraft APRN, CNP Procedures XR FINGER THUMB LEFT [id number] [place] [address] Referral ID Status Reason Start Date Expiration Date Visits V isits Requested Authorized [id number] Incomplete 11/08/2014 1 1 Reason for Visit Reason Comments INJURY, THUMB Encounter Details Date Type Department Care Team Description 11/08/2014 Office Visit [facility] Erich Kraft, Injury of l eft thumb, Practice FREDA GHOSH initial encounter [address] [address] appening ([facility]) [address] [place] [phone] [place] [id number] Social History Tobacco Use Types Packs/Day Years Used Date Smoking Tobacco: Passive Smoke Exposure - Never Smoker Smokeless Tobacco: Never Comments: parents Alcohol Use Standard Drinks/Week Comments No 0 (1 standard drink = 0.6 oz pure alcoho l) Sex Assigned at Date Recorded Not on file documented as of this encounter Last Filed Vital Signs Vital Sign Reading Time Taken Comments Blood Pressure 120/75 11/08/2014 9:44 AM CDT Pulse 84 11/08/2014 9:44 AM CDT Temperature 37.1 ??C (98.7 ??F) 11/08/2014 9:44 AM CDT Respiratory Rate - - Oxygen Saturation - - Inhaled Oxygen Concentration - - Weight - - Height - - Body Mass Index - - documented in this encounter Patient Instructions Patient InstructionsErich Kraft APRN, CNP - 11/08/2014 9:51 AM CDT Apply ice to left thumb 3-4 times daily for 10-15 minutes at a time. Ibuprofen or tylenol as needed for discomfort. Follow up if pain persists or worsens. documented in this encounter Progress Notes Erich Kraft APRN, CNP - 11/08/2014 9:43 AM CDT Chief complaint: Chief Complaint Patient presents with ??? INJURY, THUMB HPI: Marychuy Le is a 14 y.o. old female who presents to the clinic with friend for left thumb injury. Yesterday afternoon she was shutting the car door and her left thumb got caught in the car door when it closed. Tip of the thumb was caught. Had immediate pain. No obvious swelling. There is redness underneath the nail bed of left thumb. Most of pain is at tip of thumb. Has full ROM of thumb.Has not treated it at home. Medical, surgical, social and family histories were reviewed and updated in the patient's chart. Outpatient Prescriptions Prior to Visit Medication Sig Dispense Refill ??? ibuprofen (AKA MOTRIN) 600 MG tablet Take 600 mg by mouth every 6 hours as needed. No facility-administered medications prior to visit. No Known Allergies Review of Systems: Complete Review of Systems is negative, unless noted in HPI Physical Examination: Blood pressure 120/75, pulse 84, temperature 98.7 ??F (37.1 ??C), temperature source Oral. General: alert, oriented to person, place, time and normal hydration Hand: no gross deformity of hand or fingers, full AROM of hand and fingers in flexion and extension and tip of left thumb with mild erythema/ecchymosis, no hematoma. Nail bed is normal, mild erythema under nail bed but no hematoma, tender to touch, thumb with full flexion and extension without difficulty Skin: no rashes, no diaphoresis and skin color normal Neuro: sensory/light touch to distal thumb intact Assessment/Plan: Marychuy was seen today for injury, thumb. Diagnoses and associated orders for this visit: Injury of left thumb, initial encounter - XR FINGER THUMB LEFT; Future Xray of left thumb obtained. Personally reviewed by myself and does not show any obvious sign of fracture or dislocation. Will wait for official radiology report. There is no evidence of a hematoma underneath nailbed. Advised her to continue to monitor for this. Advised use of ibuprofen or tylenol as needed for pain. Ice application 3-4 times daily for 10-15 minutes at a time. Advised follow up in clinic if symptoms persist or worsen. Erich Kraft APRN, FILTER WASHER documented in this encounter Plan of Treatment Not on filedocumented as of this encounter Results XR FINGER THUMB LEFT [...] thumb. No fracture or dislocation. Erich Kraft APRN, FILTER WASHER RAD GD documented in this encounter Visit Diagnoses Diagnosis Injury of left thumb, initial encounter - Primary Injury of left thumb, initial encounter documented in this encounter Care Teams Scrap Sawyer Relationship Specialty Start Date End Date Christin Palacios PA-C PCP - General Physician Steel Cutter 05/12/14 [address] [place] [id number] documented as of this encounter
--- OUTSIDE RECORDS SUMMARY | 2022-03-19 14:34 | XMS_ITS | Encounter Summary ---
:2000 Author [facility] Address [address] [place] [address] Care Team Providers Name Role Phone Yari Mehta APRN, CNP Primary Care Provider Encounter Details Date Type Department Care Team Description 08/08/2011 Orders Only [facility] Lab Screening for diabetes [address] [facility] mellitus (DM) [place] [address] Social History Tobacco Use Types Packs/Day Years [...] Name Priority Date/Time Associated Diagnosis Comme nts GLUCOSE - FASTING > Routine 08/08/2011 8:45 AM Screening for R esults for this 8 HRS FASTING CDT diabetes mellitus procedure are in (DM) the results section. documented in this encounter Results GLUCOSE - FASTING > 8 HRS FASTING (V77.1) (08/08/2011 8:45 AM CDT) P athologist Signature Glucose 92 70 - 100 [facility] mg/dl Hours Fasting 12 hours [facility] Specimen Anatomical Collection Method Collection Time Receive d Time (Source) Location / / Volume Laterality 08/08/2011 8:45 AM 2 8:49 CDT AM CDT Yari Mehta APRN, CNP LAB_1 Performing Organization Address City/State/ZIP Code Phon e Number [facility] [phone] [address] documented in this encounter Visit Diagnoses Diagnosis Screening for diabetes mellitus (DM) Screening for diabetes mellitus documented in this encounter Care Teams Jig And Fixture Builder Apprentice Relationship Specialty Start Date End Date Yari Mehta APRN, CHILD WELFARE COUNSELOR PCP - General Family Practice 08/04/11 09/12/13 [address] [place] [address] documented as of this encounter
--- OUTSIDE RECORDS SUMMARY | 2022-03-19 14:34 | XMS_ITS | Encounter Summary ---
:2000 Author Organization [facility] Address [address] [place] [address] Care Team Providers Name Role Phone Nuria Greene PA-C Primary Care Provider [phone] Reason for Visit Reason Onset Date Comments LICE,HEAD 01/29/2011 Encounter Details Date Type Department Care Team Description 01/29/2011 Telephone [facility] Family Prac leena Nuria Greene PA-C LICAmber,HEAD [address] [place] [address] [place], [place] [phone] (Wo rk) Social History Tobacco Use Types Packs/Day Years Used Date Smoking Tobacco: Passive Smoke Exposure - Never Smoker Comments: parents Alcohol Use Standard Drinks/Week Comments Not Asked 0 (1 standard drink = 0.6 oz pure alcoho l) Sex Assigned at Date Recorded Not on file documented as of this encounter Nursing Notes Nuria Chaudhary LPN - 01/29/2011 12:46 PM CDT Informed Adeline prescription sent. Nuria Chaudhary LPN 01/29/2011, 12:46 PM Edson Camarena MD - 01/29/2011 12:25 PM CDT I sent a prescription for Rid to the pharmacy Edson Camarena MD 01/29/2011, 12:25 PM Margaret Canchola, RN - 01/29/2011 11:00 AM CDT Called back to mother, Adeline. States that patient was sent home from school yesterday with lice. Mother did home treatment with Nix and cleaned the home/bedding. Patient was again sent home from school today with lice. Mother states that she spent all her money on the Nix yesterday and wondering if could get something else to treat the lice. Discussed some alternate home treatments--cetaphil, olive oil/mayonase. Mother states that she doesn't have money for the Cetaphil however will try the olive oil treatment. She is requesting RX for another shampoo that she can use to treat patient. (Also see other family members notes). Please advise. Margaret Canchola RN 01/29/2011, 11:00 AM Bridget Scherer - 01/29/2011 10:28 AM CDT Symptom Questions: Describe your symptoms (if pain, include location): lice When did they start: This week What have you tried at home: Home treatments Have you been seen for this recently: no If appropriate, what pharmacy would you like your prescription sent to?: unable to decide Is it okay to leave a detailed message on your voicemail?: yes If after 3pm, can this wait until tomorrow? documented in this encounter Plan of Treatment Not on filedocumented as of this encounter Visit Diagnoses Not on filedocumented in this encounter Care Teams Medical Bill Processor Relationship Specialty Start Date End Date Nuria Greene PA-C PCP - General 08/16/08 08/03/11 [address] [place] [address] documented as of this encounter
--- OUTSIDE RECORDS SUMMARY | 2022-03-19 14:34 | XMS_ITS | Encounter Summary ---
:2000 Author Organization [facility] Address [address] [place] [address] Care Team Providers Name Role Phone Christin Palacios PA-C Primary Care Provider Reason for Visit Reason Comments Sports Physical Encounter Details Date Type Department Care Team Description 11/29/2014 [facility] [address] administrative purposes [place], [place] (Primary Dx) [address] Social History Tobacco Use [...] Sign Reading Time Taken Comments Blood Pressure 102/65 11/29/2014 5:15 PM CDT Pulse 83 11/29/2014 5:15 PM CDT Temperature - - Respiratory Rate - - Oxygen Saturation - - Inhaled Oxygen Concentration - - Weight 109.4 kg (241 lb 3.2 oz) 11/29/2014 5:15 PM CDT Height 172.1 cm (5' 7.75) 11/29/2014 5:15 PM CDT Body Mass Index 36.95 11/29/2014 5:15 PM CDT Body Mass Index Percentile 99.17 % 11/29/2014 5:15 PM CD T Growth Chart: CDC (Girls, 2-20 Years) documented in this encounter Patient Instructions Patient InstructionsMcGreeTammie clark APRN, VOICER - 11/29/2014 4:58 PM CDT Twelve to Eighteen Years: A Teen???s Health [...] school and through the community or their jew. These activities can be very time consuming, [...] swim there is still time to learn. [facility] and community education programs offer swimming lessons [...] people, and can be hard to predict. Wboash-gdzb-ehwf can vary in size from a 4 [...] of your life safer and healthier. ?? 2003[facility] documented in this encounter Progress Notes Tammie Anna APRN, CNP - 11/29/2014 4:58 PM CDT [phone] SPORTS QUALIFYING PHYSICAL HISTORY FORM [employer] Student name: Marychuy Le Birthdate: 2000 Date of exam: 11/29/2014 History GENERAL QUESTIONS No *1. Has a doctor ever denied or restricted your participation in sports for any reason or told you to give up sports? No 2. Do you have an ongoing medical condition (like diabetes, asthma, anemia, infections)? Yes 3. Are you currently taking any prescription or nonprescription (pppk-mia-zrtjbrc) medicines or pills? List: Ibuprofen 600 mg PRN No 4. Do you have allergies to medicines, pollens, foods, or stinging insects? No 5. Have you ever spent the night in a hospital? No 6. Have you ever had surgery? HEART HEALTH QUESTIONS ABOUT YOU No *7. Have you ever passed out or nearly passed out DURING exercise? Yes *8. Have you ever passed out or nearly passed out AFTER exercise? Occurred in September No *9. Have you ever had discomfort, [...] heart? (for example, ECG/EKG, echocardiogram, stress test) Yes *13. Do you get lightheaded or feel more short of breath than expected during exercise? Lightheaded No *14. Have you ever had an unexplained seizure? Yes 15. Do you get more tired or short of breath more quickly than your friends during Exercise? More tired HEART HEALTH QUESTIONS ABOUT YOUR FAMILY No *16. Has any family member or relative of heart problems or had an unexpected or unexplainedsudden before age 50 (including unexplained drowning, unexplained car accident, or sudden syndrome? No *17. Does anyone in your family [...] you that you have asthma or allergies? No 30. Do you cough, wheeze, experience chest tightness, or have difficulty breathing during or after exercise? Yes 31. Is there anyone in your family who has asthma? No 32. Have you ever used an [...] family have sickle cell trait or disease? Yes 48. Have you had any problems with your eyes or vision? Wears glasses No 49. Have you had any eye injuries? Yes 50. Do you wear glasses or contact lenses? Glasses No 51. Do you wear protective eyewear, [...] Have you ever had a menstrual period? 13 58. How old where you when you had your first menstrual period? 12 59. How many menstrual periods have you had in the last year? [id number] SPORTS QUALIFYING PHYSICAL EXAMINATION FORM [employer] Student Name: Marychuy Le Date: 2000 Age: 14 Gender: F Follow-Up Questions About More Sensitive Issues: 1. Do you feel stressed out or under a lot of pressure? No 2. Do you ever feel so sad [...] unprotected sex, domestic violence, drugs, and others. MEDICAL EXAM There were no vitals taken for this visit. BMI (optional): body mass index is unknown because there is no height or weight on file. Arm span: 68 in Arm span/height ratio greater than 1.05 is considered out of the normal range. No exam data present Normal vision is 20/40 or better in [...] hyperlaxity, myopia, MVP, aortic insufficiency) Yes HEENT: Yes Eyes: Yes Fundoscopic: Yes Pupils: Equal Hearing: Yes Cardiovascular: Yes No [...] Hop or Squat, Box Drop): Yes Assessment: Cleared for sports without restriction Plan: Immunizations: Up-to-Date and Health Maintenance: Lifestyle, health, and safety counseling Pt encouraged to drink more fluids while playing. Also encouraged to start slow and gradually increase activity. Tammie Anna APRN, FREDA 11/29/2014, 5:35 PM documented in this encounter Plan of Treatment Not on filedocumented as of this encounter Visit Diagnoses Diagnosis Other general medical examination for ad ministrative purposes - Primary documented in this encounter Care Teams Baggage Porter Relationship Specialty Start Date End Date Christin Palacios PA-C PCP - General Physician Integrity Director 05/12/[address] [place] [address] documented as of this encounter
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
--- OUTSIDE RECORDS SUMMARY | 2022-03-19 14:34 | XMS_ITS | Encounter Summary ---
:2000 Author Organization [facility] Address [address] [place] [address] Care Team Providers Name Role Phone Christin Palacios PA-C Primary Care Provider Reason for Visit Reason Comments STUFFED UP, STUFFINESS, NOSE x 2 days. HEADACHE Sore Throat COUGH slight. BACK PAIN Encounter Details Date Type Department Care Team Description 06/03/2014 Office Visit [facility] ation URI (upper respiratory infec tion) (Primary Dx); [address] [place] [address] Social History Tobacco Use Types Packs/Day [...] Reading Time Taken Comments Blood Pressure 120/75 06/03/2014 2:01 PM RETURNED CASE INSPECTOR Pulse 100 06/03/2014 2:01 PM RETURNED CASE INSPECTOR Temperature 36.9 ??C (98.5 ??F) 06/03/2014 2:01 PM RETURNED CASE INSPECTOR Respiratory Rate - - Oxygen Saturation - - Inhaled Oxygen Concentration - - Weight 106.9 kg (235 lb 9.6 oz) 06/03/2014 2:01 PM RETURNED CASE INSPECTOR Height 168.9 cm (5' 6.5) 06/03/2014 2:01 PM RETURNED CASE INSPECTOR Body Mass Index 37.46 06/03/2014 2:01 PM RETURNED CASE INSPECTOR Body Mass Index Percentile 99.30 % 06/03/2014 2:01 PM CS T Growth Chart: [facility] (Girls, 2-20 Years) documented in this encounter Patient Instructions Patient InstructionsMadie Cobb MD - 06/03/2014 2:19 PM CST Virus Tylenol or Ibu Rest Further tests being done RNED CASE INSPECTOR documented in this encounter Progress Notes Madie Cobb MD - 06/03/2014 2:40 PM RETURNED CASE INSPECTOR Addended by: MADIE COBB on: 06/03/2014 02:40 PM Modules accepted: Orders RNED CASE INSPECTOR Josh Milan CMA - 06/03/2014 2:30 PM RETURNED CASE INSPECTOR Addended by: JOSH MERCADO on: 06/03/2014 02:30 PM Modules accepted: Orders RNED CASE INSPECTOR Madie Cobb MD - 06/03/2014 2:12 PM CST Marychuy Le is a 13 yrfemale here with mother presenting with runny nose, cough, sore throat,headaches and bilateral ear pain. Initial symptoms: runny nose, sore throat for 2 days Progression of symptoms: remained stable Additional symptoms: nasal congestion, fatigue Pertinent negatives: No diarrhea/loose stools Exposure to Illness: friends Patient Active Problem List Diagnosis ??? Undiagnosed Cardiac Murmurs ??? Overweight ??? Allergic rhinitis No past medical history on file. Additional Past Respiratory History: reviewed, no pertinent respiratory history Current Medications: Current Outpatient Prescriptions Medication Sig ??? loratadine (AKA CLARITIN) 10 MG tablet Take 1 Tab by mouth daily. Allergies: Review of patient's allergies indicates no known allergies. OBJECTIVE BP 120/75 Pulse 100 Temp(Src) 98.5 ??F (36.9 ??C) (Oral) Ht 5' 6.5 (1.689 m) Wt 235 lb 9.6 oz (106.867 kg) BMI 37.46 kg/m2 [facility] 05/15/2014 Appearance: stated age, healthy, in no distress Cough: no cough Eyes: no abnormalities detected Ears: right TM dull, left TM dull Nose: normal Oropharynx: normal and moderate erythema Neck: 1+ adenopathy Lungs: rhonchi, scattered Abdomen:NE Skin: clear PROCEDURES rapid strep screen: negative ASSESSMENT viral upper respiratory illness PLAN Antibiotics not indicated at this time. Tylenol or Ibuprofen for comfort or fever. Encourage fluids. Await pending test results. RNED CASE INSPECTOR documented in this encounter Plan of Treatment Not on filedocumented as of this encounter Procedures Procedure Name Priority Date/Time Associated Diagnosis Comme nts STREP GRP A,THROAT Routine 06/03/2014 2:02 PM Res ults for this CULTURE PRELIM RETURNED CASE INSPECTOR procedure are in the results section. STREP GRP A, RAPID Waiting 06/03/2014 2:02 PM Sore throat Res ults for this SCREEN RETURNED CASE INSPECTOR procedure are i n the results section. STREP GRP A, THROAT Routine 06/03/2014 2:02 PM Sore throat Re sults for this CULTURE ONLY RETURNED CASE INSPECTOR procedure are i n the results section. documented in this encounter Results STREP GRP A,THROAT CULTURE PRELIM (06/03/2014 2:02 PM RETURNED CASE INSPECTOR) [facility] Method Time Signature Grp A, 24 Hr See Final [facility] Culture Result LABORATORIES Specimen Anatomical Collection Method Collection Time Receive d Time (Source) Location / / Volume Laterality 06/03/2014 2:02 PM 5 RETURNED CASE INSPECTOR 11:38 AM RETURNED CASE INSPECTOR Narrative [facility] LABORATORIES - 06/05/2014 11:43 AM RETURNED CASE INSPECTOR Performed at [facility], [address] [place] [address] [place] [address] Madie Cobb MD LAB_1 Performing Organization Address City/State/ZIP Code Phon e Number [facility] [phone] STREP GRP A, THROAT CULTURE ONLY (06/03/2014 2:02 PM RETURNED CASE INSPECTOR) [facility] Method Time Signature Grp A Culture Negative NEG MG Final LABORATORIES Specimen Anatomical Collection Method Collection Time Receive d Time (Source) Location / / Volume Laterality Throat swab 06/03/2014 2:02 PM 5 (specimen) RETURNED CASE INSPECTOR 11:38 AM RETURNED CASE INSPECTOR Narrative [facility] - 06/05/2014 11:43 AM RETURNED CASE INSPECTOR Performed at [facility], [address] [place] [address] [place] [address] Madie Cobb MD LAB_1 Performing Organization Address City/State/ZIP Code Phon e Number [facility] [phone] STREP GRP A, RAPID SCREEN (06/03/2014 2:02 PM RETURNED CASE INSPECTOR) [facility] gist Method Time Signature Grp A Rapid negative [facility] [place] Specimen (Source) Anatomical Collection Method Collection Time Re ceived Time Location / / Volume Laterality Throat swab 06/03/2014 2:02 PM (specimen) RETURNED CASE INSPECTOR Madie Cobb MD LAB_1 Performing Organization Address City/State/ZIP Code Phon e Number [facility] [place] [address] [place], [place] [phone] [facility] [place] [address] [place], [place] [phone] documented in this encounter Visit Diagnoses Diagnosis URI (upper respiratory infection) - Prim sayra Acute upper respiratory infections of un specified site Sore throat Acute pharyngitis documented in this encounter Care Teams Agricultural Equipment Sales Engineer Relationship Specialty Start Date End Date Christin Palacios PA-C PCP - General Physician Civil Engineering Design Draftsperson 05/12/[address] [place] [address] documented as of this encounter
--- OUTSIDE RECORDS SUMMARY | 2022-03-19 14:34 | XMS_ITS | Encounter Summary ---
:2000 Author Organization [facility] Address [address] [place] [address] Care Team Providers Name Role Phone Christin Palacios PA-C Primary Care Provider Reason for Visit Reason Comments RUTHIE HERNANDEZ Encounter Details Date Type Department Care Team Description 11/30/2015 Office Visit [facility] Christin Palacios Plantar wart (Primary Practice [facility] Dx) [address] [facility] [address] [address] [place] [address] [place] [address] [phone] Social History Tobacco Use Types Packs/Day Years Used Date Smoking Tobacco: Passive Smoke Exposure - Never Smoker Smokeless Tobacco: Never Comments: parents Alcohol Use Standard Drinks/Week Comments No 0 (1 standard drink = 0.6 oz pure alcoho l) Sex Assigned at Date Recorded Not on file documented as of this encounter Last Filed Vital Signs Vital Sign Reading Time Taken Comments Blood Pressure 126/66 11/30/2015 8:06 AM CDT Pulse 61 11/30/2015 8:06 AM CDT Temperature 36.8 ??C (98.2 ??F) 11/30/2015 8:06 AM CDT Respiratory Rate - - Oxygen Saturation - - Inhaled Oxygen Concentration - - Weight 107.5 kg (237 lb) 11/30/2015 8:06 AM CDT Height - - Body Mass Index - - documented in this encounter Progress Notes Christin Palacios PA-C - 11/30/2015 8:15 AM CDT SUBJECTIVE Patient presents today for Plantar wart removal. Previous treatments include: liquid nitrogen. The cause of warts and risks and benefits of Liquid Nitrogen therapy including scarring, pigment changes, and wart recurrence were discussed with the patient. OBJECTIVE Blood pressure 126/66, pulse 61, temperature 98.2 ??F (36.8 ??C), temperature source Oral, weight 237 lb (107.502 kg), last menstrual period 10/30/2015. WDWN female in NAD Skin: Exam reveals a quantity of 1 warts ranging from 4 to 7 mm located on the plantar of the right foot. Treatment was accomplished using Liquid Nitrogen. ASSESSMENT. Plantar Warts PLAN Patient was instructed in the changes that would take place after treatment with Liquid Nitrogen and to call for any questions. Future Care: return visit in 3 weeks for retreatment Christin Palacios PA-C documented in this encounter Plan of Treatment Not on filedocumented as of this encounter Visit Diagnoses Diagnosis Plantar wart - Primary documented in this encounter Care Teams Floral Design Teacher Relationship Specialty Start Date End Date Christin Palacios PA-C PCP - General Physician Overnight Cashier 05/12/[address] [place] [address] documented as of this encounter
--- OUTSIDE RECORDS SUMMARY | 2022-03-19 14:34 | XMS_ITS | Encounter Summary ---
:2000 Author Organization [facility] Address [address] [place] [address] Care Team Providers Name Role Phone Christin Palacios PA-C Primary Care Provider Encounter Details Date Type Department Care Team Description 05/19/2014 Correspondence [facility] Christin Palacios, SCHOOL ADMINISTRATON Practice [facility] OF MEDICATION [address] [facility] [address] [address] [place] [phone] Social History Tobacco Use Types Packs/Day Years [...] documented as of this encounter Care Teams Health Insurance Assessor Relationship Specialty Start Date End Date Christin Palacios PA-C PCP - General Physician Utility Technician 05/12/14 [address] [address] [place] [address] documented as of this encounter
--- OUTSIDE RECORDS SUMMARY | 2022-03-19 14:34 | XMS_ITS | Encounter Summary ---
:2000 Author Organization [facility] Address [address] [place] [address] Care Team Providers Name Role Phone Christin Palacios PA-C Primary Care Provider Reason for Referral Consult/Transfer Care (Routine) - Closed Specialty Diagnoses / Procedures Referred By Contact Refer red To Contact Diagnoses Screening for hypertension Christin Palacios PA-C [address] [address] [place] [place] [address] Referral ID Status Reason Start Date Expiration Date Visits Requ ested Visits Authorized [id number] Closed 05/17/2014 08/16/2015 1 1 Scheduling Instructions Your provider has recommended an appoint ment with [facility]. You may call [phone] to sc hedule your appointment. If you prefer, a promotion manager will contact you within the dc xt 3 business days to assist you in setting up this appointment. R WINDER Reason for Visit Reason Comments DYSMENORRHEA Encounter Details Date Type Department Care Team Description 05/17/[address] [facility] Christin Palacios, Dysmenor christine (Primary Dx); Practice [facility] Elevated blood pressure reading without diagnosis of hypertension; [address] [address] [address] winter for hypertension [address] [place] [address] [place] [place] [address] [phone] Social History Tobacco Use Types Packs/Day Years Used Date Smoking Tobacco: Passive Smoke Exposure - Never Smoker Smokeless Tobacco: Never Comments: parents Alcohol Use Standard Drinks/Week Comments No 0 (1 standard drink = 0.6 oz pure alcoho l) Sex Assigned at Date Recorded Not on file documented as of this encounter Last Filed Vital Signs Vital Sign Reading Time Taken Comments Blood Pressure 122/73 05/17/2014 4:04 PM FLOOR WINDER Pulse 76 05/17/2014 4:04 PM FLOOR WINDER Temperature 37 ??C (98.6 ??F) 05/17/2014 3:39 PM FLOOR WINDER Respiratory Rate - - Oxygen Saturation - - Inhaled Oxygen Concentration - - Weight 106.1 kg (233 lb 12.8 oz) 05/17/2014 3:39 PM FLOOR WINDER Height 171.5 cm (5' 7.5) 05/17/2014 3:39 PM FLOOR WINDER Body Mass Index 36.08 05/17/2014 3:39 PM FLOOR WINDER Body Mass Index Percentile 99.16 % 05/17/2014 3:39 PM CS T Growth Chart: [facility] (Girls, 2-20 Years) documented in this encounter Patient Instructions Patient InstructionsChristin Palacios PA-C - 05/17/2014 4:01 PM CST Images from the original note were not included. ASSESSMENT: Dysmenorrhea PLAN: - Discussed heating pad when cramping - Ibuprofen 600 mg three times daily for 3-5 days when needed for cramping - Follow up if not improving Painful Menstrual Cramps in Teens: After Your Visit Your Care Instructions Painful menstrual cramps (called dysmenorrhea) are one of the most common reasons women seek medicalattention. Painful periods can cause cramping in the back, thighs, and belly. You may also have diarrhea, constipation, or nausea. Some women get dizzy. Pain medicine and home treatment can help ease your cramps. Follow-up care is a martin part of your treatment and safety. Be sure to make and go to all appointments, and call your doctor if you are having problems. It's also a good idea to know your test results and keep a list of the medicines you take. How can you care for yourself at home? ?? Take anti-inflammatory medicines to reduce pain, such as ibuprofen (Advil, Motrin) and naproxen (Aleve), for pain from cramps. ?? Start taking the recommended dose of pain medicine as soon as you start to feel pain or the day before your period starts. Keep taking the medicine for as many days as your cramps last. ?? If anti-inflammatory medicines do not relieve the pain, try acetaminophen (Tylenol). ?? Do not take two or more pain medicines at the same time unless the doctor told you to. Many pain medicines have acetaminophen, which is Tylenol. Too much acetaminophen (Tylenol) can be harmful. ?? Talk to your doctor or pharmacist before you take any of these medicines. They may not be safe ifyou are taking other medicines or have other health problems. ?? Read and follow all instructions on the label. ?? Put a warm water bottle, a heating pad set on low, or a warm cloth on your belly. Heat improves blood flow and may relieve pelvic pain. ?? Lie down and put a pillow under your knees, or lie on your side and bring your knees up to your chest. This will help relieve back pressure. ?? Use pads instead of tampons. ?? Get plenty of exercise every day. This improves blood flow and may decrease pain. Go for a walk or jog, ride your bike, or play sports with friends. When should you call for help? Call 911 anytime you think you may need emergency care. For example, call if: ?? You passed out (lost consciousness). ?? You have sudden, severe pain in your belly or pelvis. Call your doctor now or seek immediate medical care if: ?? You have severe vaginal bleeding. You are passing clots of blood and soaking through your usual pads every hour for 2 or more hours. ?? You are dizzy or lightheaded, or you feel like you may faint. ?? You have new belly or pelvic pain. ?? You think you may be . Watch closely for changes in your health, and be sure to contact your doctor if: ?? You continue to have menstrual pain even after taking pain medicine. ?? You feel weak and tired. Where can you learn more? Go to [employer] and enter X061 in the search box. Current as of: June 29, 2013 Content Version: 10.1 ?? [id number] [employer], [employer]. About High Blood Pressure What is blood pressure? Why should you care if your blood pressure is high? When your heart beats itmoves blood through your blood vessels, carrying oxygen and nutrients to every organ in your body. Blood pressure is a measure of the force your heart needs to pump blood through your blood vessels. Blood pressure readings have two numbers: The top number is the systolic blood pressure, which measures the pressure in the blood vessels when your heart contracts, or beats. The bottom number is the diastolic blood pressure, which measures the pressure in your blood vessels when your heart rests, between beats. Throughout the day, your blood pressure changes, depending on whether you are sleeping orawake, relaxed or stressed, comfortable or in pain. When you have your blood pressure measured, your reading is compared with other kids or teens the same age, sex and height as you. If, in these comparisons your blood pressure is higher than most, you may be told that you have elevated blood pressure or pre-hypertension. If your blood pressure remainshigh on 3 or more visits, you may have hypertension. Most of the time hypertension causes no symptoms, so many people don???t know they have it. If your blood pressure stays high for many years, it can hurt your heart, kidneys, blood vessels, or eyes. Ifyour blood pressure is high and you do nothing to lower it, as an adult you have greater danger of having a heart attack, stroke, kidney disease or blindness. High Blood Pressure in Teens and Preteens If you have elevated blood pressure, pre-hypertension or hypertension, your doctor will recommend changing your diet or increasing your physical activity. We have some other suggestions listed below. Five Ways to Improve Your Blood Pressure ??? Reach and stay at a healthy weight ??? Follow a healthy, low-salt eating plan ??? Be physically active most days of the week ??? Avoid caffeinated energy drinks ??? Avoid alcohol, tobacco, and illegal drugs and don???t abuse cold medicines R WINDER documented in this encounter Progress Notes Christin Palacios PA-C - 05/17/2014 3:33 PM CST No chief complaint on file. SUBJECTIVE: Marychuy Le is a 13 yr old female presenting with mother concerned with menstrual concerns. Feels she has really bad cramps and ibuprofen can take like 2 hours to work, and doesn't take it all away Takes Ibuprofen at the beginning of her cycle 2 tabs at a time a couple times /day She will sneak them into school Typically getting cycle once/month - lasting 3-5 days Cramping will start 1-2 days prior to cycle. She uses pads - uses 'over nights' changes pad 4-5 times in a 24 hour time span. She has not yet had period for full year - almost a Year - started late last year sometime. FH: Mother has PCOS, Sisters do not have abnormal concerns. Pt is not sexually active, has not ever been. OBJECTIVE: BP 135/81 Pulse 77 Temp(Src) 98.6 ??F (37 ??C) (Oral) Ht 5' 7.5 (1.715 m) Wt 233 lb 12.8 oz(106.051 kg) BMI 36.06 kg/m2 LMP 05/15/2014 WDWN female in NAD Skin: Warm, dry CV: Regular rate and rhythm. No clicks, gallops or murmur appreciated. Lungs: Clear to auscultation bilaterally. No wheezes, rales or rhonchi. Abd: Soft, NT ASSESSMENT: Dysmenorrhea PLAN: - Discussed heating pad when cramping - Ibuprofen 600 mg three times daily for 3-5 days when needed for cramping - Follow up if not improving R WINDER documented in this encounter Plan of Treatment Scheduled Referrals Name Type Priority Associated Diagnoses Order S chedule HYPERTENSION FOLLOW UP Referral Routine Screening for Orde red: 05/17/2014 ([id number]) hypertension documented as of this encounter Visit Diagnoses Diagnosis Dysmenorrhea - Primary Elevated blood pressure reading without diagnosis of hypertension Screening for hypertension documented in this encounter Care Teams Cable Ferry Operator Relationship Specialty Start Date End Date Christin Palacios PA-C PCP - General Physician Orthotist Prosthetist 05/12/[address] [place] [address] documented as of this encounter
--- OUTSIDE RECORDS SUMMARY | 2022-03-19 14:34 | XMS_ITS | Encounter Summary ---
:2000 Author Organization [facility] Address [address] [place] [address] Care Team Providers Name Role Phone Nuria Greene PA-C Primary Care Provider [phone] Reason for Visit Reason Comments EARACHE right side started today Encounter Details Date Type Department Care Team Description 05/14/2010 Office Visit [facility] Flor Loving sup purative Practice DAVINA Willett, FREDA otitis media without [address] [place] [address] eardrum (Primary Dx) [phone] Social History Tobacco Use Types Packs/Day Years [...] Pressure - - Pulse - - Temperature 36.7 ??C (98 ??F) 05/14/2010 12:59 PM GENERAL PARTNER Respiratory Rate - - Oxygen Saturation - - Inhaled Oxygen Concentration - - Weight 57.2 kg (126 lb) 05/14/2010 12:59 PM GENERAL PARTNER Height - - Body Mass Index - - documented in this encounter Patient Instructions Patient InstructionsFlor Loving APRN, FREDA - 05/14/2010 1:13 PM GENERAL PARTNER Ear infection (Otitis Media) You have been [...] usually control the pain within 1-2 hours. Sometimes a cold or warm washcloth pad over the ear helps it feel better. Remove the cold or warm pad in 20 minutes to prevent frostbites or [...] having taken the antibiotic for 48 hours there are any other concerns or questions. RAL PARTNER documented in this encounter Progress Notes Flor Loving APRN, CNP - 05/14/2010 1:13 PM CST HPI Marychuy Le is a 9 yr female who is presenting with otalgia for 1 days. Current home treatments so far include none PMH Past medical history is significant for: few episodes of otitis ROS Other symptoms: cough for 4 days Medications: No current outpatient prescriptions on file. Allergies: Review of patient's allergies indicates no known allergies. Objective Vitals: Temp(Src) 98 ??F (36.7 ??C) (Oral) Wt 126 lb (57.153 kg) Appearance: well developed, well nourished and in no acute distress Ears: R TM erythematous and bulging L TM WNL: pearly, givens with good light reflex Nose: normal Throat: normal Neck: supple and no adenopathy Lungs: clear to auscultation, no wheezes or rales Heart: RRR Test Results: Rapid Strep: Not done Throat Culture: not done Assessment Right otitis media Plan See patient education and prescribed medication Flor Loving CNP-F RAL PARTNER documented in this encounter Plan of Treatment Not on filedocumented as of this encounter Visit Diagnoses Diagnosis Acute suppurative otitis media without s pontaneous rupture of eardrum - Primary documented in this encounter Care Teams Building Insulation Supervisor Relationship Specialty Start Date End Date Nuria Greene PA-C PCP - General 08/16/08 08/03/11 [address] [place] [address] documented as of this encounter
--- OUTSIDE RECORDS SUMMARY | 2022-03-19 14:34 | XMS_ITS | Encounter Summary ---
:2000 Author Organization [facility] Address [address] [place] [address] Care Team Providers Name Role Phone Christin Palacios PA-C Primary Care Provider Reason for Referral Consult/Transfer Care (Routine) - Closed Specialty Diagnoses / Procedures Referred By Contact Refer red To Contact Diagnoses Elevated blood pressure Christin Palacios PA-C [address] [place] [address] Referral ID Status Reason Start Date Expiration Date Visits Requ ested Visits Authorized [id number] Closed 08/08/2014 11/07/2015 1 1 Scheduling Instructions Your provider has recommended an appoint ment with [facility]. You may call [phone] to sc hedule your appointment. If you prefer, a mill order scheduler will contact you within the sd xt 3 business days to assist you in setting up this appointment. Reason for Visit Reason Comments LEG PAIN Right leg, in calf, x 1 day Ear Pain Right, x 3 days CONGESTION Encounter Details Date Type Department Care Team Description 08/08/[address] [facility] Christin Palacios URI (upp er respiratory infection) (Primary Dx); Practice ANGEL [facility]vated blood [facility] [address] [facility] [address] [address] [place] [address] [address] [place] [id number] Social History Tobacco Use Types Packs/Day Years Used Date Smoking Tobacco: Passive Smoke Exposure - Never Smoker Smokeless Tobacco: Never Comments: parents Alcohol Use Standard Drinks/Week Comments No 0 (1 standard drink = 0.6 oz pure alcoho l) Sex Assigned at Date Recorded Not on file documented as of this encounter Last Filed Vital Signs Vital Sign Reading Time Taken Comments Blood Pressure 120/76 08/08/2014 2:09 PM CDT Pulse 86 08/08/2014 2:09 PM CDT Temperature 36.7 ??C (98 ??F) 08/08/2014 1:51 PM CDT Respiratory Rate - - Oxygen Saturation - - Inhaled Oxygen Concentration - - Weight 108.4 kg (239 lb) 08/08/2014 1:51 PM CDT Height 172.7 cm (5' 8) 08/08/2014 1:51 PM CDT Body Mass Index 36.34 08/08/2014 1:51 PM CDT Body Mass Index Percentile 99.15 % 08/08/2014 1:51 PM CD T Growth Chart: [facility] (Girls, 2-20 Years) documented in this encounter Patient Instructions Patient InstructionsChristin Palacios PA-C - 08/08/2014 2:08 PM CDT Images from the original note were not included. A URI (viral upper respiratory illness) P 1. Start medication if prescribed. - Can try Sudafed to help with congestion in the daytime - Ok to take Bendaryl at night. 2. Continue symptomatic treatment with Ibuprofen/Tylenol for fevers or pain, increase fluids, rest, humidifier in room. 3. Warm compress/heating pad to right lower leg, ibuprofen as needed 4. Call in 4-5 days if no improvement or if any new symptoms develop 5. If sudden increase in fever, SOB, CP or abdominal pain, please call or go to ER Upper Respiratory Infection (URI) in Teens: After Your Visit Your Care Instructions An upper respiratory infection, also called a URI, is an infection of the nose, sinuses, or throat. Viruses or bacteria can cause URIs. Colds, the flu, and sinusitis are examples of URIs. These infections are spread by coughs, sneezes, and close contact. You may need antibiotics to treat bacterial infections. Antibiotics do not help viral infections. But you can treat most infections with home care. This may include drinking lots of fluids and taking umbn-fza-idydgor pain medicine. You will probably feel better in 4 to 10 days. Follow-up care is a martin part of your treatment and safety. Be sure to make and go to all appointments, and call your doctor if you are having problems. It's also a good idea to know your test results and keep a list of the medicines you take. How can you care for yourself at home? ?? To prevent dehydration, drink plenty of fluids, enough so that your urine is light yellow or clear like water. Choose water and other caffeine-free clear liquids until you feel better. ?? Take an unum-ruz-svxfvma pain medicine, such as acetaminophen (Tylenol), ibuprofen (Advil, Motrin), or naproxen (Aleve). Read and follow all instructions on the label. ?? No one younger than 20 should take aspirin. It has been linked to Jean Carlos syndrome, a serious illness. ?? If your doctor prescribed antibiotics, take them as directed. Do not stop taking them just because you feel better. You need to take the full course of antibiotics. ?? Before you use cough and cold medicines, check the label. These medicines may not be safe for young children or for people with certain health problems. ?? Be careful when taking onnl-tnx-refkoqs cold or flu medicines and Tylenol at the same time. Many of these medicines have acetaminophen, which is Tylenol. Read the labels to make sure that you are not taking more than the recommended dose. Too much acetaminophen (Tylenol) can be harmful. ?? Get plenty of rest. ?? Use saline (saltwater) nasal washes to help keep your nasal passages open and wash out mucus and bacteria. You can buy saline nose drops at a grocery store or drugstore. Or you can make your own at home by adding 1 teaspoon of salt and 1 teaspoon of baking soda to 2 cups of distilled water. If you make your own, fill a bulb syringe with the solution, insert the tip into your nostril, and squeeze gently. Blow your nose. ?? Use a vaporizer or humidifier to add moisture to your bedroom. Follow the instructions for cleaning the machine. ?? Do not smoke or allow others to smoke around you. If you need help quitting, talk to your doctor about stop-smoking programs and medicines. These can increase your chances of quitting for good. When should you call for help? Call 911 anytime you think you may need emergency care. For example, call if: ?? You have severe trouble breathing. ?? You have rapid swelling of the throat or tongue. Call your doctor now or seek immediate medical care if: ?? You have a fever with a stiff neck or a severe headache. ?? You have signs of needing more fluids. You have sunken eyes and a dry mouth, and you pass only a little dark urine. ?? You cannot keep down fluids or medicine. Watch closely for changes in your health, and be sure to contact your doctor if: ?? You have a deep cough and a lot of mucus. ?? You are too tired to eat or drink. ?? You have a new symptom, such as a sore throat, an earache, or a rash. ?? You do not get better as expected. Where can you learn more? Go to [employer] and enter A933 in the search box. Current as of: December 27, 2013 Content Version: 10.3 ?? [id number] [employer]. documented in this encounter Progress Notes Christin Palacios PA-C - 08/08/2014 1:55 PM CDT Chief Complaint Patient presents with ??? LEG PAIN Right leg, in calf, x 1 day ??? Ear Pain Right, x 3 days ??? CONGESTION S Marychuy Le is a 13 yr old female who presents with a 3-day(s) history of nasal congestion. Associated symptoms include Right ear pain, occasional cough, runny nose, [place]. Patient does not report sore throat, facial pain, fever. No CP, SOB, no wheezing, No skin rashes. Patient has tried Humidifier which does help. 2. Right calf pain x 1 day - Had a really bad cramp yesterday, now just feels tight - No swelling, no redness, no bruising, no skin changes. Past Medical, Surgical and social history reviewed pertinent to complaint today. Past Medical History is positive for: Allergic Rhinitis Past Medical History is negative for Pneumonia, Asthma and Recurrent sinusitis Smoking status: Passive from mom Positive sick contacts: Friend was sick at school - they did share food. Previous ENT surgery: Denies Current Outpatient Prescriptions Medication Sig ??? IBUPROFEN OR Take 300 mg by mouth daily as needed. O Blood pressure 131/86, pulse 90, temperature 98 ??F (36.7 ??C), temperature source Oral, height 5' 8 (1.727 m), weight 239 lb (108.41 kg), last menstrual period 08/08/2014. General Appearance : Overwieght female in No Acute Distress. Skin: cyanosis absent, rash absent. Lymph Nodes: Does have a few anterior and posterior cervical LN, soft, mobile HEENT: Head: atraumatic, normocephalic; Eyes: Conjunctival erythema: absent Ears: TM pearly givens bilaterally. Landmarks well visualized. Nose: white mucous; Throat: Tonsils 3+,but no exudates, no erythema. Neck: supple without mass, adenopathy, or thyromegaly Heart: Regular rate and rhythm. No murmur or gallops noted. Lungs: CTA bilaterally. No wheezes, rales, or rhonchi. Abd: Soft, NT, no HSM. Leg: Calf soft, no skin changes no edema Good foot strength, FROM ankle A URI (viral upper respiratory illness) P 1. Start medication if prescribed. - Can try Sudafed to help with congestion in the daytime - Ok to take Bendaryl at night. 2. Continue symptomatic treatment with Ibuprofen/Tylenol for fevers or pain, increase fluids, rest, humidifier in room. 3. Warm compress/heating pad to right lower leg, ibuprofen as needed 4. Call in 4-5 days if no improvement or if any new symptoms develop 5. If sudden increase in fever, SOB, CP or abdominal pain, please call or go to ER documented in this encounter Plan of Treatment Scheduled Referrals Name Type Priority Associated Diagnoses Order S chedule HYPERTENSION FOLLOW UP Referral Routine Elevated blood Ord ered: 08/08/2014 ([id number]) pressure documented as of this encounter Visit Diagnoses Diagnosis URI (upper respiratory infection) - Prim sayra Acute upper respiratory infections of un specified site Elevated blood pressure Elevated blood pressure reading without diagnosis of hypertension documented in this encounter Care Teams Roller Skate Repairer Relationship Specialty Start Date End Date Christin Palacios PA-C PCP - General Physician Winery Worker 05/12/[address] [place] [address] documented as of this encounter
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
--- OUTSIDE RECORDS SUMMARY | 2022-03-19 14:34 | XMS_ITS | Encounter Summary ---
:2000 Author Organization [facility] Address [address] [place] [address] Care Team Providers Name Role Phone Christin Palacios PA-C Primary Care Provider Reason for Visit Reason Comments SHOT,FLU Encounter Details Date Type Department Care Team Description 03/06/2016 Office Visit [facility] Encounter for immunization [address] (Primary Dx) [place] [phone] Social History Tobacco Use Types Packs/Day Years Used Date Smoking Tobacco: Passive Smoke Exposure - Never Smoker Smokeless Tobacco: Never Comments: parents Alcohol Use Standard Drinks/Week Comments No 0 (1 standard drink = 0.6 oz pure alcoho l) Sex Assigned at Date Recorded Not on file documented as of this encounter Progress Notes Carmen Andrews LPN - 03/06/2016 6:38 PM CST Marychuy Le here for injection(s). ordered per standing order . See orders. Contraindications and side effects discussed with mother and patient Mother and patient verbalized understanding of risks, possible side effects, and benefits of the injection and gave permission to administer the stated injection(s). No precautions or contraindicationsnoted. Tolerated injection well. See immunization/injection report for administration documentation. Carmen Andrews LPN ICAL DIETICIAN documented in this encounter Plan of Treatment Not on filedocumented as of this encounter Visit Diagnoses Diagnosis Encounter for immunization - Primary Need for other specified prophylactic va ccination against single bacterial disease documented in this encounter Care Teams Tank Refinisher Relationship Specialty Start Date End Date Christin Palacios PA-C PCP - General Physician Shop Technician 05/12/[address] [place] [address] documented as of this encounter
--- OUTSIDE RECORDS SUMMARY | 2022-03-19 14:34 | XMS_ITS | Encounter Summary ---
:2000 Author Organization [facility] Address [address] [place] [address] Care Team Providers Name Role Phone Nuria Greene PA-C Primary Care Provider [phone] Reason for Visit Reason Comments MARY on both hands Encounter Details Date Type Department Care Team Description 02/27/2010 Office Visit [facility] Nuria Greene vir herman (Primary Practice R, ANGEL Dx) [address] [place] [address] [place] [address] [phone] Social History Tobacco Use Types Packs/Day Years Used Date Smoking Tobacco: Never Alcohol Use Standard Drinks/Week Comments Not Asked 0 (1 standard drink = 0.6 oz pure alcoho l) Sex Assigned at Date Recorded Not on file documented as of this encounter Last Filed Vital Signs Vital Sign Reading Time Taken Comments Blood Pressure 108/64 02/27/2010 4:23 PM FREIGHT BRAKEMAN Pulse - - Temperature - - Respiratory Rate - - Oxygen Saturation - - Inhaled Oxygen Concentration - - Weight 54.9 kg (121 lb) 02/27/2010 4:23 PM FREIGHT BRAKEMAN Height 146.7 cm (4' 9.75) 02/27/2010 4:23 PM FREIGHT BRAKEMAN Body Mass Index 25.51 02/27/2010 4:23 PM FREIGHT BRAKEMAN Body Mass Index Percentile 98.11 % 02/27/2010 4:23 PM CS T Growth Chart: [facility] (Girls, 2-20 Years) documented in this encounter Progress Notes Nuria Hays - 02/27/2010 5:15 PM CST Subjective: Marychuy is a pleasant 9-year-old white female presenting today with mom and dad for treatment of warts. History of present illness: Patient has 6 warts in total primarily over her hands/fingers, bilaterally. She has never had treatment for these previously. They have no additional questions or concerns. Objective: Pleasant 9-year-old white female in no acute distress or discomfort. Vital signs: Per EMR, blood pressure is acceptable. Skin: Patient has 6 discrete lesions, over the palmar aspect of the hands and fingers bilaterally that appear as flesh-colored papillomatous lesions with pinpoint capillaries consistent with verrucous. Procedure: With patient/parent consent each lesion is frozen with liquid nitrogen achieving several freeze thaw cycles. Patient tolerated procedure but was uncomfortable/crying. Assessment: Viral warts x 6 Plan: Treated warts today with liquid nitrogen. Discussed care instructions and when to return for retreatment if needed. All questions answered, patient and parents in agreement, follow up as needed. GHT BRAKEMAN documented in this encounter Plan of Treatment Not on filedocumented as of this encounter Visit Diagnoses Diagnosis Wart viral - Primary Viral warts, unspecified documented in this encounter Care Teams Learning Support Assistant Relationship Specialty Start Date End Date Nuria Greene PA-C PCP - General 08/16/08 08/03/11 [address] [place] [address] documented as of this encounter
--- OUTSIDE RECORDS SUMMARY | 2022-03-19 14:34 | XMS_ITS | Encounter Summary ---
:2000 Author Organization [facility] Address [address] [place] [address] Care Team Providers Name Role Phone Yari Mehta APRN, CNP Primary Care Provider Reason for Visit Reason Comments RASH outside of mouth REMOVAL, REMOVE, WARTS Health Maintenance Communication Will get flu vaccine Encounter Details Date Type Department Care Team Description 03/09/[address] [facility] Yari Mehta, Impetigo (Primary Dx); Practice [facility] Viral warts; [address] for prophylactic vaccination and inoculation against influenza; [address] Need for other specified prophylactic va ccination against single bacterial disease [place] [id number] [phone] Social History Tobacco Use Types Packs/Day Years [...] Sign Reading Time Taken Comments Blood Pressure 134/75 03/09/2012 1:51 PM TAX ACCOUNTANT Pulse - - Temperature 36.8 ??C (98.3 ??F) 03/09/2012 1:51 PM TAX ACCOUNTANT Respiratory Rate - - Oxygen Saturation - - Inhaled Oxygen Concentration - - Weight 73.9 kg (163 lb) 03/09/2012 1:51 PM TAX ACCOUNTANT Height - - Body Mass Index - - documented in this encounter Patient Instructions Patient InstructionsYari Mehta APRN, FREDA - 03/09/2012 2:15 PM TAX ACCOUNTANT Impetigo You or your child have been diagnosed with impetigo. This is a bacterial infection that is mostly found in children but adults can develop it too. It is caused by strep or staph bacteria or both. It isusually found around the nose and mouth but can occur anywhere. It can occur on normal skin or skin that has been irritated, cut or bit by an insect. Risk factors for developing this infection include contact with someone with impetigo, warm humid weather, participation in sports that involve skin to skin contact such as football or wrestling, chronic skin conditions such as atopic dermatitis, or having a suppressed immune system. Typically an infection starts as a red sore or blister that then ruptures. The clear fluid then dries and forms yellow, brown, honey, or brown sugar colored crusts in the area. These sores are usually not painful but their number can increase over time and they can be itchy. They are however very contagious. Anything that touches the affected area may be contaminated with the offending bacteria and can transfer the infection to the next thing it touches. Therefore it is very important to treat these areas to prevent spread to other areas of skin or to other people and to clear the affected area of infection. Many times impetigo will be treated with an antibiotic cream or ointment or an oral antibiotic or both. It is very important that you use all medications as directed. Do not stop using prescribed medications till the rash is gone. Read and followall instructions from the wallpaper inspector and shipper before using. In order to help with healing you can do the following: ?? Gently wash the area with mild soap and water at least 2 times a day then cover gently with gauze ?? You may soak the crusted areas in warm water, a mixture of hydrogen peroxide (three parts water to one part hydrogen peroxide), a vinegar solution (1 Tablespoon white vinegar to 2 cups water) for 15minutes in order to loosen the crusts and then remove them with a washcloth. You may do this a few times a day if needed ?? Once you have finished cleaning the area pat it dry ?? Apply an antibiotic cream or ointment if directed to do so after the area is clean and dry ?? Trim fingernails ?? Avoid scratching the area In order to prevent spread of the infection: ?? Wash hand frequently with soap or use alcohol based hand sanitizers ?? Wash the infected person???s toys, clothes, pillow covers, sheets, towels, separately in hot, soapy water daily ?? Do not share toys, clothes, pillow covers, sheets, and towels with the infected person ?? Wear gloves when applying topical creams or ointments ?? Do not attend school or daycare till you have been on treatment for at least 48 hours ?? Check with your provider as to when it is safe to return to sports You do not need to follow up with your provider if the skin clears with the prescribed treatment. Ifyou have been referred to another provider and you do not hear from them in 24-48 hours please call the phone number listed below. Call or seek medical attention IMMEDIATELY if: ?? The sores become painful or turn into deep ulcers ?? You or your child develop a fever of 100.4F (38C) or greater ?? You or your child develop swollen glands ?? You or your child develop blood in the urine ?? You or your child have decreased urination Call the clinic or nurse line if: ?? The affected areas of skin are not improving in 2-3 days ?? Increased redness, warmth, or swelling develop in the affected areas ?? Drainage is no longer clear but is opaque and looks like pus ?? Skin is not completely clear at the end of treatment ACCOUNTANT documented in this encounter Progress Notes Yari Mehta APRN, CNP - 03/09/2012 1:57 PM CST Chief Complaint Patient presents with ??? RASH outside of mouth ??? REMOVAL, REMOVE, WARTS ??? Health Maintenance Communication Will get flu vaccine S: Marychuy Le is a pleasant 11 yr old female who presents with concern of 1.) rash on the outside of her mouth- below lip in two areas. Has been present for about 1 week. Has noticed some crusting of the area. Has not tried any treatment to it. 2.) Warts- on bilateral hands. Has tried liquid nitrogen in the past. Is aware of the side effects, would like to try this again. No Known Allergies No past medical history on file. Review of Systems Remainder of Complete Review of Systems is negative O: Filed Vitals: 03/09/12 1351 BP: 134/75 Temp: 98.3 ??F (36.8 ??C) TempSrc: Oral Weight: 163 lb (73.936 kg) Gen: Pleasant, well-groomed and appears in no acute distress Skin: 3 warts on palmar right hand, 3 warts on quiroga left hand Red, pustular rash in two areas directly below lower lip on face. A/P: Marychuy was seen today for rash, removal, remove, warts and health maintenance communication. Diagnoses and associated orders for this visit: Impetigo - mupirocin (AKA BACTROBAN) 2 % ointment; Apply topically two times a day. Viral warts - DESTRUC BENIGN LESIONS; UP 14 (62660) After discussion of risk, liquid nitrogen was used on 6 warts on bilateral hands. Patient tolerated procedure well. Return in 4 weeks for repeat treatment. Need for prophylactic vaccination and inoculation against influenza - Fluzone 3+yrs (V04.81) Need for other specified prophylactic vaccination against single bacterial disease - MENINGOCOCCAL CONJUGATE (Menactra) (V03.89) ACCOUNTANT documented in this encounter Plan of Treatment Not on filedocumented as of this encounter Visit Diagnoses Diagnosis Impetigo - Primary Viral warts Viral warts, unspecified Need for prophylactic vaccination and in oculation against influenza Need for other specified prophylactic va ccination against single bacterial disease documented in this encounter Care Teams Denitrator Relationship Specialty Start Date End Date Yari Mehta APRN, NEGOTIATOR PCP - General Family Practice 08/04/11 09/12/13 [address] [place] [address] documented as of this encounter
--- OUTSIDE RECORDS SUMMARY | 2022-03-19 14:34 | XMS_ITS | Encounter Summary ---
:2000 Author Organization [facility] Address [address] [place] [address] Care Team Providers Name Role Phone Christin Palacios PA-C Primary Care Provider Reason for Visit Reason Comments WART right thunb, and right foot Encounter Details Date Type Department Care Team Description 11/01/2015 Office Visit [facility] Christin Palacios, Viral wa rts, Practice [place] unspecified type [address] [address] [place] [address] (Pr imary Dx) [address] [place] [address] [place] [address] [phone] Social History Tobacco Use Types Packs/Day Years Used Date Smoking Tobacco: Passive Smoke Exposure - Never Smoker Smokeless Tobacco: Never Comments: parents Alcohol Use Standard Drinks/Week Comments No 0 (1 standard drink = 0.6 oz pure alcoho l) Sex Assigned at Date Recorded Not on file documented as of this encounter Last Filed Vital Signs Vital Sign Reading Time Taken Comments Blood Pressure 122/79 11/01/2015 3:47 PM CDT Pulse 82 11/01/2015 3:47 PM CDT Temperature 36.8 ??C (98.2 ??F) 11/01/2015 3:47 PM CDT Respiratory Rate - - Oxygen Saturation - - Inhaled Oxygen Concentration - - Weight 108.4 kg (239 lb) 11/01/2015 3:47 PM CDT Height - - Body Mass Index - - documented in this encounter Progress Notes Christin Palacios PA-C - 11/01/2015 3:49 PM CDT Chief Complaint Patient presents with ??? WART right thunb, and right foot SUBJECTIVE Patient presents today for Viral wart removal. Previous treatments include: none. The cause of warts and risks and benefits of Liquid Nitrogen therapy including scarring, pigment changes, and wart recurrence were discussed with the patient. OBJECTIVE Blood pressure 122/79, pulse 82, temperature 98.2 ??F (36.8 ??C), temperature source Oral, weight 239 lb (108.41 kg), last menstrual period 10/02/2015. WDWN female in NAD Neuro: Alert, orientated Skin: Exam reveals a quantity of 2 warts ranging from 2 to 6 mm located on right thumb and plantar surface of right foot. . Treatment was accomplished using Liquid Nitrogen. ASSESSMENT. [...] Primary documented in this encounter Care Teams Product Safety Manager Relationship Specialty Start Date End Date Christin Palacios PA-C PCP - General Physician Platform Worker 05/12/14 [address] [address] [facility] [place] [id number] documented as of this encounter
--- OUTSIDE RECORDS SUMMARY | 2022-03-19 14:34 | XMS_ITS | Encounter Summary ---
:2000 Author Organization [facility] Address [address] [place] [address] Care Team Providers Name Role Phone Christin Palacios PA-C Primary Care Provider Reason for Visit Reason Comments Refill Ibuprofen Encounter Details Date Type Department Care Team Description 06/14/2015 Refill [facility] Christin Palacios PA-C Refill (Ibuprofen) [address] [address] [place] [phone] [address] [place] [address] (Wo rk) Social History Tobacco Use Types Packs/Day Years Used Date Smoking Tobacco: Passive Smoke Exposure - Never Smoker Smokeless Tobacco: Never Comments: parents Alcohol Use Standard Drinks/Week Comments No 0 (1 standard drink = 0.6 oz pure alcoho l) Sex Assigned at Date Recorded Not on file documented as of this encounter Nursing Notes Vaishali Wiley RN - 06/14/2015 8:40 AM CST Medication is patient reported. Unable to refill per standing orders. Please review, sign and fill as appropriate. May close the encounter if filled. Vaishlai Wiley RN LIANCE REVIEWER Interface, Out Surescripts Prov Query - 06/14/2015 8:36 AM CST ibuprofen (AKA MOTRIN) 600 MG tablet [Pharmacy Med Name: IBUPROFEN 600MG TABS] - WARNING: The requested medication was previously set to Historical on 10/18/2014 by ZULAY GALVIN - REFILL: 6 months (if warnings resolved) - PROTOCOL: NSAIDs - RATIONALE: This refill should last until the patient is due for an office visit. - LAST QUALIFYING VISIT IN FAMILY PRACTICE: 11/08/2014 - NEXT SCHEDULED VISIT: None - LAST REFILLED: Not available (Last set to Historical on 10/18/2014 by ZULAY GALVIN Sig: Take 600 mg by mouth every 6 hours as needed. (changed)) Powered by Wiki[employer], Reference: [id number], 06/14/2015 8:36:32 AM SINDY, Pool: SC REFILL RN ([id number]) LIANCE REVIEWER documented in this encounter Plan of Treatment Not on filedocumented as of this encounter Visit Diagnoses Not on filedocumented in this encounter Care Teams Learning Support Specialist Relationship Specialty Start Date End Date Christin Palacios PA-C PCP - General Physician Foley Artist 05/12/14 [address] [address], [place] [address] documented as of this encounter
--- OUTSIDE RECORDS SUMMARY | 2022-03-19 14:34 | XMS_ITS | Encounter Summary ---
:2000 Author Organization [facility] Address [address] [place] [address] Care Team Providers Name Role Phone Nuria Greene PA-C Primary Care Provider [phone] Reason for Visit Reason Comments Sore Throat Encounter Details Date Type Department Care Team Description 04/27/2009 Office Visit [facility] Streptoc occal Sore Throat [facility] (Primary Dx) [address] [place] [address] Social History Tobacco Use Types Packs/Day Years Used Date Smoking Tobacco: Never Assessed Sex Assigned at Date Recorded Not on file documented as of this encounter Last Filed Vital Signs Vital Sign Reading Time Taken Comments Blood Pressure - - Pulse - - Temperature 36.1 ??C (96.9 ??F) 04/27/2009 5:40 PM 911 DISPATCHER Respiratory Rate - - Oxygen Saturation - - Inhaled Oxygen Concentration - - Weight 46.3 kg (102 lb) 04/27/2009 5:40 PM 911 DISPATCHER Height - - Body Mass Index - - documented in this encounter Patient Instructions Patient InstructionsVaishali Moya - 04/27/2009 5:43 PM CST Strep Throat (Streptococcal Pharyngitis) You have been diagnosed with having a streptococcal infection in the throat. This is caused by the bacteria called streptococcus pyogenes or group a streptococcus. This means that your throat may be red and swollen, tonsils may be enlarged, there may be pus in the back of the throat, there may be red spots on the roof of the mouth, you may have a headache, fever, rash, or stomach ache. Antibiotics are given to prevent complications from the strep infection such as rheumatic fever and to reduce the amount of time you are contagious. Your provider will have given you a prescription for an antibiotic medication to fight the infection. Please take it as directed. Do not stop the medication even if you are feeling better. This means take the medication till it is gone. Most people are no longer contagious 24-48 hours after starting the antibiotic medication. In order to keep yourself more comfortable you should: ?? Take acetaminophen (Tylenol??) or Ibuprofen (Advil?? or Motrin??) Increase your fluids Get plenty or rest Eat soft foods Humidify the air at home with a room humidifier Avoid smoke if you do not smoke. Quit smoking if you do Gargle with warm salt water (1/2 teaspoon of salt to 8 oz water), 50/50 mixture of hydrogen peroxideand water, or dissolve one ibuprofen tablet in 8 oz of water In order NOT to give strep to someone else: ?? Wash your hands often or use alcohol containing hand sanitizers Use tissues Cover your mouth and nose when you sneeze or cough Don???t share drinking glasses, utensils or toothbrushes. Throw your current toothbrush away Stay home from work or school till you have been on antibiotic medication for at least 24 hours You do not need to follow up with your provider if your symptoms are resolving. Call or seek medical attention IMMEDIATELY if: ?? You or your child have difficulty swallowing or breathing Excessive drooling occurs in a young child Symptoms of dehydration occur such as sunken eyes, severe weakness or decreased urine output Call the clinic or nurse line if: ?? Your symptoms are not improving after having taken medication for 48 hours You develop a red rash that feels like sandpaper Fever lasts for longer than 48 hrs You develop pain or swelling in the joints You develop cola colored urine ?? You have recurring sore throats 911 DISPATCHER documented in this encounter Progress Notes Vaishali Moya - 04/27/2009 5:43 PM CST Subjective Marychuy Le is a 8 yr old female here with mother, who present with a complaint of sore throat for 2 days. HPI The sore throat is described as making it hard to swallow. Patient has taken nothing. This has not helped. PMH Strep Exposure? school exposure [place] Exposure? none Strep History? No ROS Other symptoms none. Medications: No current outpatient prescriptions on file. Allergies: Review of patient's allergies indicates no known allergies. Objective Vitals: Temp 96.9 ??F (36.1 ??C) Wt 102 lb (46.267 kg) General Appearance: well developed, well nourished, in no acute distress, appears stated age, is appropriately dressed, speaks appropriately and alert Ears: R TM WNL: pearly, givens with good light reflex L TM WNL: pearly, givens with good light reflex Nose and Sinuses: normal and mucosal erythema Throat: mild erythema, halitosis, tonsillar hypertrophy, 2+ and exudates present Neck: small, benign anterior cervical nodes bilaterally Lungs: clear to auscultation, no wheezes, rales or rhonchi bilaterally Abdomen: not tender Test results: Rapid Strep: Positive Throat Culture: not done Upton: Not done Assessment + Strep Throat Plan See patient education and prescribed medications. 911 DISPATCHER documented in this encounter Plan of Treatment Not on filedocumented as of this encounter Visit Diagnoses Diagnosis Streptococcal sore throat - Primary documented in this encounter Care Teams Passenger Train Braker Relationship Specialty Start Date End Date Nuria Greene PA-C PCP - General 08/16/08 08/03/11 [address] [place] [address] documented as of this encounter
--- OUTSIDE RECORDS SUMMARY | 2022-03-19 14:34 | XMS_ITS | Encounter Summary ---
:2000 Author Organization [facility] Address [address] [place] [address] Care Team Providers Name Role Phone JanineYari APRN, CIVIL ENGINEERING DIRECTOR Primary Care Provider [phone] Reason for Visit Reason Comments Sports Physical Encounter Details Date Type Department Care Team Description [facility]2012 [facility] [address] administrative purposes [place], [place] (Primary Dx) [phone] Social History Tobacco Use Types Packs/Day Years Used Date Smoking Tobacco: Passive Smoke Exposure - Never Smoker Smokeless Tobacco: Never Comments: parents Alcohol Use Standard Drinks/Week Comments No 0 (1 standard drink = 0.6 oz pure alcoho l) Sex Assigned at Date Recorded Not on file documented as of this encounter Last Filed Vital Signs Vital Sign Reading Time Taken Comments Blood Pressure 121/79 12/16/2012 5:29 PM CDT Pulse 91 12/16/2012 5:29 PM CDT Temperature 36.9 ??C (98.4 ??F) 12/16/2012 5:29 PM CDT Respiratory Rate - - Oxygen Saturation - - Inhaled Oxygen Concentration - - Weight 90.4 kg (199 lb 4 oz) 12/16/2012 5:29 PM CDT Height 166.4 cm (5' 5.5) 12/16/2012 5:29 PM CDT Body Mass Index 32.65 12/16/2012 5:29 PM CDT Body Mass Index Percentile 98.98 % 12/16/2012 5:29 PM CD T Growth Chart: CDC (Girls, 2-20 Years) documented in this encounter Patient Instructions Patient InstructionsSumeetGeovani dawsonDAVINA, CIVIL ENGINEERING DIRECTOR - 12/16/2012 5:38 PM CDT Twelve to Eighteen Years: A [...] school and through the community or their anglican. These activities can be very time consuming, [...] swim there is still time to learn. [employer] and community education programs offer swimming lessons [...] people, and can be hard to predict. [id number]-tcct-ijdx can vary in size from a 4 [...] your life safer and healthier. ?? 2003- [facility] -12/25. documented in this encounter Progress Notes Geovani Nava APRN, CNP - 12/16/2012 5:38 PM CDT [id number] SPORTS QUALIFYING PHYSICAL HISTORY FORM [facility] [employer] Student name: Marychuy Le Birthdate: 2000 Date of exam: 12/16/2012 History GENERAL QUESTIONS No *1. Has a doctor ever denied or restricted your participation in sports for any reason or told you to give up sports? No 2. Do you have an ongoing medical condition (like diabetes, asthma, anemia, infections)? No 3. Are you currently taking any prescription or nonprescription (khph-hbt-itokjzv) medicines or pills? No 4. Do you have allergies to [...] Have you ever had an unexplained seizure? No 15. Do you get more tired or short of breath more quickly than your friends during exercise? HEART HEALTH QUESTIONS ABOUT YOUR FAMILY No [...] have difficulty breathing during or after exercise? No 31. Is there anyone in your family [...] 49. Have you had any eye injuries? No 50. Do you wear glasses or contact lenses? No 51. Do you wear protective eyewear, such as goggles or a face shield? No 52. Do you worry about your weight? No 53. Are you trying to or has anyone recommended that you gain or lose weight? No 54. Are you on a special diet or do you avoid certain types of foods? No 55. Have you ever had an eating disorder? No 56. Do you have any concerns that you would like to discuss with a doctor? FEMALES ONLY No 57. Have you ever had a menstrual period? NA 58. How old where you when you had your first menstrual period? NA 59. How many menstrual periods have you had in the last year? Follow-Up Questions About More Sensitive Issues: 1. Do you feel stressed out or under a lot of pressure? NO 2. Do you ever feel so sad or hopeless that you stop doing some of your usual activities for more than a few days? NO 3. Do you feel safe? YES 4. Have you ever tried cigarette smoking, even 1 of 2 puffs? No Do you currently smoke? No 5. During the past 30 days, did you use chewing tobacco, snuff, or dip? No 6. During the past 30 days, have you had at least 1 drink of alcohol? No 7. Have you ever taken steroid pills or shots without a doctor's prescription? No 8. Have you ever taken any supplements to help you gain or lose weight or improve your performance? No 9. Question Risk Behaviors like guns, seatbelts, unprotected sex, domestic violence, drugs, and others. MEDICAL EXAM BP 121/79 Pulse 91 Temp(Src) 98.4 ??F (36.9 ??C) (Oral) Ht 5' 5.5 (1.664 m) Wt 199 lb 4 oz (90.379 kg) BMI 32.64 kg/m2 BMI (optional): body mass index is 32.64 kg/(m^2). Arm span/height ratio greater than 1.05 is considered out of the normal range. No exam data present Normal vision is 20/40 or better in each eye. Normal hearing is 40 dB or less at each frequency in each ear. Vision - Corrected: No Contacts: No Exam Appearance: Normal Marfan stigmata (kyphoscoliosis, high-arched palate, pectus excavatum, arachnodactyly, arm span>height, hyperlaxity, myopia, MVP, aortic insufficiency) Normal HEENT: Normal Eyes: Normal Pupils: Equal Hearing: Normal Cardiovascular: Normal Murmurs: (auscultation standing, supine, +/- Valsalva) Normal Pulses (simultaneous femoral & radial): Normal Lungs: Normal Abdomen: Normal Skin: (HSV, MRSA, Tinea corporis): Normal Musculoskeletal Neck: Normal Back: Normal Shoulder/Arm: Normal Elbow/Forearm: Normal Wrist/Hand/Fingers: Normal Hip/Thigh: Normal Knee: Normal Leg/Ankle: Normal Foot/Toes: Normal Functional (Duck Walk/Single Leg Hop): Normal Assessment: Cleared for sports without restriction Plan: Immunizations: Up-to-Date and Health Maintenance: Lifestyle, health, and safety counseling andDiscussed dental care and mouthguard use JANETT BhaktaF 12/16/2012, 5:48 PM Kaylee Bullock LPN - 12/16/2012 5:31 PM CDT Vision: Right eye 20/30 Left eye 20/20 Kaylee Bullock LPN documented in this encounter Plan of Treatment Not on filedocumented as of this encounter Visit Diagnoses Diagnosis Other general medical examination for ad ministrative purposes - Primary documented in this encounter Care Teams Senior Sql Server Developer Relationship Specialty Start Date End Date Yari Mehta APRN, FREDA PCP - General Family Practice 08/04/11 09/12/13 [facility] [place] [address] documented as of this encounter
--- OUTSIDE RECORDS SUMMARY | 2022-03-19 14:35 | XMS_ITS | Encounter Summary ---
:2000 Author Organization [facility] Address [address] [place] [address] Care Team Providers Name Role Phone Nuria Greene PA-C Primary Care Provider [phone] Encounter Details Date Type Department Care Team Description 01/19/2009 Outside [facility] Family [facility]ac leena Outside Hospital [address] [place] [address] [place] [address] Social History Tobacco Use Types Packs/Day Years Used Date Smoking Tobacco: Never Assessed Sex Assigned at Date Recorded Not on file documented as of this encounter Progress Notes [facility] - 01/19/2009 12:00 AM CDT documented in this encounter Plan of Treatment Not on filedocumented as of this encounter Visit Diagnoses Not on filedocumented in this encounter Care Teams Scroll Machine Operator Relationship Specialty Start Date End Date Nuria Greene PA-C PCP - General 08/16/08 08/03/11 [address] [place] [address] documented as of this encounter
--- OUTSIDE RECORDS SUMMARY | 2022-03-19 14:35 | XMS_ITS | Encounter Summary ---
:2000 [facility] Address [address] [place] [address] Care Team Providers Name Role Phone Nuria Greene PA-C Primary Care Provider [phone] Encounter Details Date Type Department Care Team Description 07/18/2005 Office Visit [facility] [address] [place] [address] [place] [address] (Wo rk) Social History Tobacco Use Types Packs/Day Years Used Date Smoking Tobacco: Never Assessed Sex Assigned at Date Recorded Not on file documented as of this encounter Progress Notes Nuria Greene PA-C - 07/18/2005 12:00 AM CST MYRANDA MENON MR#: [id number] The responsible alliance party is Myranda Menon : 2000 Age 4 y Home phone number: Work phone number : Date of visit: 07/18/2005 Time: 07:06 pm CHIEF COMPLAINT: Ear pain R>L x couple days HISTORY: 4 y/o F with above. Was to the approx 3 weeks ago - Dx with OM - bilat and poss strep -never tested. Given Azithromycin and finished all as directed 2-3 days ago and still having R ear pain. Denies d/c, sig Hx of ear infections - no PE tubes. Has decreased appetite mild ST and rhinorrheaas well as slight cough - better than it was. Denies CRISTÓBAL, N/V, has felt warm - no documented temp. OTC: ibuprofen Meds: None Allergies: NKDA VITALS SIGNS: WEIGHT: 46lbs TEMPERATURE: 100.1??f Oral Tobacco used/exposure presently? Yes. ( EXP) This patient was counseled? Yes PHYSICAL EXAM: GENERAL APPEARANCE: Healthy appearing comfortable and breathing easily.NAD or discomfort. VS: Per EMR Derm: Clear EYES: CONJUNCTIVAE AND LIDS: Conjunctivae and lids appear normal. No scleral icterus. PUPILS: Pupils equal and reactive. EOMI EARS, NOSE, MOUTH AND THROAT: ORAL: Inspection of the gums, lips, palate, and teeth are normal. ERYTHEMA NOTED ON THE POSTERIOR PHARYNX, BOTH TONSILS ARE MODERATELY ENLARGED, BOTH TONSILS ARE MODERATELY ERYTHEMATOUS, the tonsils donot have exudate, No oropharynx trauma noted, normal uvula. EARS: External auditory canal normal bilaterally, BULGING TYMPANIC MEMBRANES NOTED BILATERALLY, EFFUSION PRESENT BILATERALLY, TYMPANIC MEMBRANES INFLAMED BILATERALLY, REDUCED LIGHT REFLEX. LANDMARKS PARTIALLY OBSCURED IN THE EARS BILATERALLY, no tubes in either of the tympanic membranes, no perforations of the tympanic membrane in either ear. NOSE: CLEAR NASAL DISCHARGE NOTED BILATERALLY, TURBINATES RED BILATERALLY. LYMPHADENOPATHY: Patient does have lymphadenopathy in the anterior cervical, in the posterior cervical. RESPIRATORY: Normal respiratory effort. Normal to auscultation. s. WRRR CARDIAC: Rhythm regular with no murmurs, gallops, rubs or abnormal heart sounds. GASTROINTESTINAL: LIVER/SPLEEN/KIDNEY: No hepatosplenomegaly, Kidneys not palpable. ABDOMEN: Normal bowel sounds. No tenderness is present. All labs done and reviewed by providers. Rapid Strep: NEG - Cx is pending - will contact only if POS ASSESSMENT/PLAN: 381.02-MUCOID OTITIS MEDIA, ACUTE - Discussed med use and Sx Tx. Advised to f/u at end of ABX to ensure resolution. They asked to schedule with md - have appt for July 28, 2005. All questions were answered and pt/Parents were in agreement with plan. Will f/u as needed before next appt. MEDICATIONS: AUGMENTIN ORAL SUSPENSION WHEN RECONSITITUTED 400-57 MG/5ML, 6cc po BID x 10 days, 10 Duration/Days Supply, status: NEW PRESCRIPTION, 07/18/2005. 462-PHARYNGITIS, ACUTE TREATMENTS: QUICK CARE RAPID STREP QUICK CARE STREP CULTURE Electronically Signed by: Nuria Hays MS, PA-C on Monday, July 18, 2005 Addendum - 07/20/2005 01:23 pm Final 48 hr Strep Cx: NEG Electronically Signed by: Nuria Hays MS, PA-C on Wednesday, July 20, 2005 [place] documented in this encounter Plan of Treatment Not on filedocumented as of this encounter Visit Diagnoses Not on filedocumented in this encounter Care Teams Polisher Hand Relationship Specialty Start Date End Date Nuria Greene PA-C PCP - General 08/16/08 08/03/11 [address] [place] [address] documented as of this encounter
--- OUTSIDE RECORDS SUMMARY | 2022-03-19 14:35 | XMS_ITS | Encounter Summary ---
:2000 Author Organization [facility] Address [address] [place] [address] Care Team Providers Name Role Phone Nuria Greene PA-C Primary Care Provider [phone] Encounter Details Date Type Department Care Team Description 12/12/2004 Office Visit [facility] Flor Monzon MD [address] [place] [address] [place], [place] [phone] (Wo rk) Social History Tobacco Use Types Packs/Day Years Used Date Smoking Tobacco: Never Assessed Sex Assigned at Date Recorded Not on file documented as of this encounter Progress Notes Flor Monzon - 12/12/2004 12:00 AM CDT MYRANDA BRANDT : 2000 Date of Exam: 12/12/2004 MR#: [id number] CHIEF COMPLAINT: 4 YR WCC (HEADSTART CHECK) CURRENT ALLERGY LIST: NO KNOWN DRUG ALLERGY CURRENT MEDICATION LIST: NONE VITALS: VITALS SIGNS: HEIGHT: 43 1/4in WEIGHT: 48lbs PULSE: 90 Left Radial, Regular BLOOD PRESSURE: 115/74 Left Arm Sitting Are immunizations all up to date? Yes. Tobacco used presently? Yes ( IS EXPOSED BY FAMILY) This patient was counseled? Yes ACCOMPANIED BY: Mother, father. PATIENT'S AGE: 4 yrs, 3 mths, 3 wks, 4 days ROOMING STANDARDS BY: Corina Barnard LPN. CURRENT HEALTH HABITS: DIET: No known food allergies. Normal diet for child's age. BOWELS: No problems. SLEEPING: Normal sleep habits for age. URINATION: Normal urination. OTHER: Child has been screened for vision and hearing in another setting within the past year. The results were normal. THE PATIENT DOES NOT SEE THE DENTIST REGULARLY. Child is physically active. A belt positioning booster seat is used for every car ride. PHYSICAL EXAMINATION: GEN: Alert, appropriate for age. EYES: No discharge, conjuntivae clear. Red reflex. ENMT: Tympanic membranes clear. Hearing appears normal. Pharynx clear. HEAD/NECK: Normocephalic, flat fontanel. Neck supple, without lymphadenopathy, no thyroid enlargement. RESP: Clear to auscultation. Normal respiratory effort. CHEST/BREAST: Normal to inspection and palpation. GI: Soft, non-tender, not distended, kidney, spleen and liver not enlarged, no masses. Bowel sound active. : Normal genitalia. vicky.Normal femoral pulses. LYMPHATICS: No lymphadenopathy. M/S: No joint or bone abnormalities seen. No muscle weakness. No hip dysplasia or scoliosis. SKIN: No rashes, normal color. NEURO: No meningeal findings. R eflexes are normal. DEVELOPMENTAL/BEHAVIORAL: 3-5 YEARS - NORMAL FOR AGE. ASSESSMENT/PLAN: V20.2-ROUTINE OR CHILD HEALTH CHECK LAB ORDERS: Order number: [id number] Test Ordered: URINALYSIS MICROSCOPIC Order number: [id number] Test Ordered: URINE DIP TREATMENTS: VISION EXAM WITH OFFICE VISIT Comments: [place] [id number] (12/12/2004) L 10/10 AND R 10/15 AUDIOGRAM Comments: [place] [id number] (12/12/2004) passed audiogram - L 250 (15) unable to perform R - 1000 20 (R) 15 (L) - 4000 20 (R) & 15 (L) - 8000 15 (R) AND 20 (L) ANTICIPATORY GUIDANCE: HEALTHY HABITS:, SOCIAL COMPETENCE:, FAMILY RELATIONSHIPS:. RETURN VISIT: Return for yearly well visit. Electronically Signed by: Flor Monzon MD on Thursday, December 25, 2004 documented in this encounter Plan of Treatment Not on filedocumented as of this encounter Visit Diagnoses Not on filedocumented in this encounter Care Teams Sales Compensation Analyst Relationship Specialty Start Date End Date Nuria Greene PA-C PCP - General 08/16/08 08/03/11 [address] [place] [address] documented as of this encounter
--- OUTSIDE RECORDS SUMMARY | 2022-03-19 14:35 | XMS_ITS | Encounter Summary ---
:2000 Author Organization [facility] Address [address] [place] [address] Care Team Providers Name Role Phone Freeman Greene PA-C Primary Care Provider [phone] Encounter Details Date Type Department Care Team Description 11/05/2005 Office Visit [facility] Freeman Greene, [address] [place] [address] [address] [phone] [place] [address] (Wo rk) Social History Tobacco Use Types Packs/Day Years Used Date Smoking Tobacco: Never Assessed Sex Assigned at Date Recorded Not on file documented as of this encounter Progress Notes Freeman Greene PA-C - 11/05/2005 12:00 AM CDT MYRANDA BRANDT : 2000 Age: 5 y Date of Exam: 11/05/2005 MR#: [id number] Provider: FREEMAN MANUEL EXAM TYPE: 5 year CHILD AND TEEN CHECK. CHIEF COMPLAINT: CURRENT ALLERGY LIST: NO KNOWN DRUG ALLERGY CURRENT MEDICATION LIST: VITALS SIGNS: HEIGHT: 46in WEIGHT: 48lbs TEMPERATURE: 98??f Oral BLOOD PRESSURE: 100/64 Left Arm Sitting PATIENT'S AGE: 5 yrs, 2 mths, 2 wks, 5 days Tobacco used/exposure presently? Yes. This patient was counseled? Yes Are immunizations all up to date? Yes. ( Due for MMR, Dtap, IPV today) LEAD SCREENING: Was checked when pt. enrolled in [facility] some time ago DENTAL EXAMS: Child is not up to date with annual dental care. Recommend parent to make dental appointment. ROOMING STANDARDS BY: 04:11 sammy Leyva LPN. ACCOMPANIED BY: Mother, father. CURRENT HEALTH HISTORY: DIET: Dietary intake normal for age. URINATION: No problems. BOWELS: Normal stools. SLEEPING: Normal sleep habits for age. VISION: Subjective assessment identifies no concerns. HEARING: Subjective assessment identifies no concerns. CAR SEAT/SAFETY: Uses age appropriate vehicle restraining device. ENVIRONMENTAL RISKS: None identified. BEHAVIOR/MENTAL HEALTH RISKS: No concerns. PAST MEDICAL HISTORY: HISTORY: Normal full term female with no problems. L&D without difficulty, no resuscitation, no issues in the nursery, went home with mom. MEDICAL: No significant history of medical diseases. SURGICAL: No previous surgery. CHILDHOOD DISEASES/ILLNESSES: Normal childhood diseases. PREVIOUS IMMUNIZATIONS: Immunizations status reviewed. No adverse reactions to prior immunizations. SOCIAL HISTORY: PERSONS IN HOME: Includes the patient's father, mother. DAY CARE: Day care is not used. PEER INTERACTION: Child socializes well with other children. SCHOOL: Adequate academic performance. FAMILY HISTORY: Not obtained. DEVELOPMENTAL SCREEN: 3-6 Years - Normal for age. (NORMAL FOR A 5 YEAR LEVEL): (SOCIAL) Dresses and undresses without help, plays make believe, and plays games with others; (FINE MOTOR) Copies square demonstrated, copies +, recognizes some letters, and draws a person with at least 6 body parts; (LANGUAGE) Names 4 colors, counts 5 objects, understands 4 prepositions, able to define 5 words, and speechall understandable; (GROSS MOTOR) Balances each foot for 5 seconds, and walks heel-to-toe. REVIEW OF SYSTEMS: All systems reviewed and are normal. PHYSICAL EXAMINATION: GROWTH: Height is normal for age, Weight is normal for age, height and weight ratio is normal for age. CONSTITUTIONAL: GENERAL APPEARANCE: Healthy appearing, alert child, normally nourished, developmentally normal and in no acute distress.or discomfort. VS: Per EMR EYES: Lids, conjunctivae, pupils unremarkable. Vision subjectively normal. RED REFLEX: Present bilaterally. ALIGNMENT: Corneal light reflex normal. Equal ocular movements. Vision subjectively normal. CONJUNCTIVAE AND LIDS: CONJUNCTIVAE AND LIDS: Appear normal. PUPILS: Equal, round, and normally reactive to light and accommodation. EARS, NOSE, MOUTH AND THROAT: EXTERNAL EARS AND NOSE: EARS: Tympanic membranes shiny with normal landmarks. No retraction. Canals unremarkable. Hearing subjectively normal. NOSE: Nares patent. ORAL: Inspection of gums, lips, and palate normal. Oral mucosa unremarkable with non-inflamed posterior pharynx. Normal dentition for age. NECK AND THYROID: Symmetrical with full range of motion. No thyroid enlargement noted. RESPIRATORY: Normal respiratory effort, normal to auscultation.s. WRRR CARDIOVASCULAR: CARDIAC: Rhythm regular with no murmurs, gallops, rubs or abnormal heart sounds. No edema or varicosities. CHEST/BREAST: No chest deformity. GASTROINTESTINAL: ABDOMEN: Soft, non-tender, without masses. LIVER/SPLEEN/KIDNEY: No hepatosplenomegaly, Kidneys not palpable. GENITOURINARY: EXTERNAL/VAGINAL: Normal female genitalia. No discharge. Normal clitoris and labia. Mucosa clear without lesions. Sexual development is age appropriate. URETHRA: Urethral opening is normal. BLADDER: Without fullness, masses or tenderness. LYMPHATICS: No lymphadenopathy in the neck, no supraclavicular lymphadenopathy noted. MUSCULOSKELETAL EXAM: DIGITS/NAILS: No clubbing, cyanosis, inflammation, or ischemia. HEAD/NECK: Normocephalic. SPINE: Normal to inspection and palpation. EXTREMITIES: BILATERAL LOWER: No misalignment or tenderness. No signs of developmental dysplasia of the hips. Full range of motion. Normal stability, strength and tone. SKIN: INSPECTION: Yellow raised lesion (several) upper torso/mid axillary R side. No changes per parents. Rest clear NEUROLOGIC: Normal reflexes, strength, tone, and posture. ASSESSMENT/PLAN: V20.2-ROUTINE OR CHILD HEALTH CHECK V72.0-SCREENING, EYES AND VISION TREATMENTS: VISION EXAM WITH RHM, DOT, WCC, SPORT Comments: rashawn (11/05/2005) 10/10 ou, os, od V72.1-SCREENING, HEARING TREATMENTS: AUDIOGRAM Comments: rashawn (11/05/2005) see scanned document/WNL V06.1-DTAP VACCINE --SEE IMMUNIZATION RECORD V04.0-POLIO VACCINE, V04.0 -- SEE IMMUNIZATION RECORD V06.4-MMR VACCINE--SEE IMMUNIZATION RECORD RETURN VISIT: Return for next scheduled well visit.6 year Electronically Signed by: Freeman Manuel MS, PA-C on Saturday, November 05, 2005 documented in this encounter Plan of Treatment Not on filedocumented as of this encounter Visit Diagnoses Not on filedocumented in this encounter Care Teams Membership Sales Representative Relationship Specialty Start Date End Date Freeman Greene PA-C PCP - General 08/16/08 08/03/11 [address] [place] [address] documented as of this encounter
--- OUTSIDE RECORDS SUMMARY | 2022-03-19 14:35 | XMS_ITS | Encounter Summary ---
:2000 [facility] Address [address] [place] [address] Care Team Providers Name Role Phone Nuria Greene PA-C Primary Care Provider [phone] Encounter Details Date Type Department Care Team Description 06/12/2003 Orders Only [facility] Family Prac leenaVaishali Murdock MD [address] [place] [address] [place] [address] [address] [place], [place] [address] Social History Tobacco Use Types Packs/Day Years Used Date Smoking Tobacco: Never Assessed Sex Assigned at Date Recorded Not on file documented as of this encounter Plan of Treatment Not on filedocumented as of this encounter Procedures Procedure Name Priority Date/Time Associated Diagnosis Comme nts STREP GRP A, RAPID Routine 06/12/2003 10:02 AM Re sults for this SCREEN DECK LID FITTER procedure are i n the results section. documented in this encounter Results STREP GRP A, RAPID SCREEN (06/12/2003 10:02 AM DECK LID FITTER) [facility] gist Method Time Signature Grp A Rapid Positive [facility] Screen Specimen Anatomical Collection Method Collection Time Receive d Time (Source) Location / / Volume Laterality 06/12/2003 10:02 06/12/2003 AM DECK LID FITTER 10:02 AM DECK LID FITTER Vaishali Carrillo MD LAB_1 Performing Organization Address City/State/ZIP Code Phon e Number [facility] HISTORICAL DATA LOAD [facility] [address] [address] documented in this encounter Visit Diagnoses Not on filedocumented in this encounter Care Teams City Superintendent Relationship Specialty Start Date End Date Nuria Greene PA-C PCP - General 08/16/08 08/03/11 [address] [place] [address] documented as of this encounter
--- OUTSIDE RECORDS SUMMARY | 2022-03-19 14:35 | XMS_ITS | Encounter Summary ---
:2000 Author Organization [facility] Address [address] [place] [address] Care Team Providers Name Role Phone Nuria Greene PA-C Primary Care Provider [phone] Encounter Details Date Type Department Care Team Description 08/22/2003 Office Visit [facility] Family Prac Vaishali Hartman MD [address] [place] [address] [place] [address] [place] [address] Social History Tobacco Use Types Packs/Day Years Used Date Smoking Tobacco: Never Assessed Sex Assigned at Date Recorded Not on file documented as of this encounter Progress Notes Vaishali Carrillo - 08/22/2003 12:00 AM CDT MYRANDA BRANDT Home Phone #: : [phone] Age: 3 y Date of exam: 08/22/2003 MR#: [id number] Provider: VAISHALI CARRILLO The stated problem(s) to be addressed this visit are: cold sx's. CURRENT ALLERGIES NO KNOWN DRUG ALLERGY VITALS SIGNS: 35lbs VITALS SIGNS: 97.8??f Axillary The patient was asked about any tobacco use at present.Yes ( EXPOSURE) HISTORY OF PRESENT ILLNESS: 3 year old with upper respiratory symptoms over the last few days consisting of runny nose and cough. No fever, no vomiting, no diarrhea, no complaints. REVIEW OF SYSTEMS: Noncontributory. PHYSICAL EXAMINATION: CONSTITUTIONAL: GENERAL APPEARANCE: Healthy appearing individual in no distress. EYES: CONJUNCTIVAE AND LIDS: Conjunctivae and lids appear normal. PUPILS: Pupils equal and normally reactive to light and accommodation. EARS, NOSE, MOUTH AND THROAT: EXTERNAL/EARS AND NOSE: Overall appearance normal with no scars, lesions or masses. EARS: Tympanic membranes shiny without retraction. Canals unremarkable. Hearing grossly normal. NOSE (AND SINUS): GREEN NASAL DISCHARGE NOTED BILATERALLY. NECK AND THYROID: Symmetrical with no elevation of the jugular venous pulsation. Trachea midline. Nothyroid enlargement, tenderness, or mass. RESPIRATORY: Clear to auscultation and percussion. Normal respiratory effort. No fremitus. CARDIOVASCULAR: CARDIAC: Regular rhythm. No murmurs, rubs, or gallops. PMI not displaced. No thrill. LYMPHATICS: No lymphadenopathy in the neck, axillae, or groin. ASSESSMENT/PLAN: 465.0-UPPER RESPIRATORY INFECTIONS, ACUTE, UNSPECIFIED S Continue cares of symptoms. RETURN VISIT: Instructed to return earlier than the next regularly scheduled appointment if not improving. Vaishali Carrillo MD, PEDS. Electronically Signed by: June Carrillo MD on Saturday, August 23, 2003 documented in this encounter Plan of Treatment Not on filedocumented as of this encounter Visit Diagnoses Not on filedocumented in this encounter Care Teams Warranty Clerk Relationship Specialty Start Date End Date Nuria Greene PA-C PCP - General 08/16/08 08/03/11 [address] [place] [address] documented as of this encounter
--- OUTSIDE RECORDS SUMMARY | 2022-03-19 14:35 | XMS_ITS | Encounter Summary ---
:2000 Author Organization [facility] Address [address] [place] [address] Care Team Providers Name Role Phone Yari Mehta APRN, CNP Primary Care Provider [phone] Encounter Details Date Type Department Care Team Description 03/31/2008 Orders Only [facility] Shiv Galvez, [address] [place], [place] [phone] Social History Tobacco Use Types Packs/Day Years Used Date Smoking Tobacco: Never Assessed Sex Assigned at Date Recorded Not on file documented as of this encounter Plan of Treatment Not on filedocumented as of this encounter Visit Diagnoses Not on filedocumented in this encounter Care Teams Dryerman/Woman Relationship Specialty Start Date End Date Yari Mehta APRN, SUBCONTRACTS MANAGER PCP - General Family Practice 08/04/11 09/12/13 [address] [facility] [place] [address] documented as of this encounter
--- OUTSIDE RECORDS SUMMARY | 2022-03-19 14:35 | XMS_ITS | Encounter Summary ---
:2000 [facility] Address [address] [place] [address] Care Team Providers Name Role Phone Freeman Greene PA-C Primary Care Provider [phone] Encounter Details Date Type Department Care Team Description 12/11/[address] [facility] Pediatric[facility] Freeman Greene, [address] [place] [address] [phone] [place] [address] (Wo rk) Social History Tobacco Use Types Packs/Day Years Used Date Smoking Tobacco: Never Assessed Sex Assigned at Date Recorded Not on file documented as of this encounter Progress Notes Freeman Manuel - 12/11/2008 12:00 AM CDT MYRANDA BRANDT : 2000 Age: 8 y Date of Exam: 12/11/2008 MR#: [id number] Home phone number: Work phone number : Provider: FREEMAN MANUEL CHIEF COMPLAINT: Pt Dx with ADHD , med consult EXAM TYPE: CHILD AND TEEN CHECK. CURRENT ALLERGY LIST: Reviewed with Parent/Guardian on 12/11/2008 at 03:32 P NO KNOWN DRUG ALLERGY CURRENT MEDICATION LIST: Reviewed with Parent/Guardian on 12/11/2008 at 03:32 P none VITALS: TEMPERATURE: 97.7??f Oral PULSE: 82 Right Radial, Regular BLOOD PRESSURE: 104/72 Left Arm Sitting HEIGHT: 54.75in WEIGHT: 92lbs BMI: 21.58 PATIENT'S AGE: 8 yrs, 3 mths, 3 wks, 3 days Tobacco used/exposure presently? Yes. ( exposure by parents) Are immunizations all up to date? No. ( needs 2nd Varicella) DENTAL EXAMS: Child is up to date with dental exams. Patient educated to continue annual dental appointments. PATIENT'S INSURANCE REVIEWED AT THIS VISIT TO ASSESS IF THEY CAN PARTICIPATE IN [facility] PROGRAM. SEE CHART NOTE TEXT BELOW. Patient eligible for [facility] program./SEE SCANNED IMAGE. ROOMING STANDARDS BY: 03:25 p Agata Ware LPN. ACCOMPANIED BY: Mother, father. DETAILS OF NEW SYMPTOM HISTORY: Pleasant 8 yr old WF here today with Mom/Dad for 8 yr [facility], consult meds for ADHD. Pt recently Dx - no forms (they will have these faxed). Briefly discussed med use - which they would like to start. In home counselor comes weekly (Jeri Loving)/through [facility] [employer]. No forms/no other concerns. CURRENT HEALTH HISTORY: DIET: High fat/portions, counseled. URINATION: No problems. BOWELS: Normal stools. SLEEPING: Normal sleep habits for age. VISION: No personal or parental concerns. HEARING: No personal or parental concerns. CAR SAFETY: A seat belt is used for every car ride. PHYSICAL ACTIVITY: IS NOT PHYSICALLY ACTIVE. Difficult with safety issues - aggressive neighbors, busy street etc. TV/COMPUTER: TV/Computer use is greater than 2 hours per day. Likes nintendo/computer games ENVIRONMENTAL RISKS: THE FOLLOWING RISKS ARE IDENTIFIED: SMOKERS IN HOUSE/BDLG. BEHAVIORAL/MENTAL HEALTH: Diagnosed recently with ADHD Reviewed, edited and updated by Freeman Manuel PA-C 12/11/2008, 04:16 P Past History: Medical: ADHD, overweight Surgeries: None Meds: KNKDA Reviewed, edited and updated by Freeman Manuel PA-C 12/11/2008, 04:16 P Social History: Lives at home with Mom and Dad, sister. Will be a 3rd grader Fall 2008 at [employer]. Reviewed, edited and updated by Freeman Manuel PA-C 12/11/2008, 04:16 P Family History: Fa/Mo - DM, PGGF - heart, sister CF DEVELOPMENT: (NORMAL FOR AGE): School performance. difficulty at times with behaviour/attention - new Dx ADHD. Family relationships, communication fine. REVIEW OF SYSTEMS: Neg - see above. PHYSICAL EXAMINATION: GROWTH: BMI of concern. 96th % CONSTITUTIONAL: GENERAL APPEARANCE: Healthy appearing, alert child, normally nourished, developmentally normal and in no acute distress. VS: Noted. EYES: Lids, conjunctivae, pupils unremarkable. Vision subjectively normal. EARS, NOSE, MOUTH AND THROAT: EXTERNAL EARS AND NOSE: Overall appearance normal with no scars, lesions or masses. EARS: Tympanic membranes shiny with normal landmarks. No retraction. Canals unremarkable. Hearing subjectively normal. NOSE: Nares patent. ORAL: Inspection of gums, lips, and palate normal. Oral mucosa unremarkable with non-inflamed posterior pharynx. Normal dentition for age. NECK AND THYROID: Symmetrical with full range of motion. No thyroid enlargement noted. No lymphadenopathy. RESPIRATORY: Clear to auscultation. Normal respiratory effort. CARDIOVASCULAR: CARDIAC: Normal sinus rhythm without murmur. GASTROINTESTINAL: ABDOMEN: Soft, non-tender, without masses. LIVER/SPLEEN: No hepatosplenomegaly. GENITOURINARY: EXTERNAL/VAGINAL: Normal female genitalia. No discharge. Normal clitoris and labia. Mucosa clear without lesions. Sexual development is age appropriate. LYMPHATICS: No lymphadenopathy in the neck. MUSCULOSKELETAL EXAM: DIGITS/NAILS: No clubbing, cyanosis, inflammation, or ischemia. HEAD/NECK: HEAD: Normocephalic. Neck: Normal to inspection and palpation with satisfactory range of motion. Strength adequate with normal stability. SPINE: Normal to inspection and palpation. EXTREMITIES: Extremities-No Misalignment or tenderness. Full range of motion. Normal stability, strength and tone. Normal gait. SKIN: INSPECTION: Normal color, no rashes, or lesions. NEUROLOGIC: Normal reflexes, strength, tone, and posture. DEVELOPMENTAL/BEHAVORIAL (PSYCHIATRIC): PSYCHIATRIC: Judgment appropriate. Oriented. Normal memory. Mood and affect appropriate. Sits prettyattentively through exam. ASSESSMENT/PLAN: Discussed anticipatory guidance, handouts given. Updated Hep A #1 and Varicella #2.Discussed BMI concerns and further lab testing - they would like to pursue at separate visit. Discussed diet/exercise. They will try to have ADHD forms faxed. Anticipate starting meds, will do labs at that time. F/u prn based on progress. Recommend appt with eye doctor. All questions answered, pt/Mom in agreement. F/u 1 yr next [facility], sooner per above. V20.2-ROUTINE INFANT OR CHILD HEALTH CHECK V72.0-SCREENING, EYES AND VISION TREATMENTS: VISION EXAM WITH RHM, DOT, WCC, SPORT Comments: tyrell (12/11/2008) right eye 20/50, left eye 20/30, both eyes 20/25 V72.19-SCREENING OR OTHER EXAM OF EARS & HEARING TREATMENTS: AUDIOGRAM Comments: tyrell (12/11/2008) see scanned item 278.02-OVERWEIGHT V05.4-VARICELLA VACCINE--SEE IMMUNIZATION RECORD V05.3-VIRAL HEPATITIS VACCIN--SEE IMMUNIZATION RECORD ANTICIPATORY GUIDANCE: Anticipatory guidelines were discussed. Routine dental care recommended/reinforced. HEALTHY HABITS: Healthy food choices (fruits, vegs, grains), weight management/BMI, physical activity, Limit TV/no TV in bedroom, video games, Car safety/seat belts : Belt positioning booster if <80 lbs. Consistent seat belt use if >80 lbs, Smoke-free environment, Regular dental care. SOCIAL COMPETENCE: School success/attendance. RESPONSIBILITY: Role model healthy habits, behaviors. ONGOING PROBLEMS/CONCERNS/PLANS: F/u eye doctor, BMI, ADHD C&TC REFERRAL CODES: NU - No referral(s). made. documented in this encounter Plan of Treatment Not on filedocumented as of this encounter Visit Diagnoses Not on filedocumented in this encounter Care Teams Director Fraud Relationship Specialty Start Date End Date Freeman Greene PA-C PCP - General 08/16/08 08/03/11 [address] [place] [address] documented as of this encounter
--- OUTSIDE RECORDS SUMMARY | 2022-03-19 14:35 | XMS_ITS | Encounter Summary ---
:2000 Author Organization [facility] Address [address] [place] [address] Care Team Providers Name Role Phone Yari Mehta APRN, CNP Primary Care Provider [phone] Encounter Details Date Type Department Care Team Description 06/12/2003 Orders Only [facility] Family Prac Vaishali Hartman MD [address] [place] [address] [place] [address], [place] [address] Social History Tobacco Use Types Packs/Day Years Used Date Smoking Tobacco: Never Assessed Sex Assigned at Date Recorded Not on file documented as of this encounter Plan of Treatment Not on filedocumented as of this encounter Visit Diagnoses Not on filedocumented in this encounter Care Teams Quantitative Equity Head Relationship Specialty Start Date End Date Yari Mehta APRN, CHAMFERING MACHINE OPERATOR PCP - General Family Practice 08/04/11 09/12/13 [address] [place] [address] documented as of this encounter
--- OUTSIDE RECORDS SUMMARY | 2022-03-19 14:35 | XMS_ITS | Encounter Summary ---
:2000 Author [facility] Address [address] [place] [address] Care Team Providers Name Role Phone Nuria Greene PA-C Primary Care Provider [phone] Encounter Details Date Type Department Care Team Description 12/12/2003 Office Visit [facility] Pediatrics Vaishali Carrillo MD [address] [place] [address] [place] [address] [place] [address]63 03 Social History Tobacco Use Types Packs/Day Years Used Date Smoking Tobacco: Never Assessed Sex Assigned at Date Recorded Not on file documented as of this encounter Progress Notes Vaishali Carrillo - 12/12/2003 12:00 AM CDT MYRANDA BRANDT : 2000 Date of Exam: 12/12/2003 MR#: [id number] HISTORY OF PRESENT ILLNESS: 3 year old here for a well child visit with a new finding, heart murmur. PHYSICAL EXAMINATION: GENERAL: Alert, appropriate for age. CARDIOVASCULAR: CARDIAC: GRADE III/ LATE SYSTOLIC MURMUR, AT LEFT STERNAL BORDER, WITH RADIATION TO BACK, WITH RADIATION TO AXILLA. ASSESSMENT/PLAN: 785.2-HEART MURMUR, UNDIAGNOSED (NOT SPECIFIED) RETURN VISIT: Patient is to call with concerns or changes in condition. VERIFICATION OF ANCILLARY DOCUMENTATION: The following portions of the chart were completed by ancillary personnel and reviewed by the physician: Vital signs. Electronically Signed by: June Carrillo MD on Friday, December 12, 2003 Vaishali Carrillo - 12/12/2003 12:00 AM CDT MYRANDA BRANDT : 2000 Date of Exam: 12/12/2003 MR#: [id number] CHIEF COMPLAINT: 3 year well child exam VITALS SIGNS: 40in VITALS SIGNS: 40lbs VITALS SIGNS: 97.4??f Oral VITALS SIGNS: 104 Right Radial, Regular VITALS SIGNS: 112/69 Right Arm Sitting Are immunizations all up to date? Yes. Tobacco used presently? Yes ( exposed at home and in car) ACCOMPANIED BY: Parents. PATIENT'S AGE: 3 yrs, 3 mths, 3 wks, 3 days ROOMING STANDARDS BY: Lula Bone LPN. HISTORY OF PRESENT ILLNESS: 3 year old here for [employer] physical exam. CURRENT HEALTH HABITS: BOWELS: Normal appearing stools. DIET: Normal diet for child's age. SLEEPING: Normal sleep habits for age. URINATION: Voiding well without obstructive or irritative symptoms. OTHER: There are no visual or hearing problems. PHYSICAL EXAMINATION: GENERAL: Alert, appropriate for age, EYES: No discharge, conjunctivae is clear, ENMT: Tympanic membranes clear, no nasal discharge, normal pharynx. Mucous membranes moist, NECK/THYROID: Supple neck, noadenopathy. No thyroid enlargement, tenderness, or mass, RESPIRATORY: Clear to auscultation and percu ssion. Normal respiratory effort, CHEST/BREAST: Normal to inspection and palpation, GASTROINTESTINAL: Soft, non-tender, without masses. Bowel sound active, LYMPHATICS: No lymphadenopathy, MUSCULOSKELETAL: No joint or bone abnormalities seen, no muscle weakness or scoliosis, SKIN: No rashes, normal color, NEUROLOGICAL: The cranial nerves intact, no sensory, motor, or cerebellar defects. Reflexes are normal. No meningeal findings. CARDIOVASCULAR: CARDIAC: GRADE III/ LATE SYSTOLIC MURMUR, AT LEFT STERNAL BORDER, WITH RADIATION TO BACK, WITH RADIATION TO AXILLA. ASSESSMENT/PLAN: V20.2-ROUTINE INFANT OR CHILD HEALTH CHECK TREATMENTS: MANTOUX TEST, V74.1 785.2-HEART MURMUR, UNDIAGNOSED (NOT SPECIFIED) SPECIALTY CARE REQUEST: PLEASE INITIATE REFERRAL TO THIS SPECIALTY: Sewer Pipe Cleaner. A letter to the reporting consultant was dictated. V74.1-SCREENING, MANTOUX RETURN VISIT: Return for next scheduled well visit. VERIFICATION OF ANCILLARY DOCUMENTATION: The following portions of the chart were completed by ancillary personnel and reviewed by the physician: Vital signs. Electronically Signed by: June Carrillo MD on Friday, December 12, 2003 Addendum - 12/13/2003 01:37 pm Specialty Care Details: Ltr sent to patient on 12-13-03. mme/SCC Electronically Signed by: Carmen Villanueva on Saturday, December 13, 2003 Addendum - 12/15/2003 12:50 pm These are the details of the specialty care order as arranged by the Specialty Care Office: Appointment with Dr. Parker ([facility]) on 01-02-2004. Erica/MELISSA Electronically Signed by: Erica Garcia on Monday, December 15, 2003 documented in this encounter Plan of Treatment Not on filedocumented as of this encounter Visit Diagnoses Not on filedocumented in this encounter Care Teams Director Transportation Relationship Specialty Start Date End Date Nuria Greene PA-C PCP - General 08/16/08 08/03/11 [address] [place] [address] documented as of this encounter
--- OUTSIDE RECORDS SUMMARY | 2022-03-19 14:35 | XMS_ITS | Encounter Summary ---
:2000 [facility] Address [address] [place] [address] Care Team Providers Name Role Phone Nuria Greene PA-C Primary Care Provider [phone] Encounter Details Date Type Department Care Team Description 01/23/2004 Office Visit [facility] Pediatrics Vaishali Carrillo MD [address] [place] [address] [place] [address] [place] [address] 03 Social History Tobacco Use Types Packs/Day Years Used Date Smoking Tobacco: Never Assessed Sex Assigned at Date Recorded Not on file documented as of this encounter Progress Notes Vaishali Carrillo - 01/23/2004 12:00 AM CDT MYRANDA BRANDT : 2000 Date of Exam: 01/23/2004 MR#: [id number] CHIEF COMPLAINT: eye redness VITALS SIGNS: WEIGHT: 38lbs TEMPERATURE: 97.5??f Oral PATIENT'S AGE: 3 yrs, 5 mths, 0 wks, 5 days ACCOMPANIED BY: Parents. ROOMING STANDARDS BY: Lula Bone LPN. HISTORY OF PRESENT ILLNESS: 3 year old with red eyes bilaterally, starting today. PHYSICAL EXAMINATION: GENERAL: Alert, appropriate for age, ENMT: Tympanic membranes clear, no nasal discharge, normal pharynx. Mucous membranes moist, NECK/THYROID: Supple neck, no adenopathy. No thyroid enlargement, tenderness, or mass, RESPIRATORY: Clear to auscultation and percussion. Normal respiratory effort, CHEST/BREAST: Normal to inspection and palpation, CARDIOVASCULAR: Regular rate and rhythm, no murmur, MUSCULOSKELETAL: No joint or bone abnormalities seen, no muscle weakness or scoliosis, SKIN: No rashes, normal color. EYES: CONJUNCTIVAE AND LIDS: CONJUNCTIVAL PALPEBRAL ERYTHEMA BILATERALLY, CONJUNCTIVAL BULBAR ERYTHEMA BILATERALLY, CONJUNCTIVAL INFLAMMATION BILATERALLY. ASSESSMENT/PLAN: 372.00-CONJUNCTIVITIS, ACUTE MEDICATIONS: GARAMYCIN OPHTHALMIC OINTMENT 0.3 %, 2 to 4 drops to affected eye(s) 4 times a day, 5 Duration/Days Supply, status: NEW PRESCRIPTION, 01/23/2004. RETURN VISIT: Patient is to call with concerns or changes in condition. VERIFICATION OF ANCILLARY DOCUMENTATION: The following portions of the chart were completed by ancillary personnel and reviewed by the physician: Vital signs. Electronically Signed by: June Carrillo MD on Friday, January 23, 2004 documented in this encounter Plan of Treatment Not on filedocumented as of this encounter Visit Diagnoses Not on filedocumented in this encounter Care Teams Setup Operator Relationship Specialty Start Date End Date Nuria Greene PA-C PCP - General 08/16/08 08/03/11 [address] [place] [address] documented as of this encounter
--- OUTSIDE RECORDS SUMMARY | 2022-03-19 14:35 | XMS_ITS | Encounter Summary ---
:[address] [facility] Address [address] [place] [address] Care Team Providers Name Role Phone Yari Mehta APRN, CNP Primary Care Provider [phone] Encounter Details Date Type Department Care Team Description 02/11/2006 Orders Only [facility] Family Prac Flor Meredith [address] [facility] [place] [address] [address] [phone] [place], [place] [phone] (Wo rk) Social History Tobacco Use Types Packs/Day Years Used Date Smoking Tobacco: Never Assessed Sex Assigned at Date Recorded Not on file documented as of this encounter Plan of Treatment Not on filedocumented as of this encounter Visit Diagnoses Not on filedocumented in this encounter Care Teams Sourcing Engineer Relationship Specialty Start Date End Date Yari Mehta APRN, FREDA PCP - General Family Practice 08/04/11 09/12/13 [address] [facility] [place] [address] documented as of this encounter
--- OUTSIDE RECORDS SUMMARY | 2022-03-19 14:35 | XMS_ITS | Encounter Summary ---
:2000 Author Organization [facility] Address [address] [place] [address] Care Team Providers Name Role Phone Yari Mehta APRN, CNP Primary Care Provider [phone] Encounter Details Date Type Department Care Team Description 09/22/2007 Orders Only [facility] Shiv Galvez, AN[address] [place], [place] [phone] Social History Tobacco Use Types Packs/Day Years Used Date Smoking Tobacco: Never Assessed Sex Assigned at Date Recorded Not on file documented as of this encounter Plan of Treatment Not on filedocumented as of this encounter Visit Diagnoses Not on filedocumented in this encounter Care Teams Peace Officer Relationship Specialty Start Date End Date Yari Mehta APRN, DIRECTOR FUNDRAISING PCP - General Family Practice 08/04/11 09/12/13 [address] [facility] [place] [address] documented as of this encounter
--- OUTSIDE RECORDS SUMMARY | 2022-03-19 14:35 | XMS_ITS | Encounter Summary ---
:2000 [facility] Address [address] [place] [address] Care Team Providers Name Role Phone Kelin Greenefer Timothy ORTIZ Primary Care Provider [phone] Encounter Details Date Type Department Care Team Description 02/11/2006 Office Visit [facility] Pediatrics Radha Bear [address] [facility] [place] [address] [address] [phone] [place] [address] (Wo rk) Social History Tobacco Use Types Packs/Day Years Used Date Smoking Tobacco: Never Assessed Sex Assigned at Date Recorded Not on file documented as of this encounter Progress Notes Radha Bear R - 02/11/2006 12:00 AM CDT MYRANDA BRANDT : 2000 Date of Exam: 02/11/2006 MR#: [id number] Provider: RADHA BEAR CHIEF COMPLAINT: The patient complains of right ear pain. CURRENT ALLERGY LIST: NO KNOWN DRUG ALLERGY CURRENT MEDICATION LIST: VITALS SIGNS: WEIGHT: 49lbs TEMPERATURE: 98.7??f Oral PATIENT'S AGE: 5 yrs, 5 mths, 3 wks, 4 days Tobacco used/exposure presently? Yes. ( PARENTS) This patient was counseled? Yes Are immunizations all up to date? Yes. ROOMING STANDARDS BY: 05:14 sammy Franklin LPN. HISTORY OF PRESENT ILLNESS: 5 y/o female here w/her father for two days of right-sided ear pain. Patient has had URI sxs. for about a week, h/o OM in the past, but nothing recent. She's complained of intermittent pain. Denies any ST, cough, doing well with fluids. PHYSICAL EXAMINATION: Pt. appears well. HEENT - Mild nasal congestion present. OP clear with wet mucous membranes. TMs - Left is normal, translucent, and clear. The R is mottled, inflamed, canal is clear. Neck supple w/o mass or adenopathy. Lungs clear throughout. ASSESSMENT/PLAN: 382.00-OTITIS MEDIA, ACUTE WITH INTACT TM MEDICATIONS: IBUPROFEN CHILDRENS ORAL SUSPENSION 100 MG/5ML FLUID OUNCES, 2 tsp tid prn pain/fever, 4 Dispensed, 1 Fills, status: NEW PRESCRIPTION, 02/11/2006. AMOXICILLIN ORAL SUSPENSION WHEN RECONSTITUTED 250 MG/5ML, 1 tsp tid x 10d, 150 Dispensed, status: NEW PRESCRIPTION, 02/11/2006. Recommended starting the antibiotic PEDRO, using Tylenol or the ibuprofenas needed and f/u in one month for ear recheck. Radha Bear M.D. MACARENA/bmt documented in this encounter Plan of Treatment Not on filedocumented as of this encounter Visit Diagnoses Not on filedocumented in this encounter Care Teams Vp Celebrity Services Relationship Specialty Start Date End Date Nuria Greene PA-C PCP - General 08/16/08 08/03/11 [address] [place] [address] documented as of this encounter
--- OUTSIDE RECORDS SUMMARY | 2022-03-19 14:35 | XMS_ITS | Encounter Summary ---
:2000 Author Organization [facility] Address [address] [place] [address] Care Team Providers Name Role Phone Freeman Greene PA-C Primary Care Provider [phone] Encounter Details Date Type Department Care Team Description 07/28/2005 Office Visit [facility] Freeman Greene, [address] [place] [address] [address] [phone] [place] [address] (Wo rk) Social History Tobacco Use Types Packs/Day Years Used Date Smoking Tobacco: Never Assessed Sex Assigned at Date Recorded Not on file documented as of this encounter Progress Notes Freeman Greene PA-C - 07/28/2005 12:00 AM CDT MYRANDA BRANDT : 2000 Date of Exam: 07/28/2005 MR#: [id number] Provider: FREEMAN MANUEL CHIEF COMPLAINT: recheck ears CURRENT ALLERGY LIST: NO KNOWN DRUG ALLERGY CURRENT MEDICATION LIST: AUGMENTIN ORAL SUSPENSION WHEN RECONSTITUTED 400-57 MG/5ML, 6cc po BID x 10 days VITALS SIGNS: WEIGHT: 48lbs TEMPERATURE: 97.5??f Oral PATIENT'S AGE: 4 yrs, 11 mths, 1 wk, 3 days Tobacco used/exposure presently? Yes. ( parents smoke in house and car) Are immunizations all up to date? Yes. ROOMING STANDARDS BY: 04:14 p Savanna Scherer MA. ACCOMPANIED BY: FatherLaureano Lema HISTORY OF PRESENT ILLNESS: Myranda is a 4 y/o female presenting today with dad and sister for a follow-up ear infection. The patient was seen by myself at the end of June for an ear infection. She wasgiven Augmentin and told to take twice daily for a total of 10 days and told to f/u at today's visit. Dad reports that essentially her pain and ear discomfort has resolved. They denied any discharge. Dad states activity, sleeping and appetite are all normal. They deny any fever, nausea or vomiting. Dad states that they forgot to take a couple of doses of the Augmentin and still have at least half a bottle left. PHYSICAL EXAMINATION: This is a pleasant 4 y/o female in NAD or discomfort, active and alert. Responds appropriately to questioning. Vital signs per EMR. Derm: No lesions or physical deformities to exposed skin on visual inspection. Head: AT/NC. Ears: Canals clear. TMs erythematous bilaterally. Landmarks visible minimally. Questionable fluid behind eardrums bilaterally. Eyes: PERRLA. EOMI. Sclerae nonicteric. Nose: Turbinates patent w/o discharge. Mouth: Buccal mucosa pink and moist w/o lesion. Mildtonsillar enlargement. No exudate noted. Neck is supple. There is posterior and anterior cervical chain adenopathy bilaterally w/o thyromegaly. Lungs clear to auscultation bilaterally w/o wheezes, rales, rhonchi or rubs. Heart: RRR w/o murmur, rub or gallop. Abdomen exam reveals soft, nontender, nondistended abdomen. Positive bowel sounds, no organomegaly noted. ASSESSMENT/PLAN: 381.02-MUCOID OTITIS MEDIA, ACUTE - not resolved continue missed doses of Augmentin Did discuss with dad that eardrums do not appear totally resolved. Seeing as how they have missed a couple of dose I asked him to extend the medication out over the next couple of days. If she is having any symptoms at the end of the antibiotic use I asked him to come in for re-evaluation. If asymptomatic will need to call with again questions or concerns. Advised on symptom treatment. All questions were answered to stated satisfaction. Patient and dad are in agreement with plan. Will follow-up as needed with any questions or concerns. Freeman Manuel P.A.-C. JF/ssb documented in this encounter Plan of Treatment Not on filedocumented as of this encounter Visit Diagnoses Not on filedocumented in this encounter Care Teams Windows Deployment Technician Relationship Specialty Start Date End Date Freeman Greene PA-C PCP - General 08/16/08 08/03/[address] [place] [address] [place] [address] documented as of this encounter
--- OUTSIDE RECORDS SUMMARY | 2022-03-19 14:35 | XMS_ITS | Encounter Summary ---
:2000 Author Organization [facility] Address [address] [place] [address] Care Team Providers Name Role Phone Yari Mehta APRN, CNP Primary Care Provider Encounter Details Date Type Department Care Team Description 01/23/2004 Orders Only [facility] Family Prac Vaishali Hartman MD [address] [place] [address] [place] [address], [place] [address] Social History Tobacco Use Types Packs/Day Years Used Date Smoking Tobacco: Never Assessed Sex Assigned at Date Recorded Not on file documented as of this encounter Plan of Treatment Not on filedocumented as of this encounter Visit Diagnoses Not on filedocumented in this encounter Care Teams Senior Sales Operations Manager Relationship Specialty Start Date End Date Yari Mehta APRN, LINE ERECTOR APPRENTICE PCP - General Family Practice 08/04/11 09/12/13 [address] [place] [address] documented as of this encounter
--- OUTSIDE RECORDS SUMMARY | 2022-03-19 14:35 | XMS_ITS | Encounter Summary ---
:2000 Author Organization [facility] Address [address] [place] [address] Care Team Providers Name Role Phone Nuria Greene PA-C Primary Care Provider Encounter Details Date Type Department Care Team Description 12/12/2004 Orders Only [facility] Flor Cartagena MD [address] [facility] [address] [place] [address] [place], [place] [phone] (Wo rk) Social History Tobacco Use Types Packs/Day Years Used Date Smoking Tobacco: Never Assessed Sex Assigned at Date Recorded Not on file documented as of this encounter Plan of Treatment Not on filedocumented as of this encounter Procedures Procedure Name Priority Date/Time Associated Diagnosis Comme nts UA, NO MICROSCOPIC Routine 12/12/2004 9:45 AM Res ults for this CDT procedure are i n the results section. UA MICRO Routine 12/12/2004 9:45 AM Results f or this CDT procedure are i n the results section. documented in this encounter Results UA MICRO (12/12/2004 9:45 AM CDT) [facility] gist Method Time Signature Epith, RARE/OCC [facility] Squamous WBC'S 2-5 [facility] Mucous, Urine RARE/OCC [facility] RBC'S 0-2 [facility] Bact FEW/SLIGHT [facility] Specimen Anatomical Collection Method Collection Time Receive d Time (Source) Location / / Volume Laterality 12/12/2004 9:45 AM 5 9:45 CDT AM CDT Flor Monzon MD LAB_1 Performing Organization Address City/[facility]/ZIP Code Phon e Number [facility] HISTORICAL DATA LOAD [facility] [address] [phone] UA, NO MICROSCOPIC (12/12/2004 9:45 AM CDT) athologist Signature Urine Color Yellow [facility] Leuk Trace [facility] Blood Negative [facility] Nitr Negative [facility] Urob 0.2 [facility] Prot Negative [facility] pH 7.0 [facility] Sp Gr 1.025 [facility] Ket Negative [facility] Appr Clear [facility] Gluc Negative [facility] Bili Negative [facility] Specimen Anatomical Collection Method Collection Time Receive d Time (Source) Location / / Volume Laterality 12/12/2004 9:45 AM 5 9:45 CDT AM CDT Flor Monzon MD LAB_1 Performing Organization Address [facility] Phon e Number [facility] HISTORICAL DATA LOAD [facility] [address] [phone] documented in this encounter Visit Diagnoses Not on filedocumented in this encounter Care Teams Hose Stripper Relationship Specialty Start Date End Date Nuria Greene PA-C PCP - General 08/16/08 08/03/11 [address] [place] [address] documented as of this encounter
--- OUTSIDE RECORDS SUMMARY | 2022-03-19 14:35 | XMS_ITS | Encounter Summary ---
:2000 Author Organization [facility] Address [address] [place] [address] Care Team Providers Name Role Phone Nuria Greene PA-C Primary Care Provider [phone] Encounter Details Date Type Department Care Team Description 12/14/2008 Orders Only [facility] Family Prac leena Unknown, Physician [address] [facility] [address] [place] [address] [place] [address] [phone] (Wo rk) Social History Tobacco Use Types Packs/Day Years Used Date Smoking Tobacco: Never Assessed Sex Assigned at Date Recorded Not on file documented as of this encounter Procedure Notes Nuria Hays - 12/14/2008 12:00 AM CDTAssociated Order(s): AUDIOLOGY HEARING AIDE SC documented in this encounter Plan of Treatment Not on filedocumented as of this encounter Procedures Procedure Name Priority Date/Time Associated Diagnosis Comme nts AUDIOLOGY HEARING 12/14/2008 12:00 AM Res ults for this AIDE SC CDT procedure are i n the results section. documented in this encounter Results AUDIOLOGY HEARING AIDE SC (12/14/2008 12:00 AM CDT) Narrative 12/14/2008 12:00 AM CDT This result has an attachment that is no t available. Ordered by an unspecified provider. Transcriptions Nuria Hays - 12/14/2008 12:00 AM CDT Physician Unknown DUMMY/OTHER/AR documented in this encounter Visit Diagnoses Not on filedocumented in this encounter Care Teams Field Ring Assembler Relationship Specialty Start Date End Date Nuria Greene PA-C PCP - General 08/16/08 08/03/11 [address] [place] [address] documented as of this encounter
--- OUTSIDE RECORDS SUMMARY | 2022-03-19 14:35 | XMS_ITS | Encounter Summary ---
:2000 [facility] Address [address] [place] [address] Care Team Providers Name Role Phone Yari Mehta APRN, CNP Primary Care Provider [phone] Encounter Details Date Type Department Care Team Description 07/18/2005 Orders Only [facility] Family Prac Nuria Murphy, [address] [place] [address] [address] [phone] [place], [place] [phone] (Wo rk) Social History Tobacco Use Types Packs/Day Years Used Date Smoking Tobacco: Never Assessed Sex Assigned at Date Recorded Not on file documented as of this encounter Plan of Treatment Not on filedocumented as of this encounter Visit Diagnoses Not on filedocumented in this encounter Care Teams Tellers Supervisor Relationship Specialty Start Date End Date Yari Mehta APRN, SWATCHER PCP - General Family Practice 08/04/11 09/12/13 [address] [facility] [address] [place] [address] documented as of this encounter
--- OUTSIDE RECORDS SUMMARY | 2022-03-19 14:35 | XMS_ITS | Encounter Summary ---
:2000 Author Organization [facility] Address [address] [place] [address] Care Team Providers Name Role Phone Freeman Greene PA-C Primary Care Provider [phone] Encounter Details Date Type Department Care Team Description 03/31/2008 Office Visit [facility] Freeman Greene, [address] [place] [address] [address] [facility] S [phone] [place] [address] (Wo rk) Social History Tobacco Use Types Packs/Day Years Used Date Smoking Tobacco: Never Assessed Sex Assigned at Date Recorded Not on file documented as of this encounter Progress Notes Freeman Greene PA-C - 03/31/2008 12:00 AM CST MYRANDA BRANDT : 2000 Age: 7 y Date of Exam: 03/31/2008 MR#: [id number] Home phone number: Work phone number : Provider: FREEMAN MANUEL CHIEF COMPLAINT: SUTURE THUMB CURRENT ALLERGY LIST: Reviewed with Parent/Guardian on 03/31/2008 NO KNOWN DRUG ALLERGY CURRENT MEDICATION LIST: Reviewed with Parent/Guardian on 03/31/2008 NONE VITALS: TEMPERATURE: 97.7??f Oral WEIGHT: [id number] PATIENT'S AGE: 7 yrs, 7 mths, 1 wk, 5 days Tobacco used/exposure presently? Yes. Are immunizations all up to date? Yes. ROOMING STANDARDS BY: 04:53 p Catalino Mercado MA. ACCOMPANIED BY: Parents. HISTORY: Myranda is a pleasant, ykafq-hrrc-yyq white female, presenting today with mom and dad for suture removal. HPI: Patient accidentally had her left thumb caught in a car door and presented to the emergency room March 23, 2008. Three single, interrupted sutures were placed. She apparently had an x-ray done, which was unremarkable. She originally had a splint; that, however, did not work out. Mom denies any complications. Since that point in time it has actually only been eight days since they have been seen but they would, if possible, like to have the sutures out today. No concerns in regard to infection. REVIEW OF SYSTEMS: PHYSICAL EXAMINATION: Blas, rkeph-rasb-aeq white female, in no acute distress or discomfort. Vital signs: Per EMR. Patient is afebrile. Derm: Patient has a one-centimeter approximate laceration on the dorsal aspect of the left thumb just proximal to the IP joint. Three single, interrupted sutures are in place. The wound edges appear to have adhesed nicely. There is no surrounding erythema or discharge. The sutures are removed without difficulty. Patient tolerated the procedure well. Steri-Stripswere placed to reinforce the edges. Neosporin was applied as well as a Band-Aid. The patient tolerated the procedure well. ASSESSMENT/PLAN: V58.32-ENCOUNTER FOR REMOVAL OF SUTURES A/P: Discussed ongoing care instructions with mom and dad. Reviewed warning signs, complications and when to seek further medical attention. All questions answered to stated satisfaction. Patient and parents in agreement with plan. Followup as needed. Freeman Manuel PA-C. ING EXECUTIVE documented in this encounter Plan of Treatment Not on filedocumented as of this encounter Visit Diagnoses Not on filedocumented in this encounter Care Teams Costume Design Teacher Relationship Specialty Start Date End Date Freeman Greene PA-C PCP - General 08/16/08 08/03/11 [address] [place] [address] documented as of this encounter
--- OUTSIDE RECORDS SUMMARY | 2022-03-19 14:35 | XMS_ITS | Encounter Summary ---
:2000 Author Organization [facility] Address [address] [place] [address] Care Team Providers Name Role Phone Nuria Greene PA-C Primary Care Provider [phone] Encounter Details Date Type Department Care Team Description 09/22/2007 Office Visit [facility]iv Bell [facility] [address] [place] [address] Social History Tobacco Use Types Packs/Day Years Used Date Smoking Tobacco: Never Assessed Sex Assigned at Date Recorded Not on file documented as of this encounter Progress Notes Shiv Bell PA-C - 09/22/2007 12:00 AM CDT THE INFORMATION BELOW IS FOR YOU AND YOUR PRIMARY PROVIDER. MYRANDA MENON MR#: [id number] The responsible green party is Myranda Menon : 2000 Age 7 y Home phone number: Work phone number : Date of visit: 09/22/2007 Time: 04:18 pm CHIEF COMPLAINT: OTALGIA HISTORY: Wendy was sent home from school today for drainage from her right ear. She has been ill for 2 days with fever and malaise and mild cough. Parents stated that she had OM as a younger child but not recently. VITALS: TEMPERATURE: 100??f Tympanic Tobacco used/exposure presently? Yes. ( both parents smoke) This patient was counseled? Yes ( spoke with parents) CURRENT ALLERGY LIST: Reviewed with Pt/Guardian on 09/22/2007 NO KNOWN DRUG ALLERGY PHYSICAL EXAM: GENERAL APPEARANCE: Healthy appearing comfortable and breathing easily. EARS, NOSE, MOUTH AND THROAT: yellow purulent drainage from the right ear canal, left TM is red and dull with exudate, nose is red with mucoid discharge, pharynx is red. LYMPHATICS: No lymphadenopathy in the neck. RESPIRATORY: Normal to auscultation. ASSESSMENT/PLAN: 381.02-MUCOID OTITIS MEDIA, ACUTE MEDICATIONS: AUGMENTIN ORAL SUSPENSION WHEN RECONSTITUTED 400-57 MG/5ML, 1 TSP PO BID 10 DAYS, 100 Dispensed, 10 Duration/Days Supply, status: NEW PRESCRIPTION, 09/22/2007. PATIENT EDUCATION: Follow up with your primary provider if symptoms do not improve, encouraged to use Ibuprofen prn. Advised check up with PMD in 2 weeks. FOLLOW UP INSTRUCTIONS: Shiv Bell, Electronically Signed by: Shiv Bell PA-C on Thursday, September 22, 2007 documented in this encounter Plan of Treatment Not on filedocumented as of this encounter Visit Diagnoses Not on filedocumented in this encounter Care Teams Telephone Collector Relationship Specialty Start Date End Date Nuria Greene PA-C PCP - General 08/16/08 08/03/11 [address] [place] [address] documented as of this encounter
--- OUTSIDE RECORDS SUMMARY | 2022-03-19 14:36 | XMS_ITS | Encounter Summary ---
:2000 [facility] Address [address] [place] [address] Care Team Providers Name Role Phone Nuria Greene PA-C Primary Care Provider [phone] Encounter Details Date Type Department Care Team Description 04/17/2001 Office Visit [facility] Family Prac leena Vaishali Carrillo MD [address] [place] [address] [place] [address] [place] [address] Social History Tobacco Use Types Packs/Day Years Used Date Smoking Tobacco: Never Assessed Sex Assigned at Date Recorded Not on file documented as of this encounter Progress Notes Vaishali Carrillo - 04/17/2001 12:00 AM CST MYRANDA BRANDT : 2000 Date of Exam: 04/17/2001 Date Transcribed: mm/dd/yyyy MR#: [id number] S: Myranda is here for a follow-up after having had problems with wheezing associated respiratory illness and being on nebulizations. She has tolerated the nebulizations well except for agitation when they are being given, and that is to the point where parents have had to force the mask on her face. Dad has actually accidently scraped her face with the mask. She fights it fairly considerably. The parents have also noticed some lanza on her eyelids and are concerned about that. O: Weight is 16 pounds 11 3/4 ounces. Temperature 96.9. She is alert, active and in no acute distress. Intermittently smiles. Both TMs look normal even though she is being treated for a left ear infection. After two doses of amoxicillin it looks great. Oropharynx reveals excellent mucosal hydration. She has a little bit of a rhinorrhea present along with some nasal congestion. Lungs reveal a little bit of expiratory strider but last nebulization was 1 ?? hours ago and O2 saturations today are 97%. No intercostal retractions. Not toxic looking. A: Wheezing associated respiratory illness, stable. P: Please note that there are petechia on the eyelids and also some bruising around the nasal bridgealong with a fingernail scrape on the left side of the face. This is all from the mask use. Plan at this time will be to decrease the frequency of the nebulizations to albuterol 0.25 mg in Intal twice a day. Also, just have albuterol 0.25 mg in 2 cc normal saline at noon and 4 p.m. This will only be done with a blow by corrugated tubing from now on. She is to finish the amoxicillin and the Pediapred.I'd like to see her back on at 3:30 p.m. Detailed descriptions were given as to medication and it's utilization. Vaishali Carrillo M.D. MILAGROS/chiquita documented in this encounter Plan of Treatment Not on filedocumented as of this encounter Visit Diagnoses Not on filedocumented in this encounter Care Teams Assistant Plant Control Operator Relationship Specialty Start Date End Date Nuria Greene PA-C PCP - General 08/16/08 08/03/11 [address] [place] [address] documented as of this encounter
--- OUTSIDE RECORDS SUMMARY | 2022-03-19 14:36 | XMS_ITS | Encounter Summary ---
:2000 Author Organization [facility] Address [address] [place] [address] Care Team Providers Name Role Phone Nuria Greene PA-C Primary Care Provider [phone] Encounter Details Date Type Department Care Team Description 03/11/2002 Office Visit [facility] Pediatrics Vaishali Carrillo MD [address] [place] [address] [place] [address] [place] [address] Social History Tobacco Use Types Packs/Day Years Used Date Smoking Tobacco: Never Assessed Sex Assigned at Date Recorded Not on file documented as of this encounter Progress Notes Vaishali Carrillo - 03/11/2002 12:00 AM CST PEDIATRICS MYRANDA BRANDT : Date of Exam: 03/11/2002 MR# [id number] S: Myranda is here for a follow-up evaluation after having been started on nebulizations. She gets them every four hours. The last one was this morning. She is also here for a flu vaccine. O: Her weight today is 25 pounds, temperature 97.3 degrees. Both tympanic membranes look normal. Oropharynx is normal. Chest is clear to auscultation. There are no intercostal retractions and no paradoxical breathing. A: Stable wheezing. P: Decrease to twice a day nebulizations. Return in one week for a re- evaluation. Influenza vaccine today and the next in one month. Discussed with both parents the reasons for quitting smoking, both for their own health and for Myranda. Vaishali Carrillo MD BB/clp documented in this encounter Plan of Treatment Not on filedocumented as of this encounter Visit Diagnoses Not on filedocumented in this encounter Care Teams Aircrewman Relationship Specialty Start Date End Date Nuria Greene PA-C PCP - General 08/16/08 08/03/11 [address] [place] [address] documented as of this encounter
--- OUTSIDE RECORDS SUMMARY | 2022-03-19 14:36 | XMS_ITS | Encounter Summary ---
:2000 Author Organization [facility] Address [address] [place] [address] Care Team Providers Name Role Phone Nuria Greene PA-C Primary Care Provider [phone] Encounter Details Date Type Department Care Team Description 05/10/2001 Office Visit [facility] Pediatrics Vaishali Carrillo MD [address] [place] [address] [place] [address] [place] [address] Social History Tobacco Use Types Packs/Day Years Used Date Smoking Tobacco: Never Assessed Sex Assigned at Date Recorded Not on file documented as of this encounter Progress Notes Vaishali Carrillo - 05/10/2001 12:00 AM CST MYRANDA BRANDT : 2000 Date of Exam: 05/10/2001 Date Transcribed: 05/11/2001 MR#: [id number] S: Myranda is a preemie who is here for Synagist injection. She has had no intermittent resp. concerns, has been eating well, and has not had any fevers. O: Her weight today is 17 lb. 6 oz. She is alert, active in no acute distress with no abnormal movements. Good mucosal hydration. Chest is clear to auscultation. A: Okay for Synagist at a weight of 17 lb. 6 oz. P: 100 mg IM x1. Return for 9 month visit and next Synagist injection at the end of May. or early June. Vaishali Carrillo M.D. MILAGROS/ska documented in this encounter Plan of Treatment Not on filedocumented as of this encounter Visit Diagnoses Not on filedocumented in this encounter Care Teams Laser Beam Trim Operator Relationship Specialty Start Date End Date Nuria Greene PA-C PCP - General 08/16/08 08/03/11 [address] [facility] [address] documented as of this encounter
--- OUTSIDE RECORDS SUMMARY | 2022-03-19 14:36 | XMS_ITS | Encounter Summary ---
:2000 [facility] Organization [facility] Address [address] [place] [address] Care Team Providers Name Role Phone Nuria Greene PA-C Primary Care Provider [phone] Encounter Details Date Type Department Care Team Description 06/12/2003 Office Visit [facility] Vaishali Carrillo MD [address] [place] [address] [place] [address] [place] [address] 563 03 Social History Tobacco Use Types Packs/Day Years Used Date Smoking Tobacco: Never Assessed Sex Assigned at Date Recorded Not on file documented as of this encounter Progress Notes Vaishali Carrillo - 06/12/2003 12:00 AM CST MYRANDA BRANDT : 2000 Date of Exam: 06/12/2003 MR#: [id number] CHIEF COMPLAINT: URI CURRENT ALLERGIES: NO KNOWN DRUG ALLERGY VITALS SIGNS: WEIGHT: 95dze2ip TEMPERATURE: 97.6??f Oral PATIENT'S AGE: 2 yrs, 9 mths, 3 wks, 2 days ACCOMPANIED BY: Parents. HISTORY OF PRESENT ILLNESS: 2year old with cough that kept her up overnight. Triaminic seemed to help her sleep last night but she hates the taste of it. Appetite: has been drinking more than eating. No vomiting or diarrhea. PHYSICAL EXAMINATION: GENERAL: Alert, appropriate for age, EYES: No discharge, conjunctivae is clear, CARDIOVASCULAR: Regular rate and rhythm, no murmur, SKIN: No rashes, normal color, NEUROLOGICAL: The cranial nerves intact, no sensory, motor, or cerebellar defects. Reflexes are normal. No meningeal findings, PSYCHIATRIC:Mood and affect appropriate for age. EARS, NOSE, MOUTH AND THROAT: EXTERNAL/EARS AND NOSE: Overall appearance normal with no scars, lesions or masses. EARS: BULGING TYMPANIC MEMBRANE NOTED IN THE LEFT EAR, EFFUSION PRESENT IN THE LEFT EAR, LEFT TYMPANIC MEMBRANE INFLAMED, DECREASED MOBILITY NOTED OF THE LEFT TYMPANIC MEMBRANE. ORAL: BOTH TONSILS ARE MILDLY ENLARGED, BOTH TONSILS ARE MILDLY ERYTHEMATOUS. NECK AND THYROID: MOBILE, NON-TENDER SUBMANDIBULAR NECK MASSES NOTED BILATERALLY. RESPIRATORY: Clear to auscultation and percussion. Normal respiratory effort. No fremitus. ASSESSMENT/PLAN: 381.02-MUCOID OTITIS MEDIA, ACUTE MEDICATIONS: AMOXICILLIN ORAL SUSPENSION WHEN RECONSITITUTED 400 MG/5ML, 5 cc po tid x 10days, 10 Duration/Days Supply, status: NEW PRESCRIPTION, 06/12/2003. 462-PHARYNGITIS, ACUTE LAB ORDERS: Order number: [id number] Tests Ordered: STREP, RAPID SCREEN RETURN VISIT: Patient instructed to return in 2 weeks. VERIFICATION OF ANCILLARY DOCUMENTATION: The following portions of the chart were completed by ancillary personnel and reviewed by the physician: Vital signs. Electronically Signed by: June Carrillo MD on May documented in this encounter Plan of Treatment Not on filedocumented as of this encounter Visit Diagnoses Not on filedocumented in this encounter Care Teams Web Press Roll Tender Relationship Specialty Start Date End Date Nuria Greene PA-C PCP - General 08/16/08 08/03/11 [address] [place] [address] documented as of this encounter
--- OUTSIDE RECORDS SUMMARY | 2022-03-19 14:36 | XMS_ITS | Encounter Summary ---
:2000 Author Organization [facility] Address [address] [place] [address] Care Team Providers Name Role Phone Nuria Greene PA-C Primary Care Provider [phone] Encounter Details Date Type Department Care Team Description 04/08/2002 Office Visit [facility] Vaishali Carrillo MD [address] [place] [address] [place] [address] [place] [address] 563 03 Social History Tobacco Use Types Packs/Day Years Used Date Smoking Tobacco: Never Assessed Sex Assigned at Date Recorded Not on file documented as of this encounter Progress Notes Vaishali Carrillo - 04/08/2002 12:00 AM CST PEDIATRICS MYRANDA BRANDT : Date of Exam: 04/08/2002 MR# [id number] S: Myranda is here for follow-up visit. She initially planned to get the flu vaccine. However, she continues to have some problems with coughing. She was last seen by me on March 28, and at that time we put her on amoxicillin for the sinusitis. Recommended she stay on the cromolyn and albuterol twicea day. She did not get this morning's nebs. O: On today's examination, her weight is 24 pounds. Temperature is 97.5. She is alert, active and inno acute distress with no abnormal movements. She is doing some mouth breathing. Both tympanic membranes look normal. Oropharynx has excellent mucosal hydration. She has prolonged expiratory phase. A: Wheezing associated respiratory illness, stable but not resolving. At risk for exacerbation with flu vaccine. P: 1. Albuterol 0.5 in 2 cc normal saline x 1. 2. O2 sats before and after. 3. Start Pediapred 7.5 mg p.o. b.i.d. for seven days and then every day for seven days and every other day for seven days and then discontinue. 4. See me on Thursday if there is no improvement over the weekend. Otherwise, I would like to see mercedes during the first week of April. Vaishali Carrillo MD BB/kk documented in this encounter Plan of Treatment Not on filedocumented as of this encounter Visit Diagnoses Not on filedocumented in this encounter Care Teams Commercial Intern Relationship Specialty Start Date End Date Nuria Greene PA-C PCP - General 08/16/08 08/03/11 [address] [facility] [address] documented as of this encounter
--- OUTSIDE RECORDS SUMMARY | 2022-03-19 14:36 | XMS_ITS | Encounter Summary ---
:2000 Author Organization [facility] Address [address] [place] [address] Care Team Providers Name Role Phone Unassigned, Provider Primary Care Provider Unavailable Reason for Visit Reason Comments Medication Request EYE DISCHARGE Encounter Details Date Type Department Care Team Description 03/20/2002 Telephone Careline Claudia Cohen, Medication Request; [address] Carmen Ahmadi RN EYE DISCHARGE [place], [place] [address] [facility] [phone] [place], [place] [address] Social History Tobacco Use Types Packs/Day Years Used Date Smoking Tobacco: Never Assessed Sex Assigned at Date Recorded Not on file documented as of this encounter Nursing Notes 03/20/2002 11:59 PM RUBBER TIRE AND TUBES SUPERVISOR >> CARMEN COHEN Sun Mar 20, 2002 10:27 AM >> COMPLETED ON [place] Mar 20, 2002 10:44 AM >> CALL RECEIVED. Contact: eric nunez [phone] TRIAGE REFERENCE: EYE INFLAMMATION - PEDS CNG (c) 2000 CONCERN: mom feels pt has pinkeye STAT SYMPTOMS: none per guideline. ASSESSMENT: sx noted today. right eye affected only eyes are bloodshot: YES; discharge: yellow; eyes burn or itch: NO; eye pain & amount: NO, eye lid swelling & amount: NO; fever: NO; photophobia: NO; uses contact lens: NO; other symptoms: YES: cold sx. albuterol nebs 2 times per day x 2 weeks- for cough. sx have been progressively improving. denies wh eezing or ssx resp distress. PMH: nebs with respiratory illness CURRENT MEDICATIONS: YES: albuterol neb. MEDICATION ALLERGIES: NO. wt is 25 lbs HOME TREATMENT: discussed per guideline PLAN: mom requests RX over the phone for what she feels is pinkeye. declined eval today as it wouldbe ER as clinic is closed. 10:[address] jen waggoner. 10:[address] waggoner returned page and VO= ilotycin opthalmic ointment. sig: apply 3 times a day to affected eye for 7-10 days. if worse, pt s alonauld be seen at clinic. 10:36 AM cb to mom and relayed VO per dr. waggoner. advised to f/u with clinic thursday re the nebbing x 2 weeks for cold sx. RX per dr. waggoner called to [facility] @ @ 10:42 AM per moms request. documented in this encounter Plan of Treatment Not on filedocumented as of this encounter Visit Diagnoses Not on filedocumented in this encounter Care Teams Inlayer Relationship Specialty Start Date End Date Unassigned, Provider PCP - General 00 08/15/[address] [place] [address] documented as of this encounter
--- OUTSIDE RECORDS SUMMARY | 2022-03-19 14:36 | XMS_ITS | Encounter Summary ---
:2000 [facility] Address [address] [place] [address] Care Team Providers Name Role Phone Nuria Greene PA-C Primary Care Provider [phone] Encounter Details Date Type Department Care Team Description 03/24/2002 Office Visit [facility] Vaishali Carrillo MD [address] [place] [address] [place] [address] [place] [address] 563 03 Social History Tobacco Use Types Packs/Day Years Used Date Smoking Tobacco: Never Assessed Sex Assigned at Date Recorded Not on file documented as of this encounter Progress Notes Vaishali Carrillo - 03/24/2002 12:00 AM CST PEDIATRICS MYRANDA BRANDT : Date of Exam: 03/24/2002 MR# [id number] S: Myranda is here for evaluation of eye drainage. They had called five days ago and started erythromycin ointment and have not seen any improvement at all. She also has a runny nose. O: Weight is 24-1/2 pounds, temperature 97.4 degrees. She is alert, active and in no acute distress with no abnormal movements. She has a congested-sounding cough. Left tympanic membrane is full and thick with decreased mobility. Rhinorrhea is present, and eyes are injected. A: 1. Left otitis media. 2. Respiratory, stable. P: We will start her on amoxicillin 250 mg p.o. t.i.d. for 20 days, and I would like to see her backin one to two weeks for a recheck. Vaishali Carrillo MD BB/kh documented in this encounter Plan of Treatment Not on filedocumented as of this encounter Visit Diagnoses Not on filedocumented in this encounter Care Teams Grade Checker Relationship Specialty Start Date End Date Nuria Greene PA-C PCP - General 08/16/08 08/03/11 [address] [facility] [place] [address] documented as of this encounter
--- OUTSIDE RECORDS SUMMARY | 2022-03-19 14:36 | XMS_ITS | Encounter Summary ---
:2000 Author Organization [facility] Address [address] [place] [address] Care Team Providers Name Role Phone Yari Mehta APRN, CNP Primary Care Provider [phone] Encounter Details Date Type Department Care Team Description 04/24/2003 Orders Only [facility] Vaishali Hartman MD [address] [place] [address] [place] [address]45 [address], [place] 563 03 Social History Tobacco Use Types Packs/Day Years Used Date Smoking Tobacco: Never Assessed Sex Assigned at Date Recorded Not on file documented as of this encounter Plan of Treatment Not on filedocumented as of this encounter Visit Diagnoses Not on filedocumented in this encounter Care Teams Infusion Nurse Relationship Specialty Start Date End Date Yari Mehta APRN, QUILLER OPERATOR PCP - General Family Practice 08/04/11 09/12/13 [address] [place] [address] documented as of this encounter
--- OUTSIDE RECORDS SUMMARY | 2022-03-19 14:36 | XMS_ITS | Encounter Summary ---
:2000 [facility] Address [address] [place] [address] Care Team Providers Name Role Phone Nuria Greene PA-C Primary Care Provider [phone] Encounter Details Date Type Department Care Team Description 04/22/2002 Office Visit [facility] Vaishali Carrillo MD [address] [place] [address] [place] [address] [place] [address] 563 03 Social History Tobacco Use Types Packs/Day Years Used Date Smoking Tobacco: Never Assessed Sex Assigned at Date Recorded Not on file documented as of this encounter Progress Notes Vaisahli Carrillo - 04/22/2002 12:00 AM CST Provider: VAISHALI CARRILLO MD OFFICE VISIT-PEDIATRICS MYRANDA BRANDT : 2000 Date of Exam: 04/22/2002 MR#: [id number] S: Myranda is here for follow-up of WARI and for a second flu vaccine. She is currently only on weaning medication with the prednisone. She has been off all nebulizations. O: Her weight today is 22 lb. Temperature is 97. She is alert, active, in no acute distress. Both TMs look normal. Oropharynx is normal. Chest is clear to auscultation. Heart rate is regular with no murmurs or gallops. A: Resolved WARI. P: Flu vaccine and follow-up at the end of July for 2-year well child visit. Vaishali Carrillo M.D., F.A.A.P. MILAGROS/conrad documented in this encounter Plan of Treatment Not on filedocumented as of this encounter Visit Diagnoses Not on filedocumented in this encounter Care Teams Sawmill Worker Relationship Specialty Start Date End Date Nuria Greene PA-C PCP - General 08/16/08 08/03/11 [address] [place] [address] documented as of this encounter
--- OUTSIDE RECORDS SUMMARY | 2022-03-19 14:36 | XMS_ITS | Encounter Summary ---
:2000 Author [facility] Address [address] [place] [address] Care Team Providers Name Role Phone Nuria Greene PA-C Primary Care Provider [phone] Encounter Details Date Type Department Care Team Description 06/18/2001 Office Visit [facility] Vaishali Carrillo MD [address] [place] [address] [place] [address] [place] [address] 563 03 Social History Tobacco Use Types Packs/Day Years Used Date Smoking Tobacco: Never Assessed Sex Assigned at Date Recorded Not on file documented as of this encounter Progress Notes Vaishali Carrillo - 06/18/2001 12:00 AM CST PEDIATRICS MYRANDA BRANDT : Date of Exam: 06/18/2001 Date Transcribed: 06/22/2001 MR# [id number] S: Myranda was in for her 10-month visit. Please see the rest of the written notes. She did receive Synagis 100 mg today and is scheduled for one more in July. Mom has noticed evidence of a mole forming on her toe. It apparently changed in color. At first, she was thinking that perhaps it was secondary to some trauma. I would like to see her back in one month to re-evaluate that area and determine whether or not plastic surgery would be an appropriate intervention. Vaishali Carrillo MD BB/lma documented in this encounter Plan of Treatment Not on filedocumented as of this encounter Visit Diagnoses Not on filedocumented in this encounter Care Teams Provisioning Analyst Relationship Specialty Start Date End Date Nuria Greene PA-C PCP - General 08/16/08 08/03/11 [address] [place] [address] documented as of this encounter
--- OUTSIDE RECORDS SUMMARY | 2022-03-19 14:36 | XMS_ITS | Encounter Summary ---
:2000 Author Organization [facility] Address [address] [place] [address] Care Team Providers Name Role Phone Nuria Greene PA-C Primary Care Provider [phone] Encounter Details Date Type Department Care Team Description 2001 Office Visit [facility] Vaishali Carrillo MD [address] [place] [address] [place] [address]45 [address], [place] [address]63 03 Social History Tobacco Use Types Packs/Day Years Used Date Smoking Tobacco: Never Assessed Sex Assigned at Date Recorded Not on file documented as of this encounter Progress Notes Vaishali Carrillo - 2001 12:00 AM CDT PEDIATRICS MYRANDA BRANDT : Date of Exam: 2001 Date Transcribed: 08/24/2001 MR# [id number] S: Myranda is here for a follow-up of weight check. She has shown excellent weight gain. Diarrhea hasresolved and she is tolerating her oral medications well. A: Resolved gastroenteritis. P: Please see well-child check written notes. Vaishali Carrillo MD BB/paf documented in this encounter Plan of Treatment Not on filedocumented as of this encounter Visit Diagnoses Not on filedocumented in this encounter Care Teams Cable Tv Installer Relationship Specialty Start Date End Date Nuria Greene PA-C PCP - General 08/16/08 08/03/11 [address] [place] [address] documented as of this encounter
--- OUTSIDE RECORDS SUMMARY | 2022-03-19 14:36 | XMS_ITS | Encounter Summary ---
:2000 Author [facility] Address [address] [place] [address] Care Team Providers Name Role Phone Nuria Greene PA-C Primary Care Provider [phone] Encounter Details Date Type Department Care Team Description 06/23/2002 Office Visit [facility] Vaishali Carrillo MD [address] [place] [address] [place] [address] [place] [address] 03 Social History Tobacco Use Types Packs/Day Years Used Date Smoking Tobacco: Never Assessed Sex Assigned at Date Recorded Not on file documented as of this encounter Progress Notes Vaishali Carrillo - 06/23/2002 12:00 AM CST Provider: VAISHALI CARRILLO MD OFFICE VISIT-PEDIATRICS MYRANDA BRANDT : 2000 Date of Exam: 06/23/2002 S: Myranda is here today accompanied by her dad. She has had some problems with eye drainage recentlybut has not had any fevers. Has had a few respiratory symptoms. O: Her weight is 27 pounds. Temperature 96.6. She is alert, active, and in no acute distress with noabnormal movements. Right TM is full, thick with decreased mobility. Both eyes are mattered. Mattering present but no swelling noted in the eyelids nor erythema nor rash present. Chest is clear to auscultation. A: 1. Right otitis media. 2. Conjunctivitis. P: Amoxicillin 250 mg p.o. t.i.d. x 10 days. Follow-up on a p.r.n basis. Vaishali Carrillo M.D. WILL/chiquita documented in this encounter Plan of Treatment Not on filedocumented as of this encounter Visit Diagnoses Not on filedocumented in this encounter Care Teams Mailroom Associate Relationship Specialty Start Date End Date Nuria Greene PA-C PCP - General 08/16/08 08/03/[address] [place] [address] [place] [address] documented as of this encounter
--- OUTSIDE RECORDS SUMMARY | 2022-03-19 14:36 | XMS_ITS | Encounter Summary ---
:2000 [facility] Address [address] [place] [address] Care Team Providers Name Role Phone Nuria Greene PA-C Primary Care Provider [phone] Encounter Details Date Type Department Care Team Description 03/28/2002 Office Visit [facility] Vaishali Carrillo MD [address] [place] [address] [place] [address] [place] [address] 03 Social History Tobacco Use Types Packs/Day Years Used Date Smoking Tobacco: Never Assessed Sex Assigned at Date Recorded Not on file documented as of this encounter Progress Notes Vaishali Carrillo - 03/28/2002 12:00 AM CST PEDIATRICS MYRANDA BRANDT : Date of Exam: 03/28/2002 MR# [id number] S: Myranda is here for a follow-up visit. She had been seen a few days ago and at that time, she had conjunctival injections. She needs an okay to be placed in the well-care center in the clinic. O: On examination today, her weight is 26 pounds. Her temperature is 97 degrees. She is alert, active and in no acute distress. The right and left tympanic membranes look normal. She does have congested sounding breathing. Mother states that she is having some problems with coughing. Lungs, however, are clear to auscultation. A: 1. Follow up of sinusitis. 2. The bacterial conjunctivitis has resolved. P: 1. She is okay to return to well child area. 2. She is to follow up on a p.r.n. basis. Vaishali Carrillo MD BB/el documented in this encounter Plan of Treatment Not on filedocumented as of this encounter Visit Diagnoses Not on filedocumented in this encounter Care Teams Risk Compliance Analyst Relationship Specialty Start Date End Date Nuria Greene PA-C PCP - General 08/16/08 08/03/11 [address] [place] [address] documented as of this encounter
--- OUTSIDE RECORDS SUMMARY | 2022-03-19 14:36 | XMS_ITS | Encounter Summary ---
:2000 Author Organization [facility] Address [address] [place] [address] Care Team Providers Name Role Phone Nuria Greene PA-C Primary Care Provider [phone] Encounter Details Date Type Department Care Team Description 10/05/2001 Office Visit [facility] leenaSri Barron, [address] [facility] [place] [address] [address] [facility] [address] [phone] [place], [place] [id number] (Wo rk) Social History Tobacco Use Types Packs/Day Years Used Date Smoking Tobacco: Never Assessed Sex Assigned at Date Recorded Not on file documented as of this encounter Progress Notes Sri Montalvo PA-C - 10/05/2001 12:00 AM CDT Provider: SRI MNOTALVO PA-C OFFICE VISIT-[facility] MYRANDA BRANDT : 2000 Date of Exam: 10/05/2001 Date Transcribed: 10/06/2001 MR#: [id number] CC: Sunburn. S: Myranda presents to the clinic today accompanied by her parents for evaluation of sunburn. Apparently they were out watching a parade. Mother did not think it was that warm out but subsequently noticed that Myranda got sunburned on her head. She apparently had a long sleeve shirt and pants on, therefore only suffered sunburn to the face and top of her head. She does have fair complexion, blonde hair. Did not use any sunscreen. They have been subsequently using aloe vera on her face. She has developed some blisters, that are resolving. O: 37-riqst-pwj female, nontoxic appearing. Weight of 21 pounds. She has some resolving blisters in the infraorbital areas, symmetrical in appearance. Resolving bulla to the scalp. There is no drop type distribution to this. Appears consistent with history given. Remainder of skin exam unremarkable wit hout bruises or deformities. Good parent/child interaction. A: Sunburn, partial thickness, second degree. P: Motrin for comfort. Continue with aloe vera. Keep her nails cut short. Much of the time was spenteducating parents on sun protection measures such as using sun screen, even a bonnet or hat, avoiding sun at peak hours, and that you can even burn with it being overcast outdoors. To be seen back for any signs/symptoms of secondary infection. Sri Montalvo P.A.-C. PL/ldh documented in this encounter Plan of Treatment Not on filedocumented as of this encounter Visit Diagnoses Not on filedocumented in this encounter Care Teams Assistant Service Manager Relationship Specialty Start Date End Date Nuria Greene PA-C PCP - General 08/16/08 08/03/11 [address] [place] [address] documented as of this encounter
--- OUTSIDE RECORDS SUMMARY | 2022-03-19 14:36 | XMS_ITS | Encounter Summary ---
:2000 Author [facility] Address [address] [place] [address] Care Team Providers Name Role Phone Nuria Greene PA-C Primary Care Provider [phone] Encounter Details Date Type Department Care Team Description 08/02/2001 Office Visit [facility] Vaishali Carrillo MD [address] [place] [address] [place] [address] [place] [address]63 03 Social History Tobacco Use Types Packs/Day Years Used Date Smoking Tobacco: Never Assessed Sex Assigned at Date Recorded Not on file documented as of this encounter Progress Notes Vaishali Carrillo - 08/02/2001 12:00 AM CDT PEDIATRICS MYRANDA BRANDT : Date of Exam: 08/02/2001 Date Transcribed: 08/09/2001 MR# [id number] S: Myranda is here for Synagis injection. She has had no intercurrent illness. O: Her weight is 19 pounds 14 ounces. T 96.8. She is alert, active and in no acute distress. Good mucosa and hydration and nontoxic looking. A: Okay for Synagis. P: Synagis 100 mg, and we will see her back for next well-child visit which will be at the age of 12months. Vaishali Carrillo MD BB/musa documented in this encounter Plan of Treatment Not on filedocumented as of this encounter Visit Diagnoses Not on filedocumented in this encounter Care Teams Spud Driller Relationship Specialty Start Date End Date Nuria Greene PA-C PCP - General 08/16/08 08/03/11 [address] [place] [address] documented as of this encounter
--- OUTSIDE RECORDS SUMMARY | 2022-03-19 14:36 | XMS_ITS | Encounter Summary ---
:2000 Author Organization [facility] Address [address] [place] [address] Care Team Providers Name Role Phone Unassigned, Provider Primary Care Provider Unavailable Reason for Visit Reason Comments VOMITING Encounter Details Date Type Department Care Team Description 04/03/2002 Telephone Careline Virgie Gibson RN VOMITING [address] [place], [place] [address] [phone] [place] [address] Social History Tobacco Use Types Packs/Day Years Used Date Smoking Tobacco: Never Assessed Sex Assigned at Date Recorded Not on file documented as of this encounter Nursing Notes 04/03/2002 11:59 PM HOSPITALITY TEAM MEMBER >> VIRGIE Briseno Apr 03, 2002 1:08 AM >> CALL RECEIVED. Contact: 19 month old,female vomited x 3 in last 3 hrs no fever sl nasal yaritza no cough no wheezing no diarrhea awake alert mother will npo now for 2 hrs elevate head of bed recall prn if sx do not resolve or increase sips of clear liq if vomiting stops and is awake recall prn if sx do not resolve or increase call pmd in am if sx do not resolve documented in this encounter Plan of Treatment Not on filedocumented as of this encounter Visit Diagnoses Not on filedocumented in this encounter Care Teams Net Mvc Developer Relationship Specialty Start Date End Date Unassigned, Provider PCP - General 00 08/15/08 [address] [place] [address] documented as of this encounter
--- OUTSIDE RECORDS SUMMARY | 2022-03-19 14:36 | XMS_ITS | Encounter Summary ---
:2000 [facility] Organization [facility] Address [address] [place] [address] Care Team Providers Name Role Phone Nuria Greene PA-C Primary Care Provider Encounter Details Date Type Department Care Team Description 08/12/2001 Office Visit [facility] Vaishali Carrillo MD [address] [place] [address] [place] [address], [place] [address] Social History Tobacco Use Types Packs/Day Years Used Date Smoking Tobacco: Never Assessed Sex Assigned at Date Recorded Not on file documented as of this encounter Progress Notes Vaishali Carrillo - 08/12/2001 12:00 AM CDT MYRANDA BRANDT : 2000 Date of Exam: 08/12/2001 Date Transcribed: 000 MR#: [id number] S: Myranda is here for evaluation of diarrhea. Approximately four days ago she began to have problemswith diarrhea and four days ago also had a fever and was seen in the ER. She has only been intermittently irritably but diarrhea has persisted. There hasn't been any specific change in diet. O: Wt. 18 lb. 12 oz., which is down 1 lb. from last clinic visit, which was 19 lb. 14 oz. Temp. 97.1. She is alert, active, in NAD with no abnl. movements. Both TMs look nl. Oropharynx looks nl. Chest is CTA. Abd. soft and nontender. No evidence of HSM. Good skin turgor. A: Diarrhea, 5% dehydration. P: I'd like to see her back on . for a wt. check and also darrel. for weight check between 2 and 4 p.m. If she has regained her wt. next Tu. no need for further f/u. If her wt. continues to be closeto the 10th percentile, may have to hospitalized for hydration purposes. Continue reg. diet. Vaishali Carrillo M.D. BAB/bmt documented in this encounter Plan of Treatment Not on filedocumented as of this encounter Visit Diagnoses Not on filedocumented in this encounter Care Teams Conditioning Yard Supervisor Relationship Specialty Start Date End Date Nuria Greene PA-C PCP - General 08/16/08 08/03/11 [address] [place] [address] documented as of this encounter
--- OUTSIDE RECORDS SUMMARY | 2022-03-19 14:36 | XMS_ITS | Encounter Summary ---
:2000 [facility] Address [address] [place] [address] Care Team Providers Name Role Phone Nuria Greene PA-C Primary Care Provider [phone] Encounter Details Date Type Department Care Team Description 04/22/2001 Office Visit [facility] Vaishali Carrillo MD [address] [place] [address] [place] [address] [place] [address] 03 Social History Tobacco Use Types Packs/Day Years Used Date Smoking Tobacco: Never Assessed Sex Assigned at Date Recorded Not on file documented as of this encounter Progress Notes Vaishali Carrillo - 04/22/2001 12:00 AM CST PEDIATRICS MYRANDA BRANDT : Date of Exam: 04/22/2001 Date Transcribed: 04/23/2001 MR# [id number] S: Myranda is here for a follow-up for wheezing associated respiratory illness. She is currently on every four hour nebulizations and tolerating them well. She has had an improvement of her cough over the last few days and I reviewed the results of the RSV culture and that was showing no evidence of RSV. O: On examination today, her weight is 16 pounds 9 ounces. Temperature 97.1. She is alert, active and in no acute distress with no abnormal movements. Both tympanic membranes look normal. Chest is clear to auscultation and this is three hours after the nebulization. She has good mucosal hydration. Nontoxic looking. Excellent capillary refill. A: Resolving wheezing associated respiratory illness. P: Plan, at this time, will be to discontinue antibiotics, discontinue Pediapred and place on twice a day nebulization. I would like to see her back in two weeks for her next visit. Vaishali Carrillo MD BB/tlm documented in this encounter Plan of Treatment Not on filedocumented as of this encounter Visit Diagnoses Not on filedocumented in this encounter Care Teams Film Color Tester Relationship Specialty Start Date End Date Nuria Greene PA-C PCP - General 08/16/08 08/03/11 [address] [place] [address] documented as of this encounter
--- OUTSIDE RECORDS SUMMARY | 2022-03-19 14:36 | XMS_ITS | Encounter Summary ---
:2000 [facility] Address [address] [place] [address] Care Team Providers Name Role Phone Nuria Greene PA-C Primary Care Provider [phone] Encounter Details Date Type Department Care Team Description 06/02/[address] [facility] Vaishali Carrillo MD [address] [place] [address] [place] [address] [place] [address] 03 Social History Tobacco Use Types Packs/Day Years Used Date Smoking Tobacco: Never Assessed Sex Assigned at Date Recorded Not on file documented as of this encounter Progress Notes Vaishali Carrillo - 06/02/2002 12:00 AM CST PEDIATRICS MYRANDA BRANDT : Date of Exam: 06/02/2002 MR# [id number] S: She is here for follow-up for possible sinusitis. She has actually been off of all of her nebs for two days. She has had no cough or wheeze at all. O: Weight 26 pounds and temperature 96.9. She is alert and active in no acute distress. No abnormal movements. Tympanic membranes look normal. Chest is clear to auscultation. The heart rate is regular with no murmurs or gallops. A: Resolved wheezing. P: Finish antibiotic and then follow up in one month to reevaluate wheezing and on a p.r.n. basis. Vaishali Carrillo MD BB/clr documented in this encounter Plan of Treatment Not on filedocumented as of this encounter Visit Diagnoses Not on filedocumented in this encounter Care Teams Data Assistant Relationship Specialty Start Date End Date Nuria Greene PA-C PCP - General 08/16/08 08/03/11 [address] [place] [address] documented as of this encounter
--- OUTSIDE RECORDS SUMMARY | 2022-03-19 14:36 | XMS_ITS | Encounter Summary ---
:2000 Author Organization [facility] Address [address] [place] [address] Care Team Providers Name Role Phone Nuria Greene PA-C Primary Care Provider [phone] Encounter Details Date Type Department Care Team Description 03/07/2002 Office Visit [facility] Vaishali Carrillo MD [address] [place] [address] [place] [address] [place] [address] 03 Social History Tobacco Use Types Packs/Day Years Used Date Smoking Tobacco: Never Assessed Sex Assigned at Date Recorded Not on file documented as of this encounter Progress Notes Vaishali Carrillo - 03/07/2002 12:00 AM CST PEDIATRICS MYRANDA BRANDT : Date of Exam: 03/07/2002 MR# [id number] S: Myranda is here for an evaluation of upper respiratory congestion that has been going on for the last few days. It started approximately Thursday. She has otherwise been in excellent health, although her appetite has been down a little bit. She has not had a fever. She has had no vomiting and no diarrhea. She has had a runny nose over the last two to three days. She has been on albuterol in the past but is not on it at this time. Her parents do have a neb machine at home. O: Her weight is 25 pounds. Temperature is 97.0 degrees. Her O2 saturations are 97%. She was given .5 mg of albuterol and 2 cc of normal saline x 1. After that, I noticed diffuse wheezing in the anterior and posterior chest wall. She also has copious rhinorrhea. A: 1. Sinusitis. 2. Wheezing associated with a respiratory illness. P: Pediapred 4 mg p.o. t.i.d. for five days, then b.i.d. for five days, then q.d. for five days and then discontinue. Albuterol .5 mg and 2 cc of normal saline every six hours. Intal 20 mg twice a day.Zithromax 100 mg today and 50 mg daily on days two through five. I would like to see her back in a few days if she is not significantly better and for sure within the next week. Vaishali Carrillo MD BB/clp documented in this encounter Plan of Treatment Not on filedocumented as of this encounter Visit Diagnoses Not on filedocumented in this encounter Care Teams International Accountant Relationship Specialty Start Date End Date Nuria Greene PA-C PCP - General 08/16/08 08/03/11 [address] [place] [address] documented as of this encounter
--- OUTSIDE RECORDS SUMMARY | 2022-03-19 14:37 | XMS_ITS | Encounter Summary ---
:2000 Author Organization [facility] Address [address] [place] [address] Care Team Providers Name Role Phone Unassigned, Provider Primary Care Provider Unavailable Reason for Visit Reason Comments JAUNDICE Encounter Details Date Type Department Care Team Description [address] RN JAUNDICE [address] [place], [place] [address] [phone] [place] [address] Social History Tobacco Use Types Packs/Day Years Used Date Smoking Tobacco: Never Assessed Sex Assigned at Date Recorded Not on file documented as of this encounter Nursing Notes 2000 11:59 PM CDT >> [address] Nidia 2000 10:46 PM >> CALL RECEIVED. Contact: mom adeline [phone] Concern: temperature is 96.8ax. Born premature at 34weeks. Jaundice. Wrap around BIli lights started today at home, mom to call if pts. temperature is less than 97.0. Dad rechecking temperature now and is 97.6 ax.. Pt. has had 8 urine diapers since [place] and mom is not sure but possibly 3 stool diapers. Pt. is receiving breastmilk through bottle. Mom has been feeding every 2-4 hrs , last feeding was 3.5 ounces. Dad able to wake baby now and baby with good cry. Baby appearance is same as when she was seen earlier today. TRIAGE REFERENCE: JAUNDICE - - PEDS CNG (c) 1999 STAT SX JAUNDICE: baby is not difficult to wake up and does not act ill; no fever; jaundice not pres ent during first 48 hrs of life; jaundice does not involve legs. Plan: recommended that mom check babies temperature more frequently than TID as previously instructed for tonight, (Mom had fan on in room and they have shut that off now.) Mom will check temperature during the night. Feedings should be on demand, not going more than 3-3.5hrs in between feedings. COntinue to monitor stool and urine diapers and babies ability to awaken. C/b if symptoms change/worsen/,other questions/concerns. mom states pt. will be seen tomorrow in clinic Mom states understanding and is comfortable with plan. documented in this encounter Plan of Treatment Not on filedocumented as of this encounter Visit Diagnoses Not on filedocumented in this encounter Care Teams Garbage Stoker Relationship Specialty Start Date End Date Unassigned, Provider PCP - General 00 08/15/[address] [place] [address] documented as of this encounter
--- OUTSIDE RECORDS SUMMARY | 2022-03-19 14:37 | XMS_ITS | Encounter Summary ---
:2000 [facility] Address [address] [place] [address] Care Team Providers Name Role Phone Nuria Greene PA-C Primary Care Provider [phone] Encounter Details Date Type Department Care Team Description 2000 Office Visit [facility] Vaishali Carrillo MD [address] [place] [address] [place] [address], [place] [address] Social History Tobacco Use Types Packs/Day Years Used Date Smoking Tobacco: Never Assessed Sex Assigned at Date Recorded Not on file documented as of this encounter Progress Notes Vaishali Carrillo - 2000 12:00 AM CDT MYRANDA BRANDT : 2000 Date of Exam: 2000 Date Transcribed: mm/dd/yyyy MR#: [id number] S: Myranda is here for f/u weight check. She has actually been doing quite well. She is up to 4 oz. of formula q.3-4h. with Enfamil mixed in with Rice cereal. Mom would like to increase it to 5 oz. because she has been tolerating the 4 oz. so well. O: Her weight is 8 lb. 4 oz. Temp. 97.5. She is alert, active in no acute distress with no abnormal movements. Both TMs look normal. Oropharynx is normal. Dad is concerned about her respiratory status.He states that she does have some respiratory distress when she is in a reclining position and on exam positionally unable to get her to the point where she has totally clear breathing through the nares. Abdomen soft and nontender. Reg. heart rate. A: Stable. P: F/u on 00 and will wait to give her vaccines until that time. BB/ska documented in this encounter Plan of Treatment Not on filedocumented as of this encounter Visit Diagnoses Not on filedocumented in this encounter Care Teams Software Packaging Engineer Relationship Specialty Start Date End Date Nuria Greene PA-C PCP - General 08/16/08 08/03/11 [address] [place] [address] documented as of this encounter
--- OUTSIDE RECORDS SUMMARY | 2022-03-19 14:37 | XMS_ITS | Encounter Summary ---
:2000 Author Organization [facility] Address [address] [place] [address] Care Team Providers Name Role Phone Nuria Greene PA-C Primary Care Provider [phone] Encounter Details Date Type Department Care Team Description 2000 Office Visit [facility] Prac leenaEdson Ramirez MD [address] [place] [address] Social History Tobacco Use Types Packs/Day Years Used Date Smoking Tobacco: Never Assessed Sex Assigned at Date Recorded Not on file documented as of this encounter Progress Notes Edson Camarena - 2000 12:00 AM CDT MYRANDA BRANDT : 2000 Date of Exam: 2000 Date Transcribed: orm/heron/yyyy MR#: [id number] S: Myranda is a nearly 4 m/o who comes to clinic accompanied by her parents. She is here today b/c offever today. She has a h/o prematurity at 34 weeks. She required lights for hyperbilirubinemia on two occasions. She is current on her first immunizations. She has otherwise been healthy. Currently sheis feeding on Enfamil with iron and some Rice cereal. Today she was noted to have a temp. of 100 degrees at about 5:30 p.m. She was given some Tylenol andat 6:45 had a temp. of 100.9 axillary. She has not had any other sxs. Her appetite has been excellent, and she has just had 8 oz. of formula. There has been no diarrhea or vomiting. She also has no respiratory sxs. FAMILY MEDICAL HISTORY: Sister has a temp. of 99.3 with vague sxs. O: On her exam, her wt. is 13 lb. 2 oz. Temp. is 98.7. She appears alert and comfortable. Both TMs are nl. The nostrils are clear and air mvmt. seems nl. The pharynx is unremarkable. The neck has no adenopathy or palpable mass. Neck mvmt. appears nl. Heart tones are clear and regular. There is no murmur. Lungs are clear with nl. air mvmt. The abd. is soft. Bowel sounds are normally active. There are no palpable masses or tenderness. The extremities have no edema. Skin is warm and dry. A white blood count is 16,200 with 52% neutrophils. Hgb is 12.9. Platelets are 552K. A/P: 4 m/o with a fever but no other general sxs. Appetite is excellent. A sister has a viral picture currently. I suggested to parents that we observe at this point. I won't do any other workup at this time but asked that she return to clinic tomorrow to be rechecked by her primary provider. Additional doses of Tylenol can be used if necessary. If there should be signs of her being sicker during thenight, then she should be seen urgently. Edson Camarena M.D. SILVESTRE/sabina documented in this encounter Plan of Treatment Not on filedocumented as of this encounter Visit Diagnoses Not on filedocumented in this encounter Care Teams Food Safety Specialist Relationship Specialty Start Date End Date Nuria Greene PA-C PCP - General 08/16/08 08/03/11 [address] [place] [address] documented as of this encounter
--- OUTSIDE RECORDS SUMMARY | 2022-03-19 14:37 | XMS_ITS | Encounter Summary ---
:2000 Author Organization [facility] Address [address] [place] [address] Care Team Providers Name Role Phone Nuria Greene PA-C Primary Care Provider [phone] Encounter Details Date Type Department Care Team Description 04/16/2001 Office Visit [facility] Vaishali Carrillo MD [address] [place] [address] [place] [address] [place] [address] 03 Social History Tobacco Use Types Packs/Day Years Used Date Smoking Tobacco: Never Assessed Sex Assigned at Date Recorded Not on file documented as of this encounter Progress Notes Vaishali Carrillo - 04/16/2001 12:00 AM CST PEDIATRICS MYRANDA BRANDT : Date of Exam: 04/16/2001 Date Transcribed: 04/21/2001 MR# [id number] S: Myranda is here for evaluation of upper respiratory tract symptoms. She has been all junky over the last three days, and Mom is concerned about the possibility of wheezing. Her other daughter did have a problem with cystic fibrosis and was treated for that with nebulizations, and she is acquaintedwith the treatment pattern and symptoms. O: Myranda's weight today is 16 pounds. Temperature 97.7. She is tired looking, but otherwise nontoxic. Left tympanic membrane is full with decreased mobility. Oropharynx is normal. She has a little bitof nasal drainage. Lungs revealed inspiratory and expiratory rhonchi that clear with albuterol 0.25 and 2 cc of normal saline. A: 1. Upper respiratory illness. 2. Left otitis. P: 1. Amoxicillin 100 mg p.o. t.i.d. for 10 days. 2. Pediapred 2 mg p.o. t.i.d. for 5 days and b.i.d. for 5 days, and q.d. for 5 days, then every other day for 5 days, then discontinue. 3. Albuterol 0.25 at 8:00 a.m., noon, 4:00 p.m., midnight, and then 4:00 a.m. 4. Albuterol 0.25 and Intal at 8:00 a.m. and 8:00 p.m. 5. She is to see me back in the morning for re-evaluation. Vaishali Carrillo MD BB/ms documented in this encounter Plan of Treatment Not on filedocumented as of this encounter Visit Diagnoses Not on filedocumented in this encounter Care Teams Activity Aid Relationship Specialty Start Date End Date Nuria Greene PA-C PCP - General 08/16/08 08/03/11 [address] [place] [address] documented as of this encounter
--- OUTSIDE RECORDS SUMMARY | 2022-03-19 14:37 | XMS_ITS | Encounter Summary ---
:2000 [facility] Address [address] [place] [address] Care Team Providers Name Role Phone Nuria Greene PA-C Primary Care Provider [phone] Encounter Details Date Type Department Care Team Description [address] [facility] Vaishali Hartman MD [address] [place] [address] [place] [address] [place] [address] 03 Social History Tobacco Use Types Packs/Day Years Used Date Smoking Tobacco: Never Assessed Sex Assigned at Date Recorded Not on file documented as of this encounter Progress Notes Vaishali Carrillo - 2000 12:00 AM CDT FAMILY PRACTICE MYRANDA BRANDT : Date of Exam: 2000 Date Transcribed: 2000 MR# [id number] S: Myranda is here for evaluation of fever. She had a temperature last night and was seen in urgent care. A white cell count was done, and it was within normal limits. Her platelets were 552,000. Since that period of time, she has developed a rash. O: On examination, weight is 15 pounds, 4 ounces, temperature 98.7. She is alert, active, in no acute distress. She has had no fever since 2:00 a.m. last night. Both tympanic membranes look normal. Oropharynx is normal. The chest is clear to auscultation. She has a fine pinpoint rash over her head andshoulders. A/P: IMPRESSION: Roseola but cannot rule out the possibility of Kawasaki's. White cell count was 13,000. Platelets are 433,000 which showed much improvement. I would like to see her back on at3:30 p.m. for follow-up. Vaishali Carrillo MD BB/diana documented in this encounter Plan of Treatment Not on filedocumented as of this encounter Visit Diagnoses Not on filedocumented in this encounter Care Teams Coo Relationship Specialty Start Date End Date Nuria Greene PA-C PCP - General 08/16/08 08/03/[address] [facility] [address] documented as of this encounter
--- OUTSIDE RECORDS SUMMARY | 2022-03-19 14:37 | XMS_ITS | Encounter Summary ---
:2000 Author Organization [facility] Address [address] [place] [address] Care Team Providers Name Role Phone Nuria Greene PA-C Primary Care Provider [phone] Encounter Details Date Type Department Care Team Description 2000 Office Visit [facility] Vaishali Hartman MD [address] [place] [address] [place] [address] [place] [address] 03 Social History Tobacco Use Types Packs/Day Years Used Date Smoking Tobacco: Never Assessed Sex Assigned at Date Recorded Not on file documented as of this encounter Progress Notes Vaishali Carrillo - 2000 12:00 AM CDT FAMILY PRACTICE MYRANDA BRANDT : Date of Exam: 2000 Date Transcribed: 2000 MR# [id number] S: Myranda is here for follow-up for problems with fever and rash. Since the last clinic visit, rash almost resolved leaving the clinic and since then she has been eating continuously. O: Her weight today is 13 pounds 15 ounces which is up 11 ounces from the last clinic visit. Temperature is 98 degrees. She is alert, active, in no acute distress. Both tympanic membranes look normal. Oropharynx is normal. Chest is clear to auscultation. Rash resolving. A: Resolved roseola. P: At this point in time fitting exam. Vaishali Carrillo M.D. WILL/prerna documented in this encounter Plan of Treatment Not on filedocumented as of this encounter Visit Diagnoses Not on filedocumented in this encounter Care Teams Trial Manager Relationship Specialty Start Date End Date Nuria Greene PA-C PCP - General 08/16/08 08/03/11 [address] [place] [address] documented as of this encounter
--- OUTSIDE RECORDS SUMMARY | 2022-03-19 14:37 | XMS_ITS | Encounter Summary ---
:2000 [facility] Address [address] [place] [address] Care Team Providers Name Role Phone Nuria Greene PA-C Primary Care Provider [phone] Encounter Details Date Type Department Care Team Description 02/12/2001 Office Visit [facility] Vaishali Carrillo MD [address] [place] [address] [place] [address] [address], [place] [address] Social History Tobacco Use Types Packs/Day Years Used Date Smoking Tobacco: Never Assessed Sex Assigned at Date Recorded Not on file documented as of this encounter Progress Notes Vaishali Carrillo - 02/12/2001 12:00 AM CDT MYRANDA BRANDT : 2000 Date of Exam: 02/12/2001 Date Transcribed: rom/heron/yyyy MR#: [id number] S: Myranda is here for her 6-month visit. She is UTD on her vaccines and mother wonders about the appropriateness of introducing different types of food and that was reviewed during this clinic visit. Vaishali Carrillo M.D. BAB/bmt documented in this encounter Plan of Treatment Not on filedocumented as of this encounter Visit Diagnoses Not on filedocumented in this encounter Care Teams Stoner Hand Relationship Specialty Start Date End Date Nuria Greene PA-C PCP - General 08/16/08 08/03/[address] [place] [address] documented as of this encounter
--- OUTSIDE RECORDS SUMMARY | 2022-03-19 14:37 | XMS_ITS | Encounter Summary ---
:2000 Author Organization [facility] Address [address] [place] [address] Care Team Providers Name Role Phone Nuria Greene PA-C Primary Care Provider [phone] Encounter Details Date Type Department Care Team Description 03/02/2001 Office Visit [facility] Family [facility] Vaishali Hartman MD [address] [place] [address] [place] [address] [place] [address] Social History Tobacco Use Types Packs/Day Years Used Date Smoking Tobacco: Never Assessed Sex Assigned at Date Recorded Not on file documented as of this encounter Progress Notes Vaishali Carrillo - 03/02/2001 12:00 AM CST FAMILY PRACTICE MYRANDA BRANDT : Date of Exam: 03/02/2001 Date Transcribed: 03/05/2001 MR# [id number] S: Myranda is here for evaluation for Synergist. She has been doing quite well with no complications at all. O: Her weight today is 15 pounds 6 ounces. Temperature is 97.6 degrees. Her weight is basically 7.1 kg. She is alert, active, in no acute distress with no abnormal movements. Both TMs look normal. She has excellent mucosa hydration. A: Preemie who is around six months old at the onset of RSV season, okay to start Synergist. Vaishali Carrillo MD BB/lrk documented in this encounter Plan of Treatment Not on filedocumented as of this encounter Visit Diagnoses Not on filedocumented in this encounter Care Teams Build Master Relationship Specialty Start Date End Date Nuria Greene PA-C PCP - General 08/16/08 08/03/11 [address] [place] [address] documented as of this encounter
--- OUTSIDE RECORDS SUMMARY | 2022-03-19 14:37 | XMS_ITS | Encounter Summary ---
:2000 [facility] Address [address] [place] [address] Care Team Providers Name Role Phone Nuria Greene PA-C Primary Care Provider [phone] Encounter Details Date Type Department Care Team Description 04/01/2001 Office Visit [facility] Vaishail Carrillo MD [address] [place] [address] [place] [address] [place], [place] [address] Social History Tobacco Use Types Packs/Day Years Used Date Smoking Tobacco: Never Assessed Sex Assigned at Date Recorded Not on file documented as of this encounter Progress Notes Vaishali Carrillo - 04/01/2001 12:00 AM CST PEDIATRICS MYRANDA BRANDT : Date of Exam: 04/01/2001 Date Transcribed: 04/06/2001 MR# [id number] S: Myranda is here today for her next Synergist injection. There have been no concerns for her since her last visit. She is 7 months old and eating a varied diet with good exposure to textures. O: Her weight today is 16 pounds. Temperature is 98.7. She is alert, active and in no acute distress. Both tympanic membranes look normal. She has normotensive anterior fontanelle. Chest is clear to auscultation. Abdomen is soft and nontender. A: Premature 7-month-old infant okay for Synergist. P: Return in one month. Synergist 100 mg IM x 1 and her third Prevnar vaccine. Vaishali Carrillo MD BB/am documented in this encounter Plan of Treatment Not on filedocumented as of this encounter Visit Diagnoses Not on filedocumented in this encounter Care Teams Casualty Insurance Claim Adjuster Relationship Specialty Start Date End Date Nuria Greene PA-C PCP - General 08/16/08 08/03/11 [address] [facility] [place] [address] documented as of this encounter
--- OUTSIDE RECORDS SUMMARY | 2022-03-19 14:37 | XMS_ITS | Encounter Summary ---
:2000 Author Organization [facility] Address [address] [place] [address] Care Team Providers Name Role Phone Nuria Greene PA-C Primary Care Provider [phone] Encounter Details Date Type Department Care Team Description 01/01/2001 Office Visit [facility] Family Prac leena Vaishali Carrillo MD [address] [place] [address] [place] [address] [place] [address] Social History Tobacco Use Types Packs/Day Years Used Date Smoking Tobacco: Never Assessed Sex Assigned at Date Recorded Not on file documented as of this encounter Progress Notes Vaishali Carrillo - 01/01/2001 12:00 AM CDT PEDIATRICS MYRANDA Peoples : Date of Exam: 01/01/2001 Date Transcribed: 01/06/2001 MR# [id number] S: Myranda has a diaper rash. I did prescribe nystatin ointment for her perineum after every diaper change. They will return on a p.r.n. basis. They will also return at six months for the next well-child visit. Mom has used an ointment that she had from work and it seemed to resolve some of the diaper rash problem. This is an addendum to the written notes for a well-child visit. Vaishali Carrillo MD BB/imw documented in this encounter Plan of Treatment Not on filedocumented as of this encounter Visit Diagnoses Not on filedocumented in this encounter Care Teams Customer Relations Advisor Relationship Specialty Start Date End Date Nuria Greene PA-C PCP - General 08/16/08 08/03/11 [address] [place] [address] documented as of this encounter
== END 2022-03-19 14:01 | disposition home or self-care (01) ==
LOC: CT 14:01
PROVIDERS: PCP Nurse Practitioner Family; Visit Provider Otolaryngology
DX: J32.9 Chronic sinusitis, unspecified (principal); J32.0 Chronic maxillary sinusitis
CPT/HCPCS: 70486

== ENCOUNTER 2022-04-18 11:18 | Day surgery (SDC) | payer MEDICAID, SELFPAY ==
[2022-04-18] VITALS (13 sets, daily range): BP systolic 123–141; BP diastolic 61–82; PULSE 75–103; RESP 14–20; TEMP 36.6–36.9; O2SAT 97–100; BMI 33.0
[2022-04-18 12:06] LABS: Ur HCG Qualitative* Negative (Negative)
[2022-04-18] MEDS: OXYMETAZOLINE 0.05% NASAL SPRAY 2 SPRAY NOSTRIL-B (12:07)
[2022-04-18] MEDS: SODIUM CHLORIDE 0.9 % (FLUSH) 10 ML SYRINGE IVF (12:10)
[2022-04-18] MEDS: LACTATED RINGERS 1000 ML 1,000 ML 100 ML IV (12:10)
--- NOTE | 2022-04-18 12:10 | SUR.PREOP ---
Patient presents negative home COVID test.
--- NOTE | 2022-04-18 12:12 | W.ANESCHARGE ---
Anesthesia Charges Start Date/Time Anesthesia Start Date: 04/18/22 Anesthesia Start Time: 12:28 Stop Date/Time Anesthesia Stop Date: 04/18/22 Anesthesia Stop Time: 13:36 Summary Emergency: No
[2022-04-18] MEDS: COCAINE HCL 4 % 4 ML SOLUTION NOSTRIL-B (13:10)
[2022-04-18] MEDS: AYR SALINE NASAL GEL 1 APPLIC NOSTRIL-B (13:10)
[2022-04-18] MEDS: BUPIVACAINE 0.5 %/EPI 1:200K 30 ML INJECTION (13:10)
[2022-04-18] MEDS: MUPIROCIN 1 GM PACKET 1 APPLIC TOPICAL (13:15)
--- NOTE | 2022-04-18 13:23 | W.PM.ENTPROC ---
Procedure Note Date of procedure: 04/18/22 Procedure: Preop diagnosis chronic tonsillitis, adenotonsillar hypertrophy, recurrent and chronic right maxillary sinusitis, nasal septal deviation, nasal obstruction. Postoperative diagnosis same Procedure is adenotonsillectomy, nasal septoplasty, endoscopic right maxillary sinus antrostomy with tissue removal. Note that image guidance was used throughout the procedure with good registration Under general endotracheal anesthesia patient was prepped draped usual fashion. The McIvor mouth gag was inserted the tongue retracted forward. No submucous cleft was noted. The right and left tonsil were removed with needlepoint cautery and Coblation cautery. The nasopharynx was visualized indirectly with a laryngeal mirror and the adenoid pad occluded approximately half of the nasal choana. This was a eliminated by suction cautery. After regarding and gloving attention was turned to the nose. The nose was decongested and injected. Incision was made in the septal mucosa just anterior to the superior left deflection. The mucosa overlying this was elevated incision was made to the cartilage with a [place] dissector mucosa on the opposite side was elevated as well. The deflected portion of septal cartilage and bone was read was cut above and below with the turbinate scissors and then removed. A piece was trimmed and returned to the intraseptal space. With the aid of a 0 degree scope the inferior quarter of the uncinate process was taken down exposing natural ostium to maxillary sinus. This was occluded by polypoid mucosa which was removed and a 9 mm antrostomy was created. Polypoid mucosa was removed from the floor and posterior wall the sinus as well. There was a small amount of inspissated mucus that was also removed by suction. A Merocel pack was trimmed lengthwise and placed in the middle meatus on both sides affectively compressing the septum and and medialized Ng the middle turbinates. The patient tolerated procedure well was extubated in the operating room taken recovery in satisfactory condition. Blood loss during procedure less than 25 mL. There were no complications Surgeon: Dk Sauceda MD
[2022-04-18] MEDS: fentaNYL 100 MCG/2 ML inj 50 MCG IVP ×2 (13:37→13:51)
--- NOTE | 2022-04-18 14:09 | SUR.PHASEI ---
patient met discharge criteria per anesthesia
[2022-04-18] MEDS: OXYCODONE 1 MG/ML ORAL SOLN 5 MG PO (14:20)
--- NOTE | 2022-04-18 14:21 | W.ANESCHARGE ---
Anesthesia Charges Start Date/Time Anesthesia Start Date: 04/18/22 Anesthesia Start Time: 12:28 Stop Date/Time Anesthesia Stop Date: 04/18/22 Anesthesia Stop Time: 13:36 Summary Emergency: No
[2022-04-18] MEDS: IBUPROFEN 100 MG/5 ML SUSP 200 MG PO (14:30)
== END 2022-04-18 15:20 | disposition home or self-care (01) ==
PROVIDERS: PCP Nurse Practitioner Family; Visit Provider Otolaryngology
PROC: (CPT 31231; principal; 2022-04-18 12:45)
PROC: (CPT 42821; 2022-04-18 12:45)
DX: J35.01 Chronic tonsillitis (principal); J34.2 Deviated nasal septum; J35.3 Hypertrophy of tonsils with hypertrophy of adenoids; J32.0 Chronic maxillary sinusitis
CPT/HCPCS: 42821; 30520; 31267; 00160; 00170; 81025; 88304; A9270; J0330; J1100; J2250; J2405; J2704; J3010; J3490; J7120

== ENCOUNTER 2022-08-19 15:57 | Outpatient (CLI) | payer MEDICAID, SELFPAY | END 2022-08-19 15:58 | disposition home or self-care (01) | LOC: NFLDREF 08-21 07:50 | PROVIDERS: PCP Nurse Practitioner Family; Referring Provider Nurse Practitioner Family; Visit Provider Nurse Practitioner Family | DX: F90.9 Attention-deficit hyperactivity disorder, unspecified type (principal); F41.9 Anxiety disorder, unspecified; F32.A Depression, unspecified; R79.89 Other specified abnormal findings of blood chemistry; F41.0 Panic disorder [episodic paroxysmal anxiety]; F12.90 Cannabis use, unspecified, uncomplicated; Z62.810 Personal history of physical and sexual abuse in childhood; Z79.899 Other long term (current) drug therapy | CPT/HCPCS: 82306; 84443 ==